=== PATIENT | male | born 1940 | race Caucasian/White ===

== ENCOUNTER 2017-08-25 23:29 | Inpatient (IN) | payer OTHER ==
--- NOTE | 2017-08-25 23:53 | PDOC ---
History of Present Illness - General Chief Complaint: Shortness of Breath Stated Complaint: COPD - History of Present Illness Initial Comments: Patient is a 77 year old male, with a significant past medical history of COPD, prostate CA, who presents to the emergency department complaining of worsening SOB and productive cough at home. Pt recently admitted at [facility] for PNA/ COPD exacerbation one week ago. Yesterday, pt endorsed developing productive cough w/ clear sputum and worsening dyspnea. Per , pt appeared markedly more SOB this afternoon with persistent cough. No fever/chills, CP, HAWKINS, ab pain , N/V, diarrhea/constipation. No recent sick contacts or travel. Pt O2 dependent on 3L at home. Allergies: None Past surgical history: None Social History: Denies all toxic habits PMD: Dr. Gab Seay 08/25/17 23:53 Past History - Past Medical History Allergies/Adverse Reactions: Allergies Allergy/AdvReac Type Severity Reaction Status Date / Time No Known Allergies Allergy Verified 08/26/17 00:39 Home Medications: Ambulatory Orders Albuterol 2.5/Ipratropium 0.5 [Duoneb -] 1 neb IH QID 08/26/17 Aspirin [ASA -] 81 mg PO DAILY 08/26/17 Atorvastatin Ca [Lipitor] 20 mg PO HS 08/26/17 Bisoprolol Fumarate 5 mg PO DAILY 08/26/17 Budesonide/Formeterol Fumarate [SYMBICORT 160/4.5mcg -] 1 inh IH BID 08/26/17 Finasteride [Proscar -] 5 mg PO DAILY 08/26/17 Omeprazole 40 mg PO DAILY 08/26/17 Rivaroxaban [Xarelto -] 20 mg PO DAILY 08/26/17 Tamsulosin HCl 0.4 mg PO DAILY 08/26/17 Tiotropium [place] [Spiriva] 1 inh IH BID 08/26/17 Review of Systems - Review of Systems Comments:: GENERAL/CONSTITUTIONAL: No fever or chills. No weakness. HEAD, EYES, EARS, NOSE AND THROAT: No change in vision. No ear pain or discharge. No sore throat. CARDIOVASCULAR: No chest pain or shortness of breath RESPIRATORY: + productive cough, SOB, dyspnea; No wheezing, or hemoptysis. GASTROINTESTINAL: No nausea, vomiting, diarrhea or constipation. GENITOURINARY: No dysuria, frequency, or change in urination. MUSCULOSKELETAL: No joint or muscle swelling or pain. No neck or back pain. SKIN: No rash NEUROLOGIC: No headache, vertigo, loss of consciousness, or change in strength/ sensation. ENDOCRINE: No increased thirst. No abnormal weight change HEMATOLOGIC/LYMPHATIC: No anemia, easy bleeding, or history of blood clots. ALLERGIC/IMMUNOLOGIC: No hives or skin allergy. 08/26/17 00:46 *Physical Exam - Physical Exam Comments: GENERAL: Elderly man, Awake, alert, and fully oriented, in mild distress w/ persistent cough HEAD: No signs of trauma, normocephalic, atraumatic EYES: PERRLA, EOMI, sclera anicteric, conjunctiva clear ENT: Auricles normal inspection, hearing grossly normal, nares patent, oropharynx clear without exudates. Moist mucosa NECK: Normal ROM, supple, no lymphadenopathy, JVD, or masses LUNGS: Poor air entry. Diffuse rhonchi BL, worse in upper lung bowden. No wheezing or crackles. HEART: Regular rate and rhythm, normal S1 and S2, no murmurs, rubs or gallops, peripheral pulses normal and equal bilaterally. ABDOMEN: Soft, nontender, normoactive bowel sounds. No guarding, no rebound. No masses EXTREMITIES : Normal inspection, Normal range of motion, trace pedal edema. No clubbing or cyanosis. NEUROLOGICAL: Cranial nerves II through XII grossly intact. Normal speech, normal gait, no focal sensorimotor deficits SKIN: Warm, Dry, normal turgor, no rashes or lesions noted 08/26/17 00:47 ED Treatment Course - LABORATORY CBC & Chemistry Diagram: 08/26/17 00:26 08/26/17 00:26 Medical Decision Making - Medical Decision Making Patient is a 77 year old male, with a significant past medical history of COPD, prostate CA, who presents to the emergency department complaining of worsening SOB and productive cough at home. DDX includes COPD exacerbation, PNA, URI, PE. Plan: - CBC, cmp, coags, lactic acid - blood cultures - CXR, EKG, ABG - IV solumedrol, 2g mag sulture, duonebs - Cardiac, o2 monitoring - O2 support - Likely admission for COPD exacerbation 08/26/17 00:49 ABG 7.36/64/43. CXR with no focal opacities appreciable; Sign-out given to Dr. Dafne richardson. Will admit to M/S. Pt has received Duonebs x4, Mag 2g, and solumedrol 125mg IV 08/26/17 02:43 *DC/Admit/Observation/Transfer Diagnosis at time of Disposition: COPD exacerbation - Discharge Dispostion Condition at time of disposition: Stable Decision to Admit order: Yes - Referrals Referrals: ON STAFF,NOT [Primary Care Provider] - - Patient Instructions - Post Discharge Activity
--- NOTE | 2017-08-26 00:37 | PDOC ---
Attending Attestation - Resident Resident Name: Jasper Brown - ED Attending Attestation I have performed the following: I have examined & evaluated the patient, The case was reviewed & discussed with the resident, I agree w/resident's findings & plan, Exceptions are as noted - Physicial Exam PE: 08/26/17 00:51 *Physical Exam General Appearance: Yes: Appropriately Dressed. No: Apparent Distress, Intoxicated HEENT: positive: EOMI, TANI, Normal ENT Inspection, Normal Voice, TMs Normal, Pharynx Normal. negative: Pale Conjunctivae, Photophobia, Scleral Icterus (R), Scleral Icterus (L) Neck: positive: Trachea midline, Normal Thyroid, Supple. negative: Tender, Rigid, Carotid bruit, Stridor, Lymphadenopathy (R), Lymphadenopathy (L), Thyromegaly Respiratory/Chest: positive: decreased BS throughout all lung bowden + conversational dyspnea + scattered wheezing . negative: Chest Tender Cardiovascular: positive: Regular Rhythm, Regular Rate, S1, S2. negative: Edema , JVD, Murmur, Bradycardia, Tachycardia Vascular Pulses: Dorsalis-Pedis (R): 2+, Doralis-Pedis (L): 2+ Gastrointestinal/Abdominal: positive: Normal Bowel Sounds, Flat, Soft. negative : Tender, Organomegaly, Pulsatile Mass, Increased Bowel Sounds, Decreased BS, Distended, Guarding, Rebound, Hernia, Hepatomegaly, Spleenomegaly Lymphatic: negative: Adenopathy, Tenderness Musculoskeletal: positive: Normal Inspection. negative: CVA Tenderness, Decreased Range of Motion Extremity: positive: Normal Capillary Refill, Normal Inspection, Normal Range of Motion, Pelvis Stable. negative: Tender, Pedal Edema, Swelling, Erythema Integumentary: positive: Normal Color, Dry, Warm. negative: Cyanotic, Erythema , Jaundice, Rash Neurologic: positive: production line II-XII NML intact, Fully Oriented, Alert, Normal Mood/ Affect, Motor Strength 5/5. negative: EOM Palsy, Facial Droop, Sensory Deficit <Collin Ayala - Last Filed: 08/26/17 00:50> - HPI HPI: 08/26/17 01:19 The patient is a 77 year old male with past medical history of prostate cancer and COPD (on 3 L O2 at home) who presents to the ED with worsening shortness of breath for one day. The patient was admitted at [facility] last week for pneumonia/COPD exacerbation. Yesterday he developed a productive cough with clear sputum and became increasingly dyspneic today. - Medical Decision Making 08/26/17 01:19 Documentation prepared by Victorina Urias, acting as medical administrative technician for Collin Ayala DO. <Victorina Urias - Last Filed: 08/26/17 01:19>
[2017-08-26] MEDS ORDERED: methylPREDNISolone NA SUCC 125 MG/2 ML VIAL IVPB ONE (00:39)
[2017-08-26 00:40] LABS: BASO % 0.5 % (0-2.0); EOS % 2.1 % (0-4.5); HEMOGLOBIN 12.9 GM/dL (11.7-16.9); LYMPH % 12.3 % (8-40); MCH 27.1 pg (25.7-33.7); MCHC 31.6 g/dl (32.0-35.9); MEAN CELL VOLUME 85.9 fl (80-96); MEAN PLT VOLUME 7.5 fl (7.5-11.1); MONO % 7.5 % (3.8-10.2); NEUT % 77.6 % (42.8-82.8); PLATELET COUNT 190 K/MM3 (134-434); RBC 4.77 M/mm3 (4.00-5.60); WHITE BLOOD COUNT 5.7 K/mm3 (4.0-10.0)
[2017-08-26] MEDS ORDERED: MAGNESIUM SULF 50% (8.12 MEQ/2 ML-1 GM VIAL) IVPB ONE (00:40)
[2017-08-26] MEDS ORDERED: ALBUTEROL SO4 2.5/IPRATROPIUM 0.5 INH SOL 3 ML VIAL.NEB. NEB ONE ×2 (00:41→01:18)
[2017-08-26 00:53] LABS: INR 2.27 (0.82-1.09); PROTHROMBIN TIME (PATIENT) 25.6 SEC (9.7-13.0)
[2017-08-26 01:06] LABS: ALBUMIN 3.2 g/dl (3.4-5.0); ANION GAP 5 (8-16); BILIRUBIN,TOTAL 0.6 mg/dL (0.2-1.0); BLOOD UREA NITROGEN 11 mg/dL (7-18); CALCIUM 8.4 mg/dL (8.5-10.1); CHLORIDE 96 mmol/L (98-107); CO2 37 mmol/L (21-32); CREATININE 0.6 mg/dL (0.7-1.3); GLUCOSE,RANDOM 92 mg/dL (74-106); SGOT/AST 19 U/L (15-37); SGPT/ALT 22 U/L (12-78); SODIUM 138 mmol/L (136-145); TOT PROT 6.9 g/dl (6.4-8.2)
[2017-08-26 01:07] LABS: ALK PHOS 103 U/L (45-117)
[2017-08-26] MEDS ORDERED: MAGNESIUM SULF 50% (8.12 MEQ/2 ML-1 GM VIAL) ONE (01:17)
[2017-08-26] MEDS ORDERED: methylPREDNISolone NA SUCC 125 MG/2 ML VIAL ONE (01:18)
[2017-08-26 01:45] LABS: ARTERIAL BLD GAS O2 SATURATION 81.8 % (90-98.9); ARTERIAL BLOOD GAS pH 7.36 (7.35-7.45)
[2017-08-26 01:48] LABS: CARBOXYHEMOGLOBIN 1.4 gm% (0.5-2.0)
[2017-08-26 01:49] LABS: ALLENS TEST POSITIVE
[2017-08-26 01:50] LABS: ARTERIAL BLOOD GAS PCO2 64.2 mmHg (35-45); ARTERIAL BLOOD GAS PO2 43.6 mmHg (70-100)
--- NOTE | 2017-08-26 03:49 | HP ---
CHIEF COMPLAINT: shortness of breath PCP: Dr. Gab Seay MINISTER OF RELIGION: Dr. 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 He states that he was recently admitted to [facility] for PNA/COPD on August 19, given antibiotics that the patient cannot remember, and discharged 1 week ago. Yesterday he began experiencing progressive shortness of breath and increased cough with white sputum production. Denies fevers, chills, chest pain, nausea, vomiting or diarrhea. Patient reports never being intubated in the past. He reports being on 3L O2 @ home. His discharge instructions from [facility] lists Xarelto as a new medication, stating "2D echo was ordered and CTA; the echo showed new findings of RVH and pulm HTN for which he was re-started on xarelto.....the CTA was negative for PE". He is currently taking xarelto. Denies history of A fib or any cardiac procedures. Currently, the patient feels much improved compared to initial presentation. ED treated patient with solumedrol 125, Mg 2g, and duonebs. ER course was notable for: (1) INR 2.27 (2) CXR hyperinflated and flattened diaphragms (3) EKG NSR w/ possible LA enlargement QTc 430 Recent Travel: none PAST MEDICAL HISTORY: as listed above PAST SURGICAL HISTORY: none Social History: Smokin pack year history, quit 10 years ago Alcohol: denies Drugs: denies Allergies No Known Allergies Allergy (Verified 08/26/17 00:39) HOME MEDICATIONS: Home Medications Medication Instructions Recorded Albuterol 2.5/Ipratropium 0.5 1 neb IH QID 08/26/17 [Duoneb -] Aspirin [ASA -] 81 mg PO DAILY 08/26/17 Atorvastatin Ca [Lipitor] 20 mg PO HS 08/26/17 Bisoprolol Fumarate 5 mg PO DAILY 08/26/17 Budesonide/Formeterol Fumarate 1 inh IH BID 08/26/17 [SYMBICORT 160/4.5mcg -] Finasteride [Proscar -] 5 mg PO DAILY 08/26/17 Omeprazole 40 mg PO DAILY 08/26/17 Rivaroxaban [Xarelto -] 20 mg PO DAILY 08/26/17 Tamsulosin HCl 0.4 mg PO DAILY 08/26/17 Tiotropium [place] [Spiriva] 1 inh IH BID 08/26/17 REVIEW OF SYSTEMS CONSTITUTIONAL: Absent: fever, chills, diaphoresis, generalized weakness, malaise, loss of appetite, weight change HEENT: Absent: rhinorrhea, nasal congestion, throat pain, throat swelling, difficulty swallowing, mouth swelling, ear pain, eye pain, visual changes CARDIOVASCULAR: Absent: chest pain, syncope, palpitations, irregular heart rate, lightheadedness , peripheral edema RESPIRATORY: Absent: cough, shortness of breath, dyspnea with exertion, orthopnea, wheezing, stridor, hemoptysis GASTROINTESTINAL: Absent: abdominal pain, abdominal distension, nausea, vomiting, diarrhea, constipation, melena, hematochezia GENITOURINARY: Absent: dysuria, frequency, urgency, hesitancy, hematuria, flank pain, genital pain MUSCULOSKELETAL: Absent: myalgia, arthralgia, joint swelling, back pain, neck pain SKIN: Absent: rash, itching, pallor HEMATOLOGIC/IMMUNOLOGIC: Absent: easy bleeding, easy bruising, lymphadenopathy, frequent infections ENDOCRINE: Absent: unexplained weight gain, unexplained weight loss, heat intolerance, cold intolerance NEUROLOGIC: Absent: headache, focal weakness or paresthesias, dizziness, unsteady gait, seizure, mental status changes, bladder or bowel incontinence PSYCHIATRIC: Absent: anxiety, depression, suicidal or homicidal ideation, hallucinations. PHYSICAL EXAMINATION Vital Signs - 24 hr 08/25/17 08/26/17 23:30 01:08 Temperature 98.5 F Pulse Rate 96 H Blood Pressure 148/94 O2 Sat by Pulse 98 Oximetry (%) GENERAL: A&Ox3 EYES: PERRLA, EOMI ENT: oropharynx without erythema NECK: No JVD LUNGS: Decreased breath sounds noted in the R lower lobe, no wheezing noted on exam HEART: RRR no murmurs appreciated ABDOMEN: Soft nontender BS present UPPER EXTREMITIES: 2+ pulses, 4/5 muscle strength of Larm, 5/5 R arm LOWER EXTREMITIES: 2+ pulses, warm, well-perfused. No calf tenderness. No peripheral edema. NEUROLOGICAL: Cranial nerves II-XII intact. Gait not observed Laboratory Results - last 24 hr 08/26/17 08/26/17 08/26/17 00:26 00:26 00:26 WBC 5.7 RBC 4.77 Hgb 12.9 Hct 41.0 MCV 85.9 MCH 27.1 MCHC 31.6 L RDW 15.0 Plt Count 190 MPV 7.5 Neutrophils % 77.6 Lymphocytes % 12.3 Monocytes % 7.5 Eosinophils % 2.1 Basophils % 0.5 Nucleated RBC % 0 PT with INR 25.60 H INR 2.27 H Anticoagulation Therapy Puncture Site ABG pH ABG pCO2 at Pt Temp ABG pO2 at Pt Temp ABG HCO3 ABG O2 Sat (Measured) ABG O2 Content ABG Base Excess Ronny Test Carboxyhemoglobin Methemoglobin O2 Delivery Device Oxygen Flow Rate Vent Mode Vent Rate Mechanical Rate Pressure Support Vent Sodium 138 Potassium 4.0 Chloride 96 L Carbon Dioxide 37 H Anion Gap 5 L BUN 11 Creatinine 0.6 L Creat Clearance w eGFR > 60 Random Glucose 92 Lactic Acid Calcium 8.4 L Total Bilirubin 0.6 AST 19 ALT 22 Alkaline Phosphatase 103 Total Protein 6.9 Albumin 3.2 L 08/26/17 08/26/17 08/26/17 00:26 01:34 01:34 WBC RBC Hgb Hct MCV MCH MCHC RDW Plt Count MPV Neutrophils % Lymphocytes % Monocytes % Eosinophils % Basophils % Nucleated RBC % PT with INR INR Anticoagulation Therapy No Result Required. Puncture Site Right radial ABG pH 7.36 ABG pCO2 at Pt Temp 64.2 H* ABG pO2 at Pt Temp 43.6 L* ABG HCO3 35.3 H ABG O2 Sat (Measured) 81.8 L ABG O2 Content 14.3 L ABG Base Excess 8.0 H Ronny Test Positive Carboxyhemoglobin 1.4 Methemoglobin 1.4 O2 Delivery Device Room air Oxygen Flow Rate 21% Vent Mode No Result Required. Vent Rate No Result Required. Mechanical Rate No Result Required. Pressure Support Vent No Result Required. 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 presents for shortness of breath x1 day and productive cough suspect for acute COPD exacerbation #Acute on Chronic Hypoxic and Hypercapnic Respiratory Failure: likely 2/2 COPD exacerbation, patient is clinically improving compared to initial presentation -initial ABG ph 7.36, CO2 64.2, O2 43.6, HCO3 35.3 (primary respiratory acidosis w/ metabolic alkalosis) -repeat ABG -given solumedrol 125 IV in ED -duonebs given in ED -continue solumedrol 40 IV Q12h -albuterol/ipratropium nebulizers q6h -blood cultures pending -zithromax daily #Elevated INR: unclear as to why patient is on xarelto, DC summary from [facility] does not provide clear indication as to why he was started on the medication, only states "echo showed findings of RVH and pulmonary hypertension " and that CTA was negative for PE -patient's INR 2.26 -patient is on xarelto 20mg QD, will continue for now -Need to call PCP Dr. De La Cruz ([phone]) and [employer] Dr. Sandy ) to discuss reason for continual xarelto use and possible future cardiac catheterization as an outpatient #Prostate CA: chronic -continue tamsulosin 0.4mg PO -continue finasteride 5mg PO #Hypertension: BP 148/94 -continue bisoprolol 5mg PO QD #Hyperlipidemia: not an acute issue -continue atorvastatin 20mg PO HS #Hx CVA: not an acute issue -continue ASA 81mg PO QD -continue statin #FEN -no standing fluids -electrolytes wnl -low sodium diet #Prophylaxis -on xarelto, continue #Disposition -admit med surg Visit type - Emergency Visit Emergency Visit: Yes ED Registration Date: 08/26/17 Care time: The patient presented to the Emergency Department on the above date and was hospitalized for further evaluation of their emergent condition. - New Patient This patient is new to me today: Yes Date on this admission: 08/26/17 - Critical Care Critical Care patient: No Hospitalist Screening - Colonoscopy Questionnaire Colonoscopy Questionnaire: Colonoscopy Questionnaire - Patient: 50 - 75 years old and never had a screening colonoscopy: Unknown History of colon or rectal polyps, or CA: Unknown History of IBD, Crohn's disease or UC: Unknown History of abdominal radiation therapy as a child: Unknown - Relative: 1 with colon or rectal CA, or polyps at age 60 or younger: Unknown Colon or rectal CA diagnosed at age 45 or younger: Unknown Multiple relatives with colon or rectal CA: Unknown - Outcome: Screening Result: Negative Screen
[2017-08-26] MEDS ORDERED: methylPREDNISolone NA SUCC 40 MG/1 ML VIAL IVPUSH SCH ×4 (04:45→10:35)
[2017-08-26] MEDS ORDERED: methylPREDNISolone NA SUCC 40 MG/1 ML VIAL ONE (04:50)
[2017-08-26 05:53] VITALS: BMI 20.5
--- NOTE | 2017-08-26 06:27 | PN ---
Teaching Attending Note Name of Resident: Saurav Whitten ATTENDING PHYSICIAN STATEMENT I saw and evaluated the patient. Chart,data, imaging reviewed. I reviewed the resident's note and discussed the case with the resident. I agree with the resident's findings and plan as documented. SUBJECTIVE: 77 year old male with a hx of COPD (on home o2 -3L), prostate CA, CVA ( 5 years ago with residual L sided weakness), DVT in 2015 presents to the hospital for 1 day hx of shortness of breath and cough. Recently discharged from [facility] after being treated for PNA. Patient denied any fevers, chills. [facility] listed Xarelto as home medication but it is unclear why he is on it. Given nebulizer rx in ER and solumedrol IV. OBJECTIVE: Last Vital Signs Temp Pulse Resp BP Pulse Ox 98.3 F 89 18 120/80 96 08/26/17 05:38 08/26/17 05:38 08/26/17 05:38 08/26/17 05:38 08/26/17 05:53 general -nad, aaox3, fragile heent- at, nc, moist oral mucosa neck -supple, no jvd cv-s1+s2s+rrr chest-lungs with decreased breath sounds b/l abdomen- soft, nt, bs+ skin -no rashes seen Abnormal Lab Results 08/26/17 08/26/17 08/26/17 00:26 00:26 00:26 MCHC 31.6 L PT with INR 25.60 H INR 2.27 H ABG pCO2 at Pt Temp ABG pO2 at Pt Temp ABG HCO3 ABG O2 Sat (Measured) ABG O2 Content ABG Base Excess Chloride 96 L Carbon Dioxide 37 H Anion Gap 5 L Creatinine 0.6 L Calcium 8.4 L Albumin 3.2 L 08/26/17 01:34 MCHC PT with INR INR ABG pCO2 at Pt Temp 64.2 H* ABG pO2 at Pt Temp 43.6 L* ABG HCO3 35.3 H ABG O2 Sat (Measured) 81.8 L ABG O2 Content 14.3 L ABG Base Excess 8.0 H Chloride Carbon Dioxide Anion Gap Creatinine Calcium Albumin cxr -reviewed, sharp costophrenic angles, flat diaphragms ASSESSMENT AND PLAN: # Hypoxic and Hypercapnic Respiratory Failure-likely 2/2 COPD exacerbation- initial ABG ph 7.36, CO2 64.2, O2 43.6 -med/surg -repeat ABG -given solumedrol 125mg IV in ED -continue solumedrol 40 IV Q12h -duonebs q6hrs -azithromax 500mg PO daily -supplemental o2 via nasal cannula -Bipap for resp acidosis Restart home medications for chronic medical problems. Unclear why patient is on Xarelto but will call PCP and find out. xarelto for dvt ppx for now
[2017-08-26] MEDS ORDERED: ALBUTEROL SO4 0.083% IH SOL 2.5 MG/3 ML VIAL.NEB. NEB PRN (07:51)
[2017-08-26] MEDS ORDERED: IPRATROPIUM BR 0.02% 0.5 MG/2.5 ML VIAL.NEB. NEB SCH (08:00)
[2017-08-26] MEDS ORDERED: ALBUTEROL SO4 0.083% IH SOL 2.5 MG/3 ML VIAL.NEB. NEB SCH (08:00)
[2017-08-26] MEDS: ALBUTEROL SO4 2.5/IPRATROPIUM 0.5 INH SOL 3 ML VIAL.NEB. NEB SCH ×2 (08:28→11:05)
[2017-08-26] MEDS ORDERED: TAMSULOSIN HCL 0.4 MG CAP.ER.24H (FP) PO SCH (08:30)
[2017-08-26] MEDS ORDERED: PT OWN MED DRAWER 7, Y5N ONE (09:18)
[2017-08-26] MEDS ORDERED: BUDESONIDE/FORMETEROL FUMARATE 160/4.5 mcg INHALER IH SCH (10:00)
[2017-08-26] MEDS ORDERED: ASPIRIN 81 MG CHEWABLE TABLETS PO SCH (10:00)
[2017-08-26] MEDS ORDERED: PANTOPRAZOLE 40 MG TABLET (FP) PO SCH (10:00)
[2017-08-26] MEDS ORDERED: AZITHROMYCIN 250 MG TABLET PO SCH (10:00)
[2017-08-26] MEDS ORDERED: ATENOLOL 50 MG TABLET (FP) PO SCH (10:00)
[2017-08-26] MEDS ORDERED: FINASTERIDE 5 MG TABLET (FP) PO SCH (10:00)
[2017-08-26 10:59] LABS: BASO % 0.1 % (0-2.0); HEMATOCRIT 40.3 % (35.4-49); HEMOGLOBIN 12.7 GM/dL (11.7-16.9); LYMPH % 3.7 % (8-40); MCH 27.1 pg (25.7-33.7); MCHC 31.6 g/dl (32.0-35.9); MEAN CELL VOLUME 85.7 fl (80-96); MEAN PLT VOLUME 7.5 fl (7.5-11.1); MONO % 1.2 % (3.8-10.2); PLATELET COUNT 199 K/MM3 (134-434); RBC 4.71 M/mm3 (4.00-5.60); WHITE BLOOD COUNT 4.6 K/mm3 (4.0-10.0)
[2017-08-26 11:28] LABS: ALBUMIN 2.9 g/dl (3.4-5.0); ANION GAP 8 (8-16); BILIRUBIN,TOTAL 0.5 mg/dL (0.2-1.0); BLOOD UREA NITROGEN 14 mg/dL (7-18); CALCIUM 8.5 mg/dL (8.5-10.1); CHLORIDE 95 mmol/L (98-107); CO2 35 mmol/L (21-32); CREATININE 0.7 mg/dL (0.7-1.3); GLUCOSE,RANDOM 182 mg/dL (74-106); POTASSIUM 4.5 mmol/L (3.5-5.1); SGOT/AST 18 U/L (15-37); SGPT/ALT 23 U/L (12-78); SODIUM 138 mmol/L (136-145); TOT PROT 6.5 g/dl (6.4-8.2)
[2017-08-26 11:29] LABS: ALK PHOS 95 U/L (45-117)
[2017-08-26 11:55] LABS: PLATELET ESTIMATE NORMAL
--- NOTE | 2017-08-26 13:10 | DS ---
Physical Exam: SUBJECTIVE: Patient seen and examined at bedside. No complaints at this time. OBJECTIVE: Vital Signs Period Temp Pulse Resp BP Sys/Thurman Pulse Ox Last 24 Hr 97.8 F-98.5 F 79-96 18-20 107-148/61-94 94-98 PHYSICAL EXAM GENERAL: The patient is awake, alert, and fully oriented, in no acute distress. HEAD: Normal with no signs of trauma. EYES: sclera anicteric, conjunctiva clear. ENT:oropharynx clear without exudates, moist mucous membranes. NECK: Trachea midline, full range of motion, supple. LUNGS: Relatively poor air entry. likey at baseline considering history. HEART: decreased heart sounds. Regular rate and rhythm, S1, S2 without murmur, rub or gallop. ABDOMEN: Soft, nontender, nondistended, normoactive bowel sounds, no guarding, no rebound, no hepatosplenomegaly, no masses. EXTREMITIES: 2+ pulses, warm, well-perfused, no edema. NEUROLOGICAL: Residual L sided weakness 4/5. PSYCH: Normal mood, normal affect. SKIN: Warm, dry, normal turgor, no rashes or lesions noted. LABS Laboratory Results - last 24 hr 08/26/17 08/26/17 08/26/17 00:26 00:26 00:26 WBC 5.7 RBC 4.77 Hgb 12.9 Hct 41.0 MCV 85.9 MCH 27.1 MCHC 31.6 L RDW 15.0 Plt Count 190 MPV 7.5 Neutrophils % 77.6 Neutrophils % (Manual) Band Neutrophils % Lymphocytes % 12.3 Lymphocytes % (Manual) Monocytes % 7.5 Monocytes % (Manual) Eosinophils % 2.1 Eosinophils % (Manual) Basophils % 0.5 Basophils % (Manual) Myelocytes % (Man) Promyelocytes % (Man) Blast Cells % (Manual) Nucleated RBC % 0 Metamyelocytes Platelet Estimate PT with INR 25.60 H INR 2.27 H Anticoagulation Therapy Puncture Site ABG pH ABG pCO2 at Pt Temp ABG pO2 at Pt Temp ABG HCO3 ABG O2 Sat (Measured) ABG O2 Content ABG Base Excess Ronny Test Carboxyhemoglobin Methemoglobin O2 Delivery Device Oxygen Flow Rate Vent Mode Vent Rate Mechanical Rate Pressure Support Vent Sodium 138 Potassium 4.0 Chloride 96 L Carbon Dioxide 37 H Anion Gap 5 L BUN 11 Creatinine 0.6 L Creat Clearance w eGFR > 60 Random Glucose 92 Lactic Acid Calcium 8.4 L Total Bilirubin 0.6 AST 19 ALT 22 Alkaline Phosphatase 103 Total Protein 6.9 Albumin 3.2 L 08/26/17 08/26/17 08/26/17 00:26 01:34 01:34 WBC RBC Hgb Hct MCV MCH MCHC RDW Plt Count MPV Neutrophils % Neutrophils % (Manual) Band Neutrophils % Lymphocytes % Lymphocytes % (Manual) Monocytes % Monocytes % (Manual) Eosinophils % Eosinophils % (Manual) Basophils % Basophils % (Manual) Myelocytes % (Man) Promyelocytes % (Man) Blast Cells % (Manual) Nucleated RBC % Metamyelocytes Platelet Estimate PT with INR INR Anticoagulation Therapy No Result Required. Puncture Site Right radial ABG pH 7.36 ABG pCO2 at Pt Temp 64.2 H* ABG pO2 at Pt Temp 43.6 L* ABG HCO3 35.3 H ABG O2 Sat (Measured) 81.8 L ABG O2 Content 14.3 L ABG Base Excess 8.0 H Ronny Test Positive Carboxyhemoglobin 1.4 Methemoglobin 1.4 O2 Delivery Device Room air Oxygen Flow Rate 21% Vent Mode No Result Required. Vent Rate No Result Required. Mechanical Rate No Result Required. Pressure Support Vent No Result Required. Sodium Potassium Chloride Carbon Dioxide Anion Gap BUN Creatinine Creat Clearance w eGFR Random Glucose Lactic Acid 0.9 Calcium Total Bilirubin AST ALT Alkaline Phosphatase Total Protein Albumin 08/26/17 08/26/17 10:48 10:48 WBC 4.6 RBC 4.71 Hgb 12.7 Hct 40.3 MCV 85.7 MCH 27.1 MCHC 31.6 L RDW 15.0 Plt Count 199 MPV 7.5 Neutrophils % 95.0 H D Neutrophils % (Manual) 94.8 H Band Neutrophils % 0.0 Lymphocytes % 3.7 L D Lymphocytes % (Manual) 5.2 L Monocytes % 1.2 L D Monocytes % (Manual) 0 L Eosinophils % 0.0 D Eosinophils % (Manual) 0.0 Basophils % 0.1 Basophils % (Manual) 0.0 Myelocytes % (Man) 0 Promyelocytes % (Man) 0 Blast Cells % (Manual) 0 Nucleated RBC % 1 H Metamyelocytes 0 Platelet Estimate Normal PT with INR INR Anticoagulation Therapy Puncture Site ABG pH ABG pCO2 at Pt Temp ABG pO2 at Pt Temp ABG HCO3 ABG O2 Sat (Measured) ABG O2 Content ABG Base Excess Ronny Test Carboxyhemoglobin Methemoglobin O2 Delivery Device Oxygen Flow Rate Vent Mode Vent Rate Mechanical Rate Pressure Support Vent Sodium 138 Potassium 4.5 Chloride 95 L Carbon Dioxide 35 H Anion Gap 8 BUN 14 D Creatinine 0.7 Creat Clearance w eGFR > 60 Random Glucose 182 H D Lactic Acid Calcium 8.5 Total Bilirubin 0.5 AST 18 ALT 23 Alkaline Phosphatase 95 Total Protein 6.5 Albumin 2.9 L HOSPITAL COURSE: Date of Admission:08/26/17 Date of Discharge: 08/26/17 Pt is a 77 y/o M with COPD on 3L O2 at home, prior CVA (5 y/a), prostate CA. He was recently at [facility] for PNA/COPD and found to hvae Pulm HTN and was restarted on Xarelto (? for presumed DVT/PE) and was d/c'ed 1 week ago. e began feeling short of breath last night and came to [facility] ED. In the ED he had an ABG consistent with chronic CO2 retention and metabolic compensation. He had a CXR which did not show acute pathology. He was admitted for a COPD exacerbation and was given Zithromax, Duonebs, and steroids. This morning, pt felt very well and at his baseline. His security specialist was contacted and agreed that the pt could be sent out with instructions to follow up with in Cardio clinic today. Pt is currently stable for D/C. Minutes to complete discharge: 30 Discharge Summary Reason For Visit: ACUTE EXACERBATION/COPD Current Active Problems COPD exacerbation (Acute) Condition: Stable - Instructions Diet, Activity, Other Instructions: You need to follow up with your primary care doctor, Dr. Seay. You need to have your blood sugar testing in 2-3 days. You need to be tested for diabetes. You need to follow up with your security specialist, Dr. Sandy. Discuss with your doctor for outpatient lung doctor follow up. Make sure you take your medications. You need to use your home oxygen. Take all your home medications as before. The following medication is added to your discharge medications: Prednisone 40 mg tomorrow 08/27/2017 30 mg on 08/28/2017 20 mg on 08/29/2017 10 mg on 08/30/17, then off. Also your were noted to need oxygen mainly with walking or any activity. Referrals: ON STAFF,NOT [Primary Care Provider] - Disposition: HOME - Home Medications Comprehensive Discharge Medication List: Ambulatory Orders Albuterol 2.5/Ipratropium 0.5 [Duoneb -] 1 neb IH QID 08/26/17 Aspirin [ASA -] 81 mg PO DAILY 08/26/17 Atorvastatin Ca [Lipitor] 20 mg PO HS 08/26/17 Bisoprolol Fumarate 5 mg PO DAILY 08/26/17 Budesonide/Formeterol Fumarate [SYMBICORT 160/4.5mcg -] 1 inh IH BID 08/26/17 Finasteride [Proscar -] 5 mg PO DAILY 08/26/17 Omeprazole 40 mg PO DAILY 08/26/17 Prednisone See Taper PO DAILY 4 Days tablet 08/26/17 Rivaroxaban [Xarelto -] 20 mg PO DAILY 08/26/17 Tamsulosin HCl 0.4 mg PO DAILY 08/26/17 Tiotropium [place] [Spiriva] 1 inh IH BID 08/26/17 This patient is new to me today: Yes Date on this admission: 08/26/17 Emergency Visit: No Critical Care patient: No - Discharge Referral Referred to [facility] No
--- NOTE | 2017-08-26 13:12 | PN ---
Teaching Attending Note Name of Resident: Fei Keita ATTENDING PHYSICIAN STATEMENT I saw and evaluated the patient. I reviewed the resident's note and discussed the case with the resident. I agree with the resident's findings and plan as documented with exceptions below. SUBJECTIVE: Patient seen and examined, symptoms resolved, breathing at baseline, no chest pain or new concerns. OBJECTIVE: Vital Signs Period Temp Pulse Resp BP Sys/Thurman Pulse Ox Last 24 Hr 97.8 F-98.5 F 79-96 18-20 107-148/61-94 94-98 Intake & Output 08/23/17 08/24/17 08/25/17 08/26/17 23:59 23:59 23:59 23:59 Weight 130 lb 127 lb 6.4 oz General: sitting in bed in no acute distress Chest: distant breath sounds but no rales or wheezing, positive air entry bilaterally Home Medication List Medication Instructions Recorded Confirmed Type Albuterol 2.5/Ipratropium 0.5 1 neb IH QID 08/26/17 08/26/17 History [Duoneb -] Aspirin [ASA -] 81 mg PO DAILY 08/26/17 08/26/17 History Atorvastatin Ca [Lipitor] 20 mg PO HS 08/26/17 08/26/17 History Bisoprolol Fumarate 5 mg PO DAILY 08/26/17 08/26/17 History Budesonide/Formeterol Fumarate 1 inh IH BID 08/26/17 08/26/17 History [SYMBICORT 160/4.5mcg -] Finasteride [Proscar -] 5 mg PO DAILY 08/26/17 08/26/17 History Omeprazole 40 mg PO DAILY 08/26/17 08/26/17 History Rivaroxaban [Xarelto -] 20 mg PO DAILY 08/26/17 08/26/17 History Tamsulosin HCl 0.4 mg PO DAILY 08/26/17 08/26/17 History Tiotropium [place] [Spiriva] 1 inh IH BID 08/26/17 08/26/17 History Active Medications Generic Name Dose Route Start Last Admin Trade Name Freq PRN Reason Stop Dose Admin Albuterol Sulfate 1 amp 08/26/17 07:51 Ventolin 0.083% Nebulizer Soln - NEB Q4H PRN SHORT OF BREATH/WHEEZING Albuterol/Ipratropium 1 amp 08/26/17 08:00 08/26/17 11:05 Duoneb - NEB 1 amp RQID JACKIE Administration Aspirin 81 mg 08/26/17 10:00 08/26/17 09:26 Asa - PO 81 mg DAILY JACKIE Administration Atenolol 50 mg 08/26/17 10:00 08/26/17 09:26 Tenormin - PO 50 mg DAILY JACKIE Administration Atorvastatin Calcium 20 mg 08/26/17 22:00 Lipitor - PO HS JACKIE Azithromycin 500 mg 08/26/17 10:00 08/26/17 09:28 Zithromax - PO 08/30/17 10:01 500 mg DAILY JACKIE Administration Budesonide/Formoterol Fumarate 1 puff 08/26/17 10:00 08/26/17 09:39 Symbicort 160/4.5mcg - IH 1 puff BID [facility] Administration Finasteride 5 mg 08/26/17 10:00 08/26/17 09:26 Proscar - PO 5 mg DAILY JACKIE Administration Pantoprazole Sodium 40 mg 08/26/17 10:00 08/26/17 09:26 Protonix - PO 40 mg DAILY [facility] Administration Prednisone 60 mg 08/27/17 10:00 Deltasone - PO DAILY [facility] Rivaroxaban 20 mg 08/26/17 18:00 Xarelto - PO DAILY@1800 [facility] Tamsulosin HCl 0.4 mg 08/26/17 08:30 08/26/17 08:25 Flomax - PO 0.4 mg DAILY@0830 [facility] Administration Laboratory Results - last 24 hr 08/26/17 08/26/17 08/26/17 00:26 00:26 00:26 WBC 5.7 RBC 4.77 Hgb 12.9 Hct 41.0 MCV 85.9 MCH 27.1 MCHC 31.6 L RDW 15.0 Plt Count 190 MPV 7.5 Neutrophils % 77.6 Neutrophils % (Manual) Band Neutrophils % Lymphocytes % 12.3 Lymphocytes % (Manual) Monocytes % 7.5 Monocytes % (Manual) Eosinophils % 2.1 Eosinophils % (Manual) Basophils % 0.5 Basophils % (Manual) Myelocytes % (Man) Promyelocytes % (Man) Blast Cells % (Manual) Nucleated RBC % 0 Metamyelocytes Platelet Estimate PT with INR 25.60 H INR 2.27 H Anticoagulation Therapy Puncture Site ABG pH ABG pCO2 at Pt Temp ABG pO2 at Pt Temp ABG HCO3 ABG O2 Sat (Measured) ABG O2 Content ABG Base Excess Ronny Test Carboxyhemoglobin Methemoglobin O2 Delivery Device Oxygen Flow Rate Vent Mode Vent Rate Mechanical Rate Pressure Support Vent Sodium 138 Potassium 4.0 Chloride 96 L Carbon Dioxide 37 H Anion Gap 5 L BUN 11 Creatinine 0.6 L Creat Clearance w eGFR > 60 Random Glucose 92 Lactic Acid Calcium 8.4 L Total Bilirubin 0.6 AST 19 ALT 22 Alkaline Phosphatase 103 Total Protein 6.9 Albumin 3.2 L 08/26/17 08/26/17 08/26/17 00:26 01:34 01:34 WBC RBC Hgb Hct MCV MCH MCHC RDW Plt Count MPV Neutrophils % Neutrophils % (Manual) Band Neutrophils % Lymphocytes % Lymphocytes % (Manual) Monocytes % Monocytes % (Manual) Eosinophils % Eosinophils % (Manual) Basophils % Basophils % (Manual) Myelocytes % (Man) Promyelocytes % (Man) Blast Cells % (Manual) Nucleated RBC % Metamyelocytes Platelet Estimate PT with INR INR Anticoagulation Therapy No Result Required. Puncture Site Right radial ABG pH 7.36 ABG pCO2 at Pt Temp 64.2 H* ABG pO2 at Pt Temp 43.6 L* ABG HCO3 35.3 H ABG O2 Sat (Measured) 81.8 L ABG O2 Content 14.3 L ABG Base Excess 8.0 H Ronny Test Positive Carboxyhemoglobin 1.4 Methemoglobin 1.4 O2 Delivery Device Room air Oxygen Flow Rate 21% Vent Mode No Result Required. Vent Rate No Result Required. Mechanical Rate No Result Required. Pressure Support Vent No Result Required. Sodium Potassium Chloride Carbon Dioxide Anion Gap BUN Creatinine Creat Clearance w eGFR Random Glucose Lactic Acid 0.9 Calcium Total Bilirubin AST ALT Alkaline Phosphatase Total Protein Albumin 08/26/17 08/26/17 10:48 10:48 WBC 4.6 RBC 4.71 Hgb 12.7 Hct 40.3 MCV 85.7 MCH 27.1 MCHC 31.6 L RDW 15.0 Plt Count 199 MPV 7.5 Neutrophils % 95.0 H D Neutrophils % (Manual) 94.8 H Band Neutrophils % 0.0 Lymphocytes % 3.7 L D Lymphocytes % (Manual) 5.2 L Monocytes % 1.2 L D Monocytes % (Manual) 0 L Eosinophils % 0.0 D Eosinophils % (Manual) 0.0 Basophils % 0.1 Basophils % (Manual) 0.0 Myelocytes % (Man) 0 Promyelocytes % (Man) 0 Blast Cells % (Manual) 0 Nucleated RBC % 1 H Metamyelocytes 0 Platelet Estimate Normal PT with INR INR Anticoagulation Therapy Puncture Site ABG pH ABG pCO2 at Pt Temp ABG pO2 at Pt Temp ABG HCO3 ABG O2 Sat (Measured) ABG O2 Content ABG Base Excess Ronny Test Carboxyhemoglobin Methemoglobin O2 Delivery Device Oxygen Flow Rate Vent Mode Vent Rate Mechanical Rate Pressure Support Vent Sodium 138 Potassium 4.5 Chloride 95 L Carbon Dioxide 35 H Anion Gap 8 BUN 14 D Creatinine 0.7 Creat Clearance w eGFR > 60 Random Glucose 182 H D Lactic Acid Calcium 8.5 Total Bilirubin 0.5 AST 18 ALT 23 Alkaline Phosphatase 95 Total Protein 6.5 Albumin 2.9 L ASSESSMENT AND PLAN: 77 yom with pMHx of COPD, prostate CA, CVA (5 years ago with residual L sided weakness), DVT in 2014, recently admitted to [facility] with dyspnea, sent out on prednisone taper, also neg CTA but 2D echo with RVH/pul HTN, placed on xarelto comes back with dyspnea, s/p steroids and nebs in the ED and improved now. -Acute on chronic hypoxic/hypercapneic respiratory failure -CAD -COPD -H/o CVA and DVT -h/o Prostate CA Plan: Breathing at baseline. Pre and post ambulatory oxygen sats noted, short prednisone taper. [facility] records reviewed, plan for cardiac cath outpatient. Discussed with Outpatient cardilogist, outpatient follow up with him as discussed. Continue medical management and xarelto. Hyperglyemia this AM, likely steroids induced. outpatient blood sugar check with PCP in next week and diabetic work up. d/c home today with outpatient PCP and cardiology follow up. Plan discussed with patient in detail, all questions answered.
[2017-08-26 15:10] VITALS: BP 117/70; PULSE 86; TEMP 98.2
[2017-08-26] MEDS ORDERED: RIVAROXABAN 20 MG TABLET PO SCH (18:00)
[2017-08-26] MEDS ORDERED: ATORVASTATIN CA 20 MG TABLET (FP) PO SCH (22:00)
--- NOTE | 2017-08-27 08:53 | EKG ---
Test Reason : Blood Pressure : / mmHG Vent. Rate : 093 BPM Atrial Rate : 093 BPM P-R Int : 126 ms QRS Dur : 072 ms QT Int : 346 ms P-R-T Axes : 092 011 082 degrees QTc Int : 430 ms NORMAL SINUS RHYTHM POSSIBLE LEFT ATRIAL ENLARGEMENT LOW VOLTAGE QRS BORDERLINE ECG NO PREVIOUS ECGS AVAILABLE Confirmed by MARLENY DEGROOT, SIRISHA ([id number]) on 08/27/2017 8:53:22 AM Referred By: Confirmed By:SIRISHA FARMER MD
[2017-08-27] MEDS ORDERED: predniSONE 20 MG TABLET (UD) PO SCH (10:00)
== END 2017-08-26 16:16 | disposition home or self-care (01) | DRG 189 ==
LOC: JER 23:29 → JERBED 08-26 02:41 → UNDOADMIN 08-26 03:18 → JERBED 08-26 03:18 → J6S 08-26 05:16
PROVIDERS: ADMIT Internal Medicine; ATTEND Hospitalist
DX: J96.21 Acute and chronic respiratory failure with hypoxia (principal); J44.1 Chronic obstructive pulmonary disease with (acute) exacerbation; I69.354 Hemiplegia and hemiparesis following cerebral infarction affecting left non-dominant side; J96.22 Acute and chronic respiratory failure with hypercapnia; I25.10 Atherosclerotic heart disease of native coronary artery without angina pectoris; E78.5 Hyperlipidemia, unspecified; I10 Essential (primary) hypertension; R79.1 Abnormal coagulation profile
CPT/HCPCS: 36415; 36600; 71045-TC-FY; 80053; 82375; 82803; 83050; 83605; 85025; 85610; 87040; 93005; 93010; 94640; 94761; 97116-GP; 97161-GP; 99285-25; J7620

== ENCOUNTER 2017-08-27 04:46 | Inpatient (IN) | payer OTHER ==
--- NOTE | 2017-08-27 06:10 | PDOC ---
History of Present Illness - General Chief Complaint: Shortness of Breath Stated Complaint: DIFFICULTY BREATHING Time Seen by Provider: 08/27/17 05:25 - History of Present Illness Initial Comments: 08/27/17 06:08 77yoM hx of COPD< DC'ed from hospital yesterday afternoon after presnetation for COPD exacerbation now prsents w/ increasing SOB at home per family. Endorsee taking albuterol MDI as prescribed after leaving the hospital. No fevers, no changes in symtpoms other than feeling of difficulty breathing despite O2 therapy. PMHx as above no etoh/illcits NKDA NAD lungs quiet, prolonged exp phase, pt cachectic. RRR soft NTND no edema 77yoM w/ persistent resp difficulties in setting of COPD exacerbation. - nebs - repeat CXR - reeval and likely readmit. Past History - Past Medical History Allergies/Adverse Reactions: Allergies Allergy/AdvReac Type Severity Reaction Status Date / Time No Known Allergies Allergy Verified 08/27/17 05:10 Home Medications: Ambulatory Orders Albuterol 2.5/Ipratropium 0.5 [Duoneb -] 1 neb IH QID 08/26/17 Aspirin [ASA -] 81 mg PO DAILY 08/26/17 Atorvastatin Ca [Lipitor] 20 mg PO HS 08/26/17 Bisoprolol Fumarate 5 mg PO DAILY 08/26/17 Budesonide/Formeterol Fumarate [SYMBICORT 160/4.5mcg -] 1 inh IH BID 08/26/17 Finasteride [Proscar -] 5 mg PO DAILY 08/26/17 Omeprazole 40 mg PO DAILY 08/26/17 Prednisone See Taper PO DAILY 4 Days tablet 08/26/17 Rivaroxaban [Xarelto -] 20 mg PO DAILY 08/26/17 Tamsulosin HCl 0.4 mg PO DAILY 08/26/17 Tiotropium [place] [Spiriva] 1 inh IH BID 08/26/17 Cancer: Yes (PROSTATE) CVA: Yes COPD: Yes - Suicide/Smoking/Psychosocial Hx Smoking History: Never smoked Have you smoked in the past 12 months: No Information on smoking cessation initiated: No Hx Alcohol Use: No Drug/Substance Use Hx: No Substance Use Type: None *Physical Exam - Vital Signs Last Vital Signs Temp Pulse Resp BP Pulse Ox 97.7 F 94 H 24 143/91 100 08/27/17 05:05 08/27/17 05:05 08/27/17 05:05 08/27/17 05:05 08/27/17 05:05 *DC/Admit/Observation/Transfer - Discharge Dispostion Condition at time of disposition: Fair - Referrals - Patient Instructions - Post Discharge Activity
[2017-08-27] MEDS ORDERED: predniSONE 20 MG TABLET (UD) PO ONE (06:11)
[2017-08-27] MEDS: IPRATROPIUM BR 0.02% 0.5 MG/2.5 ML VIAL.NEB. NEB SCH ×6 (06:28→21:00)
[2017-08-27] MEDS: ALBUTEROL SO4 0.083% IH SOL 2.5 MG/3 ML VIAL.NEB. NEB SCH ×6 (06:29→08:30)
[2017-08-27] MEDS ORDERED: predniSONE 20 MG TABLET (UD) ONE ×2 (06:43→10:01)
[2017-08-27] MEDS ORDERED: IPRATROPIUM BR 0.02% 0.5 MG/2.5 ML VIAL.NEB. NEB ONE ×2 (06:44→06:55)
[2017-08-27] MEDS ORDERED: ALBUTEROL SO4 0.083% IH SOL 2.5 MG/3 ML VIAL.NEB. NEB ONE ×3 (06:44→10:01)
[2017-08-27 06:49] LABS: BASO % 0.1 % (0-2.0); EOS % 0.1 % (0-4.5); HEMATOCRIT 38.2 % (35.4-49); HEMOGLOBIN 12.4 GM/dL (11.7-16.9); LYMPH % 4.6 % (8-40); MCH 27.8 pg (25.7-33.7); MCHC 32.4 g/dl (32.0-35.9); MEAN CELL VOLUME 85.7 fl (80-96); MEAN PLT VOLUME 7.8 fl (7.5-11.1); MONO % 9.1 % (3.8-10.2); NEUT % 86.1 % (42.8-82.8); PLATELET COUNT 187 K/MM3 (134-434); RBC 4.45 M/mm3 (4.00-5.60); WHITE BLOOD COUNT 9.5 K/mm3 (4.0-10.0)
[2017-08-27 07:16] LABS: ANION GAP 2 (8-16); BLOOD UREA NITROGEN 19 mg/dL (7-18); CALCIUM 8.5 mg/dL (8.5-10.1); CHLORIDE 98 mmol/L (98-107); CO2 39 mmol/L (21-32); CREATININE 0.6 mg/dL (0.7-1.3); GLUCOSE,RANDOM 128 mg/dL (74-106); SODIUM 139 mmol/L (136-145)
[2017-08-27 07:20] LABS: POTASSIUM 5.2 mmol/L (3.5-5.1)
--- NOTE | 2017-08-27 07:54 | PDOC ---
*Physical Exam - Vital Signs Last Vital Signs Temp Pulse Resp BP Pulse Ox 97.7 F 82 24 143/91 97 08/27/17 05:05 08/27/17 06:04 08/27/17 05:05 08/27/17 05:05 08/27/17 06:04 <Kirstin Mcmillan - Last Filed: 08/27/17 08:23> - Vital Signs Last Vital Signs Temp Pulse Resp BP Pulse Ox 97.7 F 82 24 143/91 97 08/27/17 05:05 08/27/17 06:04 08/27/17 05:05 08/27/17 05:05 08/27/17 06:04 - Physical Exam Comments: 08/27/17 08:30 The patient is a 77 year old male with a significant past medical history of COPD, discharged from this hospital yesterday afternoon after presentation for COPD exacerbation, who presents today with increasing shortness of breath at home. GENERAL: Awake, alert, and fully oriented, in no acute distress HEAD: No signs of trauma EYES: PERRLA, EOMI, sclera anicteric, conjunctiva clear ENT: Auricles normal inspection, hearing grossly normal, nares patent, oropharynx clear without exudates. Moist mucosa NECK: Normal ROM, supple, no lymphadenopathy, JVD, or masses LUNGS: (+) Diffuse wheezing throughout, using accessory muscles to breath. HEART: Regular rate and rhythm, normal S1 and S2, no murmurs, rubs or gallops ABDOMEN: Soft, nontender, normoactive bowel sounds. No guarding, no rebound. No masses EXTREMITIES: Normal range of motion, no edema. No clubbing or cyanosis. No cords, erythema, or tenderness NEUROLOGICAL: Cranial nerves II through XII grossly intact. Normal speech, normal gait SKIN: Warm, Dry, normal turgor, no rashes or lesions noted. <Angelo Benz - Last Filed: 08/27/17 08:34> ED Treatment Course - LABORATORY CBC & Chemistry Diagram: 08/27/17 06:25 08/27/17 06:25 - ADDITIONAL ORDERS Additional order review: Laboratory Results 08/27/17 06:25 Sodium 139 Potassium 5.2 H Chloride 98 Carbon Dioxide 39 H Anion Gap 2 L BUN 19 H D Creatinine 0.6 L Random Glucose 128 H D Calcium 8.5 Creatine Kinase 85 Troponin I < 0.02 05/26/18 06:25 RBC 4.45 MCV 85.7 MCHC 32.4 RDW 15.0 MPV 7.8 Neutrophils % 86.1 H Lymphocytes % 4.6 L D Monocytes % 9.1 D Eosinophils % 0.1 D Basophils % 0.1 - Medications Given in the ED: ED Medications Discontinued Medications Generic Name Dose Route Start Last Admin Trade Name Lyn PRN Reason Stop Dose Admin Albuterol Sulfate 1 amp 08/27/17 06:15 08/27/17 06:41 Ventolin 0.083% Nebulizer Soln - NEB 08/27/17 06:36 1 amp Q10M JACKIE Administration Ipratropium [place] 1 amp 08/27/17 06:15 08/27/17 06:39 Atrovent 0.02% Nebulizer - NEB 08/27/17 06:36 1 amp Q10M JACKIE Administration Prednisone 50 mg 08/27/17 06:11 08/27/17 06:32 Deltasone - PO 08/27/17 06:12 50 mg ONCE ONE Administration <Kirstin Mcmillan - Last Filed: 08/27/17 08:23> - LABORATORY CBC & Chemistry Diagram: 08/27/17 06:25 08/27/17 06:25 - ADDITIONAL ORDERS Additional order review: Laboratory Results 08/27/17 06:25 Sodium 139 Potassium 5.2 H Chloride 98 Carbon Dioxide 39 H Anion Gap 2 L BUN 19 H D Creatinine 0.6 L Random Glucose 128 H D Calcium 8.5 Creatine Kinase 85 Troponin I < 0.02 08/27/17 06:25 RBC 4.45 MCV 85.7 MCHC 32.4 RDW 15.0 MPV 7.8 Neutrophils % 86.1 H Lymphocytes % 4.6 L D Monocytes % 9.1 D Eosinophils % 0.1 D Basophils % 0.1 - Medications Given in the ED: ED Medications Discontinued Medications Generic Name Dose Route Start Last Admin Trade Name Lyn PRN Reason Stop Dose Admin Albuterol Sulfate 1 amp 08/27/17 06:15 08/27/17 06:41 Ventolin 0.083% Nebulizer Soln - NEB 08/27/17 06:36 1 amp Q10M JACKIE Administration Ipratropium [place] 1 amp 08/27/17 06:15 08/27/17 06:39 Atrovent 0.02% Nebulizer - NEB 08/27/17 06:36 1 amp Q10M JACKIE Administration Prednisone 50 mg 08/27/17 06:11 08/27/17 06:32 Deltasone - PO 08/27/17 06:12 50 mg ONCE ONE Administration <Angelo Benz - Last Filed: 08/27/17 08:34> Medical Decision Making - Medical Decision Making 08/27/17 07:59 a/p: 77yo male with continued wheezing -signed out from the prior attending pending re-admission, labs, cxr 08/27/17 08:00 still with wheezing will continue albuterol will add mag received steroids 08/27/17 08:[address] Matamoros who accepts pt to service <Kirstin Mcmillan - Last Filed: 08/27/17 08:23> *DC/Admit/Observation/Transfer - Discharge Dispostion Decision to Admit order: Yes - Attestations Physician Attestion: 08/27/17 08:24 I, Dr. Kirstin Mcmillan, DO, attest that this document has been prepared under my direction and personally reviewed by me in its entirety. I further attest, that it accurately reflects all work, treatment, procedures and medical decision -making performed by me. <Kirstin Mcmillan - Last Filed: 08/27/17 08:23> <Angelo Benz - Last Filed: 08/27/17 08:34> Diagnosis at time of Disposition: COPD exacerbation - Discharge Dispostion Condition at time of disposition: Fair
[2017-08-27] MEDS ORDERED: MAGNESIUM SULF 50% (8.12 MEQ/2 ML-1 GM VIAL) IVPB ONE (07:59)
[2017-08-27] MEDS ORDERED: SODIUM CHLORIDE 0.9% 1000 ML INFUS.BAG IV ONE (07:59)
[2017-08-27] MEDS ORDERED: ALBUTEROL SO4 0.083% IH SOL 2.5 MG/3 ML VIAL.NEB. NEB PRN (08:41)
--- NOTE | 2017-08-27 08:47 | HP ---
CHIEF COMPLAINT: shortness of breath PCP: Dr. Gab Seay FINAL ASSEMBLER: Dr. 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 He states that when he went home he felt fine until the evening. He was then taking albuterol nebs Q2Hrs with minimal relief. At 2 am his daughter noted an increase work of breathing and increased wheezing. He was on antibiotics at time of discharge and placed on prednisoe taper. Denies CP, HAWKINS ,abdominal pain, nausea, vomiting, fever or chills. ER course was notable for: (1)GIven 60mg PO prednisone (2)CXR shows hyperinflation and prominent right hilum (3)EKG NSR w/ possible LA enlargement QTc 430 Recent Travel: none PAST MEDICAL HISTORY: as listed above PAST SURGICAL HISTORY: none Social History: Smokin pack year history, quit 10 years ago Alcohol: denies Drugs: denies Family History: Allergies No Known Allergies Allergy (Verified 08/27/17 05:10) HOME MEDICATIONS: Home Medications Medication Instructions Recorded Albuterol 2.5/Ipratropium 0.5 1 neb IH QID 08/26/17 [Duoneb -] Aspirin [ASA -] 81 mg PO DAILY 08/26/17 Atorvastatin Ca [Lipitor] 20 mg PO HS 08/26/17 Bisoprolol Fumarate 5 mg PO DAILY 08/26/17 Budesonide/Formeterol Fumarate 1 inh IH BID 08/26/17 [SYMBICORT 160/4.5mcg -] Finasteride [Proscar -] 5 mg PO DAILY 08/26/17 Omeprazole 40 mg PO DAILY 08/26/17 Prednisone See Taper PO DAILY 4 Days tablet 08/26/17 Rivaroxaban [Xarelto -] 20 mg PO DAILY 08/26/17 Tamsulosin HCl 0.4 mg PO DAILY 08/26/17 Tiotropium [place] [Spiriva] 1 inh IH BID 08/26/17 REVIEW OF SYSTEMS CONSTITUTIONAL: Absent: fever, chills, diaphoresis, generalized weakness, malaise, loss of appetite, weight change HEENT: Absent: rhinorrhea, nasal congestion, throat pain, throat swelling, difficulty swallowing, mouth swelling, ear pain, eye pain, visual changes CARDIOVASCULAR: Absent: chest pain, syncope, palpitations, irregular heart rate, lightheadedness , peripheral edema RESPIRATORY: shortness of breath, dyspnea with exertion, Absent: cough, orthopnea, wheezing, stridor, hemoptysis GASTROINTESTINAL: Absent: abdominal pain, abdominal distension, nausea, vomiting, diarrhea, constipation, melena, hematochezia GENITOURINARY: Absent: dysuria, frequency, urgency, hesitancy, hematuria, flank pain, genital pain MUSCULOSKELETAL: Absent: myalgia, arthralgia, joint swelling, back pain, neck pain SKIN: Absent: rash, itching, pallor HEMATOLOGIC/IMMUNOLOGIC: Absent: easy bleeding, easy bruising, lymphadenopathy, frequent infections ENDOCRINE: Absent: unexplained weight gain, unexplained weight loss, heat intolerance, cold intolerance NEUROLOGIC: Absent: headache, focal weakness or paresthesias, dizziness, unsteady gait, seizure, mental status changes, bladder or bowel incontinence PSYCHIATRIC: Absent: anxiety, depression, suicidal or homicidal ideation, hallucinations. PHYSICAL EXAMINATION Vital Signs - 24 hr 08/27/17 08/27/17 05:05 06:04 Temperature 97.7 F Pulse Rate 94 H 82 Respiratory 24 Rate Blood Pressure 143/91 O2 Sat by Pulse 100 97 Oximetry (%) GENERAL: A&Ox3 EYES: PERRLA, EOMI ENT: oropharynx without erythema NECK: No JVD LUNGS: Decreased breath sounds bilaterally, fine wheezing >R, no rhonchi HEART: RRR no murmurs appreciated ABDOMEN: Soft nontender BS present UPPER EXTREMITIES: 2+ pulses, 4/5 muscle strength of Larm, 5/5 R arm LOWER EXTREMITIES: 2+ pulses, warm, well-perfused. No calf tenderness. No peripheral edema. NEUROLOGICAL: Cranial nerves II-XII intact. 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 * Will restart oral prednisone 50mg BID * Dounebs QID * Albuterol INH PRN Q4h * supplemental o2 3L NC * Maintain SpO2 >90 * incentive spirometry. * Budesonide/Formoterol Fumarate (Symbicort 160/4.5mcg -) 1 puff IH BID JACKIE * Tiotropium [place] (Spiriva -) 1 puff IH BID (2) Hyperkalemia Assessment/Plan: * Ordered 30 mg Kayexalate * Will recheck K+ this evening. (3) HTN (hypertension) Assessment/Plan: Atenolol (Tenormin -) 50 mg PO DAILY JACKIE (4) Hyperlipidemia Assessment/Plan: Atorvastatin Calcium (Lipitor -) 20 mg PO HS JACKIE (5) H/O: CVA (cerebrovascular accident) Assessment/Plan: Aspirin (Asa -) 81 mg PO DAILY JACKIE Atorvastatin Calcium (Lipitor -) 20 mg PO HS JACKIE Rivaroxaban (Xarelto -) 20 mg PO 1800 JACKIE (6) H/O prostate cancer Assessment/Plan: * Finasteride (Proscar -) 5 mg PO DAILY * Tamsulosin HCl (Flomax -) 0.4 mg PO (7) DVT prophylaxis Assessment/Plan: * SCD's bilat. * Xarelto Visit type - Emergency Visit Emergency Visit: Yes ED Registration Date: 08/27/17 Care time: The patient presented to the Emergency Department on the above date and was hospitalized for further evaluation of their emergent condition. - New Patient This patient is new to me today: Yes Date on this admission: 08/27/17 - Critical Care Critical Care patient: No Hospitalist Screening - Colonoscopy Questionnaire Colonoscopy Questionnaire: Colonoscopy Questionnaire - Patient: 50 - 75 years old and never had a screening colonoscopy: No History of colon or rectal polyps, or CA: No History of IBD, Crohn's disease or UC: No History of abdominal radiation therapy as a child: No - Relative: 1 with colon or rectal CA, or polyps at age 60 or younger: No Colon or rectal CA diagnosed at age 45 or younger: No Multiple relatives with colon or rectal CA: No - Outcome: Screening Result: Negative Screen
[2017-08-27] MEDS ORDERED: SODIUM POLYSTYRENE SULFONATE 15 GM/60 ML BOTTLE PO ONE (09:15)
[2017-08-27] MEDS ORDERED: predniSONE 20 MG TABLET (UD) PO SCH (10:00)
[2017-08-27] MEDS ORDERED: TIOTROPIUM BROMIDE 18 MCG CAPSULES IH SCH (10:00)
[2017-08-27] MEDS ORDERED: ASPIRIN 81 MG CHEWABLE TABLETS ONE (10:02)
[2017-08-27] MEDS ORDERED: PANTOPRAZOLE 40 MG TABLET (FP) ONE (10:02)
[2017-08-27] MEDS ORDERED: MAGNESIUM SULF 50% (8.12 MEQ/2 ML-1 GM VIAL) ONE (10:02)
[2017-08-27] MEDS ORDERED: ATENOLOL 25 MG TABLET (FP) ONE (10:02)
[2017-08-27] MEDS ORDERED: predniSONE 10 MG TABLET (UD) ONE (10:02)
[2017-08-27] MEDS ORDERED: SODIUM POLYSTYRENE SULFONATE 15 GM/60 ML BOTTLE ONE (10:03)
[2017-08-27] MEDS ORDERED: TAMSULOSIN HCL 0.4 MG CAP.ER.24H (FP) ONE (10:03)
[2017-08-27] MEDS: ASPIRIN 81 MG CHEWABLE TABLETS PO SCH (10:12)
[2017-08-27] MEDS: TAMSULOSIN HCL 0.4 MG CAP.ER.24H (FP) PO SCH (10:12)
[2017-08-27] MEDS: FINASTERIDE 5 MG TABLET (FP) PO SCH (10:12)
[2017-08-27] MEDS: PANTOPRAZOLE 40 MG TABLET (FP) PO SCH (10:12)
--- NOTE | 2017-08-27 10:58 | PN ---
Teaching Attending Note Name of Resident: Dieudonne Kennedy ATTENDING PHYSICIAN STATEMENT I saw and evaluated the patient. I reviewed the resident's note and discussed the case with the resident. I agree with the resident's findings and plan as documented with exceptions below. 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 Currently feels better after steroid and nebs in the Ed. No fevers, chills, new cough, or new concerns from d/c yesterday otherwise. OBJECTIVE: Vital Signs Period Temp Pulse Resp BP Sys/Thurman Pulse Ox Last 24 Hr 97.7 F-98.2 F 82-94 22-24 115-143/70-91 97-100 Intake & Output 08/24/17 08/25/17 08/26/17 08/27/17 23:59 23:59 23:59 23:59 Weight 130 lb GENERAL: Awake, alert, and fully oriented, in no acute distress, getting nebs treatment. HEAD: Normal with no signs of trauma. EYES: Pupils equal, round and reactive to light, extraocular movements intact, sclera anicteric, conjunctiva clear. No lid lag. EARS, NOSE, THROAT: Ears normal, nares patent, oropharynx clear without exudates. Moist mucous membranes. NECK: soft, supple, no JVD visualized LUNGS: decreased breath sounds all over, occasional wheezing noted. HEART: S1S2 regular ABDOMEN: Soft, nontender, not distended, normoactive bowel sounds, no guarding, no rebound, no masses. MUSCULOSKELETAL: Normal range of motion at all joints. No bony deformities or tenderness. No CVA tenderness. UPPER EXTREMITIES: 2+ pulses, warm, well-perfused. No cyanosis. No clubbing. No peripheral edema. LOWER EXTREMITIES: 2+ pulses, warm, well-perfused. No calf tenderness. No peripheral edema. NEUROLOGICAL: Cranial nerves II-XII intact. Normal speech. PSYCHIATRIC: Cooperative. Good eye contact. Appropriate mood and affect. SKIN: Warm, dry, normal turgor, no rashes or lesions noted, normal capillary refill. Home Medication List Medication Instructions Recorded Confirmed Type Albuterol 2.5/Ipratropium 0.5 1 neb IH QID 08/26/17 08/27/17 History [Duoneb -] Aspirin [ASA -] 81 mg PO DAILY 08/26/17 08/27/17 History Atorvastatin Ca [Lipitor] 20 mg PO HS 08/26/17 08/27/17 History Bisoprolol Fumarate 5 mg PO DAILY 08/26/17 08/27/17 History Budesonide/Formeterol Fumarate 1 inh IH BID 08/26/17 08/27/17 History [SYMBICORT 160/4.5mcg -] Finasteride [Proscar -] 5 mg PO DAILY 08/26/17 08/27/17 History Omeprazole 40 mg PO DAILY 08/26/17 08/27/17 History Rivaroxaban [Xarelto -] 20 mg PO DAILY 08/26/17 08/27/17 History Tamsulosin HCl 0.4 mg PO DAILY 08/26/17 08/27/17 History Tiotropium [place] [Spiriva] 1 inh IH BID 08/26/17 08/27/17 History Active Medications Generic Name Dose Route Start Last Admin Trade Name Freq PRN Reason Stop Dose Admin Albuterol Sulfate 1 amp 08/27/17 08:41 Ventolin 0.083% Nebulizer Soln - NEB Q4H PRN SHORT OF BREATH/WHEEZING Aspirin 81 mg 08/27/17 10:00 08/27/17 10:12 Asa - PO 81 mg DAILY JACKIE Administration Atenolol 50 mg 08/27/17 10:00 Tenormin - PO DAILY JACKIE Atorvastatin Calcium 20 mg 08/27/17 22:00 Lipitor - PO HS [facility] Budesonide/Formoterol Fumarate 1 puff 08/27/17 10:00 Symbicort 160/4.5mcg - IH BID JACKIE Finasteride 5 mg 08/27/17 10:00 08/27/17 10:12 Proscar - PO 5 mg DAILY JACKIE Administration Ipratropium [place] 1 amp 08/27/17 12:00 Atrovent 0.02% Nebulizer - NEB RQID JACKIE Pantoprazole Sodium 40 mg 08/27/17 10:00 08/27/17 10:12 Protonix - PO 40 mg DAILY JACKIE Administration Prednisone 50 mg 08/28/17 10:00 Deltasone - PO DAILY JACKIE Rivaroxaban 20 mg 08/27/17 18:00 Xarelto - PO 1800 JACKIE Tamsulosin HCl 0.4 mg 08/27/17 09:15 08/27/17 10:12 Flomax - PO 0.4 mg 0830 JACKIE Administration Laboratory Results - last 24 hr 08/27/17 08/27/17 06:25 06:25 WBC 9.5 D RBC 4.45 Hgb 12.4 Hct 38.2 MCV 85.7 MCH 27.8 MCHC 32.4 RDW 15.0 Plt Count 187 MPV 7.8 Neutrophils % 86.1 H Lymphocytes % 4.6 L D Monocytes % 9.1 D Eosinophils % 0.1 D Basophils % 0.1 Nucleated RBC % 0 Sodium 139 Potassium 5.2 H Chloride 98 Carbon Dioxide 39 H Anion Gap 2 L BUN 19 H D Creatinine 0.6 L Random Glucose 128 H D Calcium 8.5 Creatine Kinase 85 Troponin I < 0.02 EKG reviewed, unchanged from prior CXR noted ASSESSMENT AND PLAN: 77 yom with oxygen dependent COPD, prostate CA, 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 Plan: No clinical evidence of infectious process. exam and symptoms not concerning for cardiac etiology. PO prednisone, standing and prn nebs. Pulmonary input if fails to improve. Recent CTA at [facility], hold off on repeat imaging. Has been planned for outpatient cardiac cath. Dr. Sandy was contacted yesterday. COntinue home meds, xarelto Admit to obs, Dispo planning in 24-48 hours if improves with longer steroid taper. Plan discussed with patient and daughter at bedside in detail, all questions answered.
[2017-08-27] MEDS: BUDESONIDE/FORMETEROL FUMARATE 160/4.5 mcg INHALER IH SCH ×2 (13:43→22:13)
[2017-08-27] MEDS: ATENOLOL 25 MG TABLET (FP) PO SCH (13:44)
[2017-08-27 14:34] VITALS: BMI 18.8
--- NOTE | 2017-08-27 17:31 | EKG ---
Test Reason : Blood Pressure : / mmHG Vent. Rate : 082 BPM Atrial Rate : 082 BPM P-R Int : 128 ms QRS Dur : 072 ms QT Int : 344 ms P-R-T Axes : 083 040 082 degrees QTc Int : 401 ms NORMAL SINUS RHYTHM LOW VOLTAGE QRS BORDERLINE ECG WHEN COMPARED WITH ECG OF 25-AUG-2017 23:43, NO SIGNIFICANT CHANGE WAS FOUND Confirmed by SIRISHA FARMER MD ([id number]) on 08/27/2017 5:31:43 PM Referred By: Confirmed By:SIRISHA FARMER MD
[2017-08-27] MEDS: RIVAROXABAN 20 MG TABLET PO SCH (19:56)
[2017-08-27] MEDS: methylPREDNISolone NA SUCC 40 MG/1 ML VIAL IVPUSH SCH (19:56)
[2017-08-27 21:24] LABS: ARTERIAL BLD GAS O2 SATURATION 97.5 % (90-98.9); ARTERIAL BLOOD GAS BASE EXCESS 10.3 meq/l (-2-2); ARTERIAL BLOOD GAS pH 7.36 (7.35-7.45)
[2017-08-27 21:27] LABS: ALLENS TEST POSITIVE
[2017-08-27 21:28] LABS: ARTERIAL BLOOD GAS PCO2 67.9 mmHg (35-45)
[2017-08-27] MEDS ORDERED: PT OWN MED DRAWER 7, Y5N ONE ×2 (21:47→23:05)
[2017-08-27] MEDS: ATORVASTATIN CA 20 MG TABLET (FP) PO SCH (22:13)
[2017-08-28] MEDS: methylPREDNISolone NA SUCC 40 MG/1 ML VIAL IVPUSH SCH ×3 (02:02→18:13)
[2017-08-28 07:19] LABS: HEMATOCRIT 40.4 % (35.4-49); HEMOGLOBIN 12.8 GM/dL (11.7-16.9); LYMPH % 5.7 % (8-40); MCH 27.3 pg (25.7-33.7); MCHC 31.6 g/dl (32.0-35.9); MEAN CELL VOLUME 86.2 fl (80-96); MEAN PLT VOLUME 7.8 fl (7.5-11.1); MONO % 2.3 % (3.8-10.2); PLATELET COUNT 170 K/MM3 (134-434); RBC 4.68 M/mm3 (4.00-5.60); RDW 15.1 % (11.9-15.9); WHITE BLOOD COUNT 7.5 K/mm3 (4.0-10.0)
[2017-08-28 08:09] LABS: ALK PHOS 92 U/L (45-117); ANION GAP 3 (8-16); BILIRUBIN,TOTAL 0.6 mg/dL (0.2-1.0); BLOOD UREA NITROGEN 15 mg/dL (7-18); CALCIUM 8.4 mg/dL (8.5-10.1); CHLORIDE 97 mmol/L (98-107); CO2 40 mmol/L (21-32); CREATININE 0.6 mg/dL (0.7-1.3); GLUCOSE,RANDOM 112 mg/dL (74-106); MAGNESIUM 2.2 mg/dL (1.8-2.4); PHOSPHOROUS 2.7 mg/dL (2.5-4.9); POTASSIUM 4.3 mmol/L (3.5-5.1); SGOT/AST 40 U/L (15-37); SGPT/ALT 52 U/L (12-78); SODIUM 140 mmol/L (136-145); TOT PROT 6.8 g/dl (6.4-8.2)
[2017-08-28] MEDS: IPRATROPIUM BR 0.02% 0.5 MG/2.5 ML VIAL.NEB. NEB SCH ×2 (08:19→11:45)
[2017-08-28] MEDS ORDERED: predniSONE 20 MG TABLET (UD) PO SCH (10:00)
[2017-08-28] MEDS ORDERED: PT OWN MED DRAWER 7, Y5N ONE (11:13)
[2017-08-28] MEDS: ATENOLOL 25 MG TABLET (FP) PO SCH (11:18)
[2017-08-28] MEDS: PANTOPRAZOLE 40 MG TABLET (FP) PO SCH (11:18)
[2017-08-28] MEDS: FINASTERIDE 5 MG TABLET (FP) PO SCH (11:18)
[2017-08-28] MEDS: TAMSULOSIN HCL 0.4 MG CAP.ER.24H (FP) PO SCH (11:18)
[2017-08-28] MEDS: ASPIRIN 81 MG CHEWABLE TABLETS PO SCH (11:18)
[2017-08-28] MEDS: BUDESONIDE/FORMETEROL FUMARATE 160/4.5 mcg INHALER IH SCH ×2 (11:19→22:21)
--- NOTE | 2017-08-28 12:40 | CON.PULM ---
Consult Consult Specialty:: PULMONARY Referred by:: Dr. Matamoros Reason for Consultation:: shortness of breath - History of Present Illness Chief Complaint: shortness of breath History of Present Illness: 77yo male with h/o COPD, h/o CVA, prostate ca, pulmonary HTN, h/o DVT on anticoagulation, just discharged from hospital after being admitted for COPD exacerbation on prednisone who presents with worsening shortness of breath, cough and wheezing. Cough nonproductive. No fevers, chills or sweats. No chest pain or palpitations. No nausea or vomiting. Restarted on IV medrol, placed briefly on BiPAP with improvement in symptoms. - History Source History Provided By: Patient, Medical Record Limitations to Obtaining History: Language Barrier - Past Medical History Pulmonary: Yes: COPD - Alcohol/Substance Use Hx Alcohol Use: No - Smoking History Smoking history: Former smoker Have you smoked in the past 12 months: No Aproximately how many cigarettes per day: 0 If you are a former smoker, when did you quit?: 0 Home Medications - Allergies Allergies/Adverse Reactions: Allergies Allergy/AdvReac Type Severity Reaction Status Date / Time No Known Allergies Allergy Verified 08/27/17 05:10 - Home Medications Home Medications: Ambulatory Orders Albuterol 2.5/Ipratropium 0.5 [Duoneb -] 1 neb IH QID 08/26/17 Aspirin [ASA -] 81 mg PO DAILY 08/26/17 Atorvastatin Ca [Lipitor] 20 mg PO HS 08/26/17 Bisoprolol Fumarate 5 mg PO DAILY 08/26/17 Budesonide/Formeterol Fumarate [SYMBICORT 160/4.5mcg -] 1 inh IH BID 08/26/17 Finasteride [Proscar -] 5 mg PO DAILY 08/26/17 Omeprazole 40 mg PO DAILY 08/26/17 Prednisone See Taper PO DAILY 4 Days tablet 08/26/17 Rivaroxaban [Xarelto -] 20 mg PO DAILY 08/26/17 Tamsulosin HCl 0.4 mg PO DAILY 08/26/17 Tiotropium [place] [Spiriva] 1 inh IH BID 08/26/17 Review of Systems - Review of Systems Constitutional: reports: Weakness. denies: Chills, Fever Eyes: denies: Recent Change in Vision HENT: denies: Nasal Congestion, Throat Pain Neck: denies: Stiffness, Tenderness Cardiovascular: reports: Shortness of Breath. denies: Chest Pain, Edema, Palpitations Respiratory: reports: Cough, SOB, SOB on Exertion, Wheezing. denies: Hemoptysis Gastrointestinal: denies: Abdominal Pain, Nausea, Vomiting Genitourinary: denies: Dysuria, Hematuria Neurological: denies: Dizziness, Headache Physical Exam Vital Sings: Vital Signs Temperature 98.2 F 08/28/17 11:30 Pulse Rate 96 H 08/28/17 09:00 Respiratory Rate 24 08/28/17 05:00 Blood Pressure 164/94 08/28/17 09:00 O2 Sat by Pulse Oximetry (%) 92 L 08/28/17 11:45 Constitutional: Yes: Calm Eyes: Yes: Conjunctiva Clear, EOM Intact HENT: Yes: Atraumatic, Normocephalic Neck: Yes: Supple, Trachea Midline Cardiovascular: Yes: Regular Rate and Rhythm Respiratory: Yes: Diminished (distant breath sounds), Poor Air Entry ...Clubbing: No Gastrointestinal: Yes: Normal Bowel Sounds, Soft. No: Tenderness Edema: No Neurological: Yes: Alert, Oriented Labs: CBC, BMP 08/28/17 06:45 08/28/17 06:45 ABG Results ABG pH 7.36 (7.35-7.45) 08/27/17 21:05 ABG pCO2 at Pt Temp 67.9 mmHg (35-45) H* 08/27/17 21:05 ABG pO2 at Pt Temp 86.0 mmHg (70-100) D 08/27/17 21:05 ABG HCO3 37.7 meq/L (22-26) H 08/27/17 21:05 ABG O2 Sat (Measured) 97.5 % (90-98.9) 08/27/17 21:05 ABG O2 Content 16.3 % vol (15-22) 08/27/17 21:05 ABG Base Excess 10.3 meq/l (-2-2) H 08/27/17 21:05 Imaging - Results Chest X-ray: Report Reviewed, Image Reviewed (no infiltrates, hyperinflated) Problem List - Problems (1) COPD exacerbation Code(s): J44.1 - CHRONIC OBSTRUCTIVE PULMONARY DISEASE W (ACUTE) EXACERBATION (2) H/O prostate cancer Code(s): Z85.46 - PERSONAL HISTORY OF MALIGNANT NEOPLASM OF PROSTATE (3) H/O: CVA (cerebrovascular accident) Code(s): Z86.73 - PRSNL HX OF TIA (TIA), AND CEREB INFRC W/O RESID DEFICITS (4) Hyperlipidemia Code(s): E78.5 - HYPERLIPIDEMIA, UNSPECIFIED Qualifiers: Hyperlipidemia type: unspecified Qualified Code(s): E78.5 - Hyperlipidemia , unspecified (5) Acute on chronic respiratory failure with hypercapnia Code(s): J96.22 - ACUTE AND CHRONIC RESPIRATORY FAILURE WITH HYPERCAPNIA Assessment/Plan Acute on Chronic Hypercapneic Respiratory Failure Acute COPD Exacerbation Pulmonary HTN Hyperlipidemia h/o DVT h/o CVA h/o Prostate Ca - IV medrol - inhaled bronchodilators standing and PRN - O2 to keep SpO2 >90% - BiPAP at night and PRN during day - will likely need slow taper - when ready for discharge, will recheck ABG as he may benefit from BiPAP or trilogy device at home for chronic hypercapnea - continue anticoagulation Thank you for this consult David Borja MD
--- NOTE | 2017-08-28 13:12 | PN ---
Progress Note (short form) - Note Progress Note: Patient seen and examined, on bipap, overall feels better, no new complaints. Objective: Vital Signs Period Temp Pulse Resp BP Sys/Thurman Pulse Ox Last 24 Hr 97 F-98.2 F 78-96 16-28 140-164/81-95 92-100 Intake & Output 08/25/17 08/26/17 08/27/17 08/28/17 23:59 23:59 23:59 23:59 Intake Total 250 Balance 250 Weight 131 lb 5 oz General: sitting in bed, on Bipap, mild tachypnea CVS:S1s2 regular Chest: Decreased air entry all over, no wheezing Abdomen:soft, NT, ND Extremities: no edema Home Medication List Medication Instructions Recorded Confirmed Type Albuterol 2.5/Ipratropium 0.5 1 neb IH QID 08/26/17 08/27/17 History [Duoneb -] Aspirin [ASA -] 81 mg PO DAILY 08/26/17 08/27/17 History Atorvastatin Ca [Lipitor] 20 mg PO HS 08/26/17 08/27/17 History Bisoprolol Fumarate 5 mg PO DAILY 08/26/17 08/27/17 History Budesonide/Formeterol Fumarate 1 inh IH BID 08/26/17 08/27/17 History [SYMBICORT 160/4.5mcg -] Finasteride [Proscar -] 5 mg PO DAILY 08/26/17 08/27/17 History Omeprazole 40 mg PO DAILY 08/26/17 08/27/17 History Rivaroxaban [Xarelto -] 20 mg PO DAILY 08/26/17 08/27/17 History Tamsulosin HCl 0.4 mg PO DAILY 08/26/17 08/27/17 History Tiotropium [place] [Spiriva] 1 inh IH BID 08/26/17 08/27/17 History Active Medications Generic Name Dose Route Start Last Admin Trade Name Freq PRN Reason Stop Dose Admin Albuterol Sulfate 1 amp 08/27/17 08:41 08/27/17 15:44 Ventolin 0.083% Nebulizer Soln - NEB 1 amp Q4H PRN Administration SHORT OF BREATH/WHEEZING Albuterol/Ipratropium 1 amp 08/28/17 16:00 Duoneb - NEB RQID JACKIE Aspirin 81 mg 08/27/17 10:00 08/28/17 11:18 Asa - PO 81 mg DAILY JACKIE Administration Atenolol 50 mg 08/27/17 10:00 08/28/17 11:18 Tenormin - PO 50 mg DAILY JACKIE Administration Atorvastatin Calcium 20 mg 08/27/17 22:00 08/27/17 22:13 Lipitor - PO 20 mg HS JACKIE Administration Budesonide/Formoterol Fumarate 1 puff 08/27/17 10:00 08/28/17 11:19 Symbicort 160/4.5mcg - IH 1 puff BID JACKIE Administration Finasteride 5 mg 08/27/17 10:00 08/28/17 11:18 Proscar - PO 5 mg DAILY JACKIE Administration Methylprednisolone Sodium Succinate 40 mg 08/27/17 18:45 08/28/17 11:18 Solu-Medrol - IVPUSH 40 mg Q8H-IV JACKIE Administration Pantoprazole Sodium 40 mg 08/27/17 10:00 08/28/17 11:18 Protonix - PO 40 mg DAILY JACKIE Administration Rivaroxaban 20 mg 08/27/17 18:00 08/27/17 19:56 Xarelto - PO 20 mg 1800 JACKIE Administration Tamsulosin HCl 0.4 mg 08/27/17 09:15 08/28/17 11:18 Flomax - PO 0.4 mg 0830 JACKIE Administration Laboratory Results - last 24 hr 08/27/17 08/28/17 08/28/17 21:05 06:45 06:45 WBC 7.5 RBC 4.68 Hgb 12.8 Hct 40.4 MCV 86.2 MCH 27.3 MCHC 31.6 L RDW 15.1 Plt Count 170 MPV 7.8 Neutrophils % 92.0 H Lymphocytes % 5.7 L D Monocytes % 2.3 L Eosinophils % 0.0 D Basophils % 0.0 Nucleated RBC % 0 Anticoagulation Therapy No Result Required. Puncture Site Left radial ABG pH 7.36 ABG pCO2 at Pt Temp 67.9 H* ABG pO2 at Pt Temp 86.0 D ABG HCO3 37.7 H ABG O2 Sat (Measured) 97.5 ABG O2 Content 16.3 ABG Base Excess 10.3 H Ronny Test Positive O2 Delivery Device Bipap Oxygen Flow Rate 30 Vent Mode S/t Vent Rate No Result Required. Mechanical Rate No Result Required. Pressure Support Vent 15/5 Sodium 140 Potassium 4.3 Chloride 97 L Carbon Dioxide 40 H Anion Gap 3 L BUN 15 D Creatinine 0.6 L Creat Clearance w eGFR > 60 Random Glucose 112 H Calcium 8.4 L Phosphorus 2.7 Magnesium 2.2 Total Bilirubin 0.6 AST 40 H D ALT 52 D Alkaline Phosphatase 92 Total Protein 6.8 Albumin 3.0 L repeat CXR - reviewed unchanged. Repeat EKG unchanged. 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 Plan: tachyneic yesterday, placed on Bipap, ABg on bipap noted. CXR unchanged. Continue IV solumedrol. Pulmonary consult appreciated. Bipap hs and prn. Recent CTA at [facility], would avoid repeat scan for now. No clinical evidence of infectious process. exam and symptoms not concerning for cardiac etiology. Standing and prn nebs. Continue xarelto. Has been planned for outpatient cardiac cath. Dr. Sandy was contacted on recent admit. COntinue home meds Admitted to inpatient given clinical worsening yesterday. Dispo planning when clinically improved, off Bipap. Plan discussed with patient and daughter at bedside in detail, all questions answered. Visit type - Emergency Visit Emergency Visit: No - New Patient This patient is new to me today: No - Critical Care Critical Care patient: No
[2017-08-28] MEDS: ALBUTEROL SO4 2.5/IPRATROPIUM 0.5 INH SOL 3 ML VIAL.NEB. NEB SCH ×2 (15:32→20:54)
[2017-08-28] MEDS: RIVAROXABAN 20 MG TABLET PO SCH (18:13)
--- NOTE | 2017-08-28 20:44 | EKG ---
Test Reason : Blood Pressure : / mmHG Vent. Rate : 082 BPM Atrial Rate : 082 BPM P-R Int : 124 ms QRS Dur : 074 ms QT Int : 346 ms P-R-T Axes : 086 046 080 degrees QTc Int : 404 ms SINUS RHYTHM WITH OCCASIONAL PREMATURE VENTRICULAR COMPLEXES LOW VOLTAGE QRS BORDERLINE ECG WHEN COMPARED WITH ECG OF 27-AUG-2017 06:26, PREMATURE VENTRICULAR COMPLEXES ARE NOW PRESENT Confirmed by MARLENY DEGROOT, SIRISHA ([id number]) on 08/28/2017 8:43:24 PM Referred By: Confirmed By:SIRISHA FARMER MD
[2017-08-28] MEDS: ATORVASTATIN CA 20 MG TABLET (FP) PO SCH (22:21)
[2017-08-29] MEDS: methylPREDNISolone NA SUCC 40 MG/1 ML VIAL IVPUSH SCH ×3 (02:24→17:31)
[2017-08-29] MEDS: ALBUTEROL SO4 2.5/IPRATROPIUM 0.5 INH SOL 3 ML VIAL.NEB. NEB SCH ×4 (07:30→21:00)
[2017-08-29] MEDS: TAMSULOSIN HCL 0.4 MG CAP.ER.24H (FP) PO SCH (08:26)
[2017-08-29 10:05] LABS: HEMATOCRIT 41.5 % (35.4-49); HEMOGLOBIN 13.2 GM/dL (11.7-16.9); LYMPH % 6.8 % (8-40); MCH 27.1 pg (25.7-33.7); MCHC 31.8 g/dl (32.0-35.9); MEAN CELL VOLUME 85.5 fl (80-96); MONO % 4.4 % (3.8-10.2); NEUT % 88.8 % (42.8-82.8); PLATELET COUNT 170 K/MM3 (134-434); RBC 4.86 M/mm3 (4.00-5.60); RDW 15.1 % (11.9-15.9); WHITE BLOOD COUNT 6.1 K/mm3 (4.0-10.0)
[2017-08-29] MEDS: BUDESONIDE/FORMETEROL FUMARATE 160/4.5 mcg INHALER IH SCH ×2 (10:28→21:38)
[2017-08-29] MEDS: ATENOLOL 25 MG TABLET (FP) PO SCH (10:28)
[2017-08-29] MEDS: FINASTERIDE 5 MG TABLET (FP) PO SCH (10:28)
[2017-08-29] MEDS: ASPIRIN 81 MG CHEWABLE TABLETS PO SCH (10:28)
[2017-08-29] MEDS: PANTOPRAZOLE 40 MG TABLET (FP) PO SCH (10:28)
[2017-08-29 10:34] LABS: ALK PHOS 91 U/L (45-117); ANION GAP 3 (8-16); BILIRUBIN,TOTAL 0.6 mg/dL (0.2-1.0); BLOOD UREA NITROGEN 27 mg/dL (7-18); CALCIUM 8.6 mg/dL (8.5-10.1); CHLORIDE 94 mmol/L (98-107); CO2 42 mmol/L (21-32); CREATININE 0.7 mg/dL (0.7-1.3); GLUCOSE,RANDOM 163 mg/dL (74-106); MAGNESIUM 2.2 mg/dL (1.8-2.4); PHOSPHOROUS 2.7 mg/dL (2.5-4.9); POTASSIUM 3.7 mmol/L (3.5-5.1); SGOT/AST 32 U/L (15-37); SGPT/ALT 47 U/L (12-78); SODIUM 139 mmol/L (136-145); TOT PROT 6.7 g/dl (6.4-8.2)
--- NOTE | 2017-08-29 11:35 | PN ---
Progress Note (short form) - Note Progress Note: PULMONARY Breathing better. +nonproductive cough. Last Vital Signs Temp Pulse Resp BP Pulse Ox 97.5 F L 67 24 160/88 98 08/29/17 06:00 08/29/17 09:28 08/29/17 09:28 08/29/17 09:28 08/29/17 05:17 Gen: NAD at rest Heart: RRR Lung: scattered rhonchi Abd: soft, nontender Ext: no edema CBC, BMP 08/29/17 09:42 08/29/17 09:42 Active Medications Albuterol Sulfate (Ventolin 0.083% Nebulizer Soln -) 1 amp NEB Q4H PRN PRN Reason: SHORT OF BREATH/WHEEZING Last Admin: 08/27/17 15:44 Dose: 1 amp Albuterol/Ipratropium (Duoneb -) 1 amp NEB RQID [facility] Last Admin: 08/29/17 11:24 Dose: 1 amp Aspirin (Asa -) 81 mg PO DAILY [facility] Last Admin: 08/29/17 10:28 Dose: 81 mg Atenolol (Tenormin -) 50 mg PO DAILY [facility] Last Admin: 08/29/17 10:28 Dose: 50 mg Atorvastatin Calcium (Lipitor -) 20 mg PO HS [facility] Last Admin: 08/28/17 22:21 Dose: 20 mg Budesonide/Formoterol Fumarate (Symbicort 160/4.5mcg -) 1 puff IH BID [facility] Last Admin: 08/29/17 10:28 Dose: 1 puff Finasteride (Proscar -) 5 mg PO DAILY [facility] Last Admin: 08/29/17 10:28 Dose: 5 mg Methylprednisolone Sodium Succinate (Solu-Medrol -) 40 mg IVPUSH Q8H-IV [facility] Last Admin: 08/29/17 10:59 Dose: 40 mg Pantoprazole Sodium (Protonix -) 40 mg PO DAILY [facility] Last Admin: 08/29/17 10:28 Dose: 40 mg Rivaroxaban (Xarelto -) 20 mg PO 1800 [facility] Last Admin: 08/28/17 18:13 Dose: 20 mg Tamsulosin HCl (Flomax -) 0.4 mg PO 0830 [facility] Last Admin: 08/29/17 08:26 Dose: 0.4 mg A/P Acute on Chronic Hypercapneic Respiratory Failure Acute COPD Exacerbation Pulmonary HTN Hyperlipidemia h/o DVT h/o CVA h/o Prostate Ca - continue medrol, will likely need slow taper - inhaled bronchodilators standing and PRN - O2 to keep SpO2 >90% - BiPAP at night and PRN during day - will recheck ABG off BiPAP as he may benefit from BiPAP or trilogy device at home for chronic hypercapnea - continue anticoagulation Problem List - Problems (1) COPD exacerbation Code(s): J44.1 - CHRONIC OBSTRUCTIVE PULMONARY DISEASE W (ACUTE) EXACERBATION (2) H/O prostate cancer Code(s): Z85.46 - PERSONAL HISTORY OF MALIGNANT NEOPLASM OF PROSTATE (3) H/O: CVA (cerebrovascular accident) Code(s): Z86.73 - PRSNL HX OF TIA (TIA), AND CEREB INFRC W/O RESID DEFICITS (4) Hyperlipidemia Code(s): E78.5 - HYPERLIPIDEMIA, UNSPECIFIED Qualifiers: Hyperlipidemia type: unspecified Qualified Code(s): E78.5 - Hyperlipidemia , unspecified (5) Acute on chronic respiratory failure with hypercapnia Code(s): J96.22 - ACUTE AND CHRONIC RESPIRATORY FAILURE WITH HYPERCAPNIA
--- NOTE | 2017-08-29 12:03 | PN ---
Teaching Attending Note Name of Resident: Fei Keita ATTENDING PHYSICIAN STATEMENT I saw and evaluated the patient. I reviewed the resident's note and discussed the case with the resident. I agree with the resident's findings and plan as documented with exceptions below. SUBJECTIVE: patient seen and examined, breathing improved, off bipap, ate breakfast, doing better. OBJECTIVE: Vital Signs Period Temp Pulse Resp BP Sys/Thurman Pulse Ox Last 24 Hr 97.4 F-98 F 63-92 20-28 126-160/80-95 92-100 Intake & Output 08/26/17 08/27/17 08/28/17 08/29/17 23:59 23:59 23:59 23:59 Intake Total 250 200 100 Balance 250 200 100 Weight 131 lb 5 oz general: sitting in bed in no acute distress, no use of acessory muscles of respiration Chest: Improved air entry from yesterday, no rales Abdomen: soft, NT, ND extremities: no edema Home Medication List Medication Instructions Recorded Confirmed Type Albuterol 2.5/Ipratropium 0.5 1 neb IH QID 08/26/17 08/27/17 History [Duoneb -] Aspirin [ASA -] 81 mg PO DAILY 08/26/17 08/27/17 History Atorvastatin Ca [Lipitor] 20 mg PO HS 08/26/17 08/27/17 History Bisoprolol Fumarate 5 mg PO DAILY 08/26/17 08/27/17 History Budesonide/Formeterol Fumarate 1 inh IH BID 08/26/17 08/27/17 History [SYMBICORT 160/4.5mcg -] Finasteride [Proscar -] 5 mg PO DAILY 08/26/17 08/27/17 History Omeprazole 40 mg PO DAILY 08/26/17 08/27/17 History Rivaroxaban [Xarelto -] 20 mg PO DAILY 08/26/17 08/27/17 History Tamsulosin HCl 0.4 mg PO DAILY 08/26/17 08/27/17 History Tiotropium [place] [Spiriva] 1 inh IH BID 08/26/17 08/27/17 History Active Medications Generic Name Dose Route Start Last Admin Trade Name Freq PRN Reason Stop Dose Admin Albuterol Sulfate 1 amp 08/27/17 08:41 08/27/17 15:44 Ventolin 0.083% Nebulizer Soln - NEB 1 amp Q4H PRN Administration SHORT OF BREATH/WHEEZING Albuterol/Ipratropium 1 amp 08/28/17 16:00 08/29/17 11:24 Duoneb - NEB 1 amp RQID JACKIE Administration Aspirin 81 mg 08/27/17 10:00 08/29/17 10:28 Asa - PO 81 mg DAILY JACKIE Administration Atenolol 50 mg 08/27/17 10:00 08/29/17 10:28 Tenormin - PO 50 mg DAILY JACKIE Administration Atorvastatin Calcium 20 mg 08/27/17 22:00 08/28/17 22:21 Lipitor - PO 20 mg HS JACKIE Administration Budesonide/Formoterol Fumarate 1 puff 08/27/17 10:00 08/29/17 10:28 Symbicort 160/4.5mcg - IH 1 puff BID JACKIE Administration Finasteride 5 mg 08/27/17 10:00 08/29/17 10:28 Proscar - PO 5 mg DAILY JACKIE Administration Methylprednisolone Sodium Succinate 40 mg 08/27/17 18:45 08/29/17 10:59 Solu-Medrol - IVPUSH 40 mg Q8H-IV JACKIE Administration Pantoprazole Sodium 40 mg 08/27/17 10:00 08/29/17 10:28 Protonix - PO 40 mg DAILY JACKIE Administration Rivaroxaban 20 mg 08/27/17 18:00 08/28/17 18:13 Xarelto - PO 20 mg 1800 JACKIE Administration Tamsulosin HCl 0.4 mg 08/27/17 09:15 08/29/17 08:26 Flomax - PO 0.4 mg 0830 JACKIE Administration Laboratory Results - last 24 hr 08/29/17 08/29/17 09:42 09:42 WBC 6.1 RBC 4.86 Hgb 13.2 Hct 41.5 MCV 85.5 MCH 27.1 MCHC 31.8 L RDW 15.1 Plt Count 170 MPV 8.0 Neutrophils % 88.8 H Lymphocytes % 6.8 L Monocytes % 4.4 D Eosinophils % 0.0 Basophils % 0.0 Nucleated RBC % 0 Sodium 139 Potassium 3.7 Chloride 94 L Carbon Dioxide 42 H Anion Gap 3 L BUN 27 H D Creatinine 0.7 Creat Clearance w eGFR > 60 Random Glucose 163 H D Calcium 8.6 Phosphorus 2.7 Magnesium 2.2 Total Bilirubin 0.6 AST 32 ALT 47 Alkaline Phosphatase 91 Total Protein 6.7 Albumin 3.0 L ASSESSMENT AND PLAN: 77 yom with oxygen dependent COPD, prostate CA, 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 Plan: Off bipap this AM, monitor for now. Repeat ABG. COntinue current dose of solumedrol. Pulmonary consult appreciated. Bipap hs and prn. Recent CTA at [facility], would avoid repeat scan for now. No clinical evidence of infectious process. exam and symptoms not concerning for cardiac etiology, cannot r/o anxiety component. Standing and prn nebs. Continue xarelto. Has been planned for outpatient cardiac cath. Dr. Sandy was contacted on recent admit. Continue home meds Dispo planning when clinically improved, off Bipap, with slow steroid taper. Plan discussed with patient and daughter at bedside in detail, all questions answered.
[2017-08-29 12:10] LABS: ARTERIAL BLD GAS O2 SATURATION 99.5 % (90-98.9); ARTERIAL BLOOD GAS BASE EXCESS 12.5 meq/l (-2-2)
[2017-08-29 12:16] LABS: ALLENS TEST POSITIVE
[2017-08-29 12:18] LABS: ARTERIAL BLOOD GAS PCO2 66.3 mmHg (35-45)
--- NOTE | 2017-08-29 13:29 | PN ---
Physical Exam: SUBJECTIVE: Patient seen and examined at bedside. Off Bipap for ~30min. Sats 97 % on 3L. Feels ok. OBJECTIVE: Vital Signs Period Temp Pulse Resp BP Sys/Thurman Pulse Ox Last 24 Hr 97.4 F-98 F 63-70 20-25 126-160/80-95 92-100 GENERAL: The patient is awake, alert, and fully oriented, in no acute distress. HEAD: Normal with no signs of trauma. EYES: sclera anicteric, conjunctiva clear. No ptosis. ENT:oropharynx clear without exudates, moist mucous membranes. NECK: Trachea midline, full range of motion, supple. LUNGS: poor air entry. Scattered crackles. No accessory muscle use. HEART: Regular rate and rhythm, S1, S2 without murmur, rub or gallop. ABDOMEN: Soft, nontender, nondistended, normoactive bowel sounds, no guarding, no rebound, no hepatosplenomegaly, no masses. EXTREMITIES: 2+ pulses, warm, well-perfused, no edema. NEUROLOGICAL: Cranial nerves II through XII grossly intact. Normal speech, gait not observed. PSYCH: Normal mood, normal affect. SKIN: Warm, dry, normal turgor, no rashes or lesions noted Laboratory Results - last 24 hr 08/29/17 08/29/17 08/29/17 09:42 09:42 12:00 WBC 6.1 RBC 4.86 Hgb 13.2 Hct 41.5 MCV 85.5 MCH 27.1 MCHC 31.8 L RDW 15.1 Plt Count 170 MPV 8.0 Neutrophils % 88.8 H Lymphocytes % 6.8 L Monocytes % 4.4 D Eosinophils % 0.0 Basophils % 0.0 Nucleated RBC % 0 Puncture Site Right radial ABG pH 7.40 ABG pCO2 at Pt Temp 66.3 H* ABG pO2 at Pt Temp 157.0 H* D ABG HCO3 39.9 H ABG O2 Sat (Measured) 99.5 H ABG O2 Content 17.3 ABG Base Excess 12.5 H Ronny Test Positive O2 Delivery Device N/c Oxygen Flow Rate 3l Sodium 139 Potassium 3.7 Chloride 94 L Carbon Dioxide 42 H Anion Gap 3 L BUN 27 H D Creatinine 0.7 Creat Clearance w eGFR > 60 Random Glucose 163 H D Calcium 8.6 Phosphorus 2.7 Magnesium 2.2 Total Bilirubin 0.6 AST 32 ALT 47 Alkaline Phosphatase 91 Total Protein 6.7 Albumin 3.0 L Active Medications Generic Name Dose Route Start Last Admin Trade Name Freq PRN Reason Stop Dose Admin Albuterol Sulfate 1 amp 08/27/17 08:41 08/27/17 15:44 Ventolin 0.083% Nebulizer Soln - NEB 1 amp Q4H PRN Administration SHORT OF BREATH/WHEEZING Albuterol/Ipratropium 1 amp 08/28/17 16:00 08/29/17 11:24 Duoneb - NEB 1 amp RQID JACKIE Administration Aspirin 81 mg 08/27/17 10:00 08/29/17 10:28 Asa - PO 81 mg DAILY JACKIE Administration Atenolol 50 mg 08/27/17 10:00 08/29/17 10:28 Tenormin - PO 50 mg DAILY JACKIE Administration Atorvastatin Calcium 20 mg 08/27/17 22:00 08/28/17 22:21 Lipitor - PO 20 mg HS JACKIE Administration Budesonide/Formoterol Fumarate 1 puff 08/27/17 10:00 08/29/17 10:28 Symbicort 160/4.5mcg - IH 1 puff BID JACKIE Administration Finasteride 5 mg 08/27/17 10:00 08/29/17 10:28 Proscar - PO 5 mg DAILY JACKIE Administration Methylprednisolone Sodium Succinate 40 mg 08/27/17 18:45 08/29/17 10:59 Solu-Medrol - IVPUSH 40 mg Q8H-IV JACKIE Administration Pantoprazole Sodium 40 mg 08/27/17 10:00 08/29/17 10:28 Protonix - PO 40 mg DAILY JACKIE Administration Rivaroxaban 20 mg 08/27/17 18:00 08/28/17 18:13 Xarelto - PO 20 mg 1800 JACKIE Administration Tamsulosin HCl 0.4 mg 08/27/17 09:15 08/29/17 08:26 Flomax - PO 0.4 mg 0830 JACKIE Administration ASSESSMENT/PLAN: 77 year old male with a hx of COPD, prostate CA, 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 Recent admission for the same. Pt was admitted for COPD exacerbation. #COPD -Duonebs -Ventolin -Symbicort -Solu-medrol -Pulm recs appreciated: will need slow steroid taper -Off NIPPV at this time #HTN -Atenolol #HLD -Lipitor #Hx CVA -ASA -Lipitor -Xarelto #Hx prostate CA -Finasteride -Flomax #Hx DVT -Xarelto #FEN -not on fluids -HyperK resolved -Na controlled diet #PPx -xarelto #Dispo -Admitted for COPD exacerbation Fei Keita MD PGY-1 IM Visit type - Emergency Visit Emergency Visit: No - New Patient This patient is new to me today: No - Critical Care Critical Care patient: No - Discharge Referral Referred to [facility] Med P.C.: No
[2017-08-29] MEDS: RIVAROXABAN 20 MG TABLET PO SCH (17:17)
[2017-08-29] MEDS: ATORVASTATIN CA 20 MG TABLET (FP) PO SCH (21:38)
[2017-08-30] MEDS: methylPREDNISolone NA SUCC 40 MG/1 ML VIAL IVPUSH SCH ×3 (02:25→21:38)
[2017-08-30] MEDS ORDERED: INSULIN (NOVOLOG) ASPART 100 UNITS/ML 10ML VIAL ONE (06:36)
[2017-08-30] MEDS ORDERED: INSULIN (LEVEMIR) 100 UNITS/ML UNITS SQ ONE (06:36)
[2017-08-30 07:08] LABS: BASO % 0.1 % (0-2.0); HEMATOCRIT 39.3 % (35.4-49); HEMOGLOBIN 12.8 GM/dL (11.7-16.9); LYMPH % 7.5 % (8-40); MCH 27.5 pg (25.7-33.7); MCHC 32.4 g/dl (32.0-35.9); MEAN CELL VOLUME 84.6 fl (80-96); MEAN PLT VOLUME 7.9 fl (7.5-11.1); MONO % 4.5 % (3.8-10.2); NEUT % 87.9 % (42.8-82.8); PLATELET COUNT 144 K/MM3 (134-434); RBC 4.65 M/mm3 (4.00-5.60); RDW 15.2 % (11.9-15.9); WHITE BLOOD COUNT 5.8 K/mm3 (4.0-10.0)
[2017-08-30 07:43] LABS: ANION GAP 2 (8-16); BLOOD UREA NITROGEN 22 mg/dL (7-18); CALCIUM 8.3 mg/dL (8.5-10.1); CHLORIDE 93 mmol/L (98-107); CO2 43 mmol/L (21-32); CREATININE 0.5 mg/dL (0.7-1.3); GLUCOSE,RANDOM 117 mg/dL (74-106); POTASSIUM 3.7 mmol/L (3.5-5.1); SODIUM 138 mmol/L (136-145)
[2017-08-30] MEDS: ALBUTEROL SO4 2.5/IPRATROPIUM 0.5 INH SOL 3 ML VIAL.NEB. NEB SCH ×4 (08:48→20:29)
[2017-08-30] MEDS: ASPIRIN 81 MG CHEWABLE TABLETS PO SCH (09:24)
[2017-08-30] MEDS: BUDESONIDE/FORMETEROL FUMARATE 160/4.5 mcg INHALER IH SCH ×2 (09:24→21:38)
[2017-08-30] MEDS: PANTOPRAZOLE 40 MG TABLET (FP) PO SCH (09:24)
[2017-08-30] MEDS: ATENOLOL 25 MG TABLET (FP) PO SCH (09:24)
[2017-08-30] MEDS: TAMSULOSIN HCL 0.4 MG CAP.ER.24H (FP) PO SCH (09:24)
[2017-08-30] MEDS: FINASTERIDE 5 MG TABLET (FP) PO SCH (09:25)
--- NOTE | 2017-08-30 10:36 | PN ---
Physical Exam: SUBJECTIVE: Patient seen and examined at bedside. Pt feels well. Slept well with NIPPV. no complaints at this time. OBJECTIVE: Vital Signs Period Temp Pulse Resp BP Sys/Thurman Pulse Ox Last 24 Hr 98.2 F-98.7 F 66-72 20-24 126-157/77-90 97-98 exam unchanged GENERAL: The patient is awake, alert, and fully oriented, in no acute distress. HEAD: Normal with no signs of trauma. EYES: sclera anicteric, conjunctiva clear. No ptosis. ENT:oropharynx clear without exudates, moist mucous membranes. NECK: Trachea midline, full range of motion, supple. LUNGS: poor air entry. Scattered crackles. No accessory muscle use. HEART: Regular rate and rhythm, S1, S2 without murmur, rub or gallop. ABDOMEN: Soft, nontender, nondistended, normoactive bowel sounds, no guarding, no rebound, no hepatosplenomegaly, no masses. EXTREMITIES: 2+ pulses, warm, well-perfused, no edema. NEUROLOGICAL: Cranial nerves II through XII grossly intact. Normal speech, gait not observed. PSYCH: Normal mood, normal affect. SKIN: Warm, dry, normal turgor, no rashes or lesions noted Laboratory Results - last 24 hr 08/29/17 08/29/17 08/30/17 09:42 12:00 06:38 WBC 5.8 RBC 4.65 Hgb 12.8 Hct 39.3 MCV 84.6 MCH 27.5 MCHC 32.4 RDW 15.2 Plt Count 144 MPV 7.9 Neutrophils % 87.9 H Lymphocytes % 7.5 L Monocytes % 4.5 Eosinophils % 0.0 Basophils % 0.1 D Nucleated RBC % 0 Puncture Site Right radial ABG pH 7.40 ABG pCO2 at Pt Temp 66.3 H* ABG pO2 at Pt Temp 157.0 H* D ABG HCO3 39.9 H ABG O2 Sat (Measured) 99.5 H ABG O2 Content 17.3 ABG Base Excess 12.5 H Ronny Test Positive O2 Delivery Device N/c Oxygen Flow Rate 3l Sodium 139 Potassium 3.7 Chloride 94 L Carbon Dioxide 42 H Anion Gap 3 L BUN 27 H D Creatinine 0.7 Creat Clearance w eGFR > 60 Random Glucose 163 H D Calcium 8.6 Phosphorus 2.7 Magnesium 2.2 Total Bilirubin 0.6 AST 32 ALT 47 Alkaline Phosphatase 91 Total Protein 6.7 Albumin 3.0 L 08/30/17 06:38 WBC RBC Hgb Hct MCV MCH MCHC RDW Plt Count MPV Neutrophils % Lymphocytes % Monocytes % Eosinophils % Basophils % Nucleated RBC % Puncture Site ABG pH ABG pCO2 at Pt Temp ABG pO2 at Pt Temp ABG HCO3 ABG O2 Sat (Measured) ABG O2 Content ABG Base Excess Ronny Test O2 Delivery Device Oxygen Flow Rate Sodium 138 Potassium 3.7 Chloride 93 L Carbon Dioxide 43 H Anion Gap 2 L BUN 22 H Creatinine 0.5 L D Creat Clearance w eGFR Random Glucose 117 H D Calcium 8.3 L Phosphorus Magnesium Total Bilirubin AST ALT Alkaline Phosphatase Total Protein Albumin Active Medications Generic Name Dose Route Start Last Admin Trade Name Freq PRN Reason Stop Dose Admin Albuterol Sulfate 1 amp 08/27/17 08:41 08/27/17 15:44 Ventolin 0.083% Nebulizer Soln - NEB 1 amp Q4H PRN Administration SHORT OF BREATH/WHEEZING Albuterol/Ipratropium 1 amp 08/28/17 16:00 08/30/17 08:48 Duoneb - NEB 1 amp RQID JACKIE Administration Aspirin 81 mg 08/27/17 10:00 08/30/17 09:24 Asa - PO 81 mg DAILY JACKIE Administration Atenolol 50 mg 08/27/17 10:00 08/30/17 09:24 Tenormin - PO 50 mg DAILY JACKIE Administration Atorvastatin Calcium 20 mg 08/27/17 22:00 08/29/17 21:38 Lipitor - PO 20 mg HS JACKIE Administration Budesonide/Formoterol Fumarate 1 puff 08/27/17 10:00 08/30/17 09:24 Symbicort 160/4.5mcg - IH 1 puff BID JACKIE Administration Finasteride 5 mg 08/27/17 10:00 08/30/17 09:25 Proscar - PO 5 mg DAILY JACKIE Administration Methylprednisolone Sodium Succinate 40 mg 08/27/17 18:45 08/30/17 09:24 Solu-Medrol - IVPUSH 40 mg Q8H-IV JACKIE Administration Pantoprazole Sodium 40 mg 08/27/17 10:00 08/30/17 09:24 Protonix - PO 40 mg DAILY JACKIE Administration Rivaroxaban 20 mg 08/27/17 18:00 08/29/17 17:17 Xarelto - PO 20 mg 1800 JACKIE Administration Tamsulosin HCl 0.4 mg 08/27/17 09:15 08/30/17 09:24 Flomax - PO 0.4 mg 0830 JACKIE Administration ASSESSMENT/PLAN: 77 year old male with a hx of COPD, prostate CA, 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 Recent admission for the same. Pt was admitted for COPD exacerbation. #COPD -Duonebs -Ventolin -Symbicort -Solu-medrol -Pulm recs appreciated: will need slow steroid taper and will need Trilogy ventilator on d/c -NIPPV at night and as needed #HTN -Atenolol #HLD -Lipitor #Hx CVA -ASA -Lipitor -Xarelto #Hx prostate CA -Finasteride -Flomax #Hx DVT -Xarelto #FEN -not on fluids -HyperK resolved -Na controlled diet #PPx -xarelto #Dispo -Admitted for COPD exacerbation Fei Keita MD PGY-1 IM Visit type - Emergency Visit Emergency Visit: No - New Patient This patient is new to me today: No - Critical Care Critical Care patient: No - Discharge Referral Referred to [facility] Med P.C.: No
--- NOTE | 2017-08-30 12:45 | PN ---
Teaching Attending Note Name of Resident: Fei Keita ATTENDING PHYSICIAN STATEMENT I saw and evaluated the patient. I reviewed the resident's note and discussed the case with the resident. I agree with the resident's findings and plan as documented. SUBJECTIVE:states breathing is slightly better than yesterday. has a dry cough. dyspnea is worse on exertion. denies CP, SOB, fever, chills, N/V/C/D OBJECTIVE: Last Vital Signs Temp Pulse Resp BP Pulse Ox 98.7 F 72 18 140/100 96 08/30/17 06:00 08/30/17 09:00 08/30/17 09:00 08/30/17 09:00 08/30/17 11:50 General NAD CV S1 S2 RRR no murmur/rub/gallop Lungs Coarse breath sounds. minimal wheezing. 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 Acute COPD exacerbation, no clinical evidence of new infectious process- clinically improved per pt. will decrease medrol to BID dosing. slow taper. cont inhalers, nebs prn. cont supplemental oxygen to mantain spo2 >90%. pulmonary on board 2. Acute hypercapneic respiratory failure- ABG today show persistent hypercapnea. would benefit from trilogy device. 3. dVT in 2014- on xarelto 4. RVH/Pulmonary HTN. 5. CVA with residual L side weakness- on asa 6. DVT ppx- xarelto 7. paperwork sent out for approval for trilogy device. pt may benefit from SNF placement. spoke with present at bedside. all questions answered. verbalized understanding and agreement [facility] plan
--- NOTE | 2017-08-30 14:19 | PN ---
Progress Note (short form) - Note Progress Note: Breathing continues to slowly better. Nonproductive cough persists. Intake & Output 08/27/17 08/28/17 08/29/17 08/30/17 23:59 23:59 23:59 23:59 Intake Total 250 200 300 100 Output Total 200 200 Balance 250 200 100 -100 Weight 131 lb 5 oz 131 lb Last Vital Signs Temp Pulse Resp BP Pulse Ox 99.2 F 72 20 146/84 97 08/30/17 13:42 08/30/17 13:42 08/30/17 13:42 08/30/17 13:42 08/30/17 14:10 Active Medications Albuterol Sulfate (Ventolin 0.083% Nebulizer Soln -) 1 amp NEB Q4H PRN PRN Reason: SHORT OF BREATH/WHEEZING Last Admin: 08/27/17 15:44 Dose: 1 amp Albuterol/Ipratropium (Duoneb -) 1 amp NEB RQID [facility] Last Admin: 08/30/17 11:49 Dose: 1 amp Aspirin (Asa -) 81 mg PO DAILY [facility] Last Admin: 08/30/17 09:24 Dose: 81 mg Atenolol (Tenormin -) 50 mg PO DAILY [facility] Last Admin: 08/30/17 09:24 Dose: 50 mg Atorvastatin Calcium (Lipitor -) 20 mg PO HS [facility] Last Admin: 08/29/17 21:38 Dose: 20 mg Budesonide/Formoterol Fumarate (Symbicort 160/4.5mcg -) 1 puff IH BID [facility] Last Admin: 08/30/17 09:24 Dose: 1 puff Finasteride (Proscar -) 5 mg PO DAILY [facility] Last Admin: 08/30/17 09:25 Dose: 5 mg Methylprednisolone Sodium Succinate (Solu-Medrol -) 40 mg IVPUSH Q8H-IV [facility] Last Admin: 08/30/17 09:24 Dose: 40 mg Pantoprazole Sodium (Protonix -) 40 mg PO DAILY [facility] Last Admin: 08/30/17 09:24 Dose: 40 mg Rivaroxaban (Xarelto -) 20 mg PO 1800 [facility] Last Admin: 08/29/17 17:17 Dose: 20 mg Tamsulosin HCl (Flomax -) 0.4 mg PO 0830 [facility] Last Admin: 05/29/18 09:24 Dose: 0.4 mg Gen: NAD at rest Heart: RRR Lung: scattered rhonchi Abd: soft, nontender Ext: no edema Laboratory Results - last 24 hr 08/30/17 08/30/17 06:38 06:38 WBC 5.8 RBC 4.65 Hgb 12.8 Hct 39.3 MCV 84.6 MCH 27.5 MCHC 32.4 RDW 15.2 Plt Count 144 MPV 7.9 Neutrophils % 87.9 H Lymphocytes % 7.5 L Monocytes % 4.5 Eosinophils % 0.0 Basophils % 0.1 D Nucleated RBC % 0 Sodium 138 Potassium 3.7 Chloride 93 L Carbon Dioxide 43 H Anion Gap 2 L BUN 22 H Creatinine 0.5 L D Random Glucose 117 H D Calcium 8.3 L Problem List - Problems (1) COPD exacerbation Code(s): J44.1 - CHRONIC OBSTRUCTIVE PULMONARY DISEASE W (ACUTE) EXACERBATION (2) H/O prostate cancer Code(s): Z85.46 - PERSONAL HISTORY OF MALIGNANT NEOPLASM OF PROSTATE (3) H/O: CVA (cerebrovascular accident) Code(s): Z86.73 - PRSNL HX OF TIA (TIA), AND CEREB INFRC W/O RESID DEFICITS (4) Hyperlipidemia Code(s): E78.5 - HYPERLIPIDEMIA, UNSPECIFIED Qualifiers: Hyperlipidemia type: unspecified Qualified Code(s): E78.5 - Hyperlipidemia , unspecified (5) Acute on chronic respiratory failure with hypercapnia Code(s): J96.22 - ACUTE AND CHRONIC RESPIRATORY FAILURE WITH HYPERCAPNIA A/P Acute on Chronic Hypercapneic Respiratory Failure Acute COPD Exacerbation Pulmonary HTN Hyperlipidemia h/o DVT h/o CVA h/o Prostate Ca - Can likely taper Medrol in the AM - inhaled bronchodilators standing and PRN - O2 to keep SpO2 >90% - BiPAP at night and PRN during day - He will likely benefit from BiPAP ST or trilogy device at home due to chronic hypercapnic respiratory failure - AC Dr Lyn
[2017-08-30] MEDS: RIVAROXABAN 20 MG TABLET PO SCH (18:00)
[2017-08-30] MEDS ORDERED: PT OWN MED DRAWER 7, Y5N ONE (20:46)
[2017-08-30] MEDS: ATORVASTATIN CA 20 MG TABLET (FP) PO SCH (21:38)
--- NOTE | 2017-08-31 07:22 | PN ---
Physical Exam: SUBJECTIVE: Patient seen and examined at bedside. No acute events. Pt slept well without bipap last night. Feels ok. OBJECTIVE: Vital Signs Period Temp Pulse Resp BP Sys/Thurman Pulse Ox Last 24 Hr 97.7 F-99.2 F 72-91 18-21 138-148/78-100 95-99 GENERAL: The patient is awake, alert, and fully oriented, in no acute distress. HEAD: Normal with no signs of trauma. EYES: sclera anicteric, conjunctiva clear. No ptosis. ENT:oropharynx clear without exudates, moist mucous membranes. NECK: Trachea midline, full range of motion, supple. LUNGS: poor air entry. Scattered subtle crackles. No accessory muscle use. HEART: quiet heart sounds. Regular rate and rhythm, S1, S2 without murmur, rub or gallop. ABDOMEN: Soft, nontender, nondistended, normoactive bowel sounds, no guarding, no rebound, no hepatosplenomegaly, no masses. EXTREMITIES: 2+ pulses, warm, well-perfused, no edema. NEUROLOGICAL: Cranial nerves II through XII grossly intact. Normal speech, gait not observed. PSYCH: Normal mood, normal affect. SKIN: Warm, dry, normal turgor, no rashes or lesions noted Laboratory Results - last 24 hr 08/30/17 08/30/17 06:38 06:38 WBC 5.8 RBC 4.65 Hgb 12.8 Hct 39.3 MCV 84.6 MCH 27.5 MCHC 32.4 RDW 15.2 Plt Count 144 MPV 7.9 Neutrophils % 87.9 H Lymphocytes % 7.5 L Monocytes % 4.5 Eosinophils % 0.0 Basophils % 0.1 D Nucleated RBC % 0 Sodium 138 Potassium 3.7 Chloride 93 L Carbon Dioxide 43 H Anion Gap 2 L BUN 22 H Creatinine 0.5 L D Random Glucose 117 H D Calcium 8.3 L Active Medications Generic Name Dose Route Start Last Admin Trade Name Freq PRN Reason Stop Dose Admin Albuterol Sulfate 1 amp 08/27/17 08:41 08/27/17 15:44 Ventolin 0.083% Nebulizer Soln - NEB 1 amp Q4H PRN Administration SHORT OF BREATH/WHEEZING Albuterol/Ipratropium 1 amp 08/28/17 16:00 08/30/17 20:29 Duoneb - NEB 1 amp RQID JACKIE Administration Aspirin 81 mg 08/27/17 10:00 08/30/17 09:24 Asa - PO 81 mg DAILY JACKIE Administration Atenolol 50 mg 08/27/17 10:00 08/30/17 09:24 Tenormin - PO 50 mg DAILY JACKIE Administration Atorvastatin Calcium 20 mg 08/27/17 22:00 08/30/17 21:38 Lipitor - PO 20 mg HS JACKIE Administration Budesonide/Formoterol Fumarate 1 puff 08/27/17 10:00 08/30/17 21:38 Symbicort 160/4.5mcg - IH 1 puff BID JACKIE Administration Finasteride 5 mg 08/27/17 10:00 08/30/17 09:25 Proscar - PO 5 mg DAILY JACKIE Administration Methylprednisolone Sodium Succinate 40 mg 08/30/17 22:00 08/30/17 21:38 Solu-Medrol - IVPUSH 40 mg BID JACKIE Administration Pantoprazole Sodium 40 mg 08/27/17 10:00 08/30/17 09:24 Protonix - PO 40 mg DAILY JACKIE Administration Rivaroxaban 20 mg 08/27/17 18:00 08/30/17 18:00 Xarelto - PO 20 mg 1800 JACKIE Administration Tamsulosin HCl 0.4 mg 08/27/17 09:15 08/30/17 09:24 Flomax - PO 0.4 mg 0830 JACKIE Administration ASSESSMENT/PLAN:
[2017-08-31 07:30] LABS: BASO % 0.1 % (0-2.0); HEMATOCRIT 41.3 % (35.4-49); HEMOGLOBIN 13.4 GM/dL (11.7-16.9); LYMPH % 6.8 % (8-40); MCH 27.5 pg (25.7-33.7); MCHC 32.4 g/dl (32.0-35.9); MEAN CELL VOLUME 84.7 fl (80-96); MEAN PLT VOLUME 7.9 fl (7.5-11.1); MONO % 5.8 % (3.8-10.2); NEUT % 87.3 % (42.8-82.8); PLATELET COUNT 154 K/MM3 (134-434); RBC 4.87 M/mm3 (4.00-5.60); RDW 14.7 % (11.9-15.9); WHITE BLOOD COUNT 7.2 K/mm3 (4.0-10.0)
[2017-08-31 08:01] LABS: CHLORIDE 93 mmol/L (98-107); POTASSIUM 3.8 mmol/L (3.5-5.1); SODIUM 137 mmol/L (136-145)
[2017-08-31 08:19] LABS: ANION GAP 6 (8-16); BLOOD UREA NITROGEN 19 mg/dL (7-18); CALCIUM 8.4 mg/dL (8.5-10.1); CO2 38 mmol/L (21-32); CREATININE 0.6 mg/dL (0.7-1.3); GLUCOSE,RANDOM 126 mg/dL (74-106)
[2017-08-31] MEDS: ALBUTEROL SO4 2.5/IPRATROPIUM 0.5 INH SOL 3 ML VIAL.NEB. NEB SCH ×2 (08:40→11:34)
[2017-08-31] MEDS ORDERED: PT OWN MED DRAWER 7, Y5N ONE (10:15)
[2017-08-31] MEDS: ATENOLOL 25 MG TABLET (FP) PO SCH (10:19)
[2017-08-31] MEDS: methylPREDNISolone NA SUCC 40 MG/1 ML VIAL IVPUSH SCH (10:19)
[2017-08-31] MEDS: PANTOPRAZOLE 40 MG TABLET (FP) PO SCH (10:20)
[2017-08-31] MEDS: ASPIRIN 81 MG CHEWABLE TABLETS PO SCH (10:20)
[2017-08-31] MEDS: TAMSULOSIN HCL 0.4 MG CAP.ER.24H (FP) PO SCH (10:20)
[2017-08-31] MEDS: FINASTERIDE 5 MG TABLET (FP) PO SCH (10:20)
[2017-08-31] MEDS: BUDESONIDE/FORMETEROL FUMARATE 160/4.5 mcg INHALER IH SCH (10:20)
--- NOTE | 2017-08-31 12:32 | PN ---
Teaching Attending Note Name of Resident: Fei Keita ATTENDING PHYSICIAN STATEMENT I saw and evaluated the patient. I reviewed the resident's note and discussed the case with the resident. I agree with the resident's findings and plan as documented. SUBJECTIVE: continues to have productive cough of small amounts of yellow sputum. denies CP, fever, chills, N/V/C/D OBJECTIVE: Last Vital Signs Temp Pulse Resp BP Pulse Ox 98.3 F 75 20 149/99 99 08/31/17 05:00 08/31/17 05:00 08/31/17 05:00 08/31/17 05:00 08/31/17 08:39 General NAD CV S1 S2 RRR no murmur/rub/gallop Lungs decreased breath sounds. 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 with dyspnea, sent out on prednisone taper, also neg CTA but 2D echo with RVH/pul HTN, placed on xarelto comes back with dyspnea 1. Acute COPD exacerbation, no clinical evidence of new infectious process- clinically improved. saturating 95 % on 3L NC will cont current dosing at this time. will need slow taper. cont inhalers, nebs prn. cont supplemental oxygen to mantain spo2 >90%. pulmonary on board 2. Acute hypercapneic respiratory failure- ABG show persistent hypercapnea. would benefit from trilogy device. 3. dVT in 2014- on xarelto 4. RVH/Pulmonary HTN. 5. CVA with residual L side weakness- on asa 6. DVT ppx- xarelto 7. only ambulated 20ft with PT and would benefit from ROSE placement. SW aware and SERGE sent out. awaiting facility acceptance
[2017-08-31 15:10] VITALS: BP 143/88; PULSE 80; TEMP 98.6
--- NOTE | 2017-08-31 16:56 | DS ---
Physical Exam: SUBJECTIVE: Patient seen and examined at bedside. No acute events. Pt slept well without bipap last night. Feels ok. OBJECTIVE: Vital Signs Period Temp Pulse Resp BP Sys/Thurman Pulse Ox Last 24 Hr 97.7 F-98.9 F 75-91 20-21 138-149/78-99 95-99 PHYSICAL EXAM GENERAL: The patient is awake, alert, and fully oriented, in no acute distress. HEAD: Normal with no signs of trauma. EYES: sclera anicteric, conjunctiva clear. No ptosis. ENT:oropharynx clear without exudates, moist mucous membranes. NECK: Trachea midline, full range of motion, supple. LUNGS: poor air entry. Scattered subtle crackles. No accessory muscle use. HEART: quiet heart sounds. Regular rate and rhythm, S1, S2 without murmur, rub or gallop. ABDOMEN: Soft, nontender, nondistended, normoactive bowel sounds, no guarding, no rebound, no hepatosplenomegaly, no masses. EXTREMITIES: 2+ pulses, warm, well-perfused, no edema. NEUROLOGICAL: Cranial nerves II through XII grossly intact. Normal speech, gait not observed. PSYCH: Normal mood, normal affect. 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 Recent admission for the same. Pt was admitted for COPD exacerbation. Pt COPD exacerbation was treated effectively with Duonebs, Ventolin, Symbicort, and Solu-medrol. He did not complain of much SOB or discomfort throughout his stay. He used NIPPV during sleep as needed, and occasionally slept with nasal canula with his home 3L O2. He was seen by pulmonology during his stay. They recommended a slow steroid taper and a Trilogy ventilator on discharge, both of which were arranged. Pt's chronic HTN was treated with home Atenolol. HLD was treated with home Lipitor. Pt had a stroke in the past and was kept on his ASA, Lipitor, and Xarelto. Pt also had a Hx of prostate CA, for which he was kept on Finasteride, and Flomax. He was kept on Xarelto for a prior DVT. Pt currently in no distress and stable for discharge. Minutes to complete discharge: 30 Discharge Summary Reason For Visit: ACUTE EXACERBATION OF COPD Condition: Good - Instructions Diet, Activity, Other Instructions: You were in the hospital because of COPD exacerbation. You are being sent to a assisted facility with a Trilogy device to help with your breathing. Please make sure you use the device as directed. You are being sent home with a prednisone taper. Please take Prednisone as follows beginning on 09/01/2017: 4 tabs (40mg) for 3 days 3 tabs (30mg) for 3 days 2 tabs (20mg) daily until your appointment with the agency manager, Dr. Borja. Make sure you take your medications as directed. If you develop new symptoms or if your symptoms get worse, return to the ED. Referrals: David Borja MD, [Staff Physician] - 1 Week Disposition: ALF FACILITY - Home Medications Comprehensive Discharge Medication List: Ambulatory Orders Albuterol 2.5/Ipratropium 0.5 [Duoneb -] 1 neb IH QID 08/26/17 Aspirin [ASA -] 81 mg PO DAILY 08/26/17 Atorvastatin Ca [Lipitor] 20 mg PO HS 08/26/17 Bisoprolol Fumarate 5 mg PO DAILY 08/26/17 Budesonide/Formeterol Fumarate [SYMBICORT 160/4.5mcg -] 1 inh IH BID 08/26/17 Finasteride [Proscar -] 5 mg PO DAILY 08/26/17 Omeprazole 40 mg PO DAILY 08/26/17 Prednisone See Taper PO DAILY 4 Days tablet 08/26/17 Rivaroxaban [Xarelto -] 20 mg PO DAILY 08/26/17 Tamsulosin HCl 0.4 mg PO DAILY 08/26/17 Tiotropium [place] [Spiriva] 1 inh IH BID 08/26/17 Prednisone See Taper PO DAILY #32 tablet 08/31/17 This patient is new to me today: No Emergency Visit: No Critical Care patient: No - Discharge Referral Referred to [facility] Med [facility].C[facility] No
== END 2017-08-31 16:01 | DRG 190 ==
LOC: JER 04:46 → JERBED 08:25 → J5S 10:59 → OBSVTOIN 18:32
PROVIDERS: ADMIT Hospitalist; ATTEND Internal Medicine
DX: J44.1 Chronic obstructive pulmonary disease with (acute) exacerbation (principal); J96.22 Acute and chronic respiratory failure with hypercapnia; I69.354 Hemiplegia and hemiparesis following cerebral infarction affecting left non-dominant side; Z68.1 Body mass index [BMI] 19.9 or less, adult; R64 Cachexia; E87.5 Hyperkalemia; I10 Essential (primary) hypertension; E78.5 Hyperlipidemia, unspecified; Z85.46 Personal history of malignant neoplasm of prostate; I27.20 Pulmonary hypertension, unspecified
CPT/HCPCS: 36415; 36600; 71045-TC-FY; 80048; 80053; 82550; 82803; 83735; 84100; 84484; 85025; 93005; 93010; 94010; 94640; 94660; 97116-GP; 97161-GP; 99283-25; G0378; J7030; J7620

== ENCOUNTER 2018-04-20 01:47 | Inpatient (IN) | payer OTHER ==
[2018-04-20] MEDS ORDERED: RAPID SEQUENCE INTUBATION KIT NR ONE ×2 (02:07→02:10)
[2018-04-20] MEDS ORDERED: DEXAMETHASONE SOD PHOSPHATE 10 MG/1 ML VIAL ONE (02:07)
[2018-04-20] MEDS ORDERED: ALBUTEROL SO4 2.5/IPRATROPIUM 0.5 INH SOL 3 ML VIAL.NEB. NEB ONE (02:07)
--- NOTE | 2018-04-20 02:21 | PDOC ---
Attending Attestation - ED Attending Attestation I have performed the following: I have examined & evaluated the patient, The case was reviewed & discussed with the resident, I agree w/resident's findings & plan - HPI HPI: 04/20/18 02:47 The patient is a 77 year old male, with a significant past medical history of COPD (3L @ home O2), prostate CA, who presents to the emergency department with , shortness of breath. As per patients daughter at bedside for the past 3 days he has been increasingly short of breath despite the use of a C-pap machine and use of Prednisone. As per EMS, the upon their arrival the patients O2 saturation was in the low 80s and they put him on Cpap and administered 10 of dexamethasone. Upon his arrival, patient was hooked-up to the cpap machine and blood pressure was 141/89. Patient was administered rocuronium at 2:03am, etomidate at 2:03am, and the time of intubation was 2:05am. Allergies: NKDA Primary Care Physician: Dr. Gab Seay Live Source Operator: Dr. Borja <Porfirio Santoyo - Last Filed: 04/20/18 02:47> - Resident Resident Name: Archie Marti - Physicial Exam PE: 04/20/18 03:11 Agree with resident exam - Critical Care Time Total Critical Care Time: 40 Critical Care Statement: The care of this patient involved high complexity decision making to prevent further life threatening deterioration of the patient 's condition and/or to evaluate & treat vital organ system(s) failure or risk of failure. - Medical Decision Making 04/20/18 03:14 77-year-old male with shortness of breath and history of COPD Patient was intubated on arrival due to persistent hypoxemia despite CPAP and increased work of breathing Patient failed to improve after steroids and nebulizer given in the field See resident's intubation note for details Impression acute COPD exacerbation with respiratory failure Plan admit to ICU <Nemo Cerda - Last Filed: 04/20/18 03:16> Attestations - Attestations 04/20/18 02:47 Documentation prepared by Porfirio Santoyo, acting as medical billing specialist for Nemo Cerda DO. <Porfirio Santoyo - Last Filed: 04/20/18 02:47>
[2018-04-20] MEDS ORDERED: PROPOFOL 1,000,000 MCG/100 ML VIAL ONE (02:27)
--- NOTE | 2018-04-20 02:39 | PDOC ---
History of Present Illness - General Chief Complaint: Shortness of Breath Stated Complaint: SOB Time Seen by Provider: 04/20/18 01:57 - History of Present Illness Initial Comments: 04/20/18 02:31 77 yo M with h/o CAD (on ASA)COPD ( oxygen dependent), Pulm HTN/RVH, DVT-2015 on Xarelto, chronic hypercapneic respiratory failure, Prostate Ca., CVA ( x 5 years with residual L sided weakness), BIBA with SOB, wheezing. EMS reports patient tachycardic ~130's, and hypoxic to 88, increased to 94% on CPAP. Given duonebs x 2 Dexamethasone, with minimal improvement. Daughter at bedside ( DPOA ) reports patient with increased SOB, wheezing, refractory to duoneb daily, and Prednisone 40 mg x 2 days. Increased [place], and fatigue x 2 days. Denies home 02 use. Daughter denies h/o ICU stay or intubations. Patient denies HAWKINS, palpitations, cough, N/V, F,C, CP, urinary complaints, abdominal pain, diarrhea, constipation, hematuria, BPR, lightheadedness, weakness, sensory changes. PMHx: as noted above ROS: as noted Allergies: NKDA Brain Surgeon: David Borja Past History - Past Medical History Allergies/Adverse Reactions: Allergies Allergy/AdvReac Type Severity Reaction Status Date / Time No Known Allergies Allergy Verified 04/20/18 02:16 Home Medications: Ambulatory Orders Albuterol 2.5/Ipratropium 0.5 [Duoneb -] 1 neb IH QID 08/26/17 Aspirin [ASA -] 81 mg PO DAILY 08/26/17 Atorvastatin Ca [Lipitor] 20 mg PO HS 08/26/17 Bisoprolol Fumarate 5 mg PO DAILY 08/26/17 Budesonide/Formeterol Fumarate [SYMBICORT 160/4.5mcg -] 1 inh IH BID 08/26/17 Finasteride [Proscar -] 5 mg PO DAILY 08/26/17 Omeprazole 40 mg PO DAILY 08/26/17 Prednisone See Taper PO DAILY 4 Days tablet 08/26/17 Rivaroxaban [Xarelto -] 20 mg PO DAILY 08/26/17 Tamsulosin HCl 0.4 mg PO DAILY 08/26/17 Tiotropium [place] [Spiriva] 1 inh IH BID 08/26/17 Prednisone See Taper PO DAILY #32 tablet 08/31/17 Asthma: Yes (copd) Cancer: Yes (PROSTATE) CVA: Yes COPD: Yes Dementia: No Diabetes: No GI Disorders: No Liver Disease: No Seizures: No Thyroid Disease: No - Immunization History Immunization Up to Date: Yes - Suicide/Smoking/Psychosocial Hx Smoking History: Former smoker Have you smoked in the past 12 months: No Number of Cigarettes Smoked Daily: 0 If you are a former smoker, when did you quit?: 0 Information on smoking cessation initiated: No Hx Alcohol Use: Yes (Ocassional) Drug/Substance Use Hx: No Substance Use Type: None Hx Substance Use Treatment: No Review of Systems - Review of Systems Comments:: 04/20/18 02:38 Unable to provide 13 point ROS d/t lethargy. *Physical Exam - Vital Signs Last Vital Signs Temp Pulse Resp BP Pulse Ox 98.2 F 122 H 32 H 141/89 92 L 04/20/18 01:47 04/20/18 01:47 04/20/18 01:47 04/20/18 01:47 04/20/18 01:47 - Physical Exam Comments: 04/20/18 02:39 GENERAL: Awake, alert,oriented x 2, lethargic appearing HEAD: No signs of trauma, normocephalic, atraumatic EYES: PERRLA, EOMI, sclera anicteric, conjunctiva clear ENT: Hearing grossly normal, nares patent, oropharynx clear without exudates. Moist mucosa NECK: Normal ROM, supple, no lymphadenopathy, JVD, or masses LUNGS: Increased accessory muscle use, labored breathing, diffuse exp wheezing. Diminshed BL lung sounds. HEART: Regular rate and rhythm, normal S1 and S2, no murmurs, rubs or gallops, peripheral pulses normal and equal bilaterally. ABDOMEN: Soft, nontender, normoactive bowel sounds. No guarding, no rebound. No masses EXTREMITIES : Normal inspection, Normal range of motion, no edema. No clubbing or cyanosis. NEUROLOGICAL: Cranial nerves II through XII grossly intact. No focal sensorimotor deficits SKIN: Warm, Dry, normal turgor, no rashes or lesions noted Moderate Sedation - Procedure Monitoring Vital Signs: Procedure Monitoring Vital Signs Temperature 98.2 F 04/20/18 01:47 Pulse Rate 122 H 04/20/18 01:47 Respiratory Rate 32 H 01/17/19 01:47 Blood Pressure 141/89 04/20/18 01:47 O2 Sat by Pulse Oximetry (%) 92 L 04/20/18 01:47 Procedures - Intubation Intubation Method: orotracheal Blade used: Mac Tube Size (Fr): 8.0 Medications: Etomidate, Rocuronium Tube position confirmed by: Direct visualization, CO2 detector, Breath sounds Breath Sounds after Intubation: equal Intubation Complications: no complications Post Intubation Xray: Yes ED Treatment Course - LABORATORY CBC & Chemistry Diagram: 04/20/18 02:45 04/20/18 02:45 - RADIOLOGY Radiology Studies Ordered: Category Date Time Status CHEST X-RAY PORTABLE* [RAD] Stat Radiology 04/20/18 01:58 Ordered Medical Decision Making - Medical Decision Making 04/20/18 02:40 77 yo M with h/o CAD (on ASA)COPD ( oxygen dependent), Pulm HTN/RVH, DVT-2015 on Xarelto, chronic hypercapneic respiratory failure, Prostate Ca., CVA ( x 5 years with residual L sided weakness), BIBA with SOB, wheezing. EMS reports patient tachycardic ~130's, and hypoxic to 88, increased to 94% on CPAP. Given duonebs x 2 Dexamethasone, with minimal improvement. In ED HR 122, 32 RR, 92%O2 on CPAP, 98.2 , BP 141/89 Physical exam notable for Increased accessory muscle use, labored breathing, diffuse exp wheezing. Diminshed BL lung sounds. Likely acute on chronic resp. failure. DDx: asthma, COPD, CHF ( no evidence of fluid overload on phyiscal exam). Will consider PNA, ACS/CO, PE, Pleural effusion. Asses for electrolyte abnml, metabolic and toxic derangement, acid-base disturbances, infection. ED Course: Patient with conitnued labored breathing on CPAP. Patient lethargic appearing. Plan to intubate Etomidate 20, Rocuronium 80. Intubated Vent settings TV 450, RR 18, PEEP 5, 02 60 %. No complications. BL breath sounds, visualization, and capnography change , CXR. Propofol gtt EKG: Sinus tachycardia HR 141. P wave enlargement. Nml intervals and axis duration. Absent acute [place], STD. 04/20/18 03:12 CBC: Unremarkable 04/20/18 03:58 pH: 7.34 Pco2: 72.7 Trop: Neg UA: Neg 04/20/18 04:[address] Turpin [facility]. Admitted to Dr. Alexis. 04/20/18 04:53 Patient endorsed and accepted by Dr. Bruce ICU *DC/Admit/Observation/Transfer Diagnosis at time of Disposition: Acute on chronic respiratory failure with hypoxia and hypercapnia Difficult intubation Qualifiers: Encounter type: initial encounter Qualified Code(s): T88.4XXA - Failed or difficult intubation, initial encounter - Discharge Dispostion Condition at time of disposition: Guarded Decision to Admit order: Yes - Referrals - Patient Instructions - Post Discharge Activity
[2018-04-20 02:59] LABS: BASO % 0.1 % (0-2.0); EOS % 0.5 % (0-4.5); HEMATOCRIT 40.4 % (35.4-49); LYMPH % 10.9 % (8-40); MCHC 32.3 g/dl (32.0-35.9); MEAN CELL VOLUME 89.9 fl (80-96); MEAN PLT VOLUME 8.2 fl (7.5-11.1); MONO % 8.9 % (3.8-10.2); NEUT % 79.6 % (42.8-82.8); PLATELET COUNT 194 K/MM3 (134-434); RDW 15.3 % (11.9-15.9)
[2018-04-20 03:19] LABS: INR 1.21 (0.83-1.09); PROTHROMBIN TIME (PATIENT) 14.3 SEC (9.7-13.0)
[2018-04-20 03:21] LABS: ACTIVATED PTT 24.9 SECONDS (25.2-36.5)
[2018-04-20 03:28] LABS: URINE APPEARANCE CLEAR; URINE BILIRUBIN NEGATIVE (<2.0 mg/dL); URINE COLOR LTYELLOW; URINE GLUCOSE (UA) 1+ (NEGATIVE); URINE KETONE NEGATIVE (NEGATIVE); URINE LEUK ESTERASE NEGATIVE (NEGATIVE); URINE NITRITE NEGATIVE (NEGATIVE); URINE PROTEIN 2+ (NEGATIVE); URINE UROBILINOGEN NEGATIVE mg/dL (0.2-1.0)
[2018-04-20 03:33] LABS: VENOUS PH 7.34 (7.32-7.42); VENOUS PO2 48.3 mmHg (28-48)
[2018-04-20 03:35] LABS: VENOUS PC02 72.7 mmHg (38-52)
[2018-04-20 03:39] LABS: ALBUMIN 3.4 g/dl (3.4-5.0); ALK PHOS 85 U/L (45-117); ANION GAP 2 MMOL/L (8-16); BILIRUBIN,TOTAL 0.8 mg/dL (0.2-1); BLOOD UREA NITROGEN 18 mg/dL (7-18); CHLORIDE 99 mmol/L (98-107); CO2 42 mmol/L (21-32); CREATININE 0.7 mg/dL (0.55-1.3); GLUCOSE,RANDOM 132 mg/dL (74-106); SGOT/AST 30 U/L (15-37); SGPT/ALT 28 U/L (13-61); SODIUM 143 mmol/L (136-145); TOT PROT 6.8 g/dl (6.4-8.2)
[2018-04-20 03:47] LABS: EPI CELLS RARE /HPF (FEW); URINE MUCUS RARE
[2018-04-20 04:05] LABS: ARTERIAL BLD GAS O2 SATURATION 99.3 % (90-98.9); ARTERIAL BLOOD GAS BASE EXCESS 6.9 meq/l (-2-2); ARTERIAL BLOOD GAS pH 7.33 (7.35-7.45); CARBOXYHEMOGLOBIN 0.3 gm% (0.5-2.0)
[2018-04-20 04:06] LABS: ALLENS TEST POSITIVE
[2018-04-20 04:11] LABS: ARTERIAL BLOOD GAS PCO2 68.7 mmHg (35-45)
[2018-04-20] MEDS ORDERED: ETOMIDATE 40 MG/20 ML VIAL IVPUSH ONE (04:55)
[2018-04-20] MEDS ORDERED: ROCURONIUM BROMIDE 50 MG/5 ML VIAL IVPUSH ONE (04:55)
[2018-04-20] MEDS ORDERED: ALBUTEROL SO4 0.042% IH SOL 1.25 MG/3 ML VIAL.NEB NEB PRN (05:19)
--- NOTE | 2018-04-20 05:20 | HP ---
CHIEF COMPLAINT: SOB PCP: Dr. Gab Seay Pulm: Dr. Borja HISTORY OF PRESENT ILLNESS: The patient is a 77 yo m w/ PMH CAD, COPD (on 3L home O2), DVT on xarelto who was BIBEMS for a 3 day history o progressive SOB and wheezing. Patient was intubated and sedated at the time of interview; the following history was obtained from the patient's daughter at bedside and from the EMR. 3 days ago, the patient began to have increased SOB and wheezing refractory to home nebulizers. The patient's daughter called his PCP, who prescribed prednisone 40mg daily. Per the daughter, the PCP advised her to give varying doses of prednisone based off of the patient's clinical status. Because of this , the patient's steriod regimen was not consistent, varying between 20mg to 30mg prednisone daily. The patient continued to decline and today, the daughter found the patient ot be sautrating in the 70's despite steroids and nebs. EMS was called. When ems arrived, the patient was found to be saturating in the low 80's. EMS placed the patient on CPAP, administered 2 albuterol nebs and 10mg dexamethasone. The patient's saturations improved into the low 90's, but on arrival to the ED, he was noted to be using accessory muscles and the decision was made to intubate. The patient was sedated on propofol at the time of interview. 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) DVT on xarelto PAST SURGICAL HISTORY: none Social History: Smokin pack year history, quit 11 yrs ago Alcohol: denies Drugs: denies Family History: non-contributory Allergies No Known Allergies Allergy (Verified 04/20/18 02:16) HOME MEDICATIONS: Home Medications Medication Instructions Recorded Albuterol 2.5/Ipratropium 0.5 1 neb IH QID 08/26/17 [Duoneb -] Aspirin [ASA -] 81 mg PO DAILY 08/26/17 Atorvastatin Ca [Lipitor] 20 mg PO HS 08/26/17 Bisoprolol Fumarate 5 mg PO DAILY 08/26/17 Budesonide/Formeterol Fumarate 1 inh IH BID 08/26/17 [SYMBICORT 160/4.5mcg -] Finasteride [Proscar -] 5 mg PO DAILY 08/26/17 Omeprazole 40 mg PO DAILY 08/26/17 Prednisone See Taper PO DAILY 4 Days tablet 08/26/17 Rivaroxaban [Xarelto -] 20 mg PO DAILY 08/26/17 Tamsulosin HCl 0.4 mg PO DAILY 08/26/17 Tiotropium [place] [Spiriva] 1 inh IH BID 08/26/17 Prednisone See Taper PO DAILY #32 tablet 08/31/17 REVIEW OF SYSTEMS unable to obtain due to clinical status PHYSICAL EXAMINATION Vital Signs - 24 hr 04/20/18 04/20/18 04/20/18 01:47 01:58 02:25 Temperature 98.2 F Pulse Rate 122 H 122 H Respiratory 32 H 18 18 Rate Blood Pressure 141/89 O2 Sat by Pulse 92 L 100 Oximetry (%) GENERAL: Patient intubated and sedated. Patient fighting the ventilator. Patient able to follow commands. HEAD: Normal with no signs of trauma. EYES: Pupils equal, round and reactive to light, extraocular movements intact, sclera anicteric, conjunctiva clear. No lid lag. LUNGS: Decreased breath sounds b/l. No wheezes heard. HEART: Regular rate and rhythm, normal S1 and S2 without murmur, rub or gallop. Distant heart sounds. ABDOMEN: Soft, nontender, not distended, normoactive bowel sounds, no guarding, no rebound, no masses. No hepatomegaly or splenomegaly. LOWER EXTREMITIES: 2+ pulses, warm, well-perfused. No calf tenderness. No peripheral edema. NEUROLOGICAL: Limited exam due to clinical status. Cranial nerves II-X intact. SKIN: Warm, dry, normal turgor, no rashes or lesions noted, normal capillary refill. Laboratory Results - last 24 hr 04/20/18 04/20/18 04/20/18 02:21 02:21 02:29 WBC RBC Hgb Hct MCV MCH MCHC RDW Plt Count MPV Absolute Neuts (auto) Neutrophils % Lymphocytes % Monocytes % Eosinophils % Basophils % Nucleated RBC % PT with INR INR PTT (Actin FS) Anticoagulation Therapy Puncture Site ABG pH ABG pCO2 at Pt Temp ABG pO2 at Pt Temp ABG HCO3 ABG O2 Sat (Measured) ABG O2 Content ABG Base Excess Ronny Test VBG pH 7.34 POC VBG pCO2 72.7 H* POC VBG pO2 48.3 H Mixed VBG HCO3 37.8 H Carboxyhemoglobin Methemoglobin O2 Delivery Device Oxygen Flow Rate Vent Mode Vent Rate Mechanical Rate PEEP Pressure Support Vent Sodium Potassium Chloride Carbon Dioxide Anion Gap BUN Creatinine Creat Clearance w eGFR Random Glucose Lactic Acid 1.9 Calcium Total Bilirubin AST ALT Alkaline Phosphatase Troponin I Total Protein Albumin Urine Color Ltyellow Urine Appearance Clear Urine pH 7.0 Ur Specific [place] 1.016 Urine Protein 2+ H Urine Glucose (UA) 1+ H Urine Ketones Negative Urine Blood Negative Urine Nitrite Negative Urine Bilirubin Negative Urine Urobilinogen Negative Ur Leukocyte Esterase Negative Urine WBC (Auto) 1 Urine RBC (Auto) 4 Ur Epithelial Cells Rare Urine Mucus Rare 04/20/18 04/20/18 04/20/18 02:45 02:45 02:45 WBC 9.0 RBC 4.50 Hgb 13.0 Hct 40.4 MCV 89.9 MCH 29.0 MCHC 32.3 RDW 15.3 Plt Count 194 D MPV 8.2 Absolute Neuts (auto) 7.2 Neutrophils % 79.6 Lymphocytes % 10.9 D Monocytes % 8.9 Eosinophils % 0.5 D Basophils % 0.1 Nucleated RBC % 0 PT with INR 14.30 H INR 1.21 H PTT (Actin FS) 24.9 L Anticoagulation Therapy Puncture Site ABG pH ABG pCO2 at Pt Temp ABG pO2 at Pt Temp ABG HCO3 ABG O2 Sat (Measured) ABG O2 Content ABG Base Excess Ronny Test VBG pH POC VBG pCO2 POC VBG pO2 Mixed VBG HCO3 Carboxyhemoglobin Methemoglobin O2 Delivery Device Oxygen Flow Rate Vent Mode Vent Rate Mechanical Rate PEEP Pressure Support Vent Sodium 143 Potassium 4.0 Chloride 99 Carbon Dioxide 42 H Anion Gap 2 L BUN 18 Creatinine 0.7 Creat Clearance w eGFR > 60 Random Glucose 132 H Lactic Acid Calcium 9.0 Total Bilirubin 0.8 AST 30 ALT 28 Alkaline Phosphatase 85 Troponin I Total Protein 6.8 Albumin 3.4 Urine Color Urine Appearance Urine pH Ur Specific [place] Urine Protein Urine Glucose (UA) Urine Ketones Urine Blood Urine Nitrite Urine Bilirubin Urine Urobilinogen Ur Leukocyte Esterase Urine WBC (Auto) Urine RBC (Auto) Ur Epithelial Cells Urine Mucus 04/20/18 04/20/18 02:45 03:54 WBC RBC Hgb Hct MCV MCH MCHC RDW Plt Count MPV Absolute Neuts (auto) Neutrophils % Lymphocytes % Monocytes % Eosinophils % Basophils % Nucleated RBC % PT with INR INR PTT (Actin FS) Anticoagulation Therapy No Result Required. Puncture Site Right radial ABG pH 7.33 L ABG pCO2 at Pt Temp 68.7 H* ABG pO2 at Pt Temp 224.0 H* D ABG HCO3 34.9 H ABG O2 Sat (Measured) 99.3 H ABG O2 Content 18.9 ABG Base Excess 6.9 H Ronny Test Positive VBG pH POC VBG pCO2 POC VBG pO2 Mixed VBG HCO3 Carboxyhemoglobin 0.3 L Methemoglobin 0.3 L O2 Delivery Device Ventilator Oxygen Flow Rate 60% Vent Mode A/c Vent Rate 18 Mechanical Rate No Result Required. PEEP 5.0 Pressure Support Vent No Result Required. Sodium Potassium Chloride Carbon Dioxide Anion Gap BUN Creatinine Creat Clearance w eGFR Random Glucose Lactic Acid Calcium Total Bilirubin AST ALT Alkaline Phosphatase Troponin I < 0.02 Total Protein Albumin Urine Color Urine Appearance Urine pH Ur Specific [place] Urine Protein Urine Glucose (UA) Urine Ketones Urine Blood Urine Nitrite Urine Bilirubin Urine Urobilinogen Ur Leukocyte Esterase Urine WBC (Auto) Urine RBC (Auto) Ur Epithelial Cells Urine Mucus ASSESSMENT/PLAN: The patient is a 77 yo m w/ PMH COPD, CAD , DVT on xarelto who was BIBEMS and found to be in acute hypoxic respiratory failure #Acute hypoxic respiratory failure 2/2 acute COPD exacerbation -intubated in ER -duonebs standing q6h -albuterol nebs PRN q4h -solu-medrol 60mg q6h IV -titrate sedation to keep the patient comfortable. -no fever, no leukocytosis and unremarkable CXR; ABX not indicated. #FEN -no fluids indicated -lytes WNL -NPO while intubated #prophy -SCDs, lovenox 40mg sq daily #dispo -admit ICU -home medications have NOT been verified with the patient's pharmacy Visit type - Emergency Visit Emergency Visit: Yes ED Registration Date: 04/20/18 Care time: The patient presented to the Emergency Department on the above date and was hospitalized for further evaluation of their emergent condition. - New Patient This patient is new to me today: Yes Date on this admission: 04/20/18 - Critical Care Critical Care patient: Yes Total Critical Care Time (in minutes): 40 Critical Care Statement: The care of this patient involved high complexity decision making to prevent further life threatening deterioration of the patient 's condition and/or to evaluate & treat vital organ system(s) failure or risk of failure.
[2018-04-20] MEDS: PROPOFOL 1,000,000 MCG/100 ML VIAL IVPB SCH ×3 (05:31→23:14)
[2018-04-20] MEDS: ALBUTEROL SO4 2.5/IPRATROPIUM 0.5 INH SOL 3 ML VIAL.NEB. NEB SCH ×5 (05:32→20:49)
--- NOTE | 2018-04-20 05:32 | PDOC ---
*Physical Exam - Vital Signs Last Vital Signs Temp Pulse Resp BP Pulse Ox 98.2 F 122 H 18 141/89 100 04/20/18 01:47 04/20/18 01:58 04/20/18 02:25 04/20/18 01:47 04/20/18 01:58 - Physical Exam Comments: 04/20/18 05:29 Patient's care was endorsed to me by Dr. Marti at the end of his shift. 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 Admitted already. ED Treatment Course - LABORATORY CBC & Chemistry Diagram: 04/20/18 02:45 04/20/18 02:45 - ADDITIONAL ORDERS Additional order review: Laboratory Results 04/20/18 04/20/18 04/20/18 02:45 02:45 02:45 PT with INR 14.30 H INR 1.21 H PTT (Actin FS) 24.9 L VBG pH POC VBG pCO2 POC VBG pO2 Mixed VBG HCO3 Sodium 143 Potassium 4.0 Chloride 99 Carbon Dioxide 42 H Anion Gap 2 L BUN 18 Creatinine 0.7 Creat Clearance w eGFR > 60 Random Glucose 132 H Lactic Acid Calcium 9.0 Total Bilirubin 0.8 AST 30 ALT 28 Alkaline Phosphatase 85 Troponin I < 0.02 Total Protein 6.8 Albumin 3.4 Urine Color Urine Appearance Urine pH Ur Specific [address] Urine Protein Urine Glucose (UA) Urine Ketones Urine Blood Urine Nitrite Urine Bilirubin Urine Urobilinogen Ur Leukocyte Esterase Urine WBC (Auto) Urine RBC (Auto) Ur Epithelial Cells Urine Mucus 04/20/18 04/20/18 04/20/18 02:29 02:21 02:21 PT with INR INR PTT (Actin FS) VBG pH 7.34 POC VBG pCO2 72.7 H* POC VBG pO2 48.3 H Mixed VBG HCO3 37.8 H Sodium Potassium Chloride Carbon Dioxide Anion Gap BUN Creatinine Creat Clearance w eGFR Random Glucose Lactic Acid 1.9 Calcium Total Bilirubin AST ALT Alkaline Phosphatase Troponin I Total Protein Albumin Urine Color Ltyellow Urine Appearance Clear Urine pH 7.[address] 1.016 Urine Protein 2+ H Urine Glucose (UA) 1+ H Urine Ketones Negative Urine Blood Negative Urine Nitrite Negative Urine Bilirubin Negative Urine Urobilinogen Negative Ur Leukocyte Esterase Negative Urine WBC (Auto) 1 Urine RBC (Auto) 4 Ur Epithelial Cells Rare Urine Mucus Rare 04/20/18 02:45 RBC 4.50 MCV 89.9 MCHC 32.3 RDW 15.3 MPV 8.2 Neutrophils % 79.6 Lymphocytes % 10.9 D Monocytes % 8.9 Eosinophils % 0.5 D Basophils % 0.1 Medical Decision Making - Medical Decision Making 04/20/18 05:31 I asked RN Marcellus to titrate up the propofol drip to 6 mcg/min as patient was awake, uncomfortable. BP before up-titration was 117/91. After sedated I will place OGT. 04/20/18 06:03 I placed order for propofol IVPUSH as up-titration has not sedated him enough for OGT placement (patient biting tube). Will be given 50 mg IVPUSH then I will place OGT. *DC/Admit/Observation/Transfer Diagnosis at time of Disposition: Acute on chronic respiratory failure with hypoxia and hypercapnia Difficult intubation Qualifiers: Encounter type: initial encounter Qualified Code(s): T88.4XXA - Failed or difficult intubation, initial encounter - Discharge Dispostion Condition at time of disposition: Guarded - Referrals - Patient Instructions - Post Discharge Activity
[2018-04-20] MEDS ORDERED: PROPOFOL 200 MG/20 ML VIAL IVPUSH ONE (06:02)
--- NOTE | 2018-04-20 07:56 | CONSULT ---
Consultation: REQUESTING PROVIDER: CONSULT REQUEST: We have been asked to medically evaluate this patient for ICU level of care HISTORY OF PRESENT ILLNESS: 77 y/o M with PMHx of CVA (Left residual weakness), CAD, COPD (on 2-3L home O2) , DVT on xarelto, Prostate ca, HTN, DM was BIBEMS for a 3 day history of worsening SOB. Patient was intubated and sedated at the time of interview, this the hx was provided by chart review and by daughter at bedside. Daughter, Yanely , mentions that for the last one week, patient has had increased fatigue, weakness and difficulty breathing. She is unable to identify any triggering factors however mentions sudden onset. For the past 3 days, patient has had difficulty ambulating to his bedside cammode, and increased SOB with movement. Yanely has been unable to change patients diaper as increased movement causes extreme SOB. She has tried Albuterol and 40mg prednisone which have provided minimal relief. Patient is compliant with his home oxygen. Patient uses a hospital bed at home and Daughter has had to increased the head of bed elevation. Patient has a hx of COPD exacerbations however Daughter says they have never been this bad. Last night, Patient was struggling to breath at which time Daughter noticed the O2 Saturation was 61%; At this time she called for EMS. EMS placed the patient on CPAP, administered 2 albuterol nebs and 10mg dexamethasone. The patient's saturations improved into the low 90's as per chart review, but on arrival to the ED, he was noted to be using accessory muscles and patient was intubated. The patient was sedated on propofol at the time of interview. Additionally, daughter endorses patient has a chronic cough productive of white sputum. Denies any recent fevers, chills, chest pain, nausea , vomiting, diarrhea, constipation. REVIEW OF SYSTEMS: Unable to obtain PHYSICAL EXAMINATION Vital Signs - 24 hr 04/20/18 04/20/18 04/20/18 01:47 01:58 02:25 Temperature 98.2 F Pulse Rate 122 H 122 H Pulse Rate [ Left Radial] Respiratory 32 H 18 18 Rate Blood Pressure 141/89 Blood Pressure [Left Arm] O2 Sat by Pulse 92 L 100 Oximetry (%) 04/20/18 04/20/18 04/20/18 04:06 05:14 06:50 Temperature Pulse Rate Pulse Rate [ 117 H 117 H Left Radial] Respiratory 21 H 18 18 Rate Blood Pressure Blood Pressure 114/94 116/98 [Left Arm] O2 Sat by Pulse 100 100 Oximetry (%) GENERAL: Intubated, Sedated HEAD: NCAT EYES: PERRL EARS, NOSE, THROAT: Moist mucous membranes. LUNGS: Diminished breath sounds, Anterior wheezes HEART: Distant heart sounds, S1 and S2 without murmur ABDOMEN: Nontender, Distended, + bowel sounds, no guarding BACK: Healed sacral decubitus ulcer EXTREMITIES: 2+ pulses, No peripheral edema. SKIN: Warm, dry Laboratory Results - last 24 hr 04/20/18 04/20/18 04/20/18 02:21 02:21 02:29 WBC RBC Hgb Hct MCV MCH MCHC RDW Plt Count MPV Absolute Neuts (auto) Neutrophils % Lymphocytes % Monocytes % Eosinophils % Basophils % Nucleated RBC % PT with INR INR PTT (Actin FS) Anticoagulation Therapy Puncture Site ABG pH ABG pCO2 at Pt Temp ABG pO2 at Pt Temp ABG HCO3 ABG O2 Sat (Measured) ABG O2 Content ABG Base Excess Ronny Test VBG pH 7.34 POC VBG pCO2 72.7 H* POC VBG pO2 48.3 H Mixed VBG HCO3 37.8 H Carboxyhemoglobin Methemoglobin O2 Delivery Device Oxygen Flow Rate Vent Mode Vent Rate Mechanical Rate PEEP Pressure Support Vent Sodium Potassium Chloride Carbon Dioxide Anion Gap BUN Creatinine Creat Clearance w eGFR Random Glucose Lactic Acid 1.9 Calcium Total Bilirubin AST ALT Alkaline Phosphatase Troponin I Total Protein Albumin Urine Color Ltyellow Urine Appearance Clear Urine pH 7.0 Ur Specific [place] 1.016 Urine Protein 2+ H Urine Glucose (UA) 1+ H Urine Ketones Negative Urine Blood Negative Urine Nitrite Negative Urine Bilirubin Negative Urine Urobilinogen Negative Ur Leukocyte Esterase Negative Urine WBC (Auto) 1 Urine RBC (Auto) 4 Ur Epithelial Cells Rare Urine Mucus Rare 04/20/18 04/20/18 04/20/18 02:45 02:45 02:45 WBC 9.0 RBC 4.50 Hgb 13.0 Hct 40.4 MCV 89.9 MCH 29.0 MCHC 32.3 RDW 15.3 Plt Count 194 D MPV 8.2 Absolute Neuts (auto) 7.2 Neutrophils % 79.6 Lymphocytes % 10.9 D Monocytes % 8.9 Eosinophils % 0.5 D Basophils % 0.1 Nucleated RBC % 0 PT with INR 14.30 H INR 1.21 H PTT (Actin FS) 24.9 L Anticoagulation Therapy Puncture Site ABG pH ABG pCO2 at Pt Temp ABG pO2 at Pt Temp ABG HCO3 ABG O2 Sat (Measured) ABG O2 Content ABG Base Excess Ronny Test VBG pH POC VBG pCO2 POC VBG pO2 Mixed VBG HCO3 Carboxyhemoglobin Methemoglobin O2 Delivery Device Oxygen Flow Rate Vent Mode Vent Rate Mechanical Rate PEEP Pressure Support Vent Sodium 143 Potassium 4.0 Chloride 99 Carbon Dioxide 42 H Anion Gap 2 L BUN 18 Creatinine 0.7 Creat Clearance w eGFR > 60 Random Glucose 132 H Lactic Acid Calcium 9.0 Total Bilirubin 0.8 AST 30 ALT 28 Alkaline Phosphatase 85 Troponin I Total Protein 6.8 Albumin 3.4 Urine Color Urine Appearance Urine pH Ur Specific [place] Urine Protein Urine Glucose (UA) Urine Ketones Urine Blood Urine Nitrite Urine Bilirubin Urine Urobilinogen Ur Leukocyte Esterase Urine WBC (Auto) Urine RBC (Auto) Ur Epithelial Cells Urine Mucus 04/20/18 04/20/18 02:45 03:54 WBC RBC Hgb Hct MCV MCH MCHC RDW Plt Count MPV Absolute Neuts (auto) Neutrophils % Lymphocytes % Monocytes % Eosinophils % Basophils % Nucleated RBC % PT with INR INR PTT (Actin FS) Anticoagulation Therapy No Result Required. Puncture Site Right radial ABG pH 7.33 L ABG pCO2 at Pt Temp 68.7 H* ABG pO2 at Pt Temp 224.0 H* D ABG HCO3 34.9 H ABG O2 Sat (Measured) 99.3 H ABG O2 Content 18.9 ABG Base Excess 6.9 H Ronny Test Positive VBG pH POC VBG pCO2 POC VBG pO2 Mixed VBG HCO3 Carboxyhemoglobin 0.3 L Methemoglobin 0.3 L O2 Delivery Device Ventilator Oxygen Flow Rate 60% Vent Mode A/c Vent Rate 18 Mechanical Rate No Result Required. PEEP 5.0 Pressure Support Vent No Result Required. Sodium Potassium Chloride Carbon Dioxide Anion Gap BUN Creatinine Creat Clearance w eGFR Random Glucose Lactic Acid Calcium Total Bilirubin AST ALT Alkaline Phosphatase Troponin I < 0.02 Total Protein Albumin Urine Color Urine Appearance Urine pH Ur Specific [place] Urine Protein Urine Glucose (UA) Urine Ketones Urine Blood Urine Nitrite Urine Bilirubin Urine Urobilinogen Ur Leukocyte Esterase Urine WBC (Auto) Urine RBC (Auto) Ur Epithelial Cells Urine Mucus Active Medications Albuterol Sulfate (Ventolin 0.042trength) -) 1 amp NEB Q4H PRN PRN Reason: SHORT OF BREATH/WHEEZING Albuterol/Ipratropium (Duoneb -) 1 amp NEB RQID JACKIE Last Admin: 04/20/18 05:32 Dose: 1 amp Chlorhexidine Gluconate (Hibiclens For Decolonization -) 1 applic TP HS JACKIE Enoxaparin Sodium (Lovenox -) 40 mg SQ DAILY JACKIE Propofol (Diprivan -) 1,000,000 mcg in 100 mls @ 3.538 mls/hr IVPB TITR JACKIE; Protocol Last Admin: 04/20/18 05:31 Dose: 10 mcg/kg/min, 3.538 mls/hr Insulin Aspart (Novolog Vial Sliding Scale -) 1 vial SQ ACHS JACKIE; Protocol Methylprednisolone Sodium Succinate (Solu-Medrol -) 40 mg IVPUSH Q6H-IV JACKIE Mupirocin (Bactroban Ointment (For Decolonization) -) 1 applic NS BID [facility] Stop: 04/25/18 09:59 ASSESSMENT/PLAN: 77 y/o M with PMHx of CVA (Left residual weakness), CAD, COPD (on 2-3L home O2) , DVT on xarelto, Prostate ca, HTN, DM was BIBEMS for a 3 day history of worsening SOB #Pulmonary Acute Hypercapnic hypoxic respiratory failure -Likely due to COPD exacerbation -Currently Intubated -Vent settings 480/20/30%/+5 -CXR: The lungs are clear. An endotracheal tube has been inserted and the tip is well above the sanjay. An NG tube has been inserted and the tip is below the GE junction but its exact positioning cannot be seen. -Continue Albeuterol/Ipratropium, Albuterol Nebulizer, Methylprednisolone 40mg Q6H -Monitor off ABx for now -Maintain SPO2 > 88-92% -Urine, Blood and Sputum Cx pending #Cardiovascular Hx of CAD HTN, Controlled -EKG: SINUS TACHYCARDIA, RIGHT ATRIAL ENLARGEMENT, MARKED ST ABNORMALITY, POSSIBLE INFERIOR SUBENDOCARDIAL INJURY, VR 141, QTc 425 -Home dose antihypertensives held at this time #Neuro Hx of CVA (Left residual weakness) -Sedated on Propofol, Intubated -PT/OT -Continue home dose Rivaroxaban 20mg #Endocinre -ISS BGMs ACHS #ID Lactic Acidosis -Likely due to labored breathing -Afebrile, No WBC count -Given 2.5L LR; Continue on LR @ 100 mls/hr -Urine, Blood and Sputum Cx pending -Monitor off ABx for now #Nephro -BUN/Cr normal -Continue to monitor #GI -NPO for now -No active issues #FEN -Continue LR @ 100 mls/hr -Lytes wnl -NPO #PPx -DVT: Lovenox #LTD -Intubated, Wasserman placed on 04/20 Code Status: Full code Dispo: We will continue to follow the patient. Thank you for this consultative opportunity. Visit type - Emergency Visit Emergency Visit: Yes ED Registration Date: 04/20/18 Care time: The patient presented to the Emergency Department on the above date and was hospitalized for further evaluation of their emergent condition. - New Patient This patient is new to me today: Yes Date on this admission: 04/20/18 - Critical Care Critical Care patient: Yes Total Critical Care Time (in minutes): 36 Critical Care Statement: The care of this patient involved high complexity decision making to prevent further life threatening deterioration of the patient 's condition and/or to evaluate & treat vital organ system(s) failure or risk of failure.
[2018-04-20 09:24] LABS: HEMATOCRIT 39.1 % (35.4-49); MCH 29.5 pg (25.7-33.7); MCHC 33.4 g/dl (32.0-35.9); MEAN CELL VOLUME 88.4 fl (80-96); PLATELET COUNT 175 K/MM3 (134-434); RBC 4.42 M/mm3 (4.00-5.60); WHITE BLOOD COUNT 9.7 K/mm3 (4.0-10.0)
--- NOTE | 2018-04-20 09:40 | PN ---
Teaching Attending Note Name of Resident: Dereje Huber ATTENDING PHYSICIAN STATEMENT I saw and evaluated the patient. I reviewed the resident's note and discussed the case with the resident. I agree with the resident's findings and plan as documented. SUBJECTIVE: This is a 77 year old man with a history of CAD, HTN, hyperlipidemia , COPD, chronic hypoxic and hypercapnic respiratory failure, DVT, CVA, BPH, prostate cancer who comes to the ED with worsening SOB for the last 3 days. He was treated with Prednisone and nebulizer treatments without improvement. At home his oxygen saturations were in the 70s so EMS was called. He was treated with Dexamethasone, albuterol, and CPAP. On arrival to the ED, he was intubated. OBJECTIVE: Vital Signs Period Temp Pulse Resp BP Sys/Thurman Pulse Ox Last 24 Hr 98.2 F 117-122 18-32 114-141/89-98 92-100 GENERAL: Awake, intubated and on vent HEART: S1S2, tachycardic LUNGS: Decreased BS ABDOMEN: Soft, non-distended, normal BS EXTREMITIES: No edema Laboratory Tests 04/20/18 04/20/18 04/20/18 02:21 02:21 02:29 WBC RBC Hgb Hct MCV MCH MCHC RDW Plt Count MPV Absolute Neuts (auto) Neutrophils % Lymphocytes % Monocytes % Eosinophils % Basophils % Nucleated RBC % PT with INR INR PTT (Actin FS) Anticoagulation Therapy Puncture Site ABG pH ABG pCO2 at Pt Temp ABG pO2 at Pt Temp ABG HCO3 ABG O2 Sat (Measured) ABG O2 Content ABG Base Excess Ronny Test VBG pH 7.34 POC VBG pCO2 72.7 H* POC VBG pO2 48.3 H Mixed VBG HCO3 37.8 H Carboxyhemoglobin Methemoglobin O2 Delivery Device Oxygen Flow Rate Vent Mode Vent Rate Mechanical Rate PEEP Pressure Support Vent Sodium Potassium Chloride Carbon Dioxide Anion Gap BUN Creatinine Creat Clearance w eGFR Random Glucose Lactic Acid 1.9 Calcium Total Bilirubin AST ALT Alkaline Phosphatase Troponin I Total Protein Albumin Urine Color Ltyellow Urine Appearance Clear Urine pH 7.0 Ur Specific [place] 1.016 Urine Protein 2+ H Urine Glucose (UA) 1+ H Urine Ketones Negative Urine Blood Negative Urine Nitrite Negative Urine Bilirubin Negative Urine Urobilinogen Negative Ur Leukocyte Esterase Negative Urine WBC (Auto) 1 Urine RBC (Auto) 4 Ur Epithelial Cells Rare Urine Mucus Rare 04/20/18 04/20/18 04/20/18 02:45 02:45 02:45 WBC 9.0 RBC 4.50 Hgb 13.0 Hct 40.4 MCV 89.9 MCH 29.0 MCHC 32.3 RDW 15.3 Plt Count 194 D MPV 8.2 Absolute Neuts (auto) 7.2 Neutrophils % 79.6 Lymphocytes % 10.9 D Monocytes % 8.9 Eosinophils % 0.5 D Basophils % 0.1 Nucleated RBC % 0 PT with INR 14.30 H INR 1.21 H PTT (Actin FS) 24.9 L Anticoagulation Therapy Puncture Site ABG pH ABG pCO2 at Pt Temp ABG pO2 at Pt Temp ABG HCO3 ABG O2 Sat (Measured) ABG O2 Content ABG Base Excess Ronny Test VBG pH POC VBG pCO2 POC VBG pO2 Mixed VBG HCO3 Carboxyhemoglobin Methemoglobin O2 Delivery Device Oxygen Flow Rate Vent Mode Vent Rate Mechanical Rate PEEP Pressure Support Vent Sodium 143 Potassium 4.0 Chloride 99 Carbon Dioxide 42 H Anion Gap 2 L BUN 18 Creatinine 0.7 Creat Clearance w eGFR > 60 Random Glucose 132 H Lactic Acid Calcium 9.0 Total Bilirubin 0.8 AST 30 ALT 28 Alkaline Phosphatase 85 Troponin I Total Protein 6.8 Albumin 3.4 Urine Color Urine Appearance Urine pH Ur Specific [place] Urine Protein Urine Glucose (UA) Urine Ketones Urine Blood Urine Nitrite Urine Bilirubin Urine Urobilinogen Ur Leukocyte Esterase Urine WBC (Auto) Urine RBC (Auto) Ur Epithelial Cells Urine Mucus 04/20/18 04/20/18 02:45 03:54 WBC RBC Hgb Hct MCV MCH MCHC RDW Plt Count MPV Absolute Neuts (auto) Neutrophils % Lymphocytes % Monocytes % Eosinophils % Basophils % Nucleated RBC % PT with INR INR PTT (Actin FS) Anticoagulation Therapy No Result Required. Puncture Site Right radial ABG pH 7.33 L ABG pCO2 at Pt Temp 68.7 H* ABG pO2 at Pt Temp 224.0 H* D ABG HCO3 34.9 H ABG O2 Sat (Measured) 99.3 H ABG O2 Content 18.9 ABG Base Excess 6.9 H Ronny Test Positive VBG pH POC VBG pCO2 POC VBG pO2 Mixed VBG HCO3 Carboxyhemoglobin 0.3 L Methemoglobin 0.3 L O2 Delivery Device Ventilator Oxygen Flow Rate 60% Vent Mode A/c Vent Rate 18 Mechanical Rate No Result Required. PEEP 5.0 Pressure Support Vent No Result Required. Sodium Potassium Chloride Carbon Dioxide Anion Gap BUN Creatinine Creat Clearance w eGFR Random Glucose Lactic Acid Calcium Total Bilirubin AST ALT Alkaline Phosphatase Troponin I < 0.02 Total Protein Albumin Urine Color Urine Appearance Urine pH Ur Specific [place] Urine Protein Urine Glucose (UA) Urine Ketones Urine Blood Urine Nitrite Urine Bilirubin Urine Urobilinogen Ur Leukocyte Esterase Urine WBC (Auto) Urine RBC (Auto) Ur Epithelial Cells Urine Mucus Home Medications Medication Instructions Recorded Albuterol 2.5/Ipratropium 0.5 1 neb IH QID 08/26/17 [Duoneb -] Aspirin [ASA -] 81 mg PO DAILY 08/26/17 Atorvastatin Ca [Lipitor] 20 mg PO HS 08/26/17 Bisoprolol Fumarate 5 mg PO DAILY 08/26/17 Budesonide/Formeterol Fumarate 1 inh IH BID 08/26/17 [SYMBICORT 160/4.5mcg -] Finasteride [Proscar -] 5 mg PO DAILY 08/26/17 Omeprazole 40 mg PO DAILY 08/26/17 Prednisone See Taper PO DAILY 4 Days tablet 08/26/17 Rivaroxaban [Xarelto -] 20 mg PO DAILY 08/26/17 Tamsulosin HCl 0.4 mg PO DAILY 08/26/17 Tiotropium [place] [Spiriva] 1 inh IH BID 08/26/17 Prednisone See Taper PO DAILY #32 tablet 08/31/17 ASSESSMENT AND PLAN: This is a 77 year old man with a history of CAD, HTN, hyperlipidemia, COPD, chronic hypoxic and hypercapnic respiratory failure, DVT, CVA, BPH, prostate cancer who comes to the ED with worsening SOB for the last 3 days. 1. Acute on chronic hypoxic and hypercapnic respiratory failure secondary to acute exacerbation of COPD - Admit to ICU - Vent management as per pulmonary/critical care - SoluMedrol, DuoNeb 2. CAD - On aspirin, bisoprolol, Lipitor 3. HTN - On bisoprolol 4. Hyperlipidemia - On Lipitor 5. History of DVT - On Xarelto 6. History of CVA - On aspirin, Lipitor 7. BPH, prostate cancer - On Proscar
[2018-04-20 09:50] LABS: INR 1.25 (0.83-1.09); PROTHROMBIN TIME (PATIENT) 14.8 SEC (9.7-13.0)
[2018-04-20] MEDS ORDERED: ENOXAPARIN NA (PORCINE) 40 MG/0.4 ML DISP.SYRIN SQ SCH (10:00)
[2018-04-20 10:04] LABS: ANION GAP 9 MMOL/L (8-16); BLOOD UREA NITROGEN 24 mg/dL (7-18); CALCIUM 9.8 mg/dL (8.5-10.1); CHLORIDE 102 mmol/L (98-107); CO2 34 mmol/L (21-32); CREATININE 0.8 mg/dL (0.55-1.3); GLUCOSE,RANDOM 220 mg/dL (74-106); MAGNESIUM 2.1 mg/dL (1.8-2.4); PHOSPHOROUS 2.2 mg/dL (2.5-4.9); POTASSIUM 4.4 mmol/L (3.5-5.1); SODIUM 145 mmol/L (136-145)
[2018-04-20] MEDS: methylPREDNISolone NA SUCC 40 MG/1 ML VIAL IVPUSH SCH ×3 (10:08→23:17)
[2018-04-20] MEDS ORDERED: LACTATED RINGERS SOLUTION 1000 ML INFUS.BAG IV ONE ×2 (11:00→14:44)
--- NOTE | 2018-04-20 11:29 | PN ---
Teaching Attending Note Name of Resident: Ester Tobias ATTENDING PHYSICIAN STATEMENT I saw and evaluated the patient. I reviewed the resident's note and discussed the case with the resident. I agree with the resident's findings and plan as documented. SUBJECTIVE: Patient seen and examined in the ICU. Remains intubated and sedated. AC Mode of vent, 30% FiO2. No pressors. CXR: poor film / bases are excluded / no acute infiltrate Intake & Output 04/17/18 04/18/18 04/19/18 04/20/18 23:59 23:59 23:59 23:59 Weight 130 lb Last Vital Signs Temp Pulse Resp BP Pulse Ox 99.9 F H 92 H 20 116/83 97 04/20/18 10:07 04/20/18 10:07 04/20/18 10:45 04/20/18 10:07 04/20/18 09:00 Active Medications Albuterol Sulfate (Ventolin 0.042trength) -) 1 amp NEB Q4H PRN PRN Reason: SHORT OF BREATH/WHEEZING Albuterol/Ipratropium (Duoneb -) 1 amp NEB RQID [facility] Last Admin: 04/20/18 11:27 Dose: 1 amp Chlorhexidine Gluconate (Hibiclens For Decolonization -) 1 applic TP HS JACKIE Enoxaparin Sodium (Lovenox -) 40 mg SQ DAILY [facility] Last Admin: 04/20/18 10:08 Dose: 40 mg Propofol (Diprivan -) 1,000,000 mcg in 100 mls @ 3.538 mls/hr IVPB TITR JACKIE; Protocol Last Admin: 04/20/18 05:31 Dose: 10 mcg/kg/min, 3.538 mls/hr Lactated Ringer's (Lactated Ringers Solution) 1,000 ml in 1,000 mls @ 100 mls/ hr IV ASDIR JACKIE Insulin Aspart (Novolog Vial Sliding Scale -) 1 vial SQ ACHS [facility]; Protocol Methylprednisolone Sodium Succinate (Solu-Medrol -) 40 mg IVPUSH Q6H-IV JACKIE Last Admin: 04/20/18 10:08 Dose: 40 mg Mupirocin (Bactroban Ointment (For Decolonization) -) 1 applic NS BID [facility] Stop: 04/25/18 09:59 GENERAL: Intubated, Sedated HEAD: NCAT EYES: (-) Pallor, (-) Icterus EARS, NOSE, THROAT: Moist mucous membranes. LUNGS: Diminished breath sounds, Bilateral expiratory wheezes HEART: Distant heart sounds, S1 and S2 without murmur ABDOMEN: Soft, nontender, not distended, + bowel sounds, no guarding BACK: Healed sacral decubitus ulcer EXTREMITIES: 2+ pulses, No peripheral edema. SKIN: Warm, dry Laboratory Results - last 24 hr 04/20/18 04/20/18 04/20/18 02:21 02:21 02:29 WBC RBC Hgb Hct MCV MCH MCHC RDW Plt Count MPV Absolute Neuts (auto) Neutrophils % Lymphocytes % Monocytes % Eosinophils % Basophils % Nucleated RBC % PT with INR INR PTT (Actin FS) Anticoagulation Therapy Puncture Site ABG pH ABG pCO2 at Pt Temp ABG pO2 at Pt Temp ABG HCO3 ABG O2 Sat (Measured) ABG O2 Content ABG Base Excess Ronny Test VBG pH 7.34 POC VBG pCO2 72.7 H* POC VBG pO2 48.3 H Mixed VBG HCO3 37.8 H Carboxyhemoglobin Methemoglobin O2 Delivery Device Oxygen Flow Rate Vent Mode Vent Rate Mechanical Rate PEEP Pressure Support Vent Sodium Potassium Chloride Carbon Dioxide Anion Gap BUN Creatinine Creat Clearance w eGFR Random Glucose Lactic Acid 1.9 Calcium Total Bilirubin AST ALT Alkaline Phosphatase Troponin I Total Protein Albumin Urine Color Ltyellow Urine Appearance Clear Urine pH 7.0 Ur Specific [place] 1.016 Urine Protein 2+ H Urine Glucose (UA) 1+ H Urine Ketones Negative Urine Blood Negative Urine Nitrite Negative Urine Bilirubin Negative Urine Urobilinogen Negative Ur Leukocyte Esterase Negative Urine WBC (Auto) 1 Urine RBC (Auto) 4 Ur Epithelial Cells Rare Urine Mucus Rare 04/20/18 04/20/18 04/20/18 02:45 02:45 02:45 WBC 9.0 RBC 4.50 Hgb 13.0 Hct 40.4 MCV 89.9 MCH 29.0 MCHC 32.3 RDW 15.3 Plt Count 194 D MPV 8.2 Absolute Neuts (auto) 7.2 Neutrophils % 79.6 Lymphocytes % 10.9 D Monocytes % 8.9 Eosinophils % 0.5 D Basophils % 0.1 Nucleated RBC % 0 PT with INR 14.30 H INR 1.21 H PTT (Actin FS) 24.9 L Anticoagulation Therapy Puncture Site ABG pH ABG pCO2 at Pt Temp ABG pO2 at Pt Temp ABG HCO3 ABG O2 Sat (Measured) ABG O2 Content ABG Base Excess Ronny Test VBG pH POC VBG pCO2 POC VBG pO2 Mixed VBG HCO3 Carboxyhemoglobin Methemoglobin O2 Delivery Device Oxygen Flow Rate Vent Mode Vent Rate Mechanical Rate PEEP Pressure Support Vent Sodium 143 Potassium 4.0 Chloride 99 Carbon Dioxide 42 H Anion Gap 2 L BUN 18 Creatinine 0.7 Creat Clearance w eGFR > 60 Random Glucose 132 H Lactic Acid Calcium 9.0 Total Bilirubin 0.8 AST 30 ALT 28 Alkaline Phosphatase 85 Troponin I Total Protein 6.8 Albumin 3.4 Urine Color Urine Appearance Urine pH Ur Specific [place] Urine Protein Urine Glucose (UA) Urine Ketones Urine Blood Urine Nitrite Urine Bilirubin Urine Urobilinogen Ur Leukocyte Esterase Urine WBC (Auto) Urine RBC (Auto) Ur Epithelial Cells Urine Mucus 04/20/18 04/20/18 02:45 03:54 WBC RBC Hgb Hct MCV MCH MCHC RDW Plt Count MPV Absolute Neuts (auto) Neutrophils % Lymphocytes % Monocytes % Eosinophils % Basophils % Nucleated RBC % PT with INR INR PTT (Actin FS) Anticoagulation Therapy No Result Required. Puncture Site Right radial ABG pH 7.33 L ABG pCO2 at Pt Temp 68.7 H* ABG pO2 at Pt Temp 224.0 H* D ABG HCO3 34.9 H ABG O2 Sat (Measured) 99.3 H ABG O2 Content 18.9 ABG Base Excess 6.9 H Ronny Test Positive VBG pH POC VBG pCO2 POC VBG pO2 Mixed VBG HCO3 Carboxyhemoglobin 0.3 L Methemoglobin 0.3 L O2 Delivery Device Ventilator Oxygen Flow Rate 60% Vent Mode A/c Vent Rate 18 Mechanical Rate No Result Required. PEEP 5.0 Pressure Support Vent No Result Required. Sodium Potassium Chloride Carbon Dioxide Anion Gap BUN Creatinine Creat Clearance w eGFR Random Glucose Lactic Acid Calcium Total Bilirubin AST ALT Alkaline Phosphatase Troponin I < 0.02 Total Protein Albumin Urine Color Urine Appearance Urine pH Ur Specific [place] Urine Protein Urine Glucose (UA) Urine Ketones Urine Blood Urine Nitrite Urine Bilirubin Urine Urobilinogen Ur Leukocyte Esterase Urine WBC (Auto) Urine RBC (Auto) Ur Epithelial Cells Urine Mucus ASSESSMENT/PLAN: Acute Respiratory Failure History of CVA with Left residual weakness CAD History of COPD on 2-3L home O2 History of DVT on xarelto Prostate CA HTN DM Do not suspect overt infectious process No evidence of PNA Wean vent parameters Monitor off ABX BD TX Medrol Enteral feeds Xarelto IVF Follow [place] ICU monitoring Dr Lyn Critical care time spent in reviewing chart, evaluating patient and formulating plan - 36 minutes.
--- NOTE | 2018-04-20 11:57 | EKG ---
Test Reason : Blood Pressure : / mmHG Vent. Rate : 141 BPM Atrial Rate : 141 BPM P-R Int : 124 ms QRS Dur : 072 ms QT Int : 278 ms P-R-T Axes : 083 082 -67 degrees QTc Int : 425 ms SINUS TACHYCARDIA RIGHT ATRIAL ENLARGEMENT MARKED ST ABNORMALITY, POSSIBLE INFERIOR SUBENDOCARDIAL INJURY ABNORMAL ECG WHEN COMPARED WITH ECG OF 27-AUG-2017 19:16, PREMATURE VENTRICULAR COMPLEXES ARE NO LONGER PRESENT VENT. RATE HAS INCREASED BY [address] NOW DEPRESSED IN INFERIOR LEADS ST NOW DEPRESSED IN LATERAL LEADS Confirmed by CHARISSE DEGROOT, JOHANA ([id number]) on 04/20/2018 11:57:17 AM Referred By: Confirmed By:JOHANA MCQUEEN MD
[2018-04-20] MEDS: INSULIN SLIDING SCALE (NOVOLOG) 1 VIAL SQ SCH ×4 (12:09→23:15)
[2018-04-20] MEDS: MUPIROCIN 2% TOPICAL OINTMENT FOR DECOLONIZATION NS SCH ×2 (12:12→23:17)
[2018-04-20] MEDS: LACTATED RINGERS SOLUTION 1,000 ML/1,000 ML INFUS.BAG IV SCH (13:00)
[2018-04-20] MEDS: RIVAROXABAN 20 MG TABLET PO SCH (18:07)
[2018-04-20] MEDS: CHLORHEXIDINE GLUCONATE 4% CLEANSER FOR DECOLONIZATION TP SCH (23:16)
[2018-04-21] MEDS: methylPREDNISolone NA SUCC 40 MG/1 ML VIAL IVPUSH SCH ×4 (04:12→23:11)
[2018-04-21] MEDS: LACTATED RINGERS SOLUTION 1,000 ML/1,000 ML INFUS.BAG IV SCH ×2 (04:13→12:20)
[2018-04-21 05:58] LABS: BASO % 0.1 % (0-2.0); EOS % 0.2 % (0-4.5); HEMATOCRIT 36.8 % (35.4-49); HEMOGLOBIN 12.4 GM/dL (11.7-16.9); LYMPH % 6.4 % (8-40); MCH 30.1 pg (25.7-33.7); MCHC 33.8 g/dl (32.0-35.9); MEAN CELL VOLUME 89.1 fl (80-96); MEAN PLT VOLUME 8.8 fl (7.5-11.1); MONO % 6.5 % (3.8-10.2); NEUT % 86.8 % (42.8-82.8); PLATELET COUNT 136 K/MM3 (134-434); RBC 4.13 M/mm3 (4.00-5.60); RDW 14.8 % (11.9-15.9); WHITE BLOOD COUNT 9.9 K/mm3 (4.0-10.0)
[2018-04-21] MEDS: PROPOFOL 1,000,000 MCG/100 ML VIAL IVPB SCH (06:36)
[2018-04-21] MEDS: INSULIN SLIDING SCALE (NOVOLOG) 1 VIAL SQ SCH ×3 (06:37→16:39)
[2018-04-21 06:41] LABS: ALBUMIN 2.3 g/dl (3.4-5.0); ALK PHOS 61 U/L (45-117); ANION GAP 10 MMOL/L (8-16); BILIRUBIN,TOTAL 2.4 mg/dL (0.2-1); BLOOD UREA NITROGEN 21 mg/dL (7-18); CHLORIDE 94 mmol/L (98-107); CO2 29 mmol/L (21-32); CREATININE 0.6 mg/dL (0.55-1.3); GLUCOSE,RANDOM 167 mg/dL (74-106); MAGNESIUM 1.6 mg/dL (1.8-2.4); PHOSPHOROUS 1.9 mg/dL (2.5-4.9); POTASSIUM 3.7 mmol/L (3.5-5.1); SODIUM 133 mmol/L (136-145); TOT PROT 4.9 g/dl (6.4-8.2)
[2018-04-21] MEDS ORDERED: MAGNESIUM 2GM/50ML STERILE WATER IVPB IVPB ONE (06:45)
[2018-04-21] MEDS ORDERED: NAPH,MB-DB/K PH,MBDB POWDER PACKET PO ONE (06:46)
[2018-04-21 07:23] LABS: ARTERIAL BLD GAS O2 SATURATION 98.7 % (90-98.9); ARTERIAL BLOOD GAS BASE EXCESS 6.6 meq/l (-2-2); ARTERIAL BLOOD GAS PCO2 42.2 mmHg (35-45); ARTERIAL BLOOD GAS pH 7.47 (7.35-7.45)
[2018-04-21 07:43] LABS: ALLENS TEST POSITIVE
[2018-04-21] MEDS ORDERED: SODIUM CHLORIDE IVPB ONE (08:11)
[2018-04-21] MEDS ORDERED: SODIUM PHOSPHATE IVPB ONE (08:11)
[2018-04-21] MEDS ORDERED: POTASSIUM PHOSPHATE 30 MM in SODIUM CHLORIDE 250 ML IVPB ONE (08:30)
[2018-04-21] MEDS ORDERED: MAGNESIUM SULF 50% (8.12 MEQ/2 ML-1 GM VIAL) IVPB ONE (08:30)
[2018-04-21] MEDS: ALBUTEROL SO4 2.5/IPRATROPIUM 0.5 INH SOL 3 ML VIAL.NEB. NEB SCH (08:46)
[2018-04-21] MEDS: MUPIROCIN 2% TOPICAL OINTMENT FOR DECOLONIZATION NS SCH ×2 (09:58→23:11)
--- NOTE | 2018-04-21 11:58 | PN ---
Teaching Attending Note Name of Resident: Ester Tobias ATTENDING PHYSICIAN STATEMENT I saw and evaluated the patient. I reviewed the resident's note and discussed the case with the resident. I agree with the resident's findings and plan as documented. SUBJECTIVE: Patient seen and examined in the ICU. Remains intubated. Awake and able to follow commands. CPAP Mode of vent, 30% FiO2. No pressors. CXR: poor film / bases are excluded / no acute infiltrate Intake & Output 04/18/18 04/19/18 04/20/18 04/21/18 23:59 23:59 23:59 23:59 Intake Total 2381 Output Total 450 400 Balance 1931 -400 Weight 130 lb Last Vital Signs Temp Pulse Resp BP Pulse Ox 98.0 F 110 H 34 H 143/96 100 04/21/18 10:00 04/21/18 10:00 04/21/18 10:00 04/21/18 10:00 04/21/18 07:35 Active Medications Albuterol Sulfate (Ventolin 0.042trength) -) 1 amp NEB Q4H PRN PRN Reason: SHORT OF BREATH/WHEEZING Albuterol/Ipratropium (Duoneb -) 1 amp NEB RQID JACKIE Last Admin: 04/21/18 08:46 Dose: 1 amp Chlorhexidine Gluconate (Hibiclens For Decolonization -) 1 applic TP HS [facility] Last Admin: 04/20/18 23:16 Dose: 1 applic Propofol (Diprivan -) 1,000,000 mcg in 100 mls @ 3.538 mls/hr IVPB TITR JACKIE; Protocol Last Titration: 04/21/18 07:15 Dose: 0 mcg/kg/min, 0 mls/hr Lactated Ringer's (Lactated Ringers Solution) 1,000 ml in 1,000 mls @ 100 mls/ hr IV ASDIR JACKIE Last Admin: 04/21/18 04:13 Dose: 100 mls/hr Potassium Phosphate 30 mm/ (Sodium Chloride) 260 mls @ 62.5 mls/hr IVPB ONCE ONE Stop: 04/21/18 12:39 Last Admin: 04/21/18 09:58 Dose: 62.5 mls/hr Insulin Aspart (Novolog Vial Sliding Scale -) 1 vial SQ ACHS JACKIE; Protocol Last Admin: 04/21/18 06:37 Dose: 2 units Methylprednisolone Sodium Succinate (Solu-Medrol -) 40 mg IVPUSH Q6H-IV JACKIE Last Admin: 04/21/18 08:50 Dose: 40 mg Mupirocin (Bactroban Ointment (For Decolonization) -) 1 applic NS BID [facility] Stop: 04/25/18 09:59 Last Admin: 04/21/18 09:58 Dose: 1 appful Rivaroxaban (Xarelto -) 20 mg PO DAILY@1800 [facility] Last Admin: 04/20/18 18:07 Dose: 20 mg GENERAL: Intubated, Awake and alert HEAD: NCAT EYES: (-) Pallor, (-) Icterus EARS, NOSE, THROAT: Moist mucous membranes. LUNGS: Diminished breath sounds, Bilateral expiratory wheezes HEART: Distant heart sounds, S1 and S2 without murmur ABDOMEN: Soft, nontender, not distended, + bowel sounds, no guarding BACK: Healed sacral decubitus ulcer EXTREMITIES: 2+ pulses, No peripheral edema. SKIN: Warm, dry Laboratory Results - last 24 hr 04/20/18 04/20/18 04/20/18 11:30 11:30 13:15 WBC RBC Hgb Hct MCV MCH MCHC RDW Plt Count MPV Absolute Neuts (auto) Total Counted Neutrophils % Neutrophils % (Manual) Band Neutrophils % Lymphocytes % Lymphocytes % (Manual) Monocytes % Monocytes % (Manual) Eosinophils % Eosinophils % (Manual) Basophils % Basophils % (Manual) Nucleated RBC % Metamyelocytes Puncture Site ABG pH ABG pCO2 at Pt Temp ABG pO2 at Pt Temp ABG HCO3 ABG O2 Sat (Measured) ABG O2 Content ABG Base Excess Ronny Test O2 Delivery Device Oxygen Flow Rate Vent Mode Vent Rate Mechanical Rate PEEP Pressure Support Vent Sodium Potassium Chloride Carbon Dioxide Anion Gap BUN Creatinine Creat Clearance w eGFR Random Glucose Lactic Acid 3.7 H* Calcium Phosphorus Magnesium Total Bilirubin AST ALT Alkaline Phosphatase Total Protein Albumin Influenza A (Rapid) Negative Influenza B (Rapid) Negative RSV Rapid Negative 04/20/18 04/21/18 04/21/18 21:00 05:30 05:30 WBC 9.9 RBC 4.13 Hgb 12.4 Hct 36.8 MCV 89.1 MCH 30.1 MCHC 33.8 RDW 14.8 Plt Count 136 D MPV 8.8 Absolute Neuts (auto) 8.6 H Total Counted 100 Neutrophils % 86.8 H Neutrophils % (Manual) 84.0 H Band Neutrophils % 12.0 Lymphocytes % 6.4 L D Lymphocytes % (Manual) 1.0 L D Monocytes % 6.5 Monocytes % (Manual) 1 L D Eosinophils % 0.2 Eosinophils % (Manual) 1.0 D Basophils % 0.1 Basophils % (Manual) 0.0 Nucleated RBC % 0 Metamyelocytes 1 D Puncture Site ABG pH ABG pCO2 at Pt Temp ABG pO2 at Pt Temp ABG HCO3 ABG O2 Sat (Measured) ABG O2 Content ABG Base Excess Ronny Test O2 Delivery Device Oxygen Flow Rate Vent Mode Vent Rate Mechanical Rate PEEP Pressure Support Vent Sodium 133 L Potassium 3.7 Chloride 94 L Carbon Dioxide 29 Anion Gap 10 BUN 21 H Creatinine 0.6 Creat Clearance w eGFR > 60 Random Glucose 167 H Lactic Acid 2.2 H* Calcium 7.0 L Phosphorus 1.9 L Magnesium 1.6 L Total Bilirubin 2.4 H AST TNP ALT TNP Alkaline Phosphatase 61 Total Protein 4.9 L Albumin 2.3 L Influenza A (Rapid) Influenza B (Rapid) RSV Rapid 04/21/18 04/21/18 07:16 07:47 WBC RBC Hgb Hct MCV MCH MCHC RDW Plt Count MPV Absolute Neuts (auto) Total Counted Neutrophils % Neutrophils % (Manual) Band Neutrophils % Lymphocytes % Lymphocytes % (Manual) Monocytes % Monocytes % (Manual) Eosinophils % Eosinophils % (Manual) Basophils % Basophils % (Manual) Nucleated RBC % Metamyelocytes Puncture Site Right radial ABG pH 7.47 H ABG pCO2 at Pt Temp 42.2 D ABG pO2 at Pt Temp 122.0 H D ABG HCO3 30.5 H ABG O2 Sat (Measured) 98.7 ABG O2 Content 16.8 ABG Base Excess 6.6 H Ronny Test Positive O2 Delivery Device Vent Oxygen Flow Rate 30% Vent Mode A/c Vent Rate 20 Mechanical Rate Yes PEEP 5.0 Pressure Support Vent 480 Sodium Potassium Chloride Carbon Dioxide Anion Gap BUN Creatinine Creat Clearance w eGFR Random Glucose Lactic Acid 4.1 H* Calcium Phosphorus Magnesium Total Bilirubin AST ALT Alkaline Phosphatase Total Protein Albumin Influenza A (Rapid) Influenza B (Rapid) RSV Rapid ASSESSMENT/PLAN: Acute Respiratory Failure History of CVA with Left residual weakness CAD History of COPD on 2-3L home O2 History of DVT on xarelto Prostate CA HTN DM Do not suspect overt infectious process No evidence of PNA Lactic Acidosis: (?) component due to Albuterol Wean to extubate Minimize use of Albuterol and can Atrovent instead Monitor off ABX BD TX Medrol Enteral feeds Xarelto IVF ICU monitoring Dr Lyn Critical care time spent in reviewing chart, evaluating patient and formulating plan - 36 minutes.
[2018-04-21] MEDS: IPRATROPIUM BR 0.02% 0.5 MG/2.5 ML VIAL.NEB. NEB SCH ×3 (12:50→20:30)
--- NOTE | 2018-04-21 12:50 | PN ---
Physical Exam: SUBJECTIVE: Patient seen and examined. Awake this AM. No acute overnight events as per nursing staff. OBJECTIVE: Vital Signs Period Temp Pulse Resp BP Sys/Thurman Pulse Ox Last 24 Hr 97.6 F-98.6 F 70-104 18-27 93-153/62-101 100-100 GENERAL: Intubated, No longer sedated HEAD: NCAT EYES: PERRL EARS, NOSE, THROAT: Moist mucous membranes. LUNGS: Diminished breath sounds, b/l wheezing HEART: Distant heart sounds, S1 and S2 without murmur ABDOMEN: Nontender, Distended, + bowel sounds, no guarding BACK: Healed sacral decubitus ulcer EXTREMITIES: 2+ pulses, No peripheral edema. SKIN: Warm, dry Laboratory Results - last 24 hr 04/20/18 04/20/18 04/20/18 11:30 11:30 13:15 WBC RBC Hgb Hct MCV MCH MCHC RDW Plt Count MPV Absolute Neuts (auto) Total Counted Neutrophils % Neutrophils % (Manual) Band Neutrophils % Lymphocytes % Lymphocytes % (Manual) Monocytes % Monocytes % (Manual) Eosinophils % Eosinophils % (Manual) Basophils % Basophils % (Manual) Nucleated RBC % Metamyelocytes Puncture Site ABG pH ABG pCO2 at Pt Temp ABG pO2 at Pt Temp ABG HCO3 ABG O2 Sat (Measured) ABG O2 Content ABG Base Excess Ronny Test O2 Delivery Device Oxygen Flow Rate Vent Mode Vent Rate Mechanical Rate PEEP Pressure Support Vent Sodium Potassium Chloride Carbon Dioxide Anion Gap BUN Creatinine Creat Clearance w eGFR Random Glucose Lactic Acid 3.7 H* Calcium Phosphorus Magnesium Total Bilirubin AST ALT Alkaline Phosphatase Total Protein Albumin Influenza A (Rapid) Negative Influenza B (Rapid) Negative RSV Rapid Negative 04/20/18 04/21/18 04/21/18 21:00 05:30 05:30 WBC 9.9 RBC 4.13 Hgb 12.4 Hct 36.8 MCV 89.1 MCH 30.1 MCHC 33.8 RDW 14.8 Plt Count 136 D MPV 8.8 Absolute Neuts (auto) 8.6 H Total Counted 100 Neutrophils % 86.8 H Neutrophils % (Manual) 84.0 H Band Neutrophils % 12.0 Lymphocytes % 6.4 L D Lymphocytes % (Manual) 1.0 L D Monocytes % 6.5 Monocytes % (Manual) 1 L D Eosinophils % 0.2 Eosinophils % (Manual) 1.0 D Basophils % 0.1 Basophils % (Manual) 0.0 Nucleated RBC % 0 Metamyelocytes 1 D Puncture Site ABG pH ABG pCO2 at Pt Temp ABG pO2 at Pt Temp ABG HCO3 ABG O2 Sat (Measured) ABG O2 Content ABG Base Excess Ronny Test O2 Delivery Device Oxygen Flow Rate Vent Mode Vent Rate Mechanical Rate PEEP Pressure Support Vent Sodium 133 L Potassium 3.7 Chloride 94 L Carbon Dioxide 29 Anion Gap 10 BUN 21 H Creatinine 0.6 Creat Clearance w eGFR > 60 Random Glucose 167 H Lactic Acid 2.2 H* Calcium 7.0 L Phosphorus 1.9 L Magnesium 1.6 L Total Bilirubin 2.4 H AST TNP ALT TNP Alkaline Phosphatase 61 Total Protein 4.9 L Albumin 2.3 L Influenza A (Rapid) Influenza B (Rapid) RSV Rapid 04/21/18 04/21/18 07:16 07:47 WBC RBC Hgb Hct MCV MCH MCHC RDW Plt Count MPV Absolute Neuts (auto) Total Counted Neutrophils % Neutrophils % (Manual) Band Neutrophils % Lymphocytes % Lymphocytes % (Manual) Monocytes % Monocytes % (Manual) Eosinophils % Eosinophils % (Manual) Basophils % Basophils % (Manual) Nucleated RBC % Metamyelocytes Puncture Site Right radial ABG pH 7.47 H ABG pCO2 at Pt Temp 42.2 D ABG pO2 at Pt Temp 122.0 H D ABG HCO3 30.5 H ABG O2 Sat (Measured) 98.7 ABG O2 Content 16.8 ABG Base Excess 6.6 H Ronny Test Positive O2 Delivery Device Vent Oxygen Flow Rate 30% Vent Mode A/c Vent Rate 20 Mechanical Rate Yes PEEP 5.0 Pressure Support Vent 480 Sodium Potassium Chloride Carbon Dioxide Anion Gap BUN Creatinine Creat Clearance w eGFR Random Glucose Lactic Acid 4.1 H* Calcium Phosphorus Magnesium Total Bilirubin AST ALT Alkaline Phosphatase Total Protein Albumin Influenza A (Rapid) Influenza B (Rapid) RSV Rapid Microbiology 04/20/18 13:15 Sputum - Endotrachea Suction/Ventilator Gram Stain - Final 04/20/18 13:15 Sputum - Endotrachea Suction/Ventilator Sputum Culture - Preliminary NORMAL RESPIRATORY MOLLY 04/20/18 02:29 Urine - Urine Clean Catch Urine Culture - Final NO GROWTH OBTAINED 04/20/18 02:21 Blood - Peripheral Venous Blood Culture - Preliminary NO GROWTH OBTAINED AFTER 24 HOURS, INCUBATION TO CONTINUE FOR 4 DAYS. 04/20/18 02:21 Blood - Peripheral Venous Blood Culture - Preliminary NO GROWTH OBTAINED AFTER 24 HOURS, INCUBATION TO CONTINUE FOR 4 DAYS. Active Medications Albuterol Sulfate (Ventolin 0.042trength) -) 1 amp NEB Q4H PRN PRN Reason: SHORT OF BREATH/WHEEZING Chlorhexidine Gluconate (Hibiclens For Decolonization -) 1 applic TP HS [facility] Last Admin: 04/20/18 23:16 Dose: 1 applic Propofol (Diprivan -) 1,000,000 mcg in 100 mls @ 3.538 mls/hr IVPB TITR [facility]; Protocol Last Titration: 04/21/18 07:15 Dose: 0 mcg/kg/min, 0 mls/hr Lactated Ringer's (Lactated Ringers Solution) 1,000 ml in 1,000 mls @ 100 mls/ hr IV ASDIR [facility] Last Admin: 04/21/18 12:20 Dose: 100 mls/hr Potassium Phosphate 30 mm/ (Sodium Chloride) 260 mls @ 62.5 mls/hr IVPB ONCE ONE Stop: 04/21/18 12:39 Last Admin: 04/21/18 09:58 Dose: 62.5 mls/hr Insulin Aspart (Novolog Vial Sliding Scale -) 1 vial SQ ACHS [facility]; Protocol Last Admin: 04/21/18 12:18 Dose: Not Given Ipratropium [place] (Atrovent 0.02% Nebulizer -) 1 amp NEB RQID JACKIE Methylprednisolone Sodium Succinate (Solu-Medrol -) 40 mg IVPUSH Q6H-IV JACKIE Last Admin: 04/21/18 08:50 Dose: 40 mg Mupirocin (Bactroban Ointment (For Decolonization) -) 1 applic NS BID [facility] Stop: 04/25/18 09:59 Last Admin: 04/21/18 09:58 Dose: 1 appful Rivaroxaban (Xarelto -) 20 mg PO DAILY@1800 JACKIE Last Admin: 04/20/18 18:07 Dose: 20 mg ASSESSMENT/PLAN: 77 y/o M with PMHx of CVA (Left residual weakness), CAD, COPD (on 2-3L home O2) , DVT on xarelto, Prostate ca, HTN, DM was BIBEMS for a 3 day history of worsening SOB #Pulmonary Acute Hypercapnic hypoxic respiratory failure -Likely due to COPD exacerbation -Extubated (04/21) -Switched to bipap this am; Settings 480/20/30%/+5 -CXR: No significant change since 04/20/2018. -D/c Albeuterol/Ipratropium and Albuterol Nebulizer -Start Ipratropium QID -Continue Methylprednisolone 40mg Q6H -Monitor off ABx for now -Maintain SPO2 > 88-92% -Urine, Blood and Sputum Cx pending #Cardiovascular Hx of CAD HTN, Controlled -EKG: SINUS TACHYCARDIA, RIGHT ATRIAL ENLARGEMENT, MARKED ST ABNORMALITY, POSSIBLE INFERIOR SUBENDOCARDIAL INJURY, VR 141, QTc 425 -Resume home dose Bisoprolol #Neuro Hx of CVA (Left residual weakness) -No longer sedated -PT/OT -Continue home dose Rivaroxaban 20mg #Endocinre -ISS BGMs ACHS #ID Lactic Acidosis -Likely due to labored breathing -Afebrile, No WBC count -Given 2.5L LR; Continue on LR @ 100 mls/hr -Urine, Blood and Sputum Cx pending -Monitor off ABx for now #Nephro -BUN/Cr normal -Continue to monitor #GI -NPO for now -No active issues #FEN -Continue LR @ 100 mls/hr -Lytes wnl -NPO #PPx -DVT: Rivaroxaban #LTD -Intubated, Wasserman placed on 04/20 Code Status: Full code Dispo: We will continue to follow the patient. Thank you for this consultative opportunity. Visit type - Emergency Visit Emergency Visit: Yes ED Registration Date: 04/20/18 Care time: The patient presented to the Emergency Department on the above date and was hospitalized for further evaluation of their emergent condition. - New Patient This patient is new to me today: Yes Date on this admission: 04/21/18 - Critical Care Critical Care patient: Yes Total Critical Care Time (in minutes): 36 Critical Care Statement: The care of this patient involved high complexity decision making to prevent further life threatening deterioration of the patient 's condition and/or to evaluate & treat vital organ system(s) failure or risk of failure.
[2018-04-21] MEDS: ATENOLOL 50 MG TABLET (FP) PO SCH (16:38)
--- NOTE | 2018-04-21 17:38 | PN ---
Physical Exam: SUBJECTIVE: Patient seen and examined,he is S/P extubation this morning and she is on BIPAP at this time. is tolerating BIPAP well at this time. OBJECTIVE: Vital Signs Period Temp Pulse Resp BP Sys/Thurman Pulse Ox Last 24 Hr 97.8 F-98.6 F 70-109 18-33 93-153/62-101 100-100 GENERAL: The patient is awake, alert, and fully oriented, in no acute distress. LUNGS: Breath sounds equal, diffuse wheezing, but moves air well,no use of accessory muscle use. HEART: Regular rate and rhythm, S1, S2 without murmur, rub or gallop. ABDOMEN: Soft, nontender, nondistended, EXTREMITIES: 2+ pulses, warm, well-perfused, no edema. Laboratory Results - last 24 hr 04/20/18 04/21/18 04/21/18 21:00 05:30 05:30 WBC 9.9 RBC 4.13 Hgb 12.4 Hct 36.8 MCV 89.1 MCH 30.1 MCHC 33.8 RDW 14.8 Plt Count 136 D MPV 8.8 Absolute Neuts (auto) 8.6 H Total Counted 100 Neutrophils % 86.8 H Neutrophils % (Manual) 84.0 H Band Neutrophils % 12.0 Lymphocytes % 6.4 L D Lymphocytes % (Manual) 1.0 L D Monocytes % 6.5 Monocytes % (Manual) 1 L D Eosinophils % 0.2 Eosinophils % (Manual) 1.0 D Basophils % 0.1 Basophils % (Manual) 0.0 Nucleated RBC % 0 Metamyelocytes 1 D Puncture Site ABG pH ABG pCO2 at Pt Temp ABG pO2 at Pt Temp ABG HCO3 ABG O2 Sat (Measured) ABG O2 Content ABG Base Excess Ronny Test O2 Delivery Device Oxygen Flow Rate Vent Mode Vent Rate Mechanical Rate PEEP Pressure Support Vent Sodium 133 L Potassium 3.7 Chloride 94 L Carbon Dioxide 29 Anion Gap 10 BUN 21 H Creatinine 0.6 Creat Clearance w eGFR > 60 Random Glucose 167 H Lactic Acid 2.2 H* Calcium 7.0 L Phosphorus 1.9 L Magnesium 1.6 L Total Bilirubin 2.4 H AST TNP ALT TNP Alkaline Phosphatase 61 Total Protein 4.9 L Albumin 2.3 L 04/21/18 04/21/18 07:16 07:47 WBC RBC Hgb Hct MCV MCH MCHC RDW Plt Count MPV Absolute Neuts (auto) Total Counted Neutrophils % Neutrophils % (Manual) Band Neutrophils % Lymphocytes % Lymphocytes % (Manual) Monocytes % Monocytes % (Manual) Eosinophils % Eosinophils % (Manual) Basophils % Basophils % (Manual) Nucleated RBC % Metamyelocytes Puncture Site Right radial ABG pH 7.47 H ABG pCO2 at Pt Temp 42.2 D ABG pO2 at Pt Temp 122.0 H D ABG HCO3 30.5 H ABG O2 Sat (Measured) 98.7 ABG O2 Content 16.8 ABG Base Excess 6.6 H Ronny Test Positive O2 Delivery Device Vent Oxygen Flow Rate 30% Vent Mode A/c Vent Rate 20 Mechanical Rate Yes PEEP 5.0 Pressure Support Vent 480 Sodium Potassium Chloride Carbon Dioxide Anion Gap BUN Creatinine Creat Clearance w eGFR Random Glucose Lactic Acid 4.1 H* Calcium Phosphorus Magnesium Total Bilirubin AST ALT Alkaline Phosphatase Total Protein Albumin Active Medications Generic Name Dose Route Start Last Admin Trade Name Freq PRN Reason Stop Dose Admin Atenolol 50 mg 04/21/18 16:00 04/21/18 16:38 Tenormin - PO 50 mg DAILY JACKIE Administration Chlorhexidine Gluconate 1 applic 04/20/18 22:00 04/20/18 23:16 Hibiclens For Decolonization - TP 1 applic HS JACKIE Administration Lactated Ringer's 1,000 ml in 1,000 mls @ 100 mls/hr 04/20/18 11:00 04/21/18 12:20 Lactated Ringers Solution IV 100 mls/hr ASDIR JACKIE Administration Insulin Aspart 1 vial 04/20/18 07:00 04/21/18 16:39 Novolog Vial Sliding Scale - SQ Not Given ACHS JACKIE Protocol Ipratropium [place] 1 amp 04/21/18 12:00 04/21/18 16:27 Atrovent 0.02% Nebulizer - NEB 1 amp RQID JACKIE Administration Methylprednisolone Sodium Succinate 40 mg 04/20/18 09:00 04/21/18 16:00 Solu-Medrol - IVPUSH 40 mg Q6H-IV JACKIE Administration Mupirocin 1 applic 04/20/18 10:00 04/21/18 09:58 Bactroban Ointment (For Decolonization) - NS 04/25/18 09:59 1 appful BID JACKIE Administration Rivaroxaban 20 mg 04/20/18 18:00 01/17/19 18:07 Xarelto - PO 20 mg DAILY@1800 [facility] Administration ASSESSMENT/PLAN: 77 y/o M with PMHx of CVA (Left residual weakness), CAD, COPD (on 2-3L home O2) , DVT on xarelto, Prostate ca, HTN, DM was BIBEMS for a 3 day history of worsening SOB #Pulmonary Acute Hypercapnic hypoxic respiratory failure,intuabted for 1 day and is now extubated in the morning,is tolerating BIPAP -Switched to bipap this am; Settings 480/20/30%/+5 - WILL c/w Albuterol and atovent standing q6h for now -Continue Methylprednisolone 40mg Q6H -Maintain SPO2 > 88-92% #Cardiovascular Hx of CAD HTN, Controlled -EKG: SINUS TACHYCARDIA, RIGHT ATRIAL ENLARGEMENT, MARKED ST ABNORMALITY, POSSIBLE INFERIOR SUBENDOCARDIAL INJURY, VR 141, QTc 425 -Resume home dose Bisoprolol #Neuro Hx of CVA (Left residual weakness) HX of DVT: -Continue home dose Rivaroxaban 20mg #Endocinre -ISS BGMs ACHS #ID Lactic Acidosis, Will resend ABG and LA again tonight, VS are stable -Afebrile, No WBC count diet:will DC iv fluids if tolerating po diet pending tolerating BIPAP and no more respiratory distress #Nephro -BUN/Cr normal -Continue to monitor #PPx -DVT: Rivaroxaban will DC the smith Code Status: Full code Dispo: We will continue to follow the patient. Thank you for this consultative opportunity. Visit type - Emergency Visit Emergency Visit: No - New Patient This patient is new to me today: No - Critical Care Critical Care patient: No - Discharge Referral Referred to [facility] No
[2018-04-21] MEDS: RIVAROXABAN 20 MG TABLET PO SCH (17:40)
[2018-04-21] MEDS: CHLORHEXIDINE GLUCONATE 4% CLEANSER FOR DECOLONIZATION TP SCH (23:11)
[2018-04-22] MEDS: INSULIN SLIDING SCALE (NOVOLOG) 1 VIAL SQ SCH ×5 (04:26→22:43)
[2018-04-22] MEDS: methylPREDNISolone NA SUCC 40 MG/1 ML VIAL IVPUSH SCH ×4 (04:57→21:28)
[2018-04-22 06:05] LABS: HEMATOCRIT 36.4 % (35.4-49); HEMOGLOBIN 11.9 GM/dL (11.7-16.9); LYMPH % 3.1 % (8-40); MCH 29.3 pg (25.7-33.7); MCHC 32.7 g/dl (32.0-35.9); MEAN CELL VOLUME 89.7 fl (80-96); MEAN PLT VOLUME 8.5 fl (7.5-11.1); MONO % 5.1 % (3.8-10.2); NEUT % 91.8 % (42.8-82.8); PLATELET COUNT 153 K/MM3 (134-434); RBC 4.05 M/mm3 (4.00-5.60); RDW 14.8 % (11.9-15.9); WHITE BLOOD COUNT 10.6 K/mm3 (4.0-10.0)
[2018-04-22 06:28] LABS: ALBUMIN 2.6 g/dl (3.4-5.0); ALK PHOS 69 U/L (45-117); ANION GAP 6 MMOL/L (8-16); BLOOD UREA NITROGEN 31 mg/dL (7-18); CALCIUM 8.3 mg/dL (8.5-10.1); CHLORIDE 104 mmol/L (98-107); CO2 35 mmol/L (21-32); CREATININE 0.7 mg/dL (0.55-1.3); GLUCOSE,RANDOM 122 mg/dL (74-106); MAGNESIUM 2.1 mg/dL (1.8-2.4); PHOSPHOROUS 4.4 mg/dL (2.5-4.9); POTASSIUM 4.6 mmol/L (3.5-5.1); SGOT/AST 29 U/L (15-37); SGPT/ALT 25 U/L (13-61); SODIUM 144 mmol/L (136-145); TOT PROT 5.5 g/dl (6.4-8.2)
[2018-04-22] MEDS: IPRATROPIUM BR 0.02% 0.5 MG/2.5 ML VIAL.NEB. NEB SCH ×4 (08:39→20:59)
[2018-04-22] MEDS: MUPIROCIN 2% TOPICAL OINTMENT FOR DECOLONIZATION NS SCH ×2 (09:22→21:28)
[2018-04-22] MEDS: ATENOLOL 50 MG TABLET (FP) PO SCH (09:22)
[2018-04-22 10:19] LABS: ANISOCYTOSIS 1+; MACROCYTOSIS 0; OVALOCYTE 1+; PLATELET ESTIMATE DECREASED
--- NOTE | 2018-04-22 10:53 | PN ---
Teaching Attending Note Name of Resident: Dieudonne Kennedy ATTENDING PHYSICIAN STATEMENT I saw and evaluated the patient. I reviewed the resident's note and discussed the case with the resident. I agree with the resident's findings and plan as documented. SUBJECTIVE: Pt seen and examined in the ICU. Extubated yesterday without incident. Breathing better. Tolerating PO. OBJECTIVE: Vital Signs Period Temp Pulse Resp BP Sys/Thurman Pulse Ox Last 24 Hr 97.8 F-97.8 F 66-109 18-33 133-153/88-101 99-100 Intake & Output 04/19/18 04/20/18 04/21/18 04/22/18 23:59 23:59 23:59 23:59 Intake Total 2381 1200 200 Output Total 450 800 600 Balance 1931 400 -400 Weight 58.967 kg Gen: mildly tachypneic at rest Heart: RRR Lung: bilateral rhonchi Abd: soft, nontender Ext: no edema CBC, BMP 04/22/18 05:30 04/22/18 05:30 Active Medications Atenolol (Tenormin -) 50 mg PO DAILY [facility] Last Admin: 04/22/18 09:22 Dose: 50 mg Chlorhexidine Gluconate (Hibiclens For Decolonization -) 1 applic TP HS [facility] Last Admin: 04/21/18 23:11 Dose: 1 applic Lactated Ringer's (Lactated Ringers Solution) 1,000 ml in 1,000 mls @ 100 mls/ hr IV ASDIR [facility] Last Admin: 04/21/18 12:20 Dose: 100 mls/hr Insulin Aspart (Novolog Vial Sliding Scale -) 1 vial SQ ACHS [facility]; Protocol Last Admin: 04/22/18 07:26 Dose: Not Given Ipratropium [place] (Atrovent 0.02% Nebulizer -) 1 amp NEB RQID [facility] Last Admin: 04/22/18 08:39 Dose: 1 amp Methylprednisolone Sodium Succinate (Solu-Medrol -) 40 mg IVPUSH Q6H-IV [facility] Last Admin: 04/22/18 09:22 Dose: 40 mg Mupirocin (Bactroban Ointment (For Decolonization) -) 1 applic NS BID [facility] Stop: 04/25/18 09:59 Last Admin: 04/22/18 09:22 Dose: 1 appful Rivaroxaban (Xarelto -) 20 mg PO DAILY@1800 JACKIE Last Admin: 04/21/18 17:40 Dose: 20 mg ASSESSMENT AND PLAN: Acute on Chronic Hypoxic and Hypercapneic Respiratory Failure Acute COPD Exacerbation Lactic Acidosis CAD h/o DVT HTN DM h/o CVA - continue medrol at current dose - inhaled bronchodilators standing and PRN - O2 to keep SpO2 <95% - BiPAP as needed to assist in work of breathing - continue anticoagulation - PO as tolerated - glucose control while on systemic steroids - continue ICU monitoring critical care time spent in reviewing chart, evaluating patient and formulating plan 35 min
--- NOTE | 2018-04-22 11:23 | PN ---
Physical Exam: SUBJECTIVE: Patient seen and examined at bedside. No overnight events. No new complaints. Breathing is improved. Off NIPPV, now on NC. Denies CP,HAWKINS, abdominal pain, nausea or vomiting. OBJECTIVE: Vital Signs Period Temp Pulse Resp BP Sys/Thurman Pulse Ox Last 24 Hr 97.8 F-97.8 F 66-109 18-33 133-153/88-101 98-100 GENERAL: AAOx3, NAD HEAD: NCAT EYES: PERRL EARS, NOSE, THROAT: Moist mucous membranes. LUNGS: Diminished breath sounds, b/l wheezing HEART:RRR, S1 and S2 without murmur ABDOMEN: Nontender, Distended, + bowel sounds, no guarding BACK: Healed sacral decubitus ulcer EXTREMITIES: 2+ pulses, No peripheral edema. SKIN: Warm, dry Laboratory Results - last 24 hr 04/21/18 04/22/18 04/22/18 06:08 05:30 05:30 WBC 10.6 H RBC 4.05 Hgb 11.9 Hct 36.4 MCV 89.7 MCH 29.3 MCHC 32.7 RDW 14.8 Plt Count 153 MPV 8.5 Absolute Neuts (auto) 9.7 H Neutrophils % 91.8 H Neutrophils % (Manual) 91.9 H Band Neutrophils % 1.0 Lymphocytes % 3.1 L D Lymphocytes % (Manual) 2.0 L D Monocytes % 5.1 Monocytes % (Manual) 5 D Eosinophils % 0.0 D Eosinophils % (Manual) 0.0 D Basophils % 0.0 Basophils % (Manual) 0.0 Myelocytes % (Man) 0 Promyelocytes % (Man) 0 Blast Cells % (Manual) 0 Nucleated RBC % 0 Metamyelocytes 0 D Hypochromia 0 Platelet Estimate Decreased Polychromasia 0 Poikilocytosis 0 Anisocytosis 1+ Microcytosis 0 Macrocytosis 0 Ovalocytes 1+ Fragmented RBCs 1+ Sodium 144 Potassium 4.6 Chloride 104 Carbon Dioxide 35 H Anion Gap 6 L BUN 31 H Creatinine 0.7 Creat Clearance w eGFR > 60 POC Glucometer 162.28677 Random Glucose 122 H Calcium 8.3 L Phosphorus 4.4 Magnesium 2.1 Total Bilirubin 1.0 AST 29 ALT 25 Alkaline Phosphatase 69 Total Protein 5.5 L Albumin 2.6 L Active Medications Generic Name Dose Route Start Last Admin Trade Name Freq PRN Reason Stop Dose Admin Atenolol 50 mg 01/18/19 16:00 04/22/18 09:22 Tenormin - PO 50 mg DAILY JACKIE Administration Chlorhexidine Gluconate 1 applic 04/20/18 22:00 04/21/18 23:11 Hibiclens For Decolonization - TP 1 applic HS JACKIE Administration Lactated Ringer's 1,000 ml in 1,000 mls @ 100 mls/hr 04/20/18 11:00 04/21/18 12:20 Lactated Ringers Solution IV 100 mls/hr ASDIR JACKIE Administration Insulin Aspart 1 vial 04/20/18 07:00 04/22/18 07:26 Novolog Vial Sliding Scale - SQ Not Given ACHS [facility] Protocol Ipratropium [place] 1 amp 04/21/18 12:00 04/22/18 08:39 Atrovent 0.02% Nebulizer - NEB 1 amp RQID JACKIE Administration Levalbuterol HCl 0.63 mg 04/22/18 14:00 Xopenex IH RTID JACKIE Methylprednisolone Sodium Succinate 40 mg 04/20/18 09:00 04/22/18 09:22 Solu-Medrol - IVPUSH 40 mg Q6H-IV JACKIE Administration Mupirocin 1 applic 04/20/18 10:00 04/22/18 09:22 Bactroban Ointment (For Decolonization) - NS 04/25/18 09:59 1 appful BID JACKIE Administration Pantoprazole Sodium 40 mg 04/22/18 11:30 Protonix - PO DAILY [facility] Rivaroxaban 20 mg 04/20/18 18:00 04/21/18 17:40 Xarelto - PO 20 mg DAILY@1800 JACKIE Administration ASSESSMENT/PLAN: 77 y/o M with PMHx of CVA (Left residual weakness), CAD, COPD (on 2-3L home O2) , DVT on xarelto, Prostate ca, HTN, DM was BIBEMS for a 3 day history of worsening SOB #Neuro * Hx of CVA (Left residual weakness) -No longer sedated -PT/OT -Continue home dose Rivaroxaban 20mg #Pulmonary * Acute Hypercapnic hypoxic respiratory failure -Likely due to COPD exacerbation -Extubated (04/21) -Switched to bipap this am; Settings 480/20/30%/+5 -CXR:slight improvement -Continue Ipratropium QID -Continue Methylprednisolone 40mg Q6H -Monitor off ABx for now -Maintain SPO2 > 88-92% -Urine, Blood and Sputum Cx pending #Cardiovascular * Hx of CAD * HTN, Controlled * Cont. Bisoprolol #Endocinre * ISS BGMs ACHS #ID * Lactic Acidosis -Afebrile, No WBC count -Given 2.5L LR; Continue on LR @ 100 mls/hr -Urine, Blood and Sputum Cx pending -Monitor off ABx for now #Nephro -BUN/Cr normal -Continue to monitor #GI -soft diabetic diet. -No active issues #FEN -Continue LR @ 100 mls/hr -Lytes wnl -soft diabetic diet. #PPx -DVT: Rivaroxaban Code Status: Full code DISPO: continue to monitor in ICU. Visit type - Emergency Visit Emergency Visit: Yes ED Registration Date: 04/20/18 Care time: The patient presented to the Emergency Department on the above date and was hospitalized for further evaluation of their emergent condition. - New Patient This patient is new to me today: Yes Date on this admission: 04/22/18 - Critical Care Critical Care patient: Yes Total Critical Care Time (in minutes): 32 Critical Care Statement: The care of this patient involved high complexity decision making to prevent further life threatening deterioration of the patient 's condition and/or to evaluate & treat vital organ system(s) failure or risk of failure.
[2018-04-22] MEDS: LACTATED RINGERS SOLUTION 1,000 ML/1,000 ML INFUS.BAG IV SCH (12:06)
[2018-04-22] MEDS: PANTOPRAZOLE 40 MG TABLET (FP) PO SCH (12:26)
[2018-04-22] MEDS ORDERED: LACTATED RINGERS SOLUTION 1,000 ML/1,000 ML INFUS.BAG IV SCH (13:50)
[2018-04-22] MEDS: LEVALBUTEROL HCL 0.63 MG/3 ML VIAL.NEB. IH SCH ×2 (14:03→20:59)
--- NOTE | 2018-04-22 15:11 | HOSP ---
Subjective - Review of Symptoms Events since last encounter: He is much better sp extubation he is oob breathing well no nausea or vomiting General: Yes: Fatigue HEENT: No: Head Aches, Visual Changes, Eye Pain, Ear Pain, Dysphasia, Sinus Congestion, Post Nasal Drip, Sore Throat, Other Pulmonary: Yes: Cough Cardiovascular: No: Chest Pain, Palpitations, Orthopnea, Paroxysmal Noc. Dyspnea , Edema, Light Headedness, Other Gastrointestinal: No: Nausea, NOSYM, Vomiting, Abdominal Pain, Diarrhea, Constipation, Melena, Hematochezia, Other Genitourinary: No: Dysuria, NOSYM, Frequency, Incontinence, Hematuria, Retention , Other Musculoskeletal: No: No Symptoms, Back Pain, Crepitus, Decreased ROM, Extremity Pain, Joint Pain, Joint Swelling, Muscle Pain, Muscle Cramps, Muscle Weakness, Other Neurological: No: Weakness, Numbness, Incoordination, Change in speech, Confusion, Seizures, Other Physical Examination Vital Signs: Vital Signs Temperature 97.8 F 04/22/18 06:00 Pulse Rate 71 04/22/18 14:00 Respiratory Rate 26 H 04/22/18 14:00 Blood Pressure 127/81 04/22/18 14:00 O2 Sat by Pulse Oximetry (%) 95 04/22/18 13:47 Constitutional: Yes: Calm Eyes: Yes: Conjunctiva Clear HENT: Yes: Atraumatic Neck: Yes: Supple Cardiovascular: Yes: Tachycardia, Pulse Irregular Respiratory: Yes: Rhonchi, Wheezes Gastrointestinal: Yes: Normal Bowel Sounds Edema: No Neurological: Yes: Alert, Oriented Labs: CBC, BMP 04/22/18 05:30 04/22/18 05:30 Hospitalist Encounter Assessment: Current Medications Generic Name Dose Route Start Last Admin Trade Name Freq PRN Reason Stop Dose Admin Atenolol 50 mg 04/21/18 16:00 04/22/18 09:22 Tenormin - PO 50 mg DAILY JACKIE Administration Chlorhexidine Gluconate 1 applic 04/20/18 22:00 04/21/18 23:11 Hibiclens For Decolonization - TP 1 applic HS JACKIE Administration Lactated Ringer's 1,000 ml in 1,000 mls @ 42 mls/hr 04/22/18 13:50 Lactated Ringers Solution IV ASDIR JACKIE Insulin Aspart 1 vial 04/20/18 07:00 04/22/18 12:28 Novolog Vial Sliding Scale - SQ Not Given ACHS [facility] Protocol Ipratropium [place] 1 amp 04/21/18 12:00 04/22/18 12:26 Atrovent 0.02% Nebulizer - NEB 1 amp RQID JACKIE Administration Levalbuterol HCl 0.63 mg 04/22/18 14:00 04/22/18 14:03 Xopenex IH 0.63 mg RTID JACKIE Administration Methylprednisolone Sodium Succinate 40 mg 04/20/18 09:00 04/22/18 09:22 Solu-Medrol - IVPUSH 40 mg Q6H-IV JACKIE Administration Mupirocin 1 applic 04/20/18 10:00 04/22/18 09:22 Bactroban Ointment (For Decolonization) - NS 04/25/18 09:59 1 appful BID JACKIE Administration Pantoprazole Sodium 40 mg 04/22/18 11:30 04/22/18 12:26 Protonix - PO 40 mg DAILY JACKIE Administration Rivaroxaban 20 mg 04/20/18 18:00 04/21/18 17:40 Xarelto - PO 20 mg DAILY@1800 JACKIE Administration ASSESSMENT/PLAN: 77 y/o M with PMHx of CVA (Left residual weakness), CAD, COPD (on 2-3L home O2) , DVT on xarelto, Prostate ca, HTN, DM was BIBEMS for a 3 day history of worsening SOB * Hx of CVA (Left residual weakness) -No longer sedated -PT/OT -Continue home dose Rivaroxaban 20mg * Acute Hypercapnic hypoxic respiratory failure -Likely due to COPD exacerbation -Extubated (04/21) -Switched to bipap this am; Settings 480/20/30%/+5 -CXR:slight improvement -Continue Ipratropium QID -Continue Methylprednisolone 40mg Q6H -Monitor off ABx for now -Maintain SPO2 > 88-92% -Urine, Blood and Sputum Cx pending * Hx of CAD * HTN, Controlled * Cont. Bisoprolol * ISS BGMs ACHS -Continue LR @ 100 mls/hr -Lytes wnl -soft diabetic diet.
[2018-04-22] MEDS: RIVAROXABAN 20 MG TABLET PO SCH (17:41)
[2018-04-22] MEDS ORDERED: PT OWN MED DRAWER 7, Y5N ONE (21:09)
[2018-04-22] MEDS: CHLORHEXIDINE GLUCONATE 4% CLEANSER FOR DECOLONIZATION TP SCH (21:29)
[2018-04-23] MEDS: methylPREDNISolone NA SUCC 40 MG/1 ML VIAL IVPUSH SCH ×3 (04:00→17:28)
[2018-04-23 05:44] LABS: BASO % 0.1 % (0-2.0); HEMATOCRIT 35.5 % (35.4-49); HEMOGLOBIN 11.7 GM/dL (11.7-16.9); LYMPH % 2.9 % (8-40); MCH 29.4 pg (25.7-33.7); MCHC 33.1 g/dl (32.0-35.9); MEAN CELL VOLUME 88.9 fl (80-96); MEAN PLT VOLUME 8.5 fl (7.5-11.1); MONO % 5.2 % (3.8-10.2); NEUT % 91.8 % (42.8-82.8); PLATELET COUNT 138 K/MM3 (134-434); RDW 14.6 % (11.9-15.9); WHITE BLOOD COUNT 9.9 K/mm3 (4.0-10.0)
[2018-04-23] MEDS: INSULIN SLIDING SCALE (NOVOLOG) 1 VIAL SQ SCH ×4 (06:12→21:05)
[2018-04-23 06:14] LABS: ALBUMIN 2.6 g/dl (3.4-5.0); ALK PHOS 65 U/L (45-117); ANION GAP 4 MMOL/L (8-16); BILIRUBIN,TOTAL 0.9 mg/dL (0.2-1); BLOOD UREA NITROGEN 31 mg/dL (7-18); CALCIUM 8.8 mg/dL (8.5-10.1); CHLORIDE 101 mmol/L (98-107); CO2 37 mmol/L (21-32); CREATININE 0.6 mg/dL (0.55-1.3); GLUCOSE,RANDOM 134 mg/dL (74-106); POTASSIUM 4.2 mmol/L (3.5-5.1); SGOT/AST 26 U/L (15-37); SGPT/ALT 25 U/L (13-61); SODIUM 142 mmol/L (136-145); TOT PROT 5.5 g/dl (6.4-8.2)
[2018-04-23] MEDS: IPRATROPIUM BR 0.02% 0.5 MG/2.5 ML VIAL.NEB. NEB SCH ×4 (08:09→21:41)
[2018-04-23] MEDS: LEVALBUTEROL HCL 0.63 MG/3 ML VIAL.NEB. IH SCH ×3 (08:15→21:42)
[2018-04-23 08:58] LABS: PLATELET ESTIMATE ADEQUATE
[2018-04-23] MEDS: PANTOPRAZOLE 40 MG TABLET (FP) PO SCH (09:39)
[2018-04-23] MEDS: ATENOLOL 50 MG TABLET (FP) PO SCH (09:39)
[2018-04-23] MEDS: MUPIROCIN 2% TOPICAL OINTMENT FOR DECOLONIZATION NS SCH ×2 (09:40→21:06)
--- NOTE | 2018-04-23 10:17 | PN ---
Teaching Attending Note Name of Resident: Ester Tobias ATTENDING PHYSICIAN STATEMENT I saw and evaluated the patient. I reviewed the resident's note and discussed the case with the resident. I agree with the resident's findings and plan as documented. SUBJECTIVE: Pt seen and examined in the ICU. Remains extubated. Breathing continues to improve. +cough with white sputum. No fevers recorded. OBJECTIVE: Vital Signs Period Temp Pulse Resp BP Sys/Thurman Pulse Ox Last 24 Hr 98.0 F-99.5 F 63-95 20-26 127-147/77-98 95-100 Intake & Output 04/20/18 04/21/18 04/22/18 04/23/18 23:59 23:59 23:59 23:59 Intake Total 2381 1200 1504 410 Output Total 523 604 0214 350 Balance 1931 400 404 60 Weight 58.967 kg 58.967 kg Gen: less tachypneic Heart: RRR Lung: scattered rhonchi Abd: soft, nontender Ext: no edema CBC, BMP 04/23/18 05:15 04/23/18 05:15 Active Medications Atenolol (Tenormin -) 50 mg PO DAILY [facility] Last Admin: 04/23/18 09:39 Dose: 50 mg Chlorhexidine Gluconate (Hibiclens For Decolonization -) 1 applic TP HS [facility] Last Admin: 04/22/18 21:29 Dose: 1 applic Insulin Aspart (Novolog Vial Sliding Scale -) 1 vial SQ ACHS [facility]; Protocol Last Admin: 04/23/18 06:12 Dose: Not Given Ipratropium [place] (Atrovent 0.02% Nebulizer -) 1 amp NEB RQID [facility] Last Admin: 04/23/18 08:09 Dose: 1 amp Levalbuterol HCl (Xopenex) 0.63 mg IH RTID [facility] Last Admin: 04/23/18 08:15 Dose: 0.63 mg Methylprednisolone Sodium Succinate (Solu-Medrol -) 40 mg IVPUSH Q8H-IV [facility] Mupirocin (Bactroban Ointment (For Decolonization) -) 1 applic NS BID [facility] Stop: 04/25/18 09:59 Last Admin: 04/23/18 09:40 Dose: 1 applic Pantoprazole Sodium (Protonix -) 40 mg PO DAILY [facility] Last Admin: 04/23/18 09:39 Dose: 40 mg Rivaroxaban (Xarelto -) 20 mg PO DAILY@1800 [facility] Last Admin: 04/22/18 17:41 Dose: 20 mg ASSESSMENT AND PLAN: Acute on Chronic Hypoxic and Hypercapneic Respiratory Failure Acute COPD Exacerbation Lactic Acidosis CAD h/o DVT HTN DM h/o CVA - can taper medrol to q8h - inhaled bronchodilators standing and PRN - O2 to keep SpO2 <95% - BiPAP as needed to assist in work of breathing - continue anticoagulation - PO as tolerated - glucose control while on systemic steroids - can monitor on floor
--- NOTE | 2018-04-23 10:47 | PN ---
Physical Exam: SUBJECTIVE: Patient seen and examined this morning in ICU. Tolerated Nasal cannula overnight. No acute events overnight. Complains of Cough productive of clear sputum this AM> OBJECTIVE: Vital Signs Period Temp Pulse Resp BP Sys/Thurman Pulse Ox Last 24 Hr 98.0 F-99.5 F 63-95 20-26 127-147/77-98 95-100 GENERAL: A&Ox3, NAD HEAD: NCAT EYES: PERRL EARS, NOSE, THROAT: Moist mucous membranes. LUNGS: Rhonchi throughout HEART: Distant heart sounds, S1 and S2 without murmur ABDOMEN: Nontender, Distended, + bowel sounds, no guarding BACK: Healed sacral decubitus ulcer EXTREMITIES: 2+ pulses, No peripheral edema. NEUROLOGICAL: Cranial nerves II through XII grossly intact. Normal speech. SKIN: Warm, dry Laboratory Results - last 24 hr 04/23/18 04/23/18 05:15 05:15 WBC 9.9 RBC 4.00 Hgb 11.7 Hct 35.5 MCV 88.9 MCH 29.4 MCHC 33.1 RDW 14.6 Plt Count 138 MPV 8.5 Absolute Neuts (auto) 9.0 H Total Counted 100 Neutrophils % 91.8 H Neutrophils % (Manual) 89.0 H Band Neutrophils % 2.0 Lymphocytes % 2.9 L Lymphocytes % (Manual) 2.0 L Monocytes % 5.2 Monocytes % (Manual) 6 Eosinophils % 0.0 Basophils % 0.1 D Nucleated RBC % 0 Platelet Estimate Adequate Platelet Comment No clotting detected Sodium 142 Potassium 4.2 Chloride 101 Carbon Dioxide 37 H Anion Gap 4 L BUN 31 H Creatinine 0.6 Creat Clearance w eGFR > 60 Random Glucose 134 H Calcium 8.8 Total Bilirubin 0.9 AST 26 ALT 25 Alkaline Phosphatase 65 Total Protein 5.5 L Albumin 2.6 L Microbiology 04/20/18 02:21 Blood - Peripheral Venous Blood Culture - Preliminary NO GROWTH OBTAINED AFTER 72 HOURS, INCUBATION TO CONTINUE FOR 2 DAYS. 04/20/18 02:21 Blood - Peripheral Venous Blood Culture - Preliminary NO GROWTH OBTAINED AFTER 72 HOURS, INCUBATION TO CONTINUE FOR 2 DAYS. 04/20/18 13:15 Sputum - Endotrachea Suction/Ventilator Gram Stain - Final 04/20/18 13:15 Sputum - Endotrachea Suction/Ventilator Sputum Culture - Final NORMAL RESPIRATORY MOLLY 04/20/18 02:29 Urine - Urine Clean Catch Urine Culture - Final NO GROWTH OBTAINED Active Medications Atenolol (Tenormin -) 50 mg PO DAILY [facility] Last Admin: 04/23/18 09:39 Dose: 50 mg Chlorhexidine Gluconate (Hibiclens For Decolonization -) 1 applic TP HS [facility] Last Admin: 04/22/18 21:29 Dose: 1 applic Insulin Aspart (Novolog Vial Sliding Scale -) 1 vial SQ ACHS [facility]; Protocol Last Admin: 04/23/18 06:12 Dose: Not Given Ipratropium [place] (Atrovent 0.02% Nebulizer -) 1 amp NEB RQID [facility] Last Admin: 04/23/18 08:09 Dose: 1 amp Levalbuterol HCl (Xopenex) 0.63 mg IH RTID [facility] Last Admin: 04/23/18 08:15 Dose: 0.63 mg Methylprednisolone Sodium Succinate (Solu-Medrol -) 40 mg IVPUSH Q8H-IV [facility] Mupirocin (Bactroban Ointment (For Decolonization) -) 1 applic NS BID [facility] Stop: 04/25/18 09:59 Last Admin: 04/23/18 09:40 Dose: 1 applic Pantoprazole Sodium (Protonix -) 40 mg PO DAILY [facility] Last Admin: 04/23/18 09:39 Dose: 40 mg Rivaroxaban (Xarelto -) 20 mg PO DAILY@1800 [facility] Last Admin: 04/22/18 17:41 Dose: 20 mg ASSESSMENT/PLAN: 77 y/o M with PMHx of CVA (Left residual weakness), CAD, COPD (on 2-3L home O2) , DVT on xarelto, Prostate ca, HTN, DM was BIBEMS for a 3 day history of worsening SOB #Pulmonary Acute Hypercapnic hypoxic respiratory failure -Likely due to COPD exacerbation -Extubated (04/21) -Tolerating NC @ 3L; Bipap PRN -CXR: Mild hyperaeration. Some coarse lung changes but no sign of a discrete infiltrate. -Continue Ipratropium QID -Taper Methylprednisolone 40mg to Q8H -Monitor off ABx for now -Maintain SPO2 > 88-92% -Urine, Blood and Sputum Cx pending #Cardiovascular Hx of CAD HTN, Controlled -EKG: SINUS TACHYCARDIA, RIGHT ATRIAL ENLARGEMENT, MARKED ST ABNORMALITY, POSSIBLE INFERIOR SUBENDOCARDIAL INJURY, VR 141, QTc 425 -Continue Atenolol 50mg D #Neuro Hx of CVA (Left residual weakness) -No longer sedated -PT/OT -Continue home dose Rivaroxaban 20mg #Endocinre DM -ISS BGMs ACHS #ID Lactic Acidosis -Likely due to labored breathing -Afebrile, No WBC count -Urine, Blood and Sputum Cx pending -Monitor off ABx for now #Nephro -BUN/Cr normal -Continue to monitor #GI -Soft diabetic diet -No active issues #FEN -PO Fluids -Lytes wnl -Soft diabetic diet #PPx -DVT: Rivaroxaban #LTD -Extubated 04/21 -Lux d/c'ed on 04/23 Code Status: Full code Dispo: Transfer to Med-Surg Visit type - Emergency Visit Emergency Visit: Yes ED Registration Date: 04/20/18 Care time: The patient presented to the Emergency Department on the above date and was hospitalized for further evaluation of their emergent condition. - New Patient This patient is new to me today: No - Critical Care Critical Care patient: Yes Total Critical Care Time (in minutes): 36 Critical Care Statement: The care of this patient involved high complexity decision making to prevent further life threatening deterioration of the patient 's condition and/or to evaluate & treat vital organ system(s) failure or risk of failure.
--- NOTE | 2018-04-23 14:46 | PN ---
Physical Exam: SUBJECTIVE: Patient seen and examined He is comfortable no distress oob no fever or chills seen by pulmonary OBJECTIVE: Vital Signs Period Temp Pulse Resp BP Sys/Thurman Pulse Ox Last 24 Hr 98.2 F-99.5 F 63-95 20-30 118-147/77-119 95-100 GENERAL: The patient is awake, alert, and fully oriented, in no acute distress. HEAD: Normal with no signs of trauma. EYES: PERRL, extraocular movements intact, sclera anicteric, conjunctiva clear. No ptosis. ENT: Ears normal, nares patent, oropharynx clear without exudates, moist mucous membranes. NECK: Trachea midline, full range of motion, supple. LUNGS: Breath sounds equal, clear to auscultation bilaterally, no wheezes, no crackles, no accessory muscle use. HEART: Regular rate and rhythm, S1, S2 without murmur, rub or gallop. ABDOMEN: Soft, nontender, nondistended, normoactive bowel sounds, no guarding, no rebound, no hepatosplenomegaly, no masses. EXTREMITIES: 2+ pulses, warm, well-perfused, no edema. NEUROLOGICAL: Cranial nerves II through XII grossly intact. Normal speech, gait not observed. PSYCH: Normal mood, normal affect. SKIN: Warm, dry, normal turgor, no rashes or lesions noted Laboratory Results - last 24 hr 04/23/18 04/23/18 05:15 05:15 WBC 9.9 RBC 4.00 Hgb 11.7 Hct 35.5 MCV 88.9 MCH 29.4 MCHC 33.1 RDW 14.6 Plt Count 138 MPV 8.5 Absolute Neuts (auto) 9.0 H Total Counted 100 Neutrophils % 91.8 H Neutrophils % (Manual) 89.0 H Band Neutrophils % 2.0 Lymphocytes % 2.9 L Lymphocytes % (Manual) 2.0 L Monocytes % 5.2 Monocytes % (Manual) 6 Eosinophils % 0.0 Basophils % 0.1 D Nucleated RBC % 0 Platelet Estimate Adequate Platelet Comment No clotting detected Sodium 142 Potassium 4.2 Chloride 101 Carbon Dioxide 37 H Anion Gap 4 L BUN 31 H Creatinine 0.6 Creat Clearance w eGFR > 60 Random Glucose 134 H Calcium 8.8 Total Bilirubin 0.9 AST 26 ALT 25 Alkaline Phosphatase 65 Total Protein 5.5 L Albumin 2.6 L Active Medications Generic Name Dose Route Start Last Admin Trade Name Freq PRN Reason Stop Dose Admin Atenolol 50 mg 04/21/18 16:00 04/23/18 09:39 Tenormin - PO 50 mg DAILY [facility] Administration Chlorhexidine Gluconate 1 applic 04/20/18 22:00 04/22/18 21:29 Hibiclens For Decolonization - TP 1 applic HS [facility] Administration Insulin Aspart 1 vial 04/20/18 07:00 04/23/18 11:40 Novolog Vial Sliding Scale - SQ 4 units ACHS [facility] Administration Protocol Ipratropium [place] 1 amp 04/21/18 12:00 04/23/18 12:00 Atrovent 0.02% Nebulizer - NEB 1 amp RQID [facility] Administration Levalbuterol HCl 0.63 mg 04/22/18 14:00 04/23/18 08:15 Xopenex IH 0.63 mg RTID [facility] Administration Methylprednisolone Sodium Succinate 40 mg 04/23/18 18:00 Solu-Medrol - IVPUSH Q8H-IV [facility] Mupirocin 1 applic 04/20/18 10:00 04/23/18 09:40 Bactroban Ointment (For Decolonization) - NS 04/25/18 09:59 1 applic BID [facility] Administration Pantoprazole Sodium 40 mg 04/22/18 11:30 04/23/18 09:39 Protonix - PO 40 mg DAILY [facility] Administration Rivaroxaban 20 mg 04/20/18 18:00 04/22/18 17:41 Xarelto - PO 20 mg DAILY@1800 [facility] Administration ASSESSMENT/PLAN:Hx of CVA (Left residual weakness) -Continue home dose Rivaroxaban 20mg Acute Hypercapnic hypoxic respiratory failure -Likely due to COPD exacerbation -Extubated (04/21) -Switched to bipap this am; Settings 480/20/30%/+5 -CXR:slight improvement -Continue Ipratropium QID -Continue Methylprednisolone 40mg Q8H Hx of CAD HTN, Controlled Cont. Bisoprolol ISS BGMs ACHS
[2018-04-23] MEDS: RIVAROXABAN 20 MG TABLET PO SCH (17:28)
[2018-04-23] MEDS: CHLORHEXIDINE GLUCONATE 4% CLEANSER FOR DECOLONIZATION TP SCH (21:05)
[2018-04-23] MEDS ORDERED: PT OWN MED DRAWER 7, Y5N ONE (21:27)
[2018-04-24] MEDS: methylPREDNISolone NA SUCC 40 MG/1 ML VIAL IVPUSH SCH ×4 (03:00→22:28)
[2018-04-24 06:01] LABS: BASO % 0.1 % (0-2.0); HEMATOCRIT 35.4 % (35.4-49); HEMOGLOBIN 11.8 GM/dL (11.7-16.9); LYMPH % 4.8 % (8-40); MCH 29.5 pg (25.7-33.7); MCHC 33.3 g/dl (32.0-35.9); MEAN CELL VOLUME 88.7 fl (80-96); MEAN PLT VOLUME 8.4 fl (7.5-11.1); MONO % 8.3 % (3.8-10.2); NEUT % 86.8 % (42.8-82.8); PLATELET COUNT 149 K/MM3 (134-434); RBC 3.99 M/mm3 (4.00-5.60); RDW 14.4 % (11.9-15.9)
[2018-04-24] MEDS: INSULIN SLIDING SCALE (NOVOLOG) 1 VIAL SQ SCH ×4 (06:19→21:17)
[2018-04-24 06:34] LABS: ALBUMIN 2.5 g/dl (3.4-5.0); ALK PHOS 69 U/L (45-117); ANION GAP 4 MMOL/L (8-16); BILIRUBIN,TOTAL 0.7 mg/dL (0.2-1); BLOOD UREA NITROGEN 35 mg/dL (7-18); CALCIUM 8.3 mg/dL (8.5-10.1); CHLORIDE 103 mmol/L (98-107); CO2 38 mmol/L (21-32); CREATININE 0.6 mg/dL (0.55-1.3); GLUCOSE,RANDOM 138 mg/dL (74-106); MAGNESIUM 2.1 mg/dL (1.8-2.4); PHOSPHOROUS 2.3 mg/dL (2.5-4.9); SGOT/AST 25 U/L (15-37); SGPT/ALT 30 U/L (13-61); SODIUM 145 mmol/L (136-145); TOT PROT 5.1 g/dl (6.4-8.2)
[2018-04-24] MEDS: LEVALBUTEROL HCL 0.63 MG/3 ML VIAL.NEB. IH SCH ×3 (07:40→20:16)
[2018-04-24] MEDS: IPRATROPIUM BR 0.02% 0.5 MG/2.5 ML VIAL.NEB. NEB SCH ×4 (07:40→20:16)
--- NOTE | 2018-04-24 08:21 | PN ---
Physical Exam: SUBJECTIVE: Patient seen and examined. Continues to tolerate nasal canulla. No acute events overnight. Continues to have cough productive of clear sputum. OBJECTIVE: Vital Signs Period Temp Pulse Resp BP Sys/Thurman Pulse Ox Last 24 Hr 97.7 F-99.4 F 65-95 18-30 118-161/77-119 97-100 GENERAL: A&Ox3, NAD HEAD: NCAT EYES: PERRL, EOMI EARS, NOSE, THROAT: Moist mucous membranes LUNGS: Rhonchi throughout HEART: Distant heart sounds, S1 and S2 without murmur ABDOMEN: Nontender, Distended, + bowel sounds, no guarding BACK: Healed sacral decubitus ulcer EXTREMITIES: 2+ pulses, No peripheral edema. NEUROLOGICAL: Cranial nerves II through XII grossly intact. Normal speech. Gross sensation intact throughout. 5/5 muscle strength throughout. SKIN: Warm, dry Laboratory Results - last 24 hr 04/23/18 04/24/18 04/24/18 05:15 05:30 05:30 WBC 10.0 RBC 3.99 L Hgb 11.8 Hct 35.4 MCV 88.7 MCH 29.5 MCHC 33.3 RDW 14.4 Plt Count 149 MPV 8.4 Absolute Neuts (auto) 8.6 H Total Counted 100 Neutrophils % 86.8 H Neutrophils % (Manual) 89.0 H Band Neutrophils % 2.0 Lymphocytes % 4.8 L D Lymphocytes % (Manual) 2.0 L Monocytes % 8.3 Monocytes % (Manual) 6 Eosinophils % 0.0 Basophils % 0.1 Nucleated RBC % 0 Platelet Estimate Adequate Platelet Comment No clotting detected Sodium 145 Potassium 4.0 Chloride 103 Carbon Dioxide 38 H Anion Gap 4 L BUN 35 H Creatinine 0.6 Creat Clearance w eGFR > 60 Random Glucose 138 H Calcium 8.3 L Phosphorus 2.3 L Magnesium 2.1 Total Bilirubin 0.7 AST 25 ALT 30 Alkaline Phosphatase 69 Total Protein 5.1 L Albumin 2.5 L Microbiology 04/20/18 02:21 Blood - Peripheral Venous Blood Culture - Preliminary NO GROWTH OBTAINED AFTER 96 HOURS, INCUBATION TO CONTINUE FOR 1 DAYS. 04/20/18 02:21 Blood - Peripheral Venous Blood Culture - Preliminary NO GROWTH OBTAINED AFTER 96 HOURS, INCUBATION TO CONTINUE FOR 1 DAYS. 04/20/18 13:15 Sputum - Endotrachea Suction/Ventilator Gram Stain - Final 04/20/18 13:15 Sputum - Endotrachea Suction/Ventilator Sputum Culture - Final NORMAL RESPIRATORY MOLLY 04/20/18 02:29 Urine - Urine Clean Catch Urine Culture - Final NO GROWTH OBTAINED Active Medications Atenolol (Tenormin -) 50 mg PO DAILY [facility] Last Admin: 04/23/18 09:39 Dose: 50 mg Chlorhexidine Gluconate (Hibiclens For Decolonization -) 1 applic TP HS [facility] Last Admin: 04/23/18 21:05 Dose: 1 applic Insulin Aspart (Novolog Vial Sliding Scale -) 1 vial SQ ACHS [facility]; Protocol Last Admin: 04/24/18 06:19 Dose: 2 units Ipratropium [place] (Atrovent 0.02% Nebulizer -) 1 amp NEB RQID [facility] Last Admin: 04/23/18 21:41 Dose: 1 amp Levalbuterol HCl (Xopenex) 0.63 mg IH RTID [facility] Last Admin: 04/23/18 21:42 Dose: 0.63 mg Methylprednisolone Sodium Succinate (Solu-Medrol -) 40 mg IVPUSH Q8H-IV [facility] Last Admin: 04/24/18 03:00 Dose: 40 mg Mupirocin (Bactroban Ointment (For Decolonization) -) 1 applic NS BID [facility] Stop: 04/25/18 09:59 Last Admin: 04/23/18 21:06 Dose: 1 applic Pantoprazole Sodium (Protonix -) 40 mg PO DAILY [facility] Last Admin: 04/23/18 09:39 Dose: 40 mg Rivaroxaban (Xarelto -) 20 mg PO DAILY@1800 [facility] Last Admin: 04/23/18 17:28 Dose: 20 mg ASSESSMENT/PLAN: 77 y/o M with PMHx of CVA (Left residual weakness), CAD, COPD (on 2-3L home O2) , DVT on xarelto, Prostate ca, HTN, DM was BIBEMS for a 3 day history of worsening SOB #Pulmonary Acute Hypercapnic hypoxic respiratory failure -Likely due to COPD exacerbation -Extubated (04/21) -Tolerating NC @ 3L; Bipap PRN -Continue Ipratropium QID -Taper Methylprednisolone 40mg to Q12H -Monitor off ABx for now -Maintain SPO2 > 88-92% -Urine, Blood and Sputum Cx pending #Cardiovascular Hx of CAD HTN, Controlled -EKG: SINUS TACHYCARDIA, RIGHT ATRIAL ENLARGEMENT, MARKED ST ABNORMALITY, POSSIBLE INFERIOR SUBENDOCARDIAL INJURY, VR 141, QTc 425 -Continue Atenolol 50mg Daily #Neuro Hx of CVA (Left residual weakness) -No longer sedated -PT/OT -Continue home dose Rivaroxaban 20mg #Endocinre DM -ISS BGMs ACHS #ID Lactic Acidosis -Likely due to labored breathing -Afebrile, No WBC count -Urine, Blood and Sputum Cx pending -Monitor off ABx for now #Nephro -BUN/Cr normal -Continue to monitor #GI -Soft diabetic diet -Start PO Colace, Senna -No active issues #FEN -PO Fluids -Lytes wnl -Soft diabetic diet #PPx -DVT: Rivaroxaban #LTD -Extubated 04/21 -Lux d/ryan'ed on 04/23 Code Status: Full code Dispo: Transfer to Med-Surg Visit type - Emergency Visit Emergency Visit: Yes ED Registration Date: 04/20/18 Care time: The patient presented to the Emergency Department on the above date and was hospitalized for further evaluation of their emergent condition. - New Patient This patient is new to me today: No - Critical Care Critical Care patient: Yes Total Critical Care Time (in minutes): 36 Critical Care Statement: The care of this patient involved high complexity decision making to prevent further life threatening deterioration of the patient 's condition and/or to evaluate & treat vital organ system(s) failure or risk of failure.
[2018-04-24] MEDS: ATENOLOL 50 MG TABLET (FP) PO SCH (10:19)
[2018-04-24] MEDS: PANTOPRAZOLE 40 MG TABLET (FP) PO SCH (10:19)
[2018-04-24] MEDS: MUPIROCIN 2% TOPICAL OINTMENT FOR DECOLONIZATION NS SCH (10:21)
--- NOTE | 2018-04-24 10:59 | PN ---
Teaching Attending Note Name of Resident: Ester Tobias ATTENDING PHYSICIAN STATEMENT I saw and evaluated the patient. I reviewed the resident's note and discussed the case with the resident. I agree with the resident's findings and plan as documented. SUBJECTIVE: Pt seen and examined in the ICU. Breathing continues to improve. Coughing less. No fevers recorded. OBJECTIVE: Vital Signs Period Temp Pulse Resp BP Sys/Thurman Pulse Ox Last 24 Hr 97.7 F-98.7 F 65-89 18-30 118-161/75-119 97-100 Intake & Output 04/21/18 04/22/18 04/23/18 04/24/18 23:59 23:59 23:59 23:59 Intake Total 1200 1504 1457 Output Total 800 1100 1150 250 Balance 400 404 307 -250 Weight 58.967 kg 67.2 kg Gen: NAD at rest Heart: RRR Lung: scattered rhonchi, distant breath sounds Abd: soft, nontender Ext: no edema CBC, BMP 04/24/18 05:30 04/24/18 05:30 Active Medications Atenolol (Tenormin -) 50 mg PO DAILY [facility] Last Admin: 04/24/18 10:19 Dose: 50 mg Chlorhexidine Gluconate (Hibiclens For Decolonization -) 1 applic TP HS [facility] Last Admin: 04/23/18 21:05 Dose: 1 applic Docusate Sodium (Colace -) 100 mg PO TID [facility] Insulin Aspart (Novolog Vial Sliding Scale -) 1 vial SQ ACHS [facility]; Protocol Last Admin: 04/24/18 06:19 Dose: 2 units Ipratropium [place] (Atrovent 0.02% Nebulizer -) 1 amp NEB RQID [facility] Last Admin: 04/24/18 07:40 Dose: 1 amp Levalbuterol HCl (Xopenex) 0.63 mg IH RTID [facility] Last Admin: 04/24/18 07:40 Dose: 0.63 mg Methylprednisolone Sodium Succinate (Solu-Medrol -) 40 mg IVPUSH Q12H [facility] Mupirocin (Bactroban Ointment (For Decolonization) -) 1 applic NS BID [facility] Stop: 04/25/18 09:59 Last Admin: 04/24/18 10:21 Dose: 1 applic Pantoprazole Sodium (Protonix -) 40 mg PO DAILY [facility] Last Admin: 04/24/18 10:19 Dose: 40 mg Rivaroxaban (Xarelto -) 20 mg PO DAILY@1800 [facility] Last Admin: 04/23/18 17:28 Dose: 20 mg Senna (Senna -) 1 tab PO BID [facility] ASSESSMENT AND PLAN: Acute on Chronic Hypoxic and Hypercapneic Respiratory Failure improving Acute COPD Exacerbation Lactic Acidosis CAD h/o DVT HTN DM h/o CVA - can taper medrol to q12h - inhaled bronchodilators standing and PRN - O2 to keep SpO2 <95% - BiPAP as needed to assist in work of breathing - continue anticoagulation - PO as tolerated - glucose control while on systemic steroids - can monitor on floor
[2018-04-24] MEDS ORDERED: SODIUM PHOSPHATE - 22 MM in SODIUM CHLORIDE 250 ML IVPB ONE (12:00)
--- NOTE | 2018-04-24 13:54 | PN ---
Progress Note, Physician History of Present Illness: 24 HR events: -pt on NC, continues to have productive cough -pt appears stable for transfer to medsur floor - Current Medication List Current Medications: Active Medications Atenolol (Tenormin -) 50 mg PO DAILY [facility] Last Admin: 04/24/18 10:19 Dose: 50 mg Chlorhexidine Gluconate (Hibiclens For Decolonization -) 1 applic TP HS [facility] Last Admin: 04/23/18 21:05 Dose: 1 applic Docusate Sodium (Colace -) 100 mg PO TID [facility] Sodium Phosphate 22 mm/ Sodium (Chloride) 257.3333 mls @ 64.33 mls/hr IVPB ONCE ONE Stop: 04/24/18 16:00 Last Admin: 04/24/18 12:57 Dose: 64.33 mls/hr Insulin Aspart (Novolog Vial Sliding Scale -) 1 vial SQ ACHS [facility]; Protocol Last Admin: 04/24/18 11:53 Dose: Not Given Ipratropium [place] (Atrovent 0.02% Nebulizer -) 1 amp NEB RQID [facility] Last Admin: 04/24/18 11:20 Dose: 1 amp Levalbuterol HCl (Xopenex) 0.63 mg IH RTID [facility] Last Admin: 04/24/18 07:40 Dose: 0.63 mg Methylprednisolone Sodium Succinate (Solu-Medrol -) 40 mg IVPUSH Q12H [facility] Last Admin: 04/24/18 11:00 Dose: Not Given Mupirocin (Bactroban Ointment (For Decolonization) -) 1 applic NS BID [facility] Stop: 04/25/18 09:59 Last Admin: 04/24/18 10:21 Dose: 1 applic Pantoprazole Sodium (Protonix -) 40 mg PO DAILY [facility] Last Admin: 04/24/18 10:19 Dose: 40 mg Rivaroxaban (Xarelto -) 20 mg PO DAILY@1800 [facility] Last Admin: 04/23/18 17:28 Dose: 20 mg Senna (Senna -) 1 tab PO BID [facility] - Objective Vital Signs: Vital Signs Temperature 98.0 F 04/24/18 12:00 Pulse Rate 78 04/24/18 12:00 Respiratory Rate 22 H 04/24/18 12:00 Blood Pressure 143/81 04/24/18 12:00 O2 Sat by Pulse Oximetry (%) 100 04/24/18 08:00 Constitutional: Yes: No Distress, Calm Eyes: Yes: Conjunctiva Clear HENT: Yes: Atraumatic, Normocephalic Neck: Yes: Supple Cardiovascular: Yes: Regular Rate and Rhythm Respiratory: Yes: Rhonchi Gastrointestinal: Yes: Normal Bowel Sounds, Soft ...Rectal Exam: Yes: Deferred Musculoskeletal: Yes: WNL Extremities: Yes: WNL, Other Edema: No Peripheral Pulses WNL: Yes Peripheral Pulses: Left Radial: 2+, Right Radial: 2+, Left Doralis Pedis: 1+, Right Dorsalis Pedis: 1+ Integumentary: Yes: Other (itchy) Neurological: Yes: Alert, Oriented ...Motor Strength: WNL Psychiatric: Yes: Alert, Oriented (ichthyosis b/l LEs) Labs: CBC, BMP 04/24/18 05:30 04/24/18 05:30 INR, PTT INR 1.25 (0.83-1.09) H 04/20/18 09:10 Problem List - Problems (1) COPD exacerbation Assessment/Plan: -Extubated (04/21) -NC @ 3L; Bipap PRN -Continue Ipratropium QID -Methylprednisolone 40mg to Q12H, taper to oral steroids on 04/24 Code(s): J44.1 - CHRONIC OBSTRUCTIVE PULMONARY DISEASE W (ACUTE) EXACERBATION (2) HTN (hypertension) Assessment/Plan: -Continue Atenolol 50mg Daily Code(s): I10 - ESSENTIAL (PRIMARY) HYPERTENSION Qualifiers: Hypertension type: essential hypertension Qualified Code(s): I10 - Essential (primary) hypertension (3) H/O: CVA (cerebrovascular accident) Assessment/Plan: -PT/OT -Continue home dose Rivaroxaban 20mg Code(s): Z86.73 - PRSNL HX OF TIA (TIA), AND CEREB INFRC W/O RESID DEFICITS (4) DMII (diabetes mellitus, type 2) Assessment/Plan: FS AC and Qhs Insulin SS Code(s): E11.9 - TYPE 2 DIABETES MELLITUS WITHOUT COMPLICATIONS Impression/Plan Impression/Plan: GI-PPX, senna/colace Visit type - Emergency Visit Emergency Visit: Yes ED Registration Date: 04/20/18 Care time: The patient presented to the Emergency Department on the above date and was hospitalized for further evaluation of their emergent condition. - New Patient This patient is new to me today: Yes Date on this admission: 04/25/18 - Critical Care Critical Care patient: Yes Total Critical Care Time (in minutes): 30 Critical Care Statement: The care of this patient involved high complexity decision making to prevent further life threatening deterioration of the patient 's condition and/or to evaluate & treat vital organ system(s) failure or risk of failure. - Discharge Referral Referred to [facility] Med [facility] No
[2018-04-24] MEDS: DOCUSATE SODIUM 100 MG CAPSULE (FP) PO SCH ×2 (14:47→21:15)
[2018-04-24] MEDS: RIVAROXABAN 20 MG TABLET PO SCH (17:07)
[2018-04-24] MEDS: SENNOSIDES 8.6MG TABLET (FP) PO SCH (21:14)
[2018-04-24] MEDS ORDERED: PT OWN MED DRAWER 7, Y5N ONE ×2 (21:30→22:01)
[2018-04-24] MEDS ORDERED: MUPIROCIN 2% TOPICAL OINTMENT FOR DECOLONIZATION NS SCH (22:00)
[2018-04-24] MEDS: CHLORHEXIDINE GLUCONATE 4% CLEANSER FOR DECOLONIZATION TP SCH (22:17)
[2018-04-25] MEDS ORDERED: PT OWN MED DRAWER 7, Y5N ONE ×4 (00:01→20:13)
[2018-04-25] MEDS: DOCUSATE SODIUM 100 MG CAPSULE (FP) PO SCH ×3 (06:08→21:16)
[2018-04-25] MEDS ORDERED: INSULIN (NOVOLOG) ASPART 100 UNITS/ML 10ML VIAL ONE (07:14)
[2018-04-25] MEDS: INSULIN SLIDING SCALE (NOVOLOG) 1 VIAL SQ SCH ×5 (07:14→21:16)
[2018-04-25] MEDS: IPRATROPIUM BR 0.02% 0.5 MG/2.5 ML VIAL.NEB. NEB SCH ×4 (07:25→20:15)
[2018-04-25] MEDS: LEVALBUTEROL HCL 0.63 MG/3 ML VIAL.NEB. IH SCH ×3 (07:25→20:20)
[2018-04-25 07:46] LABS: HEMATOCRIT 41.7 % (35.4-49); HEMOGLOBIN 13.3 GM/dL (11.7-16.9); MCH 28.7 pg (25.7-33.7); MCHC 31.9 g/dl (32.0-35.9); MEAN CELL VOLUME 89.9 fl (80-96); MEAN PLT VOLUME 8.5 fl (7.5-11.1); PLATELET COUNT 186 K/MM3 (134-434); RBC 4.64 M/mm3 (4.00-5.60); RDW 14.6 % (11.9-15.9); WHITE BLOOD COUNT 12.4 K/mm3 (4.0-10.0)
[2018-04-25 08:04] LABS: ALBUMIN 3.1 g/dl (3.4-5.0); ALK PHOS 81 U/L (45-117); ANION GAP 5 MMOL/L (8-16); BILIRUBIN,TOTAL 0.9 mg/dL (0.2-1); BLOOD UREA NITROGEN 21 mg/dL (7-18); CALCIUM 8.7 mg/dL (8.5-10.1); CHLORIDE 96 mmol/L (98-107); CO2 40 mmol/L (21-32); CREATININE 0.6 mg/dL (0.55-1.3); GLUCOSE,RANDOM 157 mg/dL (74-106); MAGNESIUM 2.4 mg/dL (1.8-2.4); PHOSPHOROUS 3.4 mg/dL (2.5-4.9); POTASSIUM 4.3 mmol/L (3.5-5.1); SGOT/AST 28 U/L (15-37); SGPT/ALT 38 U/L (13-61); SODIUM 141 mmol/L (136-145); TOT PROT 6.4 g/dl (6.4-8.2)
--- NOTE | 2018-04-25 09:18 | PN ---
Progress Note (short form) - Note Progress Note: Appears overall better. Breathing continues to improve. Mildly confused. No acute events overnight. OBJECTIVE: Intake & Output 04/22/18 04/23/18 04/24/18 04/25/18 23:59 23:59 23:59 23:59 Intake Total 1504 1457 1050 100 Output Total 1100 1150 750 Balance 404 307 300 100 Weight 130 lb 148 lb 2.41 oz 149 lb 5 oz Last Vital Signs Temp Pulse Resp BP Pulse Ox 97.3 F L 80 20 164/92 97 04/25/18 06:56 04/25/18 06:56 04/25/18 06:56 04/25/18 06:56 04/24/18 21:00 Active Medications Atenolol (Tenormin -) 50 mg PO DAILY [facility] Chlorhexidine Gluconate (Hibiclens For Decolonization -) 1 applic TP HS [facility] Last Admin: 04/24/18 22:17 Dose: Not Given Docusate Sodium (Colace -) 100 mg PO TID [facility] Last Admin: 04/25/18 06:08 Dose: 100 mg Insulin Aspart (Novolog Vial Sliding Scale -) 1 vial SQ ACHS [facility]; Protocol Last Admin: 04/25/18 07:14 Dose: 2 units Ipratropium [place] (Atrovent 0.02% Nebulizer -) 1 amp NEB RQID [facility] Last Admin: 04/25/18 07:25 Dose: 1 amp Levalbuterol HCl (Xopenex) 0.63 mg IH RTID [facility] Last Admin: 04/25/18 07:25 Dose: 0.63 mg Methylprednisolone Sodium Succinate (Solu-Medrol -) 40 mg IVPUSH Q12H [facility] Last Admin: 04/24/18 22:28 Dose: 40 mg Mupirocin (Bactroban Ointment (For Decolonization) -) 1 applic NS BID [facility] Stop: 04/25/18 09:59 Last Admin: 04/24/18 22:17 Dose: Not Given Pantoprazole Sodium (Protonix -) 40 mg PO DAILY [facility] Rivaroxaban (Xarelto -) 20 mg PO DAILY@1800 [facility] Senna (Senna -) 1 tab PO BID [facility] Last Admin: 04/24/18 21:14 Dose: 1 tab Gen: NAD at rest Heart: RRR Lung: scattered rhonchi, distant breath sounds Abd: soft, nontender Ext: no edema Laboratory Results - last 24 hr 04/24/18 04/25/18 04/25/18 20:26 05:43 07:00 WBC 12.4 H RBC 4.64 Hgb 13.3 Hct 41.7 D MCV 89.9 MCH 28.7 MCHC 31.9 L RDW 14.6 Plt Count 186 D MPV 8.5 Sodium Potassium Chloride Carbon Dioxide Anion Gap BUN Creatinine Creat Clearance w eGFR POC Glucometer 129 164 Random Glucose Calcium Phosphorus Magnesium Total Bilirubin AST ALT Alkaline Phosphatase Total Protein Albumin 04/25/18 07:00 WBC RBC Hgb Hct MCV MCH MCHC RDW Plt Count MPV Sodium 141 Potassium 4.3 Chloride 96 L Carbon Dioxide 40 H Anion Gap 5 L BUN 21 H Creatinine 0.6 Creat Clearance w eGFR > 60 POC Glucometer Random Glucose 157 H Calcium 8.7 Phosphorus 3.4 Magnesium 2.4 Total Bilirubin 0.9 AST 28 ALT 38 Alkaline Phosphatase 81 Total Protein 6.4 Albumin 3.1 L ASSESSMENT AND PLAN: Acute on Chronic Hypoxic and Hypercapneic Respiratory Failure improving Acute COPD Exacerbation Lactic Acidosis CAD h/o DVT HTN DM h/o CVA - Can likely change to Prednisone in AM - inhaled bronchodilators standing and PRN - O2 to keep SpO2 <95% - BiPAP as needed to assist in work of breathing - continue anticoagulation - PO as tolerated - glucose control while on systemic steroids - No smoking Dr Lyn
[2018-04-25] MEDS: ATENOLOL 50 MG TABLET (FP) PO SCH (09:50)
[2018-04-25] MEDS: PANTOPRAZOLE 40 MG TABLET (FP) PO SCH (09:50)
[2018-04-25] MEDS: SENNOSIDES 8.6MG TABLET (FP) PO SCH ×2 (09:50→21:16)
[2018-04-25] MEDS: methylPREDNISolone NA SUCC 40 MG/1 ML VIAL IVPUSH SCH ×3 (12:27→22:58)
[2018-04-25] MEDS ORDERED: predniSONE 20 MG TABLET (UD) PO ONE (13:30)
[2018-04-25] MEDS ORDERED: ACETAMINOPHEN 1000 MG/100 ML VIAL (NON FORMULARY) IVPB ONE (13:31)
--- NOTE | 2018-04-25 13:31 | PN ---
Physical Exam: SUBJECTIVE: Patient seen and examined at the bedside. more confused today per daughter. mentation improved after bipap applied. patient now more awake and alert. he is oxygen dependent at home at 2 liters with intermittent cpap. OBJECTIVE: Vital Signs Period Temp Pulse Resp BP Sys/Thurman Pulse Ox Last 24 Hr 96.7 F-98.6 F 71-98 18-22 128-164/68-96 97-98 GENERAL: The patient is awake, alert, with episodes of confusion HEAD: Normal with no signs of trauma. EYES: PERRL, extraocular movements intact, sclera anicteric, conjunctiva clear. No ptosis. ENT: Ears normal, nares patent, oropharynx clear without exudates, moist mucous membranes. NECK: Trachea midline, full range of motion, supple. LUNGS: right lung diminished, left lung diminished/clear. no wheezing. no acute pathology seen of xray of right lung although clinically diminished. HEART: Regular rate and rhythm ABDOMEN: Soft, nontender, nondistended, normoactive bowel sounds, no guarding, no rebound, no hepatosplenomegaly, no masses. EXTREMITIES: no edema. NEUROLOGICAL: slightly labored speech. mostly bed bound. PSYCH: Normal mood, normal affect. SKIN: Warm, dry, normal turgor, no rashes or lesions noted Laboratory Results - last 24 hr 04/24/18 04/25/18 04/25/18 20:26 05:43 07:00 WBC 12.4 H RBC 4.64 Hgb 13.3 Hct 41.7 D MCV 89.9 MCH 28.7 MCHC 31.9 L RDW 14.6 Plt Count 186 D MPV 8.5 Sodium Potassium Chloride Carbon Dioxide Anion Gap BUN Creatinine Creat Clearance w eGFR POC Glucometer 129 164 Random Glucose Calcium Phosphorus Magnesium Total Bilirubin AST ALT Alkaline Phosphatase Total Protein Albumin 04/25/18 04/25/18 07:00 12:07 WBC RBC Hgb Hct MCV MCH MCHC RDW Plt Count MPV Sodium 141 Potassium 4.3 Chloride 96 L Carbon Dioxide 40 H Anion Gap 5 L BUN 21 H Creatinine 0.6 Creat Clearance w eGFR > 60 POC Glucometer 152 Random Glucose 157 H Calcium 8.7 Phosphorus 3.4 Magnesium 2.4 Total Bilirubin 0.9 AST 28 ALT 38 Alkaline Phosphatase 81 Total Protein 6.4 Albumin 3.1 L Active Medications Generic Name Dose Route Start Last Admin Trade Name Freq PRN Reason Stop Dose Admin Atenolol 50 mg 04/25/18 10:00 04/25/18 09:50 Tenormin - PO 50 mg DAILY JACKIE Administration Chlorhexidine Gluconate 1 applic 04/24/18 22:00 04/24/18 22:17 Hibiclens For Decolonization - TP Not Given HS JACKIE Docusate Sodium 100 mg 04/24/18 14:00 04/25/18 06:08 Colace - PO 100 mg TID JACKIE Administration Insulin Aspart 1 vial 04/24/18 22:00 04/25/18 07:14 Novolog Vial Sliding Scale - SQ 2 units ACHS JACKIE Administration Protocol Ipratropium [place] 1 amp 04/24/18 20:00 04/25/18 11:43 Atrovent 0.02% Nebulizer - NEB 1 amp RQID JACKIE Administration Levalbuterol HCl 0.63 mg 04/24/18 20:00 04/25/18 07:25 Xopenex IH 0.63 mg RTID JACKIE Administration Methylprednisolone Sodium Succinate 40 mg 04/24/18 11:00 04/24/18 22:28 Solu-Medrol - IVPUSH 40 mg Q12H [facility]IE Administration Pantoprazole Sodium 40 mg 04/25/18 10:00 04/25/18 09:50 Protonix - PO 40 mg DAILY [facility] Administration Prednisone 40 mg 04/25/18 13:30 Deltasone - PO 04/25/18 13:31 ONCE ONE Rivaroxaban 20 mg 04/25/18 18:00 Xarelto - PO DAILY@1800 [facility] Senna 1 tab 04/24/18 22:00 04/25/18 09:50 Senna - PO 1 tab BID [facility] Administration ASSESSMENT/PLAN: Patient is a 77 yo male with a significant past medical history of CAD, COPD ( on 3L home O2), DVT on xarelto who was BIBEMS for a 3 day history of progressive SOB and wheezing. Patient was intubated on admission. He is oxygen dependent at home on 2 - 3 liters nasal cannula and alternates with cpap. Pulmonary Shortness of breath COPD Exacerbation Intubated 04/20, extubated 04/22 On nasal cannula 3 liters, alternating with bipap On Solumedrol bid Monitor respiratory status Card: Hypertension on Atenolol 50mg dialy Neuro: CVA history left sided weakness physical therapy as tolerated On Rivaroxaban 20mg Endocrine Diabetes On Novolog SS fen tolerating po monitor electrolytes diet as tolerated prophy on xarelto Visit type - Emergency Visit Emergency Visit: Yes ED Registration Date: 04/20/18 Care time: The patient presented to the Emergency Department on the above date and was hospitalized for further evaluation of their emergent condition. - New Patient This patient is new to me today: Yes Date on this admission: 04/25/18 - Critical Care Critical Care patient: No - Discharge Referral Referred to [facility] Med P.C.: No
[2018-04-25] MEDS: RIVAROXABAN 20 MG TABLET PO SCH (17:55)
[2018-04-25] MEDS: CHLORHEXIDINE GLUCONATE 4% CLEANSER FOR DECOLONIZATION TP SCH (21:17)
[2018-04-26] MEDS: DOCUSATE SODIUM 100 MG CAPSULE (FP) PO SCH ×5 (05:23→22:07)
[2018-04-26] MEDS: INSULIN SLIDING SCALE (NOVOLOG) 1 VIAL SQ SCH ×4 (06:08→22:08)
[2018-04-26 07:21] LABS: HEMATOCRIT 39.8 % (35.4-49); HEMOGLOBIN 12.8 GM/dL (11.7-16.9); LYMPH % 5.1 % (8-40); MCH 28.9 pg (25.7-33.7); MCHC 32.1 g/dl (32.0-35.9); MEAN CELL VOLUME 89.9 fl (80-96); MEAN PLT VOLUME 8.4 fl (7.5-11.1); MONO % 5.8 % (3.8-10.2); NEUT % 89.1 % (42.8-82.8); PLATELET COUNT 162 K/MM3 (134-434); RBC 4.42 M/mm3 (4.00-5.60); RDW 14.5 % (11.9-15.9); WHITE BLOOD COUNT 8.6 K/mm3 (4.0-10.0)
[2018-04-26] MEDS: LEVALBUTEROL HCL 0.63 MG/3 ML VIAL.NEB. IH SCH ×3 (07:37→20:24)
[2018-04-26] MEDS: IPRATROPIUM BR 0.02% 0.5 MG/2.5 ML VIAL.NEB. NEB SCH ×4 (07:37→20:24)
[2018-04-26 08:12] LABS: ALK PHOS 74 U/L (45-117); ANION GAP 5 MMOL/L (8-16); BILIRUBIN,TOTAL 0.9 mg/dL (0.2-1); BLOOD UREA NITROGEN 17 mg/dL (7-18); CALCIUM 8.6 mg/dL (8.5-10.1); CHLORIDE 93 mmol/L (98-107); CO2 42 mmol/L (21-32); CREATININE 0.5 mg/dL (0.55-1.3); GLUCOSE,RANDOM 109 mg/dL (74-106); MAGNESIUM 2.2 mg/dL (1.8-2.4); POTASSIUM 4.3 mmol/L (3.5-5.1); SGOT/AST 27 U/L (15-37); SGPT/ALT 36 U/L (13-61); SODIUM 140 mmol/L (136-145)
[2018-04-26] MEDS: PANTOPRAZOLE 40 MG TABLET (FP) PO SCH (09:09)
[2018-04-26] MEDS: ATENOLOL 50 MG TABLET (FP) PO SCH (09:09)
[2018-04-26] MEDS: SENNOSIDES 8.6MG TABLET (FP) PO SCH ×2 (09:09→22:07)
--- NOTE | 2018-04-26 11:09 | PN ---
Physical Exam: SUBJECTIVE: Patient seen and examined at the bedside. feels well, OBJECTIVE: right breast with increased muscle tone? positive blood culture x 1 bottle, likely contaminant. repeating blood cultures Vital Signs Period Temp Pulse Resp BP Sys/Thurman Pulse Ox Last 24 Hr 97.3 F-98.4 F 74-89 18-24 128-175/61-93 97-98 GENERAL: The patient is awake, alert, with episodes of confusion HEAD: Normal with no signs of trauma. EYES: PERRL, extraocular movements intact, sclera anicteric, conjunctiva clear. No ptosis. ENT: Ears normal, nares patent, oropharynx clear without exudates, moist mucous membranes. NECK: Trachea midline, full range of motion, supple. LUNGS: right lung diminished, left lung diminished. home oxygen dependent. no wheezing. no acute pathology seen of xray of right lung although clinically diminished. HEART: Regular rate and rhythm ABDOMEN: Soft, nontender, nondistended, normoactive bowel sounds, no guarding, no rebound, no hepatosplenomegaly, no masses. EXTREMITIES: no edema. NEUROLOGICAL: slightly labored speech. mostly bed bound. PSYCH: Normal mood, normal affect. SKIN: Warm, dry, normal turgor, no rashes or lesions noted Laboratory Results - last 24 hr 04/25/18 04/25/18 04/25/18 12:07 17:23 21:15 WBC RBC Hgb Hct MCV MCH MCHC RDW Plt Count MPV Absolute Neuts (auto) Neutrophils % Lymphocytes % Monocytes % Eosinophils % Basophils % Nucleated RBC % Sodium Potassium Chloride Carbon Dioxide Anion Gap BUN Creatinine Creat Clearance w eGFR POC Glucometer 152 134 256 Random Glucose Calcium Magnesium Total Bilirubin AST ALT Alkaline Phosphatase Total Protein Albumin 04/26/18 04/26/18 04/26/18 05:01 06:30 06:30 WBC 8.6 RBC 4.42 Hgb 12.8 Hct 39.8 MCV 89.9 MCH 28.9 MCHC 32.1 RDW 14.5 Plt Count 162 MPV 8.4 Absolute Neuts (auto) 7.7 Neutrophils % 89.1 H Lymphocytes % 5.1 L Monocytes % 5.8 Eosinophils % 0.0 Basophils % 0.0 Nucleated RBC % 0 Sodium 140 Potassium 4.3 Chloride 93 L Carbon Dioxide 42 H Anion Gap 5 L BUN 17 Creatinine 0.5 L Creat Clearance w eGFR > 60 POC Glucometer 106 Random Glucose 109 H Calcium 8.6 Magnesium 2.2 Total Bilirubin 0.9 AST 27 ALT 36 Alkaline Phosphatase 74 Total Protein 6.0 L Albumin 3.0 L Active Medications Generic Name Dose Route Start Last Admin Trade Name Freq PRN Reason Stop Dose Admin Atenolol 50 mg 04/25/18 10:00 04/26/18 09:09 Tenormin - PO 50 mg DAILY JACKIE Administration Chlorhexidine Gluconate 1 applic 04/24/18 22:00 04/25/18 21:17 Hibiclens For Decolonization - TP Not Given [facility] Docusate Sodium 100 mg 04/24/18 14:00 04/26/18 05:23 Colace - PO Not Given TID [facility] Insulin Aspart 1 vial 04/24/18 22:00 04/26/18 06:08 Novolog Vial Sliding Scale - SQ Not Given ACHS [facility] Protocol Ipratropium [place] 1 amp 04/24/18 20:00 04/26/18 07:37 Atrovent 0.02% Nebulizer - NEB 1 amp RQID [facility] Administration Levalbuterol HCl 0.63 mg 04/24/18 20:00 04/26/18 07:37 Xopenex IH Not Given RTID [facility] Methylprednisolone Sodium Succinate 40 mg 04/24/18 11:00 04/25/18 22:58 Solu-Medrol - IVPUSH 40 mg Q12H [facility]ACKIE Administration Pantoprazole Sodium 40 mg 04/25/18 10:00 04/26/18 09:09 Protonix - PO 40 mg DAILY [facility]ACKIE Administration Rivaroxaban 20 mg 04/25/18 18:00 04/25/18 17:55 Xarelto - PO 20 mg DAILY@1800 JACKIE Administration Senna 1 tab 04/24/18 22:00 04/26/18 09:09 Senna - PO 1 tab BID JACKIE Administration ASSESSMENT/PLAN: Patient is a 77 yo male with a significant past medical history of CAD, COPD ( on 3L home O2), DVT on xarelto who was BIBEMS for a 3 day history of progressive SOB and wheezing. Patient was intubated on admission. He is oxygen dependent at home on 2 - 3 liters nasal cannula and alternates with cpap. Pulmonary Shortness of breath COPD Exacerbation Intubated 04/20, extubated 04/22 On nasal cannula 3 liters, alternating with bipap On Solumedrol bid Monitor respiratory status to maintain sats > 90% ID: + blood culture, repeat bc pending. may be contaminant. monitor. no signs of infection currently Card: Hypertension on Atenolol 50mg daily Neuro: CVA history left sided weakness physical therapy as tolerated On Rivaroxaban 20mg Endocrine Diabetes On Novolog SS fen tolerating po monitor electrolytes diet as tolerated prophy on xarelto Visit type - Emergency Visit Emergency Visit: Yes ED Registration Date: 04/20/18 Care time: The patient presented to the Emergency Department on the above date and was hospitalized for further evaluation of their emergent condition. - New Patient This patient is new to me today: No - Critical Care Critical Care patient: No - Discharge Referral Referred to [facility] Med P.C.: No
[2018-04-26] MEDS ORDERED: PT OWN MED DRAWER 7, Y5N ONE (11:19)
[2018-04-26] MEDS ORDERED: INSULIN (NOVOLOG) ASPART 100 UNITS/ML 10ML VIAL ONE (11:49)
[2018-04-26] MEDS: methylPREDNISolone NA SUCC 40 MG/1 ML VIAL IVPUSH SCH ×2 (12:02→23:23)
[2018-04-26 12:57] VITALS: BMI 20.5
--- NOTE | 2018-04-26 14:30 | PN ---
Progress Note, Physician History of Present Illness: PULMONARY ALERT,COMFORTABLE,-RESP DISTRESS - Current Medication List Current Medications: Active Medications Atenolol (Tenormin -) 50 mg PO DAILY [facility] Last Admin: 04/26/18 09:09 Dose: 50 mg Chlorhexidine Gluconate (Hibiclens For Decolonization -) 1 applic TP HS [facility] Last Admin: 04/25/18 21:17 Dose: Not Given Docusate Sodium (Colace -) 100 mg PO TID [facility] Last Admin: 04/26/18 14:15 Dose: Not Given Insulin Aspart (Novolog Vial Sliding Scale -) 1 vial SQ ACHS [facility]; Protocol Last Admin: 04/26/18 11:57 Dose: Not Given Ipratropium [place] (Atrovent 0.02% Nebulizer -) 1 amp NEB RQID [facility] Last Admin: 04/26/18 11:20 Dose: 1 amp Levalbuterol HCl (Xopenex) 0.63 mg IH RTID [facility] Last Admin: 04/26/18 13:44 Dose: 0.63 mg Methylprednisolone Sodium Succinate (Solu-Medrol -) 40 mg IVPUSH Q12H [facility] Last Admin: 04/26/18 12:02 Dose: 40 mg Pantoprazole Sodium (Protonix -) 40 mg PO DAILY [facility] Last Admin: 04/26/18 09:09 Dose: 40 mg Rivaroxaban (Xarelto -) 20 mg PO DAILY@1800 [facility] Last Admin: 04/25/18 17:55 Dose: 20 mg Senna (Senna -) 1 tab PO BID [facility] Last Admin: 04/26/18 09:09 Dose: 1 tab - Objective Vital Signs: Vital Signs Temperature 98.2 F 04/26/18 06:29 Pulse Rate 76 04/26/18 06:29 Respiratory Rate 22 H 04/26/18 06:29 Blood Pressure 155/93 04/26/18 06:29 O2 Sat by Pulse Oximetry (%) 97 04/25/18 21:00 Constitutional: Yes: Well Nourished, Calm Eyes: Yes: WNL HENT: Yes: WNL Neck: Yes: WNL Cardiovascular: Yes: Regular Rate and Rhythm, S1, S2 Respiratory: Yes: Wheezes (FEW SCATTTERED WHEEZES) Gastrointestinal: Yes: Normal Bowel Sounds, Soft Extremities: Yes: WNL Edema: No Labs: CBC, BMP 04/26/18 06:30 04/26/18 06:30 INR, PTT INR 1.25 (0.83-1.09) H 04/20/18 09:10 Problem List - Problems (1) Acute on chronic respiratory failure with hypoxia and hypercapnia Code(s): J96.21 - ACUTE AND CHRONIC RESPIRATORY FAILURE WITH HYPOXIA; J96.22 - ACUTE AND CHRONIC RESPIRATORY FAILURE WITH HYPERCAPNIA (2) DMII (diabetes mellitus, type 2) Code(s): E11.9 - TYPE 2 DIABETES MELLITUS WITHOUT COMPLICATIONS (3) DVT prophylaxis Code(s): LTA9595 - (4) H/O prostate cancer Code(s): Z85.46 - PERSONAL HISTORY OF MALIGNANT NEOPLASM OF PROSTATE (5) H/O: CVA (cerebrovascular accident) Code(s): Z86.73 - PRSNL HX OF TIA (TIA), AND CEREB INFRC W/O RESID DEFICITS (6) HTN (hypertension) Code(s): I10 - ESSENTIAL (PRIMARY) HYPERTENSION Qualifiers: Hypertension type: essential hypertension Qualified Code(s): I10 - Essential (primary) hypertension (7) Hyperlipidemia Code(s): E78.5 - HYPERLIPIDEMIA, UNSPECIFIED Qualifiers: Hyperlipidemia type: unspecified Qualified Code(s): E78.5 - Hyperlipidemia , unspecified (8) COPD exacerbation Code(s): J44.1 - CHRONIC OBSTRUCTIVE PULMONARY DISEASE W (ACUTE) EXACERBATION Assessment/Plan ASSESSMENT AND PLAN: Acute on Chronic Hypoxic and Hypercapneic Respiratory Failure improving Acute COPD Exacerbation Lactic Acidosis CAD h/o DVT HTN DM h/o CVA - medrol - inhaled bronchodilators standing and PRN - O2 to keep SpO2 <95% - BiPAP as needed to assist in work of breathing - anticoagulation - PO as tolerated - glucose control while on systemic steroids DR ANTOINE
[2018-04-26] MEDS: RIVAROXABAN 20 MG TABLET PO SCH (17:54)
[2018-04-26] MEDS: CHLORHEXIDINE GLUCONATE 4% CLEANSER FOR DECOLONIZATION TP SCH (22:07)
[2018-04-27] MEDS: DOCUSATE SODIUM 100 MG CAPSULE (FP) PO SCH ×2 (06:14→13:12)
[2018-04-27] MEDS: INSULIN SLIDING SCALE (NOVOLOG) 1 VIAL SQ SCH ×3 (06:14→18:16)
[2018-04-27 07:35] LABS: HEMATOCRIT 38.7 % (35.4-49); HEMOGLOBIN 12.5 GM/dL (11.7-16.9); LYMPH % 4.4 % (8-40); MCH 29.1 pg (25.7-33.7); MCHC 32.3 g/dl (32.0-35.9); MEAN CELL VOLUME 90.1 fl (80-96); MEAN PLT VOLUME 8.1 fl (7.5-11.1); MONO % 6.4 % (3.8-10.2); NEUT % 89.2 % (42.8-82.8); PLATELET COUNT 164 K/MM3 (134-434); RBC 4.29 M/mm3 (4.00-5.60); RDW 14.4 % (11.9-15.9); WHITE BLOOD COUNT 7.6 K/mm3 (4.0-10.0)
[2018-04-27] MEDS: IPRATROPIUM BR 0.02% 0.5 MG/2.5 ML VIAL.NEB. NEB SCH ×3 (07:45→15:20)
[2018-04-27] MEDS: LEVALBUTEROL HCL 0.63 MG/3 ML VIAL.NEB. IH SCH ×2 (07:45→14:10)
--- NOTE | 2018-04-27 08:15 | PN ---
Progress Note (short form) - Note Progress Note: Appears overall better. Mental status improved. Breathing continues to improve. No acute events overnight. OBJECTIVE: Intake & Output 04/24/18 04/25/18 04/26/18 04/27/18 23:59 23:59 23:59 23:59 Intake Total 1050 500 800 200 Output Total 750 100 Balance 300 400 800 200 Weight 148 lb 2.41 oz 149 lb 5 oz 147 lb 5 oz Last Vital Signs Temp Pulse Resp BP Pulse Ox 98 F 72 18 137/68 97 04/26/18 20:00 04/26/18 20:00 04/26/18 20:00 04/26/18 20:00 04/26/18 21:00 Active Medications Atenolol (Tenormin -) 50 mg PO DAILY [facility] Last Admin: 04/26/18 09:09 Dose: 50 mg Chlorhexidine Gluconate (Hibiclens For Decolonization -) 1 applic TP HS [facility] Last Admin: 04/26/18 22:07 Dose: Not Given Docusate Sodium (Colace -) 100 mg PO TID [facility] Last Admin: 04/27/18 06:14 Dose: 100 mg Insulin Aspart (Novolog Vial Sliding Scale -) 1 vial SQ ACHS [facility]; Protocol Last Admin: 04/27/18 06:14 Dose: Not Given Ipratropium [place] (Atrovent 0.02% Nebulizer -) 1 amp NEB RQID [facility] Last Admin: 04/26/18 20:24 Dose: 1 amp Levalbuterol HCl (Xopenex) 0.63 mg IH RTID [facility] Last Admin: 04/26/18 20:24 Dose: 0.63 mg Methylprednisolone Sodium Succinate (Solu-Medrol -) 40 mg IVPUSH Q12H [facility] Last Admin: 04/26/18 23:23 Dose: 40 mg Pantoprazole Sodium (Protonix -) 40 mg PO DAILY [facility] Last Admin: 04/26/18 09:09 Dose: 40 mg Rivaroxaban (Xarelto -) 20 mg PO DAILY@1800 [facility] Last Admin: 04/26/18 17:54 Dose: 20 mg Senna (Senna -) 1 tab PO BID [facility] Last Admin: 04/26/18 22:07 Dose: 1 tab Gen: NAD at rest Heart: RRR Lung: scattered rhonchi, distant breath sounds Abd: soft, nontender Ext: no edema Laboratory Results - last 24 hr 04/26/18 04/26/18 04/26/18 11:52 17:52 20:35 Sodium Potassium Chloride Carbon Dioxide Anion Gap BUN Creatinine Creat Clearance w eGFR POC Glucometer 147 161 177 Random Glucose Calcium Total Bilirubin AST ALT Alkaline Phosphatase Total Protein Albumin 04/27/18 04/27/18 06:02 07:00 Sodium 138 Potassium 4.1 Chloride 92 L Carbon Dioxide > 45 H Anion Gap 1 L BUN 20 H Creatinine 0.5 L Creat Clearance w eGFR > 60 POC Glucometer 138 Random Glucose 135 H Calcium 8.5 Total Bilirubin 0.9 AST 23 ALT 31 Alkaline Phosphatase 67 Total Protein 5.6 L Albumin 2.8 L ASSESSMENT AND PLAN: Acute on Chronic Hypoxic and Hypercapneic Respiratory Failure improving Acute COPD Exacerbation Lactic Acidosis CAD h/o DVT HTN DM h/o CVA - Change to Prednisone 40mg OD x 5 days - inhaled bronchodilators standing and PRN - O2 to keep SpO2 <95% - BiPAP as needed to assist in work of breathing - continue anticoagulation - PO as tolerated - glucose control while on systemic steroids - No smoking - No Pulmonary contraindication for D/C planning Dr Lyn
[2018-04-27 08:17] LABS: ALBUMIN 2.8 g/dl (3.4-5.0); ALK PHOS 67 U/L (45-117); BILIRUBIN,TOTAL 0.9 mg/dL (0.2-1); BLOOD UREA NITROGEN 20 mg/dL (7-18); CALCIUM 8.5 mg/dL (8.5-10.1); CHLORIDE 92 mmol/L (98-107); CREATININE 0.5 mg/dL (0.55-1.3); GLUCOSE,RANDOM 135 mg/dL (74-106); POTASSIUM 4.1 mmol/L (3.5-5.1); SGOT/AST 23 U/L (15-37); SGPT/ALT 31 U/L (13-61); SODIUM 138 mmol/L (136-145); TOT PROT 5.6 g/dl (6.4-8.2)
[2018-04-27 08:37] LABS: ANION GAP -2 MMOL/L (8-16); CO2 48 mmol/L (21-32)
[2018-04-27] MEDS ORDERED: predniSONE 20 MG TABLET (UD) PO SCH (10:00)
[2018-04-27] MEDS: ATENOLOL 50 MG TABLET (FP) PO SCH (11:16)
[2018-04-27] MEDS: PANTOPRAZOLE 40 MG TABLET (FP) PO SCH (11:16)
[2018-04-27] MEDS: SENNOSIDES 8.6MG TABLET (FP) PO SCH (11:19)
--- NOTE | 2018-04-27 15:21 | DS ---
Physical Exam: SUBJECTIVE: Patient seen and examined at the bedside. sitting up smiling, tells me he wants to go home. denies shortness of breath. OBJECTIVE: repeated blood culture set which is preliminary negative patient has been cleared by pulmonary for discharge discussed with daughter discharge of patient. she is refusing rehab. feels that her father will do better at home. discussed with her that he should see his PCP for repeat labs. Vital Signs Period Temp Pulse Resp BP Sys/Thurman Pulse Ox Last 24 Hr 97.8 F-98.4 F 69-76 16-20 123-139/68-73 97-97 PHYSICAL EXAM GENERAL: The patient is awake, alert, with no further episodes of confusion HEAD: Normal with no signs of trauma. EYES: PERRL, extraocular movements intact, sclera anicteric, conjunctiva clear. No ptosis. ENT: Ears normal, nares patent, oropharynx clear without exudates, moist mucous membranes. NECK: Trachea midline, full range of motion, supple. LUNGS: right lung diminished, left lung diminished. home oxygen dependent. no wheezing. no acute pathology seen of xray of right lung although clinically diminished. HEART: Regular rate and rhythm ABDOMEN: Soft, nontender, nondistended, normoactive bowel sounds, no guarding, no rebound, no hepatosplenomegaly, no masses. EXTREMITIES: no edema. NEUROLOGICAL: mostly bed bound. PSYCH: Normal mood, normal affect. SKIN: Warm, dry, normal turgor, no rashes or lesions noted LABS Laboratory Results - last 24 hr 04/20/18 04/20/18 04/20/18 12:04 18:00 23:06 WBC RBC Hgb Hct MCV MCH MCHC RDW Plt Count MPV Absolute Neuts (auto) Neutrophils % Lymphocytes % Monocytes % Eosinophils % Basophils % Nucleated RBC % Sodium Potassium Chloride Carbon Dioxide Anion Gap BUN Creatinine Creat Clearance w eGFR POC Glucometer 196.23550 175.05608 144.84414 Random Glucose Calcium Total Bilirubin AST ALT Alkaline Phosphatase Total Protein Albumin 04/21/18 04/21/18 04/22/18 12:09 16:36 00:39 WBC RBC Hgb Hct MCV MCH MCHC RDW Plt Count MPV Absolute Neuts (auto) Neutrophils % Lymphocytes % Monocytes % Eosinophils % Basophils % Nucleated RBC % Sodium Potassium Chloride Carbon Dioxide Anion Gap BUN Creatinine Creat Clearance w eGFR POC Glucometer 140.97897 154.07513 142.69368 Random Glucose Calcium Total Bilirubin AST ALT Alkaline Phosphatase Total Protein Albumin 04/22/18 04/22/18 04/22/18 05:58 07:19 12:24 WBC RBC Hgb Hct MCV MCH MCHC RDW Plt Count MPV Absolute Neuts (auto) Neutrophils % Lymphocytes % Monocytes % Eosinophils % Basophils % Nucleated RBC % Sodium Potassium Chloride Carbon Dioxide Anion Gap BUN Creatinine Creat Clearance w eGFR POC Glucometer 111.41632 124.51186 161.10423 Random Glucose Calcium Total Bilirubin AST ALT Alkaline Phosphatase Total Protein Albumin 04/22/18 04/22/18 04/23/18 15:34 22:31 05:21 WBC RBC Hgb Hct MCV MCH MCHC RDW Plt Count MPV Absolute Neuts (auto) Neutrophils % Lymphocytes % Monocytes % Eosinophils % Basophils % Nucleated RBC % Sodium Potassium Chloride Carbon Dioxide Anion Gap BUN Creatinine Creat Clearance w eGFR POC Glucometer 172.80729 180.32469 135.45356 Random Glucose Calcium Total Bilirubin AST ALT Alkaline Phosphatase Total Protein Albumin 04/23/18 04/23/18 04/23/18 11:26 16:22 20:33 WBC RBC Hgb Hct MCV MCH MCHC RDW Plt Count MPV Absolute Neuts (auto) Neutrophils % Lymphocytes % Monocytes % Eosinophils % Basophils % Nucleated RBC % Sodium Potassium Chloride Carbon Dioxide Anion Gap BUN Creatinine Creat Clearance w eGFR POC Glucometer 209.43724 142.81491 218.76144 Random Glucose Calcium Total Bilirubin AST ALT Alkaline Phosphatase Total Protein Albumin 04/24/18 04/24/18 04/24/18 05:35 11:50 16:58 WBC RBC Hgb Hct MCV MCH MCHC RDW Plt Count MPV Absolute Neuts (auto) Neutrophils % Lymphocytes % Monocytes % Eosinophils % Basophils % Nucleated RBC % Sodium Potassium Chloride Carbon Dioxide Anion Gap BUN Creatinine Creat Clearance w eGFR POC Glucometer 158.91676 130.17647 189.81028 Random Glucose Calcium Total Bilirubin AST ALT Alkaline Phosphatase Total Protein Albumin 04/26/18 04/26/18 04/27/18 17:52 20:35 06:02 WBC RBC Hgb Hct MCV MCH MCHC RDW Plt Count MPV Absolute Neuts (auto) Neutrophils % Lymphocytes % Monocytes % Eosinophils % Basophils % Nucleated RBC % Sodium Potassium Chloride Carbon Dioxide Anion Gap BUN Creatinine Creat Clearance w eGFR POC Glucometer 161 177 138 Random Glucose Calcium Total Bilirubin AST ALT Alkaline Phosphatase Total Protein Albumin 04/27/18 04/27/18 04/27/18 07:00 07:00 12:35 WBC 7.6 RBC 4.29 Hgb 12.5 Hct 38.7 MCV 90.1 MCH 29.1 MCHC 32.3 RDW 14.4 Plt Count 164 MPV 8.1 Absolute Neuts (auto) 6.8 Neutrophils % 89.2 H Lymphocytes % 4.4 L Monocytes % 6.4 Eosinophils % 0.0 Basophils % 0.0 Nucleated RBC % 0 Sodium 138 Potassium 4.1 Chloride 92 L Carbon Dioxide 48 H Anion Gap -2 L BUN 20 H Creatinine 0.5 L Creat Clearance w eGFR > 60 POC Glucometer 147 Random Glucose 135 H Calcium 8.5 Total Bilirubin 0.9 AST 23 ALT 31 Alkaline Phosphatase 67 Total Protein 5.6 L Albumin 2.8 L HOSPITAL COURSE: Patient is a 77 yo male with a significant past medical history of CAD, COPD ( on 3L home O2) and bipap therapy, DVT on xarelto who was BIBEMS for a 3 day history of progressive SOB and wheezing. He is oxygen dependent at home on 2 - 3 liters nasal cannula and alternates with cpap. Patient was intubated on admission for acute hypercapneic respiratory failure Patient was then extubated on 04/22/18 and placed on bipap. He was able to tolerate his home oxygen dosing of 3-4 liters of nasal cannula and has remained stable. He was treated with Solumedrol taper and will be converted to Prednisone 40mg for 5 more days. He follows witha marketing content specialist, Dr. Borja. Pulmonary Shortness of breath, resolved. COPD Exacerbation, resolved Intubated 04/20, extubated 04/22. On nasal cannula 3-4 liters, alternating with BiPap Treated with a Solumedrol taper, will be sent home with Prednisone 40mg daily x 5 days. ID: + blood culture, one bottle. likely contaminat as patient is non toxic appearing and without fevers. His WBC is stable. Repeat Blood cultures negative x 24 hours. Card: Hypertension. controlled. on Atenolol 50mg daily Neuro: CVA history left sided weakness, chronc physical therapy as tolerated On Rivaroxaban 20mg Vascular History of DVT On Xarelto Endocrine Not a diabetic, but has been on Novolog while on high dose steroids. Will follow up outpatient. Discharge home with services. Date of Admission:04/20/18 Date of Discharge: 04/27/18 Discharge Summary Reason For Visit: ENCOUNTER FOR INTUBATION,ACUTE ON CHRONIC RESPIR- Current Active Problems Acute on chronic respiratory failure with hypoxia and hypercapnia (Acute) COPD exacerbation (Acute) DMII (diabetes mellitus, type 2) (Acute) Difficult intubation (Acute) Condition: Improved - Instructions Diet, Activity, Other Instructions: Mr. Morrell: You were admitted for worsening shortness of breath and have improved. Continue the bipap at home as needed and every night. You will be discharged home today. Please see Dr. Borja for follow up. Continue all your home medications. NEW medications (medicinas NUEVAS): Prednisone 40mg daily (diaria). kenya vez a el day por tu thurman Por favor de hacer kenya estrella con thomas doctor primario en 1 semana. Fay Flaherty [facility] @ [facility] [phone] Referrals: David Borja MD, [Staff Physician] - Disposition: HOME - Home Medications Comprehensive Discharge Medication List: Ambulatory Orders Albuterol 2.5/Ipratropium 0.5 [Duoneb -] 1 neb IH QID 08/26/17 Aspirin [ASA -] 81 mg PO DAILY 08/26/17 Atorvastatin Ca [Lipitor] 20 mg PO HS 08/26/17 Bisoprolol Fumarate 5 mg PO DAILY 08/26/17 Budesonide/Formeterol Fumarate [SYMBICORT 160/4.5mcg -] 1 inh IH BID 08/26/17 Finasteride [Proscar -] 5 mg PO DAILY 08/26/17 Omeprazole 40 mg PO DAILY 08/26/17 Rivaroxaban [Xarelto -] 20 mg PO DAILY 08/26/17 Tamsulosin HCl 0.4 mg PO DAILY 08/26/17 Tiotropium [place] [Spiriva] 1 inh IH BID 08/26/17 Docusate Sodium [Colace -] 100 mg PO TID capsule 04/27/18 Ipratropium 0.02% Nebulizer [Atrovent 0.02% Nebulizer -] 1 amp NEB RQID amp Sennosides [Senna -] 1 tab PO BID tablet 04/27/18 predniSONE [Deltasone -] 40 mg PO DAILY #10 tablet 04/27/18 This patient is new to me today: No Emergency Visit: Yes ED Registration Date: 04/20/18 Care time: The patient presented to the Emergency Department on the above date and was hospitalized for further evaluation of their emergent condition. Critical Care patient: No - Discharge Referral Referred to [facility] No
[2018-04-27 17:53] VITALS: BP 138/75; PULSE 73; TEMP 98.6
[2018-04-27] MEDS: RIVAROXABAN 20 MG TABLET PO SCH (18:12)
== END 2018-04-27 18:53 | disposition home or self-care (01) | DRG 208 ==
LOC: JER 01:47 → JERBED 02:48 → JICU 06:46 → J8W 04-24 19:53
PROVIDERS: ADMIT Internal Medicine; ATTEND Nurse Practitioner Family
PROC: 5A1945Z Respiratory Ventilation, 24-96 Consecutive Hours (ICD-10-PCS; principal; 2018-04-20)
PROC: 0BH17EZ Insertion of Endotracheal Airway into Trachea, Via Natural or Artificial Opening (ICD-10-PCS; 2018-04-20)
PROC: 3E0F7GC Introduction of Other Therapeutic Substance into Respiratory Tract, Via Natural or Artificial Opening (ICD-10-PCS; 2018-04-20)
PROC: 5A09357 Assistance with Respiratory Ventilation, Less than 24 Consecutive Hours, Continuous Positive Airway Pressure (ICD-10-PCS; 2018-04-20)
DX: J96.21 Acute and chronic respiratory failure with hypoxia (principal); J44.1 Chronic obstructive pulmonary disease with (acute) exacerbation; I69.354 Hemiplegia and hemiparesis following cerebral infarction affecting left non-dominant side; E87.2 Acidosis; J96.22 Acute and chronic respiratory failure with hypercapnia; I25.10 Atherosclerotic heart disease of native coronary artery without angina pectoris; I10 Essential (primary) hypertension; Z99.81 Dependence on supplemental oxygen; Z85.46 Personal history of malignant neoplasm of prostate; I27.20 Pulmonary hypertension, unspecified; Z86.718 Personal history of other venous thrombosis and embolism; Z87.891 Personal history of nicotine dependence; R00.0 Tachycardia, unspecified; N40.0 Benign prostatic hyperplasia without lower urinary tract symptoms; E11.9 Type 2 diabetes mellitus without complications
CPT/HCPCS: 36415; 36600; 71045-TC-FY; 80048; 80053; 81003; 81015; 82375; 82803; 82962; 83050; 83605; 83735; 84100; 84484; 85025; 85027; 85610; 85730; 87040; 87070; 87086; 87186; 87205; 87804; 87807; 93005; 93010; 94002; 94640; 94660; 99285-25; J0131

== ENCOUNTER 2018-05-31 07:03 | Inpatient (IN) | payer OTHER ==
[2018-05-31 07:09] VITALS: BMI 19.3
--- NOTE | 2018-05-31 07:10 | PDOC ---
History of Present Illness - General Chief Complaint: Shortness of Breath Stated Complaint: PAIN Time Seen by Provider: 05/31/18 07:09 History Source: Patient, Family Exam Limitations: Language Barrier - History of Present Illness Initial Comments: 05/31/18 07:58 78-year-old Citizen Of [place]-speaking male with history of hypertension, diabetes, prostate CA, CVA with residual left hemiparesis, DVT N Xarelto, CAD, COPD on 2 L via nasal cannula 24 hours a day route in by EMS for worsening shortness of breath over the past several days. Patient's daughter who provides most of the information reports that the patient was noted to become progressively more dyspneic with past day without fever or increased cough or sputum production O with significantly lower oxygen saturation of 71% on 2 L via nasal cannula ( baseline oxygen saturation on 2 L is noted to be 94-95%); patient received Atrovent, followed by Ventolin and 60 mg of by mouth prednisone prior to arrival. Patient was also placed on BiPAP by EMS which improved his respiratory status. Patient denies chest pain/abdominal pain/nausea/vomiting/diarrhea/melena /bright red blood per rectum. Patient was intubated during his previous admission. REVIEW OF SYSTEMS CONSTITUTIONAL: No fever, no chills, no fatigue EYES: No visual changes ENT: No ear pain, no sore throat CARDIOVASCULAR: No chest pain, no palpitations RESPIRATORY: + cough, + SOB GI: No abdominal pain, no nausea, no vomiting, no constipation, no diarrhea GENITOURINARY: No dysuria, no frequency, no hematuria MUSKULOSKELETAL: No backpain, no joint pain, no myalgias SKIN: No rash NEURO: No headache EXAMINATION CONSTITUTIONAL: Patient is awake and alert, well-nourished, tachypneic and dyspneic, in moderate respiratory distress HEAD: Normocephalic; atraumatic EYES: PERRL; EOM intact ENMT: External appears normal; mm-dry NECK: Supple; non-tender; no JVD CARD: Normal S1, S2; 2/6 systolic ejection murmurs, no rubs, or gallops RESP: Patient is tachypneic and dyspneic; speaks and short phrases only; air entry is decreased significantly in all lung bowden bilaterally; ABD: Soft, non-distended; non-tender; no palpable organomegaly, no palpable hernias EXT: Normal ROM in all four extremities; non-tender to palpation; distal pulses intact SKIN: Warm, dry, no rash NEURO: + Cranial nerves II through XII are grossly intact; minimal left upper extremity weakness is noted; gait-deferred. Past History - Past Medical History Allergies/Adverse Reactions: Allergies Allergy/AdvReac Type Severity Reaction Status Date / Time No Known Allergies Allergy Verified 05/31/18 07:09 Home Medications: Ambulatory Orders Albuterol Sulfate 0.042% [Ventolin 0.042% (Half-Strength) -] QID 05/31/18 Albuterol Sulfate Inhaler - [Ventolin Hfa Inhaler -] 1 puff IH 05/31/18 Aspirin 81 mg PO DAILY 05/31/18 Atorvastatin Ca [Lipitor] 20 mg PO HS 05/31/18 Bisoprolol Fumarate [Zebeta (Nf) -] 5 mg PO DAILY 05/31/18 Budesonide/Formeterol Fumarate [SYMBICORT 160/4.5mcg -] 1 inh PO BID 05/31/18 Omeprazole 40 mg PO DAILY 05/31/18 Pantoprazole Sodium [Protonix] 40 mg PO TID 05/31/18 Prednisone 10 mg PO DAILY 05/31/18 Rivaroxaban [Xarelto -] 20 mg PO DAILY 05/31/18 Roflumilast [Daliresp -] 500 mcg PO DAILY 05/31/18 Tamsulosin HCl [Flomax] 0.4 mg PO DAILY 05/31/18 Tiotropium [place] [Spiriva] 1 inh PO DAILY 05/31/18 Asthma: Yes (copd) Cancer: Yes (PROSTATE) CVA: Yes COPD: Yes - Immunization History Immunization Up to Date: Yes - Suicide/Smoking/Psychosocial Hx Smoking History: Unknown if ever smoked Have you smoked in the past 12 months: No Number of Cigarettes Smoked Daily: 0 If you are a former smoker, when did you quit?: 0 Hx Alcohol Use: No Drug/Substance Use Hx: No Substance Use Type: None Hx Substance Use Treatment: No *Physical Exam - Vital Signs Last Vital Signs Temp Pulse Resp BP Pulse Ox 105 H 35 H 118/79 96 05/31/18 07:06 05/31/18 07:06 05/31/18 07:06 05/31/18 07:06 Moderate Sedation - Procedure Monitoring Vital Signs: Procedure Monitoring Vital Signs Temperature Pulse Rate 105 H 05/31/18 07:06 Respiratory Rate 35 H 05/31/18 07:06 Blood Pressure 118/79 05/31/18 07:06 O2 Sat by Pulse Oximetry (%) 96 05/31/18 07:06 ED Treatment Course - LABORATORY CBC & Chemistry Diagram: 05/31/18 07:00 05/31/18 07:00 Medical Decision Making - Medical Decision Making 05/31/18 08:05 Patient is a 78-year-old male with multiple comorbidities who presents with signs and symptoms of acute COPD exacerbation with hypoxemia. Differential diagnoses includes acute COPD exacerbation versus PE versus pneumonia versus CHF exacerbation. We'll obtain CBC/CMP/cardiac profile/blood culture/influenza swab. EKG shows no evidence of acute ischemia, cor pulmonale is noted. Will obtain chest x-ray. We'll administer Combivent and magnesium sulfate IV. Prednisone has already been given. Will reassess. Likely admission. 05/31/18 08:27 Patient currently on BiPAP at FiO2 of 40%. Patient mildly clinically improved with decreased work of breathing. Air entry still limited bilaterally. Oxygen saturation is noted to be 96-97%. Will decrease FiO2 to 30%. Will obtain ABG. *DC/Admit/Observation/Transfer Diagnosis at time of Disposition: Acute exacerbation of chronic obstructive pulmonary disease (COPD) - Discharge Dispostion Condition at time of disposition: Fair Decision to Admit order: Yes - Referrals - Patient Instructions - Post Discharge Activity
[2018-05-31] MEDS ORDERED: ALBUTEROL SO4 2.5/IPRATROPIUM 0.5 INH SOL 3 ML VIAL.NEB. NEB ONE ×2 (07:18→07:22)
[2018-05-31] MEDS ORDERED: MAGNESIUM 1GM/D5W - 2 GM/200 ML IVPB IVPB ONE (07:19)
[2018-05-31] MEDS ORDERED: MAGNESIUM SULF 50% (8.12 MEQ/2 ML-1 GM VIAL) IVPB ONE (07:22)
[2018-05-31 07:47] LABS: BASO % 0.2 % (0-2.0); EOS % 0.1 % (0-4.5); HEMATOCRIT 40.5 % (35.4-49); HEMOGLOBIN 13.6 GM/dL (11.7-16.9); LYMPH % 5.9 % (8-40); MCH 30.2 pg (25.7-33.7); MCHC 33.7 g/dl (32.0-35.9); MEAN CELL VOLUME 89.5 fl (80-96); MEAN PLT VOLUME 7.8 fl (7.5-11.1); MONO % 4.7 % (3.8-10.2); NEUT % 89.1 % (42.8-82.8); PLATELET COUNT 153 K/MM3 (134-434); RBC 4.52 M/mm3 (4.00-5.60); RDW 15.7 % (11.9-15.9); WHITE BLOOD COUNT 9.1 K/mm3 (4.0-10.0)
[2018-05-31 08:04] LABS: INR 3.16 (0.83-1.09); PROTHROMBIN TIME (PATIENT) 37.7 SEC (9.7-13.0)
[2018-05-31] MEDS ORDERED: SODIUM CHLORIDE 500 ML IV STA (08:04)
[2018-05-31 08:33] LABS: ALBUMIN 2.7 g/dl (3.4-5.0); ALK PHOS 111 U/L (45-117); ANION GAP 4 MMOL/L (8-16); BILIRUBIN,TOTAL 0.9 mg/dL (0.2-1); BLOOD UREA NITROGEN 20 mg/dL (7-18); CALCIUM 8.5 mg/dL (8.5-10.1); CHLORIDE 97 mmol/L (98-107); CO2 39 mmol/L (21-32); CREATININE 0.6 mg/dL (0.55-1.3); GLUCOSE,RANDOM 157 mg/dL (74-106); POTASSIUM 3.8 mmol/L (3.5-5.1); SGOT/AST 48 U/L (15-37); SGPT/ALT 45 U/L (13-61); SODIUM 140 mmol/L (136-145); TOT PROT 5.7 g/dl (6.4-8.2)
[2018-05-31 09:02] LABS: ARTERIAL BLD GAS O2 SATURATION 96.5 % (90-98.9); ARTERIAL BLOOD GAS BASE EXCESS 11.6 meq/l (-2-2); ARTERIAL BLOOD GAS PCO2 59.2 mmHg (35-45); ARTERIAL BLOOD GAS PO2 85.6 mmHg (70-100); ARTERIAL BLOOD GAS pH 7.42 (7.35-7.45)
[2018-05-31 09:06] LABS: ALLENS TEST POSITIVE
[2018-05-31 10:32] LABS: ANISOCYTOSIS 0; MACROCYTOSIS 0; OVALOCYTE 1+
--- NOTE | 2018-05-31 10:40 | HP ---
CHIEF COMPLAINT: SOB PCP: Dr. Gab Seay HISTORY OF PRESENT ILLNESS: 78 y/o Gu[place]ian speaking M w/PMH of HTN, prostate ca, 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 Pt has white sputum production but is unchanged from his baseline sputum. He denies any cough, CP, HAWKINS, light-headedness, dizziness, LE swelling, sick contacts, abd pain, fevers, chills, nausea, change in urinary or bowel habits, blood in stool, blood in urine, dysuria, cold symptoms. According to ER notes daughter was with pt earlier and noticed his O2 saturation was 71% on 2L NC O2 and in combination with his progressively worsening SOB prompted her to bring pt to the ER. She gave him atrovent, ventolin, and 60 mg of prednisone at home before bringing the pt the ER. The patient was placed on bipap by EMS and currently states he better on the bipap. Pt does not ambulate. Pt was recently admitted 04/20/18 and discharged 04/27/18 for COPD exacerbation and required intubation during that hospitalization. ER course was notable for: (1) Duonebs, Mg Sulf, NS 500 ml, CXR (2) (3) PAST MEDICAL HISTORY: HTN, prostate ca, CVA (5 years ago w/L sided weakness), DVT on xarelto, COPD on home O2 2L NC PAST SURGICAL HISTORY: none Social History: Smokin pack year history. Quit approx 10-11 years ago Alcohol: denies Drugs: denies Lives at home with family Family History: n-c Allergies No Known Allergies Allergy (Verified 05/31/18 07:09) HOME MEDICATIONS: Home Medications Medication Instructions Recorded Albuterol Sulfate 0.042% [Ventolin QID 05/31/18 0.042% (Half-Strength) -] Albuterol Sulfate Inhaler - 1 puff IH 05/31/18 [Ventolin Hfa Inhaler -] Aspirin 81 mg PO DAILY 05/31/18 Atorvastatin Ca [Lipitor] 20 mg PO HS 05/31/18 Bisoprolol Fumarate [Zebeta (Nf) -] 5 mg PO DAILY 05/31/18 Budesonide/Formeterol Fumarate 1 inh PO BID 05/31/18 [SYMBICORT 160/4.5mcg -] Omeprazole 40 mg PO DAILY 05/31/18 Pantoprazole Sodium [Protonix] 40 mg PO TID 05/31/18 Prednisone 10 mg PO DAILY 05/31/18 Rivaroxaban [Xarelto -] 20 mg PO DAILY 05/31/18 Roflumilast [Daliresp -] 500 mcg PO DAILY 05/31/18 Tamsulosin HCl [Flomax] 0.4 mg PO DAILY 05/31/18 Tiotropium [place] [Spiriva] 1 inh PO DAILY 05/31/18 REVIEW OF SYSTEMS CONSTITUTIONAL: Absent: fever, chills HEENT: Absent: rhinorrhea, throat pain, throat swelling CARDIOVASCULAR: Absent: chest pain, lightheadedness, peripheral edema RESPIRATORY: +SOB Absent: cough GASTROINTESTINAL: Absent: abdominal pain, nausea, vomiting, hematochezia GENITOURINARY: Absent: dysuria, hematuria, flank pain NEUROLOGIC: Absent: headache, dizziness PHYSICAL EXAMINATION Vital Signs - 24 hr 05/31/18 05/31/18 05/31/18 07:06 07:31 07:47 Pulse Rate 105 H 106 H Pulse Rate [ Apical] Respiratory 35 H 16 Rate Blood Pressure 118/79 Blood Pressure [Right Arm] O2 Sat by Pulse 96 96 97 Oximetry (%) 05/31/18 05/31/18 08:54 09:31 Pulse Rate Pulse Rate [ 90 Apical] Respiratory 18 Rate Blood Pressure Blood Pressure 117/68 [Right Arm] O2 Sat by Pulse 96 95 Oximetry (%) GENERAL: Awake, alert, and fully oriented, on bipap. HEAD: Normal with no signs of trauma. EYES: extraocular movements intact, sclera anicteric, conjunctiva clear. NECK: No bruits LUNGS: Diminished air entry. HEART: Regular rate and rhythm, normal S1 and S2 ABDOMEN: Soft, nontender, not distended, normoactive bowel sounds MUSCULOSKELETAL: LUE 4/5 strength. RUE 5/5 strength. LLE 4/5 strength. RLE 5/5 strength. LOWER EXTREMITIES: warm, well-perfused. No peripheral edema. NEUROLOGICAL: Normal speech. PSYCHIATRIC: Cooperative. Good eye contact. Appropriate mood and affect. SKIN: Warm, dry Laboratory Results - last 24 hr 05/31/18 05/31/18 05/31/18 07:00 07:00 07:00 WBC 9.1 RBC 4.52 Hgb 13.6 Hct 40.5 MCV 89.5 MCH 30.2 MCHC 33.7 RDW 15.7 Plt Count 153 MPV 7.8 Absolute Neuts (auto) 8.1 H Neutrophils % 89.1 H Lymphocytes % 5.9 L D Monocytes % 4.7 Eosinophils % 0.1 D Basophils % 0.2 D Nucleated RBC % 0 PT with INR 37.70 H INR 3.16 H Anticoagulation Therapy Puncture Site ABG pH ABG pCO2 at Pt Temp ABG pO2 at Pt Temp ABG HCO3 ABG O2 Sat (Measured) ABG O2 Content ABG Base Excess Rnony Test O2 Delivery Device Oxygen Flow Rate Vent Mode Vent Rate Mechanical Rate Pressure Support Vent Sodium Potassium Chloride Carbon Dioxide Anion Gap BUN Creatinine Creat Clearance w eGFR Random Glucose Calcium Total Bilirubin AST ALT Alkaline Phosphatase Creatine Kinase Troponin I Total Protein Albumin Influenza A (Rapid) Negative Influenza B (Rapid) Negative 05/31/18 05/31/18 07:00 08:47 WBC RBC Hgb Hct MCV MCH MCHC RDW Plt Count MPV Absolute Neuts (auto) Neutrophils % Lymphocytes % Monocytes % Eosinophils % Basophils % Nucleated RBC % PT with INR INR Anticoagulation Therapy No Result Required. Puncture Site Right radial ABG pH 7.42 ABG pCO2 at Pt Temp 59.2 H D ABG pO2 at Pt Temp 85.6 D ABG HCO3 37.9 H ABG O2 Sat (Measured) 96.5 ABG O2 Content 15.8 ABG Base Excess 11.6 H Ronny Test Positive O2 Delivery Device Bipap Oxygen Flow Rate 30% Vent Mode S/t Vent Rate 16 Mechanical Rate Bipap Pressure Support Vent Ipap12/epap6 Sodium 140 Potassium 3.8 Chloride 97 L Carbon Dioxide 39 H Anion Gap 4 L BUN 20 H Creatinine 0.6 Creat Clearance w eGFR > 60 Random Glucose 157 H Calcium 8.5 Total Bilirubin 0.9 AST 48 H ALT 45 Alkaline Phosphatase 111 Creatine Kinase 144 Troponin I 0.02 Total Protein 5.7 L Albumin 2.7 L Influenza A (Rapid) Influenza B (Rapid) CXR: no acute pathology. L costophrenic angle not visualized in film. EKG: Sinus tachy @ [address] segment elevations or depressions noted. No S1Q3T3 noted on EKG. No signs of new ischemia when compared to EKG from 04/20/18. ASSESSMENT/PLAN: 78 y/o [place] speaking M w/PMH of HTN, prostate ca, 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 Admitted for COPD exacerbation. -Acute on chronic respiratory failure secondary to COPD exacerbation -O2 sat dropped to 70s at home on O2 use and is currently on bipap -Duonebs standing and PRN -Given prednisone 60mg at home. Will give Solumedrol 60 mg IV q8h. Taper as pt improves -Wean off bipap. O2 supplementation to keep O2 saturation above 90% -no abx at this time -trend trops, initial trop negative -monitor for signs/symptoms of PE -Elevated INR -may be secondary to xarelto -monitor -History of DVT -c/w xarelto 20mg -HTN -c/w bisoprolol 5mg -CAD -c/w asa 81 mg, lipitor 20 mg -BPH -c/w tamsulosin 0.4 mg -DVT ppx -on xarelto 20 mg -FEN -No fluids -Monitor electrolytes -NPO while on bipap. Cardiac diet when tolerable. -Dispo: admit to M/S Visit type - Emergency Visit Emergency Visit: Yes ED Registration Date: 05/31/18 Care time: The patient presented to the Emergency Department on the above date and was hospitalized for further evaluation of their emergent condition. - New Patient This patient is new to me today: Yes Date on this admission: 05/31/18 - Critical Care Critical Care patient: No
--- NOTE | 2018-05-31 10:43 | EKG ---
Test Reason : Blood Pressure : / mmHG Vent. Rate : 105 BPM Atrial Rate : 105 BPM P-R Int : 122 ms QRS Dur : 072 ms QT Int : 338 ms P-R-T Axes : 088 079 -11 degrees QTc Int : 446 ms SINUS TACHYCARDIA RIGHT ATRIAL ENLARGEMENT MARKED ST ABNORMALITY, POSSIBLE INFERIOR SUBENDOCARDIAL INJURY ABNORMAL ECG WHEN COMPARED WITH ECG OF 20-APR-2018 02:27, NONSPECIFIC T WAVE ABNORMALITY NO LONGER EVIDENT IN LATERAL LEADS Confirmed by SIRISHA FARMER MD ([id number]) on 05/31/2018 10:43:21 AM Referred By: Confirmed By:SIRISHA FARMER MD
[2018-05-31] MEDS ORDERED: ALBUTEROL SO4 2.5/IPRATROPIUM 0.5 INH SOL 3 ML VIAL.NEB. NEB PRN (10:54)
[2018-05-31 10:57] LABS: PLATELET ESTIMATE ADEQUATE
[2018-05-31] MEDS: ALBUTEROL SO4 2.5/IPRATROPIUM 0.5 INH SOL 3 ML VIAL.NEB. NEB SCH ×2 (13:30→15:13)
[2018-05-31] MEDS: methylPREDNISolone NA SUCC 40 MG/1 ML VIAL IVPUSH SCH ×2 (14:18→21:08)
--- NOTE | 2018-05-31 15:04 | PN ---
Teaching Attending Note Name of Resident: Byron Vences ATTENDING PHYSICIAN STATEMENT I saw and evaluated the patient. I reviewed the resident's note and discussed the case with the resident. I agree with the resident's findings and plan as documented. SUBJECTIVE: Patient is a 78yo male presented to ED. with SOB , was placed on Bipap IN ED. OBJECTIVE: Vital Signs Temperature 98.2 F 05/31/18 11:22 Pulse Rate 94 H 05/31/18 11:22 Respiratory Rate 22 H 05/31/18 11:22 Blood Pressure 142/85 05/31/18 11:22 O2 Sat by Pulse Oximetry (%) 98 05/31/18 11:35 GENERAL: Awake, alert, and fully oriented, on bipap. HEAD: Normal with no signs of trauma. EYES: extraocular movements intact, sclera anicteric, conjunctiva clear. NECK: No bruits; LUNGS: Diminished air entry. HEART: Regular rate and rhythm, normal S1 and S2 ABDOMEN: Soft, nontender, not distended, normoactive bowel sounds MUSCULOSKELETAL: LUE 4/5 strength. RUE 5/5 strength. LLE 4/5 strength. RLE 5/5 strength. EXTREMITIES: warm, well-perfused. No peripheral edema. NEUROLOGICAL: Normal speech. PSYCHIATRIC: Cooperative. Good eye contact. Appropriate mood and affect. SKIN: Warm, dry CBCD WBC 9.1 K/mm3 (4.0-10.0) 05/31/18 07:00 RBC 4.52 M/mm3 (4.00-5.60) 05/31/18 07:00 Hgb 13.6 GM/dL (11.7-16.9) 05/31/18 07:00 Hct 40.5 % (35.4-49) 05/31/18 07:00 MCV 89.5 fl (80-96) 05/31/18 07:00 MCHC 33.7 g/dl (32.0-35.9) 05/31/18 07:00 RDW 15.7 % (11.9-15.9) 05/31/18 07:00 Plt Count 153 K/MM3 (134-434) 05/31/18 07:00 MPV 7.8 fl (7.5-11.1) 05/31/18 07:00 CMP Sodium 140 mmol/L (136-145) 05/31/18 07:00 Potassium 3.8 mmol/L (3.5-5.1) 05/31/18 07:00 Chloride 97 mmol/L (98-107) L 05/31/18 07:00 Carbon Dioxide 39 mmol/L (21-32) H 05/31/18 07:00 Anion Gap 4 MMOL/L (8-16) L 05/31/18 07:00 BUN 20 mg/dL (7-18) H 05/31/18 07:00 Creatinine 0.6 mg/dL (0.55-1.3) 05/31/18 07:00 Creat Clearance w eGFR > 60 (>60) 05/31/18 07:00 Random Glucose 157 mg/dL (74-106) H 05/31/18 07:00 Calcium 8.5 mg/dL (8.5-10.1) 05/31/18 07:00 Total Bilirubin 0.9 mg/dL (0.2-1) 05/31/18 07:00 AST 48 U/L (15-37) H 05/31/18 07:00 ALT 45 U/L (13-61) 05/31/18 07:00 Alkaline Phosphatase 111 U/L (45-117) 05/31/18 07:00 Total Protein 5.7 g/dl (6.4-8.2) L 05/31/18 07:00 Albumin 2.7 g/dl (3.4-5.0) L 05/31/18 07:00 CARDIAC ENZYMES Creatine Kinase 144 U/L (26-308) 05/31/18 07:00 Troponin I 0.02 ng/ml (0.00-0.05) 05/31/18 13:15 Current Medications Generic Name Dose Route Start Last Admin Trade Name Freq PRN Reason Stop Dose Admin Albuterol/Ipratropium 1 amp 05/31/18 12:00 05/31/18 13:30 Duoneb - NEB 1 amp RQID JACKIE Administration Albuterol/Ipratropium 1 amp 05/31/18 10:54 Duoneb - NEB Q6H PRN SHORTNESS OF BREATH Aspirin 81 mg 06/01/18 10:00 Asa - PO DAILY JACKIE Atenolol 50 mg 06/01/18 10:00 Tenormin - PO DAILY JACKIE Atorvastatin Calcium 20 mg 05/31/18 22:00 Lipitor - PO HS [facility] Methylprednisolone Sodium Succinate 60 mg 05/31/18 12:15 05/31/18 14:18 Solu-Medrol - IVPUSH 60 mg Q6H-IV [facility] Administration Rivaroxaban 20 mg 05/31/18 18:00 Xarelto - PO DAILY@1800 [facility] Tamsulosin HCl 0.4 mg 06/01/18 08:30 Flomax - PO DAILY@0830 [facility] Home Medications Medication Instructions Recorded Albuterol Sulfate 0.042% [Ventolin QID 05/31/18 0.042% (Half-Strength) -] Albuterol Sulfate Inhaler - 1 puff IH 05/31/18 [Ventolin Hfa Inhaler -] Aspirin 81 mg PO DAILY 05/31/18 Atorvastatin Ca [Lipitor] 20 mg PO HS 05/31/18 Bisoprolol Fumarate [Zebeta (Nf) -] 5 mg PO DAILY 05/31/18 Budesonide/Formeterol Fumarate 1 inh PO BID 05/31/18 [SYMBICORT 160/4.5mcg -] Omeprazole 40 mg PO DAILY 05/31/18 Pantoprazole Sodium [Protonix] 40 mg PO TID 05/31/18 Prednisone 10 mg PO DAILY 05/31/18 Rivaroxaban [Xarelto -] 20 mg PO DAILY 05/31/18 Roflumilast [Daliresp -] 500 mcg PO DAILY 05/31/18 Tamsulosin HCl [Flomax] 0.4 mg PO DAILY 05/31/18 Tiotropium [place] [Spiriva] 1 inh PO DAILY 05/31/18 CXR: no acute pathology. L costophrenic angle not visualized in film. EKG: Sinus tachy @ [address] segment elevations or depressions noted. No S1Q3T3 noted on EKG. No signs of new ischemia when compared to EKG from 04/20/18. ASSESSMENT AND PLAN: Patient is a 78yo Ukrainian speaking male with PMHx of HTN, prostate ca, 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 Admitted for acute COPD exacerbation. # Acute on chronic respiratory failure secondary to COPD exacerbation #Elevated INR due to xarelto, will monitor # History of DVT on xarelto 20mg # HTN continue bisoprolol 5mg #CAD on asa 81 mg, lipitor 20 mg continue #BPH continue tamsulosin 0.4 mg DVT ppx: xarelto 20 mg
--- NOTE | 2018-05-31 16:00 | PN ---
Progress Note (short form) - Note Progress Note: PULMONARY CONSULTATION DICTATED 05/31/18 IMP ACUTE ON CHRONIC HYPOXEMIC/HYPERCAPNEIC RESPIRATORY FAILURE END STAGE COPD O2 DEPENDENT WITH ACUTE EXACERBATION H/O DVT H/O CVA H/O PROSTATE CA PULMONARY HTN PLAN IV STEROIDS INHALED BRONCHODILATORS ABX SUPPLEMENTAL O2 NIPPV NEEDED ECHO CHEST CT F/U ABGS CONSIDER TRILOGY DEVICE AT HOME DR ANTOINE Problem List - Problems (1) COPD exacerbation Code(s): J44.1 - CHRONIC OBSTRUCTIVE PULMONARY DISEASE W (ACUTE) EXACERBATION (2) Acute on chronic respiratory failure with hypoxia and hypercapnia Code(s): J96.21 - ACUTE AND CHRONIC RESPIRATORY FAILURE WITH HYPOXIA; J96.22 - ACUTE AND CHRONIC RESPIRATORY FAILURE WITH HYPERCAPNIA (3) DMII (diabetes mellitus, type 2) Code(s): E11.9 - TYPE 2 DIABETES MELLITUS WITHOUT COMPLICATIONS (4) H/O prostate cancer Code(s): Z85.46 - PERSONAL HISTORY OF MALIGNANT NEOPLASM OF PROSTATE (5) H/O: CVA (cerebrovascular accident) Code(s): Z86.73 - PRSNL HX OF TIA (TIA), AND CEREB INFRC W/O RESID DEFICITS (6) HTN (hypertension) Code(s): I10 - ESSENTIAL (PRIMARY) HYPERTENSION Qualifiers: Hypertension type: essential hypertension Qualified Code(s): I10 - Essential (primary) hypertension
[2018-05-31] MEDS ORDERED: ALBUTEROL SO4 0.083% IH SOL 2.5 MG/3 ML VIAL.NEB. NEB PRN (16:48)
[2018-05-31] MEDS: RIVAROXABAN 20 MG TABLET PO SCH (17:49)
--- NOTE | 2018-05-31 19:40 | CONS ---
DATE OF CONSULTATION: 05/31/2018 PULMONARY CONSULTATION REFERRING PHYSICIAN: Rojelio Washington M.D. HISTORY OF PRESENT ILLNESS: The patient is a 78-year-old male known to me from previous hospitalization with past medical history of end-stage COPD with chronic O2 dependence with chronic hypercapnic, hypoxemic respiratory failure, history of respiratory failure in the past on ventilatory support, hypertension, prostate CA, CVA 5 years ago with left-sided weakness, DVT maintained on Xarelto, admitted to with progressive shortness of breath, dyspnea on exertion over 3-4 days. Apparently the past 3-4 days prior to admission, the patient developed progressive shortness of breath and dyspnea on exertion. He had a cough productive of white sputum. There is no change from baseline sputum. There was no fever, chills, nausea, vomiting, diaphoresis. According to the daughter, when she went to see the patient earlier prior to discharge, she was noted to have increasing respiratory distress and O2 saturation of 71% on 2 L nasal cannula. She gave him Atrovent and albuterol solution, a 60 mg prednisone, and EMS was called. Patient presented to the emergency room with the above. EMS placed the patient on BiPAP and transferred the patient to the ER. PAST MEDICAL HISTORY: Again includes hypertension, pulmonary hypertension, prostate CA, CVA 5 years ago, chronic end-stage COPD on home O2 with chronic hypercapnic, hypoxemic respiratory failure, DVT on Xarelto, pulmonary hypertension, and history of respiratory failure. SOCIAL HISTORY: Born in [place], moved to [facility] greater than 20 years ago, history of tobacco use quit 10, 11 years ago. REVIEW OF SYSTEMS: Positive shortness of breath. Positive cough. Positive sputum. No fever. No chills. No hemoptysis. No abdominal pain. No chest pain. No palpitations. CURRENT MEDICATIONS: Include Solu-Medrol 60 q.6, Flomax, Xarelto, DuoNeb, Tenormin, Lipitor, aspirin. PHYSICAL EXAMINATION: GENERAL: The patient is an elderly male, awake, alert, mildly dyspneic but in no acute distress. He is on Ventimask 30%. O2 saturation is 98%. Heart rate is 94, blood pressure 142/85, respiratory rate 22. HEENT: Normocephalic, atraumatic. NECK: Supple. HEART: Regular S1, S2. CHEST: Scattered bilateral wheezes. ABDOMEN: Soft, bowel sounds positive. EXTREMITIES: No cyanosis, edema. LABORATORY: WBC is 9.1, hemoglobin 13.6, hematocrit 40.5, platelet count 153,000. INR is 3.16. Blood gas: pH 7.42, pCO2 of 59, pO2 of 85, bicarbonate 37, and saturation of 96%, that was on BiPAP 30% oxygen with IPAP of 12 and EPAP of 6, and a rate of 16. Chest x-ray revealed no evidence of infiltrates or effusions. IMPRESSION: Acute on chronic hypercapnic, hypoxemic respiratory failure secondary to: 1. End-stage chronic obstructive pulmonary disease, oxygen dependent with acute exacerbation. 2. History of deep venous thrombosis. 3. History of cerebrovascular accident. 4. History of prostate carcinoma. 5. Pulmonary hypertension. PLAN: IV steroids, inhaled bronchodilators, antibiotic therapy, supplemental O2, as needed, echocardiogram, also consider Trilogy device at home secondary to patient's persistent, recurrent episodes of hypercapnic, hypoxemic respiratory failure requiring hospitalizations. CONSTANTINO ANTOINE M.D. [id number]
[2018-05-31] MEDS: ATORVASTATIN CA 20 MG TABLET (FP) PO SCH (21:09)
[2018-05-31] MEDS: ARFORMOTEROL TARTRATE 15 MCG/2 ML VIAL NEB SCH (21:31)
[2018-06-01] MEDS: methylPREDNISolone NA SUCC 40 MG/1 ML VIAL IVPUSH SCH ×3 (03:22→17:08)
[2018-06-01] MEDS: ARFORMOTEROL TARTRATE 15 MCG/2 ML VIAL NEB SCH ×2 (08:01→20:16)
[2018-06-01 08:28] LABS: HEMATOCRIT 37.4 % (35.4-49); HEMOGLOBIN 12.6 GM/dL (11.7-16.9); MCHC 33.8 g/dl (32.0-35.9); MEAN CELL VOLUME 88.7 fl (80-96); MEAN PLT VOLUME 7.9 fl (7.5-11.1); MONO % 3.3 % (3.8-10.2); NEUT % 91.7 % (42.8-82.8); PLATELET COUNT 149 K/MM3 (134-434); RBC 4.22 M/mm3 (4.00-5.60); RDW 15.4 % (11.9-15.9); WHITE BLOOD COUNT 9.6 K/mm3 (4.0-10.0)
[2018-06-01 08:42] LABS: INR 2.63 (0.83-1.09); PROTHROMBIN TIME (PATIENT) 31.3 SEC (9.7-13.0)
[2018-06-01 08:45] LABS: ACTIVATED PTT 28.9 SECONDS (25.2-36.5)
[2018-06-01 08:57] LABS: ALBUMIN 2.6 g/dl (3.4-5.0); ALK PHOS 82 U/L (45-117); ANION GAP 4 MMOL/L (8-16); BILIRUBIN,TOTAL 0.9 mg/dL (0.2-1); BLOOD UREA NITROGEN 25 mg/dL (7-18); CALCIUM 8.5 mg/dL (8.5-10.1); CHLORIDE 99 mmol/L (98-107); CO2 39 mmol/L (21-32); CREATININE 0.7 mg/dL (0.55-1.3); GLUCOSE,RANDOM 164 mg/dL (74-106); MAGNESIUM 2.1 mg/dL (1.8-2.4); PHOSPHOROUS 3.2 mg/dL (2.5-4.9); POTASSIUM 3.9 mmol/L (3.5-5.1); SGOT/AST 27 U/L (15-37); SGPT/ALT 36 U/L (13-61); SODIUM 142 mmol/L (136-145); TOT PROT 5.3 g/dl (6.4-8.2)
[2018-06-01 09:56] LABS: ANISOCYTOSIS 0; HELMET CELLS 0; HOWELL-JOLLY BODIES 0; MACROCYTOSIS 0; OVALOCYTE 0; PLATELET ESTIMATE DECREASED; ROULEAU 0; SICKELED CELLS 0; TARGET CELLS 0; TEAR DROP CELLS 0; TOXIC GRANULATION 0
[2018-06-01] MEDS: TAMSULOSIN HCL 0.4 MG CAP PO SCH (09:56)
[2018-06-01] MEDS: ATENOLOL 50 MG TABLET (FP) PO SCH (09:56)
[2018-06-01] MEDS: ASPIRIN 81 MG CHEWABLE TABLETS PO SCH (09:56)
[2018-06-01] MEDS: TIOTROPIUM BROMIDE 2.5 MCG (SPIRIVA) RESPIMAT INHALER IH SCH (09:59)
--- NOTE | 2018-06-01 12:48 | ECHO ---
Name: ALON العلي Exam:Adult Echocardiogram Study Date: 06/01/2018 08:13 AM Age: 78 yrs Reason For Study: PHTN Height: 70 in Weight: 135 lb BSA: 1.8 m2 MMode/2D Measurements & Calculations IVSd: 0.84 cm Ao root diam: 2.5 cm LVIDd: 4.1 cm LA dimension: 2.4 cm LVIDs: 2.7 cm LVPWd: 0.91 cm EDV(Teich): 74.4 ml LVOT diam: 2.0 cm ESV(Teich): 26.8 ml Doppler Measurements & Calculations MV E max alirio: 68.9 cm/sec Ao V2 max: 120.3 cm/sec MV A max alirio: 99.0 cm/sec Ao max P.8 mmHg MV E/A: 0.70 MV dec time: 0.07 sec ABIGAIL(V,D): 3.4 cm2 LV V1 max P.6 mmHg TR max alirio: 313.2 cm/sec LV V1 max: 137.8 cm/sec TR max P.4 mmHg PA V2 max: 158.7 cm/sec Med Peak E' Alirio: 10.1 cm/sec PA max P.1 mmHg Med E/e': 6.8 Lat Peak E' Alirio: 6.0 cm/sec Lat E/e': 11.5 PI Vmax: 157.0 cm/sec Procedure A complete two-dimensional transthoracic echocardiogram was performed (2D, M-mode, Doppler and color flow Doppler). Left Ventricle The left ventricular size, thickness and function are normal. The left ventricular ejection fraction is normal. Ejection Fraction = 60-65%. The left ventricular wall motion is normal. Right Ventricle The right ventricle is normal in size and function. Atria Normal left and right atrial size and function. Mitral Valve There is no mitral regurgitation noted. Tricuspid Valve There is trace tricuspid regurgitation. Right ventricular systolic pressure is elevated at 30-40mmHg. Aortic Valve The aortic valve is trileaflet. No hemodynamically significant valvular aortic stenosis. No aortic regurgitation is present. Pulmonic Valve There is no pulmonic valvular regurgitation. Great Vessels The aortic root is normal size. Pericardium/Pleura There is no pericardial effusion. Interpretation Summary The left ventricular size, thickness and function are normal The right ventricle is normal in size and function. There is trace tricuspid regurgitation. Right ventricular systolic pressure is elevated at 30-40mmHg. MD Dimitris Stafford 06/01/2018 12:48 PM
--- NOTE | 2018-06-01 13:18 | PN ---
Progress Note (short form) - Note Progress Note: PULMONARY States breathing is much better today. +nonproductive cough. No fevers or chills. Vital Signs Period Temp Pulse Resp BP Sys/Thurman Pulse Ox Last 24 Hr 98.0 F-98.0 F 60-94 22-24 124-130/77-80 95-98 Gen: NAD at rest Heart: RRR Lung: distant breath sounds Abd: soft, nontender Ext: no edema CBC, BMP 06/01/18 07:30 06/01/18 07:30 Active Medications Albuterol Sulfate (Ventolin 0.083% Nebulizer Soln -) 1 amp NEB Q4H PRN PRN Reason: SHORT OF BREATH/WHEEZING Arformoterol Tartrate (Brovana (Restricted To Pulmonology/Resp) -) 1 amp NEB RBID [facility] Last Admin: 06/01/18 08:01 Dose: 1 amp Aspirin (Asa -) 81 mg PO DAILY [facility] Last Admin: 06/01/18 09:56 Dose: 81 mg Atenolol (Tenormin -) 50 mg PO DAILY [facility] Last Admin: 06/01/18 09:56 Dose: 50 mg Atorvastatin Calcium (Lipitor -) 20 mg PO HS [facility] Last Admin: 05/31/18 21:09 Dose: 20 mg Methylprednisolone Sodium Succinate (Solu-Medrol -) 60 mg IVPUSH Q6H-IV [facility] Last Admin: 06/01/18 09:56 Dose: 60 mg Rivaroxaban (Xarelto -) 20 mg PO DAILY@1800 [facility] Last Admin: 05/31/18 17:49 Dose: 20 mg Tamsulosin HCl (Flomax -) 0.4 mg PO DAILY@0830 [facility] Last Admin: 06/01/18 09:56 Dose: 0.4 mg Tiotropium [place] (Spiriva Respimat) 2 puff IH DAILY [facility] Last Admin: 06/01/18 09:59 Dose: 2 puff A/P Acute on Chronic Hypoxic and Hypercapneic Respiratory Failure Acute COPD Exacerbation Pulmonary HTN h/o DVT h/o CVA h/o Prostate Ca - will decrease medrol to q8h - inhaled bronchodilators - O2 to keep SpO2 >90% - BiPAP as needed to assist in work of breathing - continue anticoagulation
--- NOTE | 2018-06-01 14:20 | PN ---
Physical Exam: SUBJECTIVE: Patient seen and examined at bed side , on BIPAP over night 12/6, fio2 30 % RR 14 non productive cough no fever or chills, denies any chest pain. OBJECTIVE: Vital Signs Period Temp Pulse Resp BP Sys/Thurman Pulse Ox Last 24 Hr 97.9 F-98.0 F 60-108 22-24 112-130/67-80 95-98 GENERAL: Awake, alert, and fully oriented, on bipap. HEAD: NC/AT EYES:EOMI, sclera anicteric, conjunctiva clear. NECK: No bruits, supple LUNGS: Diminished air entry. HEART: Regular rate and rhythm, normal S1 and S2 ABDOMEN: Soft, nontender, not distended, normoactive bowel sounds MUSCULOSKELETAL: LUE 4/5 strength. RUE 5/5 strength. LLE 4/5 strength. RLE 5/5 strength. LOWER EXTREMITIES: warm, well-perfused. No peripheral edema. NEUROLOGICAL: Normal speech. PSYCHIATRIC: Cooperative. Good eye contact. Appropriate mood and affect. SKIN: Warm, dry Laboratory Results - last 24 hr 06/01/18 06/01/18 06/01/18 07:30 07:30 07:30 WBC 9.6 RBC 4.22 Hgb 12.6 Hct 37.4 MCV 88.7 MCH 30.0 MCHC 33.8 RDW 15.4 Plt Count 149 MPV 7.9 Absolute Neuts (auto) 8.8 H Neutrophils % 91.7 H Neutrophils % (Manual) 97.9 H Band Neutrophils % 0.0 Lymphocytes % 5.0 L Lymphocytes % (Manual) 2.1 L D Monocytes % 3.3 L Monocytes % (Manual) 0 L D Eosinophils % 0.0 D Eosinophils % (Manual) 0.0 Basophils % 0.0 Basophils % (Manual) 0.0 Myelocytes % (Man) 0 Promyelocytes % (Man) 0 Blast Cells % (Manual) 0 Nucleated RBC % 0 Metamyelocytes 0 Hypochromia 0 Toxic Granulation 0 Dohle Bodies 0 Platelet Estimate Decreased Polychromasia 0 Poikilocytosis 0 Basophilic Stippling 0 Anisocytosis 0 Microcytosis 0 Macrocytosis 0 Spherocytes 0 Sickle Cells 0 Target Cells 0 Tear Drop Cells 0 Ovalocytes 0 Stomatocytes 0 Helmet Cells 0 Brower-Guy Bodies 0 Walton Rings 0 Nelson Cells 0 Acanthocytes (Spur) 0 Rouleaux 0 Fragmented RBCs 0 Schistocytes 0 PT with INR 31.30 H INR 2.63 H PTT (Actin FS) 28.9 Sodium 142 Potassium 3.9 Chloride 99 Carbon Dioxide 39 H Anion Gap 4 L BUN 25 H Creatinine 0.7 Creat Clearance w eGFR > 60 Random Glucose 164 H Calcium 8.5 Phosphorus 3.2 Magnesium 2.1 Total Bilirubin 0.9 AST 27 ALT 36 Alkaline Phosphatase 82 Total Protein 5.3 L Albumin 2.6 L Active Medications Generic Name Dose Route Start Last Admin Trade Name Freq PRN Reason Stop Dose Admin Albuterol Sulfate 1 amp 05/31/18 16:48 Ventolin 0.083% Nebulizer Soln - NEB Q4H PRN SHORT OF BREATH/WHEEZING Arformoterol Tartrate 1 amp 05/31/18 20:00 06/01/18 08:01 Brovana (Restricted To Pulmonology/Resp) - NEB 1 amp RBID JACKIE Administration Aspirin 81 mg 06/01/18 10:00 06/01/18 09:56 Asa - PO 81 mg DAILY JACKIE Administration Atenolol 50 mg 06/01/18 10:00 06/01/18 09:56 Tenormin - PO 50 mg DAILY JACKIE Administration Atorvastatin Calcium 20 mg 05/31/18 22:00 05/31/18 21:09 Lipitor - PO 20 mg HS JACKIE Administration Methylprednisolone Sodium Succinate 60 mg 06/01/18 18:00 Solu-Medrol - IVPUSH Q8H-IV JACKIE Rivaroxaban 20 mg 05/31/18 18:00 05/31/18 17:49 Xarelto - PO 20 mg DAILY@1800 JACKIE Administration Tamsulosin HCl 0.4 mg 06/01/18 08:30 06/01/18 09:56 Flomax - PO 0.4 mg DAILY@0830 JACKIE Administration Tiotropium [place] 2 puff 06/01/18 10:00 06/01/18 09:59 Spiriva Respimat IH 2 puff DAILY JACKIE Administration CBC, BMP 06/01/18 07:30 06/01/18 07:30 CXR: no acute pathology. L costophrenic angle not visualized in film. EKG: Sinus tachy @ [address] segment elevations or depressions noted. No S1Q3T3 noted on EKG. No signs of new ischemia when compared to EKG from 04/20/18. 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 Admitted for COPD exacerbation. #Acute on chronic respiratory failure secondary to COPD exacerbation * O2 sat dropped to 70s at home on O2 use and is currently on bipap * O2 t keeo o2 sat 88-92% * Duonebs standing and PRN, ventolin , spiriva , brovana * Given prednisone 60mg at home. Will give Solumedrol 60 mg IV q8h. Taper as pt improves * BIPAP as needed * no abx at this time #Elevated INR * may be secondary to xarelto * monitor #History of DVT * cont xarelto 20mg #HTN * cont bisoprolol 50mg #CAD * cont asa 81 mg, lipitor 20 mg #BPH * cont tamsulosin 0.4 mg #DVT ppx * on xarelto 20 mg * PPI for GI proph as pt on steroids #FEN * No standing fluids * WNL , Monitor electrolytes * NPO while on bipap. Cardiac diet when tolerable. #Dispo: admit to M/S Visit type - Emergency Visit Emergency Visit: Yes ED Registration Date: 05/31/18 Care time: The patient presented to the Emergency Department on the above date and was hospitalized for further evaluation of their emergent condition. - New Patient This patient is new to me today: Yes Date on this admission: 06/01/18 - Critical Care Critical Care patient: No - Discharge Referral Referred to [facility] Med P.C.: No
--- NOTE | 2018-06-01 15:50 | PN ---
Teaching Attending Note Name of Resident: Byron Vences ATTENDING PHYSICIAN STATEMENT I saw and evaluated the patient. I reviewed the resident's note and discussed the case with the resident. I agree with the resident's findings and plan as documented. SUBJECTIVE: Patient is feeling better. no fever or chills. OBJECTIVE: Vital Signs Temperature 97.9 F 06/01/18 10:00 Pulse Rate 98 H 06/01/18 14:00 Respiratory Rate 22 H 06/01/18 14:00 Blood Pressure 112/67 06/01/18 14:00 O2 Sat by Pulse Oximetry (%) 96 06/01/18 09:00 GENERAL: Awake, alert, and fully oriented, on bipap. HEAD: Normal with no signs of trauma. EYES: extraocular movements intact, sclera anicteric, conjunctiva clear. NECK: No bruits; LUNGS: better air entry bl today. HEART: Regular rate and rhythm, normal S1 and S2 ABDOMEN: Soft, nontender, not distended, normoactive bowel sounds MUSCULOSKELETAL: LUE 4/5 strength. RUE 5/5 strength. LLE 4/5 strength. RLE 5/5 strength. EXTREMITIES: warm, well-perfused. No peripheral edema. NEUROLOGICAL: Normal speech. PSYCHIATRIC: Cooperative. Good eye contact. Appropriate mood and affect. SKIN: Warm, dry, no skin lesions. CBCD WBC 9.6 K/mm3 (4.0-10.0) 06/01/18 07:30 RBC 4.22 M/mm3 (4.00-5.60) 06/01/18 07:30 Hgb 12.6 GM/dL (11.7-16.9) 06/01/18 07:30 Hct 37.4 % (35.4-49) 06/01/18 07:30 MCV 88.7 fl (80-96) 06/01/18 07:30 MCHC 33.8 g/dl (32.0-35.9) 06/01/18 07:30 RDW 15.4 % (11.9-15.9) 06/01/18 07:30 Plt Count 149 K/MM3 (134-434) 06/01/18 07:30 MPV 7.9 fl (7.5-11.1) 06/01/18 07:30 CMP Sodium 142 mmol/L (136-145) 06/01/18 07:30 Potassium 3.9 mmol/L (3.5-5.1) 06/01/18 07:30 Chloride 99 mmol/L (98-107) 06/01/18 07:30 Carbon Dioxide 39 mmol/L (21-32) H 06/01/18 07:30 Anion Gap 4 MMOL/L (8-16) L 06/01/18 07:30 BUN 25 mg/dL (7-18) H 06/01/18 07:30 Creatinine 0.7 mg/dL (0.55-1.3) 06/01/18 07:30 Creat Clearance w eGFR > 60 (>60) 06/01/18 07:30 Random Glucose 164 mg/dL (74-106) H 06/01/18 07:30 Calcium 8.5 mg/dL (8.5-10.1) 06/01/18 07:30 Total Bilirubin 0.9 mg/dL (0.2-1) 06/01/18 07:30 AST 27 U/L (15-37) 06/01/18 07:30 ALT 36 U/L (13-61) 06/01/18 07:30 Alkaline Phosphatase 82 U/L (45-117) 06/01/18 07:30 Total Protein 5.3 g/dl (6.4-8.2) L 06/01/18 07:30 Albumin 2.6 g/dl (3.4-5.0) L 06/01/18 07:30 CARDIAC ENZYMES Creatine Kinase 144 U/L (26-308) 05/31/18 07:00 Troponin I 0.02 ng/ml (0.00-0.05) 05/31/18 13:15 Current Medications Generic Name Dose Route Start Last Admin Trade Name Freq PRN Reason Stop Dose Admin Albuterol Sulfate 1 amp 05/31/18 16:48 Ventolin 0.083% Nebulizer Soln - NEB Q4H PRN SHORT OF BREATH/WHEEZING Arformoterol Tartrate 1 amp 05/31/18 20:00 06/01/18 08:01 Brovana (Restricted To Pulmonology/Resp) - NEB 1 amp RBID JACKIE Administration Aspirin 81 mg 06/01/18 10:00 06/01/18 09:56 Asa - PO 81 mg DAILY JACKIE Administration Atenolol 50 mg 06/01/18 10:00 06/01/18 09:56 Tenormin - PO 50 mg DAILY JACKIE Administration Atorvastatin Calcium 20 mg 05/31/18 22:00 05/31/18 21:09 Lipitor - PO 20 mg HS JACKIE Administration Methylprednisolone Sodium Succinate 60 mg 06/01/18 18:00 Solu-Medrol - IVPUSH Q8H-IV JACKIE Rivaroxaban 20 mg 05/31/18 18:00 05/31/18 17:49 Xarelto - PO 20 mg DAILY@1800 JACKIE Administration Tamsulosin HCl 0.4 mg 06/01/18 08:30 06/01/18 09:56 Flomax - PO 0.4 mg DAILY@0830 JACKIE Administration Tiotropium [place] 2 puff 06/01/18 10:00 06/01/18 09:59 Spiriva Respimat IH 2 puff DAILY JACKIE Administration Home Medications Medication Instructions Recorded Albuterol Sulfate Inhaler - 1 puff IH 05/31/18 [Ventolin Hfa Inhaler -] Atorvastatin Ca [Lipitor] 20 mg PO HS 05/31/18 Bisoprolol Fumarate [Zebeta (Nf) -] 5 mg PO DAILY 05/31/18 Budesonide/Formeterol Fumarate 1 inh PO BID 05/31/18 [SYMBICORT 160/4.5mcg -] Pantoprazole Sodium [Protonix] 40 mg PO TID 05/31/18 RX: Albuterol Sulfate 0.042% QID 05/31/18 [Ventolin 0.042% (Half-Strength) -] RX: Aspirin 81 mg PO DAILY 05/31/18 RX: Omeprazole 40 mg PO DAILY 05/31/18 RX: Prednisone 10 mg PO DAILY 05/31/18 Rivaroxaban [Xarelto -] 20 mg PO DAILY 05/31/18 Roflumilast [Daliresp -] 500 mcg PO DAILY 05/31/18 Tamsulosin HCl [Flomax] 0.4 mg PO DAILY 05/31/18 Tiotropium [place] [Spiriva] 1 inh PO DAILY 05/31/18 CXR: no acute pathology. L costophrenic angle not visualized in film. EKG: Sinus tachy @ [address] segment elevations or depressions noted. No S1Q3T3 noted on EKG. No signs of new ischemia when compared to EKG from 04/20/18. 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 Admitted for acute COPD exacerbation. # Acute on chronic hypercapneic respiratory failure secondary to COPD exacerbation on Bipap as needed, continue NC/ VM , patient is on for 24h per day. #Elevated INR due to xarelto, will continue to monitor # History of DVT on xarelto 20mg continue # HTN continue bisoprolol 5mg #CAD on asa 81 mg, lipitor 20 mg continue #BPH continue tamsulosin 0.4 mg DVT ppx: xarelto 20 mg
[2018-06-01] MEDS: RIVAROXABAN 20 MG TABLET PO SCH (17:08)
[2018-06-01] MEDS: ATORVASTATIN CA 20 MG TABLET (FP) PO SCH (21:18)
[2018-06-02] MEDS: methylPREDNISolone NA SUCC 40 MG/1 ML VIAL IVPUSH SCH ×2 (01:21→09:01)
[2018-06-02 07:49] LABS: HEMATOCRIT 34.9 % (35.4-49); HEMOGLOBIN 11.6 GM/dL (11.7-16.9); LYMPH % 4.1 % (8-40); MCH 29.2 pg (25.7-33.7); MCHC 33.1 g/dl (32.0-35.9); MEAN CELL VOLUME 88.2 fl (80-96); MONO % 3.7 % (3.8-10.2); NEUT % 92.2 % (42.8-82.8); PLATELET COUNT 142 K/MM3 (134-434); RBC 3.96 M/mm3 (4.00-5.60); RDW 15.1 % (11.9-15.9); WHITE BLOOD COUNT 9.2 K/mm3 (4.0-10.0)
[2018-06-02 08:09] LABS: INR 2.05 (0.83-1.09); PROTHROMBIN TIME (PATIENT) 24.4 SEC (9.7-13.0)
[2018-06-02 08:34] LABS: ANION GAP 4 MMOL/L (8-16); BLOOD UREA NITROGEN 37 mg/dL (7-18); CALCIUM 8.8 mg/dL (8.5-10.1); CHLORIDE 97 mmol/L (98-107); CO2 39 mmol/L (21-32); CREATININE 0.6 mg/dL (0.55-1.3); GLUCOSE,RANDOM 168 mg/dL (74-106); MAGNESIUM 2.3 mg/dL (1.8-2.4); PHOSPHOROUS 3.6 mg/dL (2.5-4.9); POTASSIUM 4.2 mmol/L (3.5-5.1); SODIUM 140 mmol/L (136-145)
[2018-06-02] MEDS: ARFORMOTEROL TARTRATE 15 MCG/2 ML VIAL NEB SCH ×2 (08:37→21:46)
--- NOTE | 2018-06-02 08:40 | PN ---
Physical Exam: SUBJECTIVE: Patient seen and examined at bedside- no acute events overnight; patient states his breathing is feeling better- was wearing BIPAP upon examination; denies any CP/SOB/N/V fevers or chills OBJECTIVE: Vital Signs Period Temp Pulse Resp BP Sys/Thurman Pulse Ox Last 24 Hr 97.9 F-98.7 F 70-108 20-22 112-127/67-77 96-98 GENERAL: The patient is awake, alert, and fully oriented, in no acute distress, wearing BIPAP. EYES: PEERLA; EOMI; no scleral icterus. NECK: no JVD;no lymphadenopathy. LUNGS:diminshed breath sounds at the bases; however, no rales, wheezes or rhonchi appreciated HEART: Regular rate and rhythm, S1, S2 without murmur, rub or gallop. ABDOMEN: Soft, nontender, nondistended, normoactive bowel sounds, no guarding, no rebound, no hepatosplenomegaly, no masses. EXTREMITIES: 2+ pulses, warm, well-perfused, no edema. PSYCH: Normal mood, normal affect. SKIN: Warm, dry, normal turgor, no rashes or lesions noted Laboratory Results - last 24 hr 06/01/18 06/01/18 06/01/18 07:30 07:30 07:30 WBC 9.6 RBC 4.22 Hgb 12.6 Hct 37.4 MCV 88.7 MCH 30.0 MCHC 33.8 RDW 15.4 Plt Count 149 MPV 7.9 Absolute Neuts (auto) 8.8 H Neutrophils % 91.7 H Neutrophils % (Manual) 97.9 H Band Neutrophils % 0.0 Lymphocytes % 5.0 L Lymphocytes % (Manual) 2.1 L D Monocytes % 3.3 L Monocytes % (Manual) 0 L D Eosinophils % 0.0 D Eosinophils % (Manual) 0.0 Basophils % 0.0 Basophils % (Manual) 0.0 Myelocytes % (Man) 0 Promyelocytes % (Man) 0 Blast Cells % (Manual) 0 Nucleated RBC % 0 Metamyelocytes 0 Hypochromia 0 Toxic Granulation 0 Dohle Bodies 0 Platelet Estimate Decreased Polychromasia 0 Poikilocytosis 0 Basophilic Stippling 0 Anisocytosis 0 Microcytosis 0 Macrocytosis 0 Spherocytes 0 Sickle Cells 0 Target Cells 0 Tear Drop Cells 0 Ovalocytes 0 Stomatocytes 0 Helmet Cells 0 Brower-Eleele Bodies 0 [place] Rings 0 [place] Cells 0 Acanthocytes (Spur) 0 Rouleaux 0 Fragmented RBCs 0 Schistocytes 0 PT with INR 31.30 H INR 2.63 H PTT (Actin FS) 28.9 Sodium 142 Potassium 3.9 Chloride 99 Carbon Dioxide 39 H Anion Gap 4 L BUN 25 H Creatinine 0.7 Creat Clearance w eGFR > 60 Random Glucose 164 H Calcium 8.5 Phosphorus 3.2 Magnesium 2.1 Total Bilirubin 0.9 AST 27 ALT 36 Alkaline Phosphatase 82 Total Protein 5.3 L Albumin 2.6 L 06/02/18 06/02/18 06/02/18 07:00 07:00 07:00 WBC 9.2 RBC 3.96 L Hgb 11.6 L Hct 34.9 L MCV 88.2 MCH 29.2 MCHC 33.1 RDW 15.1 Plt Count 142 MPV 8.0 Absolute Neuts (auto) 8.5 H Neutrophils % 92.2 H Neutrophils % (Manual) Band Neutrophils % Lymphocytes % 4.1 L Lymphocytes % (Manual) Monocytes % 3.7 L Monocytes % (Manual) Eosinophils % 0.0 Eosinophils % (Manual) Basophils % 0.0 Basophils % (Manual) Myelocytes % (Man) Promyelocytes % (Man) Blast Cells % (Manual) Nucleated RBC % 0 Metamyelocytes Hypochromia Toxic Granulation Dohle Bodies Platelet Estimate Polychromasia Poikilocytosis Basophilic Stippling Anisocytosis Microcytosis Macrocytosis Spherocytes Sickle Cells Target Cells Tear Drop Cells Ovalocytes Stomatocytes Helmet Cells Brower-Eleele Bodies [place] Rings [place] Cells Acanthocytes (Spur) Rouleaux Fragmented RBCs Schistocytes PT with INR 24.40 H INR 2.05 H PTT (Actin FS) Sodium 140 Potassium 4.2 Chloride 97 L Carbon Dioxide 39 H Anion Gap 4 L BUN 37 H Creatinine 0.6 Creat Clearance w eGFR > 60 Random Glucose 168 H Calcium 8.8 Phosphorus 3.6 Magnesium 2.3 Total Bilirubin AST ALT Alkaline Phosphatase Total Protein Albumin Active Medications Generic Name Dose Route Start Last Admin Trade Name Freq PRN Reason Stop Dose Admin Albuterol Sulfate 1 amp 05/31/18 16:48 Ventolin 0.083% Nebulizer Soln - NEB Q4H PRN SHORT OF BREATH/WHEEZING Arformoterol Tartrate 1 amp 05/31/18 20:00 06/01/18 20:16 Brovana (Restricted To Pulmonology/Resp) - NEB 1 amp RBID JACKIE Administration Aspirin 81 mg 06/01/18 10:00 06/01/18 09:56 Asa - PO 81 mg DAILY JACKIE Administration Atenolol 50 mg 06/01/18 10:00 06/01/18 09:56 Tenormin - PO 50 mg DAILY JACKIE Administration Atorvastatin Calcium 20 mg 05/31/18 22:00 06/01/18 21:18 Lipitor - PO 20 mg HS JACKIE Administration Methylprednisolone Sodium Succinate 60 mg 06/01/18 18:00 06/02/18 01:21 Solu-Medrol - IVPUSH 60 mg Q8H-IV JACKIE Administration Rivaroxaban 20 mg 05/31/18 18:00 06/01/18 17:08 Xarelto - PO 20 mg DAILY@1800 JACKIE Administration Tamsulosin HCl 0.4 mg 06/01/18 08:30 06/01/18 09:56 Flomax - PO 0.4 mg DAILY@0830 JACKIE Administration Tiotropium [place] 2 puff 06/01/18 10:00 06/01/18 09:59 Spiriva Respimat IH 2 puff DAILY JACKIE Administration ASSESSMENT/PLAN: 78 y/o Ukrainian speaking M w/PMH of HTN, prostate ca, 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 Admitted for COPD exacerbation. #Acute on chronic respiratory failure secondary to COPD exacerbation * Duonebs standing and PRN, ventolin , spiriva , brovana * solumedrol 40 Q8H * BIPAP as needed * no abx at this time * repeat CXR done this morning show bulous changes, with possible infiltrate- hyperinflated lungs with slight increase in right interstitial markings #Elevated INR * may be secondary to xarelto * this Am- 2.05 #History of DVT * cont xarelto 20mg #HTN * cont atenolol 50mg #CAD * cont asa 81 mg, lipitor 20 mg #BPH * cont tamsulosin 0.4 mg #DVT ppx * on xarelto 20 mg * PPI for GI proph as pt on steroids #FEN * No standing fluids * WNL , Monitor electrolytes Problem List - Problems (1) COPD exacerbation Code(s): J44.1 - CHRONIC OBSTRUCTIVE PULMONARY DISEASE W (ACUTE) EXACERBATION (2) Acute on chronic respiratory failure with hypercapnia Code(s): J96.22 - ACUTE AND CHRONIC RESPIRATORY FAILURE WITH HYPERCAPNIA (3) DMII (diabetes mellitus, type 2) Code(s): E11.9 - TYPE 2 DIABETES MELLITUS WITHOUT COMPLICATIONS (4) DVT prophylaxis Code(s): SQE2666 - Visit type - Emergency Visit Emergency Visit: Yes ED Registration Date: 05/31/18 Care time: The patient presented to the Emergency Department on the above date and was hospitalized for further evaluation of their emergent condition. - New Patient This patient is new to me today: No - Critical Care Critical Care patient: No
[2018-06-02] MEDS: TAMSULOSIN HCL 0.4 MG CAP PO SCH (08:54)
[2018-06-02] MEDS: ATENOLOL 50 MG TABLET (FP) PO SCH (09:00)
[2018-06-02] MEDS: ASPIRIN 81 MG CHEWABLE TABLETS PO SCH (09:00)
[2018-06-02] MEDS: TIOTROPIUM BROMIDE 2.5 MCG (SPIRIVA) RESPIMAT INHALER IH SCH (09:05)
[2018-06-02 12:08] LABS: ANISOCYTOSIS 1+; MACROCYTOSIS 0; OVALOCYTE 1+; PLATELET ESTIMATE NORMAL
--- NOTE | 2018-06-02 14:39 | PN ---
Progress Note (short form) - Note Progress Note: PULMONARY VSS/AFEBRILE Gen: NAD at rest Heart: RRR Lung: distant breath sounds Abd: soft, nontender Ext: no edema Labs/meds/notes/images reviewed A/P Acute on Chronic Hypoxic and Hypercapneic Respiratory Failure Acute COPD Exacerbation Pulmonary HTN h/o DVT h/o CVA h/o Prostate Ca - continue medrol q8h - inhaled bronchodilators - O2 to keep SpO2 >90% - BiPAP as needed to assist in work of breathing - continue anticoagulation Glenn MADISON MD
--- NOTE | 2018-06-02 15:58 | PN ---
Teaching Attending Note Name of Resident: Jenelle Brink ATTENDING PHYSICIAN STATEMENT I saw and evaluated the patient. I reviewed the resident's note and discussed the case with the resident. I agree with the resident's findings and plan as documented. SUBJECTIVE: Patient is feeling better with no acute distress. Patient is on bipap at home. OBJECTIVE: Vital Signs Temperature 98 F 06/02/18 14:16 Pulse Rate 69 06/02/18 14:16 Respiratory Rate 22 H 06/02/18 14:16 Blood Pressure 138/85 06/02/18 14:16 O2 Sat by Pulse Oximetry (%) 97 06/02/18 08:43 GENERAL: Awake, alert, and fully oriented, on bipap. HEAD: Normal with no signs of trauma. EYES: extraocular movements intact, sclera anicteric, conjunctiva clear. NECK: No bruits; LUNGS: Diminished air entry bl on VM . HEART: Regular rate and rhythm, normal S1 and S2 ABDOMEN: Soft, nontender, not distended, normoactive bowel sounds MUSCULOSKELETAL: LUE 4/5 strength. RUE 5/5 strength. LLE 4/5 strength. RLE 5/5 strength. EXTREMITIES: warm, well-perfused. No peripheral edema. NEUROLOGICAL: Normal speech. PSYCHIATRIC: Cooperative. Good eye contact. Appropriate mood and affect. SKIN: Warm, dry. CBCD WBC 9.2 K/mm3 (4.0-10.0) 06/02/18 07:00 RBC 3.96 M/mm3 (4.00-5.60) L 06/02/18 07:00 Hgb 11.6 GM/dL (11.7-16.9) L 06/02/18 07:00 Hct 34.9 % (35.4-49) L 06/02/18 07:00 MCV 88.2 fl (80-96) 06/02/18 07:00 MCHC 33.1 g/dl (32.0-35.9) 06/02/18 07:00 RDW 15.1 % (11.9-15.9) 06/02/18 07:00 Plt Count 142 K/MM3 (134-434) 06/02/18 07:00 MPV 8.0 fl (7.5-11.1) 06/02/18 07:00 CMP Sodium 140 mmol/L (136-145) 06/02/18 07:00 Potassium 4.2 mmol/L (3.5-5.1) 06/02/18 07:00 Chloride 97 mmol/L (98-107) L 06/02/18 07:00 Carbon Dioxide 39 mmol/L (21-32) H 06/02/18 07:00 Anion Gap 4 MMOL/L (8-16) L 06/02/18 07:00 BUN 37 mg/dL (7-18) H 06/02/18 07:00 Creatinine 0.6 mg/dL (0.55-1.3) 06/02/18 07:00 Creat Clearance w eGFR > 60 (>60) 06/02/18 07:00 Random Glucose 168 mg/dL (74-106) H 06/02/18 07:00 Calcium 8.8 mg/dL (8.5-10.1) 06/02/18 07:00 Total Bilirubin 0.9 mg/dL (0.2-1) 06/01/18 07:30 AST 27 U/L (15-37) 06/01/18 07:30 ALT 36 U/L (13-61) 06/01/18 07:30 Alkaline Phosphatase 82 U/L (45-117) 06/01/18 07:30 Total Protein 5.3 g/dl (6.4-8.2) L 06/01/18 07:30 Albumin 2.6 g/dl (3.4-5.0) L 06/01/18 07:30 CARDIAC ENZYMES Creatine Kinase 144 U/L (26-308) 05/31/18 07:00 Troponin I 0.02 ng/ml (0.00-0.05) 05/31/18 13:15 Current Medications Generic Name Dose Route Start Last Admin Trade Name Freq PRN Reason Stop Dose Admin Albuterol Sulfate 1 amp 05/31/18 16:48 Ventolin 0.083% Nebulizer Soln - NEB Q4H PRN SHORT OF BREATH/WHEEZING Arformoterol Tartrate 1 amp 05/31/18 20:00 06/02/18 08:37 Brovana (Restricted To Pulmonology/Resp) - NEB 1 amp RBID JACKIE Administration Aspirin 81 mg 06/01/18 10:00 06/02/18 09:00 Asa - PO 81 mg DAILY JACKIE Administration Atenolol 50 mg 06/01/18 10:00 06/02/18 09:00 Tenormin - PO 50 mg DAILY JACKIE Administration Atorvastatin Calcium 20 mg 05/31/18 22:00 06/01/18 21:18 Lipitor - PO 20 mg HS JACKIE Administration Methylprednisolone Sodium Succinate 40 mg 06/02/18 18:00 Solu-Medrol - IVPUSH Q8H-IV JACKIE Rivaroxaban 20 mg 05/31/18 18:00 06/01/18 17:08 Xarelto - PO 20 mg DAILY@1800 JACKIE Administration Tamsulosin HCl 0.4 mg 06/01/18 08:30 06/02/18 08:54 Flomax - PO 0.4 mg DAILY@0830 JACKIE Administration Tiotropium [place] 2 puff 06/01/18 10:00 06/02/18 09:05 Spiriva Respimat IH 2 puff DAILY JACKIE Administration Home Medications Medication Instructions Recorded Albuterol Sulfate 0.042% [Ventolin QID 05/31/18 0.042% (Half-Strength) -] Albuterol Sulfate Inhaler - 1 puff IH 05/31/18 [Ventolin HFA Inhaler -] Aspirin 81 mg PO DAILY 05/31/18 Atorvastatin Ca [Lipitor] 20 mg PO HS 05/31/18 Bisoprolol Fumarate [Zebeta (Nf) -] 5 mg PO DAILY 05/31/18 Budesonide/Formeterol Fumarate 1 inh PO BID 05/31/18 [SYMBICORT 160/4.5mcg -] Omeprazole 40 mg PO DAILY 05/31/18 Pantoprazole Sodium [Protonix] 40 mg PO TID 05/31/18 Rivaroxaban [Xarelto -] 20 mg PO DAILY 05/31/18 Roflumilast [Daliresp -] 500 mcg PO DAILY 05/31/18 Tamsulosin HCl [Flomax -] 0.4 mg PO DAILY 05/31/18 Tiotropium [place] [Spiriva] 1 inh PO DAILY 05/31/18 predniSONE [Deltasone -] See Taper PO ASDIR #32 tab 06/02/18 CXR: no acute pathology. L costophrenic angle not visualized in film. EKG: Sinus tachy @ [address] segment elevations or depressions noted. No S1Q3T3 noted on EKG. No signs of new ischemia when compared to EKG from 04/20/18. 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 Admitted for acute COPD exacerbation. # Acute on chronic hypoxic, hypercapneic respiratory failure secondary to COPD exacerbation on Bipap at home continue. Discussed with najma Pina to discharge the patient home, continue Bipap and oxygen and trilogy machine at home. # History of DVT on xarelto 20mg continue # HTN continue bisoprolol 5mg #CAD on asa 81 mg, lipitor 20 mg continue #BPH continue tamsulosin 0.4 mg DVT ppx: xarelto 20 mg discharge patient home.
--- NOTE | 2018-06-02 16:25 | DS ---
Physical Exam: SUBJECTIVE: Patient seen and examined at bedside- no acute events overnight; patient states that his breathing is improving and he feels better. denies any CP/fevers or chills OBJECTIVE: Vital Signs Period Temp Pulse Resp BP Sys/Thurman Pulse Ox Last 24 Hr 98 F-98.7 F 69-84 20-22 118-138/70-85 97-98 PHYSICAL EXAM GENERAL: The patient is awake, alert, and fully oriented, wearing BIPAP. EYES: PEERLA: EOMI; no scleral icterus . NECK: no JVD; no lymphadenopathy. LUNGS: diminished breath sounds at the bases however; no rales, rhonchi or wheezing. HEART: Regular rate and rhythm, S1, S2 without murmur, rub or gallop. ABDOMEN: Soft, nontender, nondistended, normoactive bowel sounds, no guarding, no rebound, no hepatosplenomegaly, no masses. EXTREMITIES: 2+ pulses, warm, well-perfused, no edema. PSYCH: Normal mood, normal affect. SKIN: Warm, dry, normal turgor, no rashes or lesions noted. LABS Laboratory Results - last 24 hr 06/02/18 06/02/18 06/02/18 07:00 07:00 07:00 WBC 9.2 RBC 3.96 L Hgb 11.6 L Hct 34.9 L MCV 88.2 MCH 29.2 MCHC 33.1 RDW 15.1 Plt Count 142 MPV 8.0 Absolute Neuts (auto) 8.5 H Neutrophils % 92.2 H Neutrophils % (Manual) 92.9 H Band Neutrophils % 0.0 Lymphocytes % 4.1 L Lymphocytes % (Manual) 2.0 L Monocytes % 3.7 L Monocytes % (Manual) 5 D Eosinophils % 0.0 Eosinophils % (Manual) 0.0 Basophils % 0.0 Basophils % (Manual) 0.0 Myelocytes % (Man) 0 Promyelocytes % (Man) 0 Blast Cells % (Manual) 0 Nucleated RBC % 0 Metamyelocytes 0 Hypochromia 0 Platelet Estimate Normal Polychromasia 0 Poikilocytosis 1+ Anisocytosis 1+ Microcytosis 1+ Macrocytosis 0 Ovalocytes 1+ PT with INR 24.40 H INR 2.05 H Sodium 140 Potassium 4.2 Chloride 97 L Carbon Dioxide 39 H Anion Gap 4 L BUN 37 H Creatinine 0.6 Creat Clearance w eGFR > 60 Random Glucose 168 H Calcium 8.8 Phosphorus 3.6 Magnesium 2.3 imaging: Chest XRAY: bullous changes, possible infiltrate, hyperinflated lungs, slight increase in right interstitial markings Chest CT: severe COPD changes with hyperinflation herniation, bullous emphysema , minimal pericardial effusion HOSPITAL COURSE: Date of Admission:05/31/18 78 y/o male with PMH of HTN, prostate ca, CVA (5 years ago), DVT (on xarelto), COPD on home o2 2L NC presents to the ED with progressively worsening shortness of breath over the last 3-4 days admitted for COPD exacerbation. daughter was with pt and noticed his O2 saturation was 71% on 2L NC O2 and in combination with his progressively worsening SOB prompted her to bring pt to the ER. She gave him atrovent, ventolin, and 60 mg of prednisone at home before bringing the pt the ER. The patient was placed on bipap by EMS. He was started on IV solumerol 60qh in addition to using duonebs standing. chest CT and xray result noted above- given that patient was not febrile nor did he have a white count antibiotics were not started. patient was seen by pulmonary everyday that he was here. His seroids were decreased; his breathing improved and he was stable for discharge. he was discharged home on a 12 day prednisone taper and with strict instructions to follow up with the pulmonolgist within one week Date of Discharge: 06/02/18 Minutes to complete discharge: 39 Discharge Summary Reason For Visit: ACUTE EXACERBATION OF CHRONIC COPD Current Active Problems COPD exacerbation (Acute) Condition: Stable - Instructions Diet, Activity, Other Instructions: You came to the hospital with worsening shortness of breath likely due to an exacerbation of your COPD. We put you on steroids, did a chest CT scan and your symptoms improved. Please resume all of your home medications in addition: we will be sending you home on a taper dose of prednisone please follow: starting tomorrow: (06/03/18) 40mg day 2: 40mg day 3: 35mg day 4: 35 mg day 5:30 mg day 6: 30mg day 7: 25 mg day 8: 25 mg day 9: 20 mg day 10: 15mg day 11: 10 mg Please follow up with your primary care physician, Dr. Seay within one week Please follow up with Dr. Borja, your secondary education professor within one week *if you begin to experience worsening shortness of breath, chest pains, fevers, please return to the emergency room immediately Referrals: Gab Seay [Other] David Borja MD, MD [Staff Physician] - 1 Week Disposition: HOME - Home Medications Comprehensive Discharge Medication List: Ambulatory Orders Albuterol Sulfate 0.042% [Ventolin 0.042% (Half-Strength) -] QID 05/31/18 Albuterol Sulfate Inhaler - [Ventolin HFA Inhaler -] 1 puff IH 05/31/18 Aspirin 81 mg PO DAILY 05/31/18 Atorvastatin Ca [Lipitor] 20 mg PO HS 05/31/18 Bisoprolol Fumarate [Zebeta (Nf) -] 5 mg PO DAILY 05/31/18 Budesonide/Formeterol Fumarate [SYMBICORT 160/4.5mcg -] 1 inh PO BID 05/31/18 Omeprazole 40 mg PO DAILY 05/31/18 Pantoprazole Sodium [Protonix] 40 mg PO TID 05/31/18 Rivaroxaban [Xarelto -] 20 mg PO DAILY 05/31/18 Roflumilast [Daliresp -] 500 mcg PO DAILY 05/31/18 Tamsulosin HCl [Flomax -] 0.4 mg PO DAILY 05/31/18 Tiotropium [place] [Spiriva] 1 inh PO DAILY 05/31/18 predniSONE [Deltasone -] See Taper PO ASDIR #32 tab 06/02/18 Problem List - Problems (1) COPD exacerbation Code(s): J44.1 - CHRONIC OBSTRUCTIVE PULMONARY DISEASE W (ACUTE) EXACERBATION (2) Acute on chronic respiratory failure with hypercapnia Code(s): J96.22 - ACUTE AND CHRONIC RESPIRATORY FAILURE WITH HYPERCAPNIA (3) DMII (diabetes mellitus, type 2) Code(s): E11.9 - TYPE 2 DIABETES MELLITUS WITHOUT COMPLICATIONS (4) DVT prophylaxis Code(s): [id number] - This patient is new to me today: Yes Date on this admission: 06/02/18 Emergency Visit: Yes ED Registration Date: 05/31/18 Care time: The patient presented to the Emergency Department on the above date and was hospitalized for further evaluation of their emergent condition. Critical Care patient: No - Discharge Referral Referred to [facility] No
[2018-06-02] MEDS ORDERED: methylPREDNISolone NA SUCC 40 MG/1 ML VIAL IVPUSH SCH (18:00)
[2018-06-02] MEDS: RIVAROXABAN 20 MG TABLET PO SCH (18:21)
[2018-06-02 18:50] VITALS: BP 147/66; PULSE 85; TEMP 98.8
== END 2018-06-02 21:47 | disposition home or self-care (01) | DRG 189 ==
LOC: JER 07:03 → JERBED 11:22 → J6S 12:21
PROVIDERS: ADMIT Internal Medicine; ATTEND Internal Medicine
PROC: 5A09457 Assistance with Respiratory Ventilation, 24-96 Consecutive Hours, Continuous Positive Airway Pressure (ICD-10-PCS; principal; 2018-05-31)
DX: J96.21 Acute and chronic respiratory failure with hypoxia (principal); J44.1 Chronic obstructive pulmonary disease with (acute) exacerbation; I69.354 Hemiplegia and hemiparesis following cerebral infarction affecting left non-dominant side; D68.8 Other specified coagulation defects; J96.22 Acute and chronic respiratory failure with hypercapnia; I10 Essential (primary) hypertension; I27.20 Pulmonary hypertension, unspecified; I25.10 Atherosclerotic heart disease of native coronary artery without angina pectoris; Z85.46 Personal history of malignant neoplasm of prostate; Z86.718 Personal history of other venous thrombosis and embolism; Z79.01 Long term (current) use of anticoagulants; Z99.81 Dependence on supplemental oxygen; Z87.891 Personal history of nicotine dependence
CPT/HCPCS: 36415; 36600; 71045-TC-FY; 71250-TC; 80048; 80053; 82550; 82803; 83735; 84100; 84484; 85025; 85610; 85730; 87040; 87804; 93005; 93010; 93306-TC; 94640; 94660; 99285-25

== ENCOUNTER 2018-06-18 01:28 | Inpatient (IN) | payer OTHER ==
[2018-06-18] MEDS ORDERED: FUROSEMIDE 40 MG/4 ML INJECTABLE VIAL ONE (03:22)
[2018-06-18] MEDS ORDERED: SODIUM CHLORIDE 0.9% 500 ML INFUS.BAG IV ONE (03:27)
[2018-06-18] MEDS ORDERED: methylPREDNISolone NA SUCC 125 MG/2 ML VIAL IVPUSH ONE (03:42)
[2018-06-18] MEDS ORDERED: ALBUTEROL SO4 2.5/IPRATROPIUM 0.5 INH SOL 3 ML VIAL.NEB. NEB ONE ×2 (03:42→03:59)
--- NOTE | 2018-06-18 03:42 | PDOC ---
Attending Attestation - Resident Resident Name: Kenyetta Holman - ED Attending Attestation I have performed the following: I have examined & evaluated the patient, The case was reviewed & discussed with the resident, I agree w/resident's findings & plan - HPI HPI: 06/18/18 03:50 Pt comes with COPD exacerbation. - Physicial Exam PE: 06/18/18 03:50 Agree with resident exam. Pt has bilat dry legs; no pitting edema. Pt is tachycardic. He is dry; daughter states that he is eating but he is not eating much. - Medical Decision Making 06/18/18 03:51 Pt placed on bipap and he is vastly imrproved. 06/18/18 05:38 Influenza negative 06/18/18 07:11 Pt will be admitted and treated for COPD exacerbation
--- NOTE | 2018-06-18 03:47 | PDOC ---
History of Present Illness - General Chief Complaint: Shortness of Breath Stated Complaint: DIFFICULTY BREATHING Time Seen by Provider: 06/18/18 03:12 - History of Present Illness Initial Comments: 06/18/18 03:45 Patient is a 78 y/o male with a history of COPD ( on 2 L O2), prostate CA, CVA ( 5 years ago residual L sided weakness) and DVT on xarelto who presents for SOB. Per patients daughter patient was recently discharged from [facility] on for SOB. At [facility] he was " on a breathing machine" for most of his admission. He became SOB today and his daughter gave him more prednisone but his symptoms did not get better. She also tried to put the CPAP on him but he was resistant. Patient follows up with Dr. Borja for pulmonology. Daughter states patient has not had fevers, chills, cough, sputum, or pain with urination. Patient is FULL CODE. Patient was intubated in April at [place] and that is the only time he has been intubated. Upon examination patient had accessory muscle use and saturation of 82%. Patient placed on BIPAP. 06/18/18 05:20 Patients Saturation ~95% on Bipap, ABG at patients baseline, CXR unremarkable Past History - Past Medical History Allergies/Adverse Reactions: Allergies Allergy/AdvReac Type Severity Reaction Status Date / Time No Known Allergies Allergy Verified 06/18/18 02:08 Home Medications: Ambulatory Orders Albuterol Sulfate 0.042% [Ventolin 0.042% (Half-Strength) -] 1 amp QID 05/31/18 Albuterol Sulfate Inhaler - [Ventolin HFA Inhaler -] 1 puff IH DAILY 05/31/18 Aspirin 81 mg PO DAILY 05/31/18 Atorvastatin Ca [Lipitor] 20 mg PO HS 05/31/18 Bisoprolol Fumarate [Zebeta (Nf) -] 5 mg PO DAILY 05/31/18 Budesonide/Formeterol Fumarate [SYMBICORT 160/4.5mcg -] 1 inh PO BID 05/31/18 Omeprazole 40 mg PO DAILY 05/31/18 Pantoprazole Sodium [Protonix] 40 mg PO TID 05/31/18 Rivaroxaban [Xarelto -] 20 mg PO DAILY 05/31/18 Roflumilast [Daliresp -] 500 mcg PO DAILY 05/31/18 Tamsulosin HCl [Flomax -] 0.4 mg PO DAILY 05/31/18 Tiotropium [place] [Spiriva] 1 inh PO DAILY 05/31/18 predniSONE [Deltasone -] See Taper PO ASDIR #32 tab 06/02/18 Anemia: No Asthma: Yes (copd) Cancer: Yes (PROSTATE) Cardiac Disorders: Yes CVA: Yes COPD: Yes CHF: No Dementia: No Diabetes: Yes GI Disorders: No Disorders: Yes (Prostate CA) HTN: Yes Hypercholesterolemia: No Liver Disease: No Seizures: No Thyroid Disease: No - Surgical History Abdominal Surgery: No Appendectomy: No Cardiac Surgery: No Cholecystectomy: No Lung Surgery: No Neurologic Surgery: No - Immunization History Immunization Up to Date: Yes - Suicide/Smoking/Psychosocial Hx Smoking History: Never smoked Have you smoked in the past 12 months: No Number of Cigarettes Smoked Daily: 0 If you are a former smoker, when did you quit?: 0 Information on smoking cessation initiated: No Hx Alcohol Use: No Drug/Substance Use Hx: No Substance Use Type: None Hx Substance Use Treatment: No Review of Systems - Review of Systems Comments:: 06/18/18 03:51 per daughter Constitutional: No: Chills, Diaphoresis, Fever Respiratory: Yes: Shortness of Breath, Wheezing. No: Cough ABD/GI: No: Constipated, Diarrhea, Nausea, Vomiting : No: Burning Neurological: No: Headache, Numbness *Physical Exam - Vital Signs Last Vital Signs Temp Pulse Resp BP Pulse Ox 97.8 F 95 H 28 H 116/88 100 06/18/18 02:08 06/18/18 02:08 06/18/18 02:08 06/18/18 02:08 06/18/18 03:30 - Physical Exam Comments: 06/18/18 03:51 GENERAL: awake, distressed HEART: RRR LUNGS: accessory muscle use, mild crackles at bases ABD: soft, non tender, non distended EXTREMITIES: no pitting edema SKIN: no rashes or lesions noted Moderate Sedation - Procedure Monitoring Vital Signs: Procedure Monitoring Vital Signs Temperature 97.8 F 06/18/18 02:08 Pulse Rate 95 H 06/18/18 02:08 Respiratory Rate 28 H 06/18/18 02:08 Blood Pressure 116/88 06/18/18 02:08 O2 Sat by Pulse Oximetry (%) 100 06/18/18 03:30 ED Treatment Course - LABORATORY CBC & Chemistry Diagram: 06/18/18 03:51 06/18/18 04:30 - RADIOLOGY Radiology Studies Ordered: Category Date Time Status CHEST X-RAY PORTABLE* [RAD] Routine Radiology 06/19/18 06:00 Ordered - Medications Given in the ED: ED Medications Discontinued Medications Generic Name Dose Route Start Last Admin Trade Name Freq PRN Reason Stop Dose Admin Sodium Chloride 500 ml 06/18/18 03:27 06/18/18 03:28 Normal Saline - IV 06/18/18 03:28 500 ml ONCE ONE Administration *DC/Admit/Observation/Transfer Diagnosis at time of Disposition: COPD exacerbation - Discharge Dispostion Decision to Admit order: Yes - Referrals - Patient Instructions - Post Discharge Activity
[2018-06-18] MEDS ORDERED: AZITHROMYCIN IVPB 500 MG in DEXTROSE 5%-WATER - 250 ML IVPB ONE (03:52)
[2018-06-18] MEDS ORDERED: CEFTRIAXONE 1 GM in DEXTROSE 5%-WATER - 50 ML IVPB ONE (03:52)
[2018-06-18 03:57] LABS: BASO % 0.2 % (0-2.0); EOS % 0.2 % (0-4.5); HEMATOCRIT 36.6 % (35.4-49); HEMOGLOBIN 12.5 GM/dL (11.7-16.9); LYMPH % 4.4 % (8-40); MCH 30.3 pg (25.7-33.7); MCHC 34.1 g/dl (32.0-35.9); MEAN CELL VOLUME 88.7 fl (80-96); MEAN PLT VOLUME 8.2 fl (7.5-11.1); MONO % 4.9 % (3.8-10.2); NEUT % 90.3 % (42.8-82.8); PLATELET COUNT 164 K/MM3 (134-434); RBC 4.13 M/mm3 (4.00-5.60); RDW 15.8 % (11.9-15.9); WHITE BLOOD COUNT 10.4 K/mm3 (4.0-10.0)
[2018-06-18] MEDS ORDERED: AZITHROMYCIN IVPB 500 MG/250 ML BAG IVPB ONE (03:59)
[2018-06-18] MEDS ORDERED: methylPREDNISolone NA SUCC 125 MG/2 ML VIAL ONE (04:00)
[2018-06-18] MEDS ORDERED: CEFTRIAXONE 1 GM/50 ML BAG ONE (04:00)
[2018-06-18 04:46] LABS: ALLENS TEST POSITIVE; ARTERIAL BLD GAS O2 SATURATION 98.8 % (95-98); ARTERIAL BLOOD GAS BASE EXCESS 10.5 meq/l (-2-2); ARTERIAL BLOOD GAS pH 7.38 (7.35-7.45)
[2018-06-18 04:47] LABS: ARTERIAL BLOOD GAS PCO2 64.9 mmHg (35-45); ARTERIAL BLOOD GAS PO2 133 mmHg (80-105)
[2018-06-18 04:48] LABS: CARBOXYHEMOGLOBIN 0.7 % (0-2)
[2018-06-18 05:10] LABS: ALBUMIN 2.6 g/dl (3.4-5.0); ALK PHOS 97 U/L (45-117); ANION GAP 2 MMOL/L (8-16); BILIRUBIN,TOTAL 0.9 mg/dL (0.2-1); BLOOD UREA NITROGEN 20 mg/dL (7-18); CALCIUM 8.2 mg/dL (8.5-10.1); CHLORIDE 98 mmol/L (98-107); CO2 39 mmol/L (21-32); CREATININE 0.5 mg/dL (0.55-1.3); GLUCOSE,RANDOM 232 mg/dL (74-106); POTASSIUM 4.1 mmol/L (3.5-5.1); SGOT/AST 27 U/L (15-37); SGPT/ALT 44 U/L (13-61); SODIUM 140 mmol/L (136-145); TOT PROT 5.2 g/dl (6.4-8.2)
--- NOTE | 2018-06-18 05:41 | PN ---
Teaching Attending Note Name of Resident: Yuliya Ware ATTENDING PHYSICIAN STATEMENT I saw and evaluated the patient. I reviewed the resident's note and discussed the case with the resident. I agree with the resident's findings and plan as documented. SUBJECTIVE: Patient is a 78 year old man with a PMH of COPD ( on 2 L O2), steroid-induced DM , prostate CA, CVA ( 5 years ago residual L sided weakness), CAD, HTN, hyperlipidemia, chronic hypoxic and hypercapnic respiratory failure and DVT on xarelto who presents for SOB. Per patients daughter patient was recently discharged from [facility] on for SOB. At [facility] he was " on a breathing machine" for most of his admission. He became SOB today and his daughter gave him more prednisone but his symptoms did not get better. She also tried to put the CPAP on him but he was resistant. Patient follows up with Dr. Borja for pulmonology. Daughter states patient has not had fevers, chills, cough, sputum, or pain with urination. Patient is FULL CODE. Patient was intubated in April at [facility] and that is the only time he has been intubated. Upon arrival in the ER patient had accessory muscle use and saturation of 82%. Patient was placed on BIPAP. There is no history of fever, chills, chest pain, abdominal pain, dysuria, frequency or diarrhea. Denies cough. Says he is feeling better since being on BIPAP in the ER. OBJECTIVE: Alert and on Bipap Vital Signs Period Temp Pulse Resp BP Sys/Thurman Pulse Ox Last 24 Hr 97.8 F-98.7 F 95-96 22-28 116-143/83-88 94-100 HEENT: No Jaundice, eye redness or discharge, arevalo facies, PERRLA, EOMI. Normocephalic, atraumatic. External ears are normal and hearing is grossly intact. No nasal discharge. Neck: Supple, nontender. No palpable adenopathy or thyromegaly. No JVD Chest: Good effort. Clear to auscultation and percussion. Heart: Regular. No S3, rub or murmur Abdomen: Not distended, soft, nontender and no HSM. No rebound or guarding. Normal bowel sounds. Ext: Peripheral pulses intact. No leg edema. Skin: Warm and dry. No petechiae, rash or ecchymosis. Neuro: Alert. Oriented x3. CN 2-12 grossly intact. Sensation grossly intact in all four extremities and DTR are symmetric. Psych: Appropriate mood and affect. Good insight. Home Medications Medication Instructions Recorded Albuterol Sulfate 0.042% [Ventolin QID 05/31/18 0.042% (Half-Strength) -] Albuterol Sulfate Inhaler - 1 puff IH 05/31/18 [Ventolin HFA Inhaler -] Aspirin 81 mg PO DAILY 05/31/18 Atorvastatin Ca [Lipitor] 20 mg PO HS 05/31/18 Bisoprolol Fumarate [Zebeta (Nf) -] 5 mg PO DAILY 05/31/18 Budesonide/Formeterol Fumarate 1 inh PO BID 05/31/18 [SYMBICORT 160/4.5mcg -] Omeprazole 40 mg PO DAILY 05/31/18 Pantoprazole Sodium [Protonix] 40 mg PO TID 05/31/18 Rivaroxaban [Xarelto -] 20 mg PO DAILY 05/31/18 Roflumilast [Daliresp -] 500 mcg PO DAILY 05/31/18 Tamsulosin HCl [Flomax -] 0.4 mg PO DAILY 05/31/18 Tiotropium [place] [Spiriva] 1 inh PO DAILY 05/31/18 predniSONE [Deltasone -] See Taper PO ASDIR #32 tab 06/02/18 Abnormal Lab Results 06/18/18 06/18/18 06/18/18 03:51 04:30 04:40 WBC 10.4 H Absolute Neuts (auto) 9.4 H Neutrophils % 90.3 H Lymphocytes % 4.4 L ABG pCO2 at Pt Temp 64.9 H ABG pO2 at Pt Temp 133 H ABG HCO3 37.6 H ABG O2 Sat (Measured) 98.8 H ABG Base Excess 10.5 H Carbon Dioxide 39 H Anion Gap 2 L BUN 20 H Creatinine 0.5 L Random Glucose 232 H Calcium 8.2 L Total Protein 5.2 L Albumin 2.6 L ASSESSMENT AND PLAN: 1. COPD Exacerbation - No obvious precipitating factor. No acute infiltrate or abnormality on CXR. Flu swab negative. EKG is NSR with no significant ST-T wave changes. Being treated with duoneb, solumedrol, MgSO4, rocephin and azithromycin. Consult Pulmonary. 2. Hypoalbuminemia - Possibly due to combined effects of malnutrition and inflammation associated with comorbid chronic conditions. Will ensure adequate dietary protein intake and also consult diesel truck driver. 3. Hypertension - Restart outpatient antihypertensive drugs and revise regimen to ensure smooth [id number] good BP control. Nonpharmacologic measures to control hypertension like weight loss, salt restriction and exercise discussed. 4. Steroid-induced DM For now, we will hold the home diabetes drugs and implement sliding scale insulin regimen. Provide comprehensive diabetes care with patient teaching and counseling about the importance of adherence to prescribed diabetes regimen, euglycemia, eye care and foot care. 5. DVT prophylaxis - On Xarelto for DVT 6. Advance directives - Full cod
[2018-06-18] MEDS ORDERED: ALBUTEROL SO4 0.083% IH SOL 2.5 MG/3 ML VIAL.NEB. NEB PRN (06:25)
[2018-06-18] MEDS ORDERED: CEFTRIAXONE 1 GM in DEXTROSE 5%-WATER - 50 ML IVPB SCH (06:30)
--- NOTE | 2018-06-18 06:43 | HP ---
CHIEF COMPLAINT: SOB x 3 days PCP: HISTORY OF PRESENT ILLNESS: 78 y/o M with PMH COPD (on 2L 02), prostate CA, CVA (5 yrs prior, with residual L sided weakness), hx DVT (on Xarelto), HTN, HLD, who presents to the ED with SOB that has been occurring for the past three days. As per daughter at bedside , since , pt has told her that the machine which concentrates his home 02 has been broken. More specifically, stating that he "cannot feel the oxygen when it is on." During the same time, daughter states that the pt 02 sat "dropped to 46" so she became worried and took him to [facility] ED that same day. While there, he was tx in the ICU. In the interim since d/c from [facility], daughter has tried to give the pt 40mg of Prednisone, however he is still SOB. Denies HAWKINS, fever, chills, chest pain or pressure, or changes in urinary or bowel function. Pt was admitted to [facility] for COPD exacerbation approx two weeks prior. Has been compliant with his meds, given by daughter. Follows with pulm (Dr. Borja). Has had past intubation at [facility] in April. ER course was notable for: (1) accessory m usage, 02 sat 82> started on BiPAP with improvement (2) co2 retention (3) nebs, zithromax, rocephin, lasix 40mg IVPx1, medrol 125, IV NS 500 Recent Travel: denies PAST MEDICAL HISTORY: as above PAST SURGICAL HISTORY: denies Social History: lives at home with family. as per daughter, has been bed bound since April Smokin pack year history. Quit approx 10-11 years ago Alcohol: denies Drugs: denies Family History: non-contributory Allergies No Known Allergies Allergy (Verified 06/18/18 02:08) HOME MEDICATIONS: Home Medications Medication Instructions Recorded Albuterol Sulfate 0.042% [Ventolin 1 amp QID 05/31/18 0.042% (Half-Strength) -] Albuterol Sulfate Inhaler - 1 puff IH DAILY 05/31/18 [Ventolin HFA Inhaler -] Aspirin 81 mg PO DAILY 05/31/18 Atorvastatin Ca [Lipitor] 20 mg PO HS 05/31/18 Bisoprolol Fumarate [Zebeta (Nf) -] 5 mg PO DAILY 05/31/18 Budesonide/Formeterol Fumarate 1 inh PO BID 05/31/18 [SYMBICORT 160/4.5mcg -] Omeprazole 40 mg PO DAILY 05/31/18 Pantoprazole Sodium [Protonix] 40 mg PO TID 05/31/18 Rivaroxaban [Xarelto -] 20 mg PO DAILY 05/31/18 Roflumilast [Daliresp -] 500 mcg PO DAILY 05/31/18 Tamsulosin HCl [Flomax -] 0.4 mg PO DAILY 05/31/18 Tiotropium [place] [Spiriva] 1 inh PO DAILY 05/31/18 predniSONE [Deltasone -] See Taper PO ASDIR #32 tab 06/02/18 as per daughter, pt on same meds as previous discharge REVIEW OF SYSTEMS CONSTITUTIONAL: Absent: fever, chills, diaphoresis, generalized weakness, malaise, loss of appetite, weight change HEENT: Absent: rhinorrhea, nasal congestion, throat pain, throat swelling, difficulty swallowing, mouth swelling, ear pain, eye pain, visual changes CARDIOVASCULAR: Absent: chest pain, syncope, palpitations, irregular heart rate, lightheadedness , peripheral edema RESPIRATORY: +SOB Absent: cough, shortness of breath, dyspnea with exertion, orthopnea, wheezing, stridor, hemoptysis GASTROINTESTINAL: Absent: abdominal pain, abdominal distension, nausea, vomiting, diarrhea, constipation, melena, hematochezia GENITOURINARY: Absent: dysuria, frequency, urgency, hesitancy, hematuria, flank pain, genital pain MUSCULOSKELETAL: Absent: myalgia, arthralgia, joint swelling, back pain, neck pain SKIN: Absent: rash, itching, pallor HEMATOLOGIC/IMMUNOLOGIC: Absent: easy bleeding, easy bruising, lymphadenopathy, frequent infections ENDOCRINE: Absent: unexplained weight gain, unexplained weight loss, heat intolerance, cold intolerance NEUROLOGIC: Absent: headache, focal weakness or paresthesias, dizziness, unsteady gait, seizure, mental status changes, bladder or bowel incontinence PSYCHIATRIC: Absent: anxiety, depression, suicidal or homicidal ideation, hallucinations. PHYSICAL EXAMINATION Vital Signs - 24 hr 06/18/18 02:08 Temperature 97.8 F Pulse Rate 95 H Pulse Rate [ Left Apical] Respiratory 28 H Rate Blood Pressure 116/88 Blood Pressure [Right Arm] O2 Sat by Pulse 99 Oximetry (%) 06/18/18 04:10 Temperature 98.7 F Pulse Rate Pulse Rate [ 96 H Left Apical] Respiratory 22 H Rate Blood Pressure Blood Pressure 143/83 [Right Arm] O2 Sat by Pulse 94 L Oximetry (%) GENERAL: Pleasant. On BiPAP. without accessory m usage HEAD: Normal with no signs of trauma. EYES: Pupils equal, round and reactive to light, extraocular movements intact, sclera anicteric, conjunctiva clear. No lid lag. EARS, NOSE, THROAT: Ears normal, nares patent, oropharynx clear without exudates. Moist mucous membranes. NECK: Normal range of motion, supple LUNGS: +prolonged expiratory phase, +basilar crackles HEART: Regular rate and rhythm, normal S1 and S2 without murmur, rub or gallop. ABDOMEN: Soft, nontender, not distended, normoactive bowel sounds, no guarding, no rebound, no masses. LOWER EXTREMITIES: cachectic. 2+ pt pulses. No calf tenderness. No peripheral edema. NEUROLOGICAL: able to move UE, LE. mildly lethargic on BiPAP however able to follow commands PSYCHIATRIC: Cooperative. SKIN: Warm, dry Laboratory Tests 06/18/18 06/18/18 06/18/18 03:51 04:30 04:40 WBC 10.4 H Hgb 12.5 Hct 36.6 Plt Count 164 Puncture Site Right radial ABG pH 7.38 ABG pCO2 at Pt Temp 64.9 H ABG pO2 at Pt Temp 133 H ABG HCO3 37.6 H ABG O2 Sat (Measured) 98.8 H ABG O2 Content 16.7 ABG Base Excess 10.5 H Sodium 140 Potassium 4.1 Chloride 98 Carbon Dioxide 39 H Anion Gap 2 L BUN 20 H Creatinine 0.5 L Random Glucose 232 H Albumin 2.6 L CXR: barrel-chest, no infiltrates or effusions seen. however pending official read EKG: requested, pending ASSESSMENT/PLAN: 78 y/o M with PMH COPD (on 2L 02), prostate CA, CVA (5 yrs prior, with residual L sided weakness), hx DVT (on Xarelto), HTN, HLD, who presents to the ED with SOB that has been occurring for the past three days. Pt found to have acute on chronic hypoxemic/hypercapnic respiratory failure 2/2 COPD exacerbation. #Acute on chronic hypoxemic/hypercapnic RF #COPD exacerbation -duonebs RQID, ventolin q4h PRN -c/w BiPAP for now and wean as tolerated. will repeat ABG -Sp02 goal 88-92% -s/p medrol 125 in ED. c/w medrol 60 IVP q8h -s/p rocephin, zithro x 1 in ED. can continue however pending EKG to check Qtc thus only rocephin has been cont'd for now -f/u sputum cx #steroid-induced DM -BGM, ISS ACHS #hx DVT -c/w xarelto #HTN- uncontrolled -likely 2/2 initial WOB, which has improved -continue to monitor -c/w bisoprolol #HLD -c/w lipitor #BPH -c/w flomax #F/E/N no IVF indicated at this time continue to follow lytes NPO while on BiPAP #PPX DVT: on xarelto #Dispo admit to med-surg Visit type - Emergency Visit Emergency Visit: Yes ED Registration Date: 06/18/18 Care time: The patient presented to the Emergency Department on the above date and was hospitalized for further evaluation of their emergent condition. - New Patient This patient is new to me today: Yes Date on this admission: 06/18/18 - Critical Care Critical Care patient: No
[2018-06-18 08:14] LABS: N-TERMINAL BNP 107.4 pg/ml (5-450)
[2018-06-18] MEDS: TAMSULOSIN HCL 0.4 MG CAP PO SCH (08:45)
[2018-06-18] MEDS: ALBUTEROL SO4 2.5/IPRATROPIUM 0.5 INH SOL 3 ML VIAL.NEB. NEB SCH ×4 (09:05→20:22)
[2018-06-18] MEDS: INSULIN SLIDING SCALE (NOVOLOG) 1 VIAL SQ SCH ×4 (09:10→22:15)
[2018-06-18] MEDS ORDERED: INSULIN (NOVOLOG) ASPART 100 UNITS/ML 10ML VIAL ONE (09:19)
--- NOTE | 2018-06-18 09:41 | PN ---
Physical Exam: SUBJECTIVE: Patient seen and examined, currently on bipap, daughter at bedside. Breathing better, no new complaints. OBJECTIVE: Vital Signs Period Temp Pulse Resp BP Sys/Thurman Pulse Ox Last 24 Hr 97.8 F-98.7 F 87-96 22-28 116-143/73-88 94-100 Intake & Output 06/15/18 06/16/18 06/17/18 06/18/18 23:59 23:59 23:59 23:59 Weight 130 lb General: on bipap, no use of acessory muscles of respiration HEAD: Normal with no signs of trauma. EYES: PERRL, extraocular movements intact, sclera anicteric, conjunctiva clear. No ptosis. NECK: Trachea midline, full range of motion, supple. LUNGS: decreased breath sounds all over, no rales or wheezing appreciated HEART: Regular rate and rhythm, S1, S2 ABDOMEN: Soft, nontender, nondistended, normoactive bowel sounds, no guarding, no rebound, EXTREMITIES: 2+ pulses, warm, well-perfused, no edema. NEUROLOGICAL: Awake, oriented to self, family, left hemiparesis PSYCH: Normal mood, normal affect. SKIN: Warm, dry, normal turgor, no rashes or lesions noted Laboratory Results - last 24 hr 06/18/18 06/18/18 06/18/18 03:51 03:51 03:51 WBC 10.4 H RBC 4.13 Hgb 12.5 Hct 36.6 MCV 88.7 MCH 30.3 MCHC 34.1 RDW 15.8 Plt Count 164 MPV 8.2 Absolute Neuts (auto) 9.4 H Neutrophils % 90.3 H Lymphocytes % 4.4 L Monocytes % 4.9 Eosinophils % 0.2 D Basophils % 0.2 D Nucleated RBC % 0 Puncture Site ABG pH ABG pCO2 at Pt Temp ABG pO2 at Pt Temp ABG HCO3 ABG O2 Sat (Measured) ABG O2 Content ABG Base Excess Ronny Test Carboxyhemoglobin Methemoglobin O2 Delivery Device Oxygen Flow Rate Vent Mode Vent Rate PEEP Pressure Support Vent Sodium Cancelled Potassium Cancelled Chloride Cancelled Carbon Dioxide Cancelled Anion Gap Cancelled BUN Cancelled Creatinine Cancelled Creat Clearance w eGFR Cancelled POC Glucometer Random Glucose Cancelled Lactic Acid Calcium Cancelled Phosphorus Cancelled Magnesium Cancelled Total Bilirubin Cancelled AST Cancelled ALT Cancelled Alkaline Phosphatase Cancelled Creatine Kinase Cancelled Troponin I Cancelled B-Natriuretic Peptide Cancelled Total Protein Cancelled Albumin Cancelled Influenza A (Rapid) Negative Influenza B (Rapid) Negative 06/18/18 06/18/18 06/18/18 03:51 04:30 04:40 WBC RBC Hgb Hct MCV MCH MCHC RDW Plt Count MPV Absolute Neuts (auto) Neutrophils % Lymphocytes % Monocytes % Eosinophils % Basophils % Nucleated RBC % Puncture Site Right radial ABG pH 7.38 ABG pCO2 at Pt Temp 64.9 H ABG pO2 at Pt Temp 133 H ABG HCO3 37.6 H ABG O2 Sat (Measured) 98.8 H ABG O2 Content 16.7 ABG Base Excess 10.5 H Ronny Test Positive Carboxyhemoglobin Methemoglobin O2 Delivery Device Bipap Oxygen Flow Rate 50% Vent Mode S/t Vent Rate 16 PEEP 0.0 Pressure Support Vent 16/6 Sodium 140 Potassium 4.1 Chloride 98 Carbon Dioxide 39 H Anion Gap 2 L BUN 20 H Creatinine 0.5 L Creat Clearance w eGFR 160.40 POC Glucometer Random Glucose 232 H Lactic Acid 1.8 Calcium 8.2 L Phosphorus Magnesium Total Bilirubin 0.9 AST 27 ALT 44 Alkaline Phosphatase 97 Creatine Kinase 47 Troponin I 0.02 B-Natriuretic Peptide 107.4 Total Protein 5.2 L Albumin 2.6 L Influenza A (Rapid) Influenza B (Rapid) 06/18/18 06/18/18 04:40 09:08 WBC RBC Hgb Hct MCV MCH MCHC RDW Plt Count MPV Absolute Neuts (auto) Neutrophils % Lymphocytes % Monocytes % Eosinophils % Basophils % Nucleated RBC % Puncture Site ABG pH ABG pCO2 at Pt Temp ABG pO2 at Pt Temp ABG HCO3 ABG O2 Sat (Measured) ABG O2 Content ABG Base Excess Ronny Test Carboxyhemoglobin 0.7 Methemoglobin 0.2 O2 Delivery Device Oxygen Flow Rate Vent Mode Vent Rate PEEP Pressure Support Vent Sodium Potassium Chloride Carbon Dioxide Anion Gap BUN Creatinine Creat Clearance w eGFR POC Glucometer 236 Random Glucose Lactic Acid Calcium Phosphorus Magnesium Total Bilirubin AST ALT Alkaline Phosphatase Creatine Kinase Troponin I B-Natriuretic Peptide Total Protein Albumin Influenza A (Rapid) Influenza B (Rapid) Home Medications Medication Instructions Recorded Albuterol Sulfate 0.042% [Ventolin 1 amp QID 05/31/18 0.042% (Half-Strength) -] Albuterol Sulfate Inhaler - 1 puff IH DAILY 05/31/18 [Ventolin HFA Inhaler -] Aspirin 81 mg PO DAILY 05/31/18 Atorvastatin Ca [Lipitor] 20 mg PO HS 05/31/18 Bisoprolol Fumarate [Zebeta (Nf) -] 5 mg PO DAILY 05/31/18 Budesonide/Formeterol Fumarate 1 inh PO BID 05/31/18 [SYMBICORT 160/4.5mcg -] Omeprazole 40 mg PO DAILY 05/31/18 Pantoprazole Sodium [Protonix] 40 mg PO TID 05/31/18 Rivaroxaban [Xarelto -] 20 mg PO DAILY 05/31/18 Roflumilast [Daliresp -] 500 mcg PO DAILY 05/31/18 Tamsulosin HCl [Flomax -] 0.4 mg PO DAILY 05/31/18 Tiotropium [place] [Spiriva] 1 inh PO DAILY 05/31/18 predniSONE [Deltasone -] See Taper PO ASDIR #32 tab 06/02/18 Active Medications Albuterol Sulfate (Ventolin 0.083% Nebulizer Soln -) 1 amp NEB Q4H PRN PRN Reason: SHORT OF BREATH/WHEEZING Albuterol/Ipratropium (Duoneb -) 1 amp NEB RQID JACKIE Aspirin (Asa -) 81 mg PO DAILY JACKIE Atenolol (Tenormin -) 50 mg PO DAILY [facility] Atorvastatin Calcium (Lipitor -) 20 mg PO HS [facility] Insulin Aspart (Novolog Vial Sliding Scale -) 1 vial SQ ACHS [facility]; Protocol Last Admin: 06/18/18 09:10 Dose: 4 units Methylprednisolone Sodium Succinate (Solu-Medrol -) 60 mg IVPUSH Q8H-IV JACKIE Rivaroxaban (Xarelto -) 20 mg PO DAILY@1800 [facility] Tamsulosin HCl (Flomax -) 0.4 mg PO DAILY@0830 [facility] Laboratory Results - last 24 hr 06/18/18 06/18/18 06/18/18 03:51 03:51 03:51 WBC 10.4 H RBC 4.13 Hgb 12.5 Hct 36.6 MCV 88.7 MCH 30.3 MCHC 34.1 RDW 15.8 Plt Count 164 MPV 8.2 Absolute Neuts (auto) 9.4 H Neutrophils % 90.3 H Lymphocytes % 4.4 L Monocytes % 4.9 Eosinophils % 0.2 D Basophils % 0.2 D Nucleated RBC % 0 Puncture Site ABG pH ABG pCO2 at Pt Temp ABG pO2 at Pt Temp ABG HCO3 ABG O2 Sat (Measured) ABG O2 Content ABG Base Excess Ronny Test Carboxyhemoglobin Methemoglobin O2 Delivery Device Oxygen Flow Rate Vent Mode Vent Rate PEEP Pressure Support Vent Sodium Cancelled Potassium Cancelled Chloride Cancelled Carbon Dioxide Cancelled Anion Gap Cancelled BUN Cancelled Creatinine Cancelled Creat Clearance w eGFR Cancelled POC Glucometer Random Glucose Cancelled Lactic Acid Calcium Cancelled Phosphorus Cancelled Magnesium Cancelled Total Bilirubin Cancelled AST Cancelled ALT Cancelled Alkaline Phosphatase Cancelled Creatine Kinase Cancelled Troponin I Cancelled B-Natriuretic Peptide Cancelled Total Protein Cancelled Albumin Cancelled Influenza A (Rapid) Negative Influenza B (Rapid) Negative 06/18/18 06/18/18 06/18/18 03:51 04:30 04:40 WBC RBC Hgb Hct MCV MCH MCHC RDW Plt Count MPV Absolute Neuts (auto) Neutrophils % Lymphocytes % Monocytes % Eosinophils % Basophils % Nucleated RBC % Puncture Site Right radial ABG pH 7.38 ABG pCO2 at Pt Temp 64.9 H ABG pO2 at Pt Temp 133 H ABG HCO3 37.6 H ABG O2 Sat (Measured) 98.8 H ABG O2 Content 16.7 ABG Base Excess 10.5 H Ronny Test Positive Carboxyhemoglobin Methemoglobin O2 Delivery Device Bipap Oxygen Flow Rate 50% Vent Mode S/t Vent Rate 16 PEEP 0.0 Pressure Support Vent 16/6 Sodium 140 Potassium 4.1 Chloride 98 Carbon Dioxide 39 H Anion Gap 2 L BUN 20 H Creatinine 0.5 L Creat Clearance w eGFR 160.40 POC Glucometer Random Glucose 232 H Lactic Acid 1.8 Calcium 8.2 L Phosphorus Magnesium Total Bilirubin 0.9 AST 27 ALT 44 Alkaline Phosphatase 97 Creatine Kinase 47 Troponin I 0.02 B-Natriuretic Peptide 107.4 Total Protein 5.2 L Albumin 2.6 L Influenza A (Rapid) Influenza B (Rapid) 06/18/18 06/18/18 04:40 09:08 WBC RBC Hgb Hct MCV MCH MCHC RDW Plt Count MPV Absolute Neuts (auto) Neutrophils % Lymphocytes % Monocytes % Eosinophils % Basophils % Nucleated RBC % Puncture Site ABG pH ABG pCO2 at Pt Temp ABG pO2 at Pt Temp ABG HCO3 ABG O2 Sat (Measured) ABG O2 Content ABG Base Excess Ronny Test Carboxyhemoglobin 0.7 Methemoglobin 0.2 O2 Delivery Device Oxygen Flow Rate Vent Mode Vent Rate PEEP Pressure Support Vent Sodium Potassium Chloride Carbon Dioxide Anion Gap BUN Creatinine Creat Clearance w eGFR POC Glucometer 236 Random Glucose Lactic Acid Calcium Phosphorus Magnesium Total Bilirubin AST ALT Alkaline Phosphatase Creatine Kinase Troponin I B-Natriuretic Peptide Total Protein Albumin Influenza A (Rapid) Influenza B (Rapid) CXR results and images reviewed ASSESSMENT/PLAN: 78 yom with PMHx of COPD (on ), prostate CA, CVA (5 yrs prior, with residual L sided weakness), hx DVT (on Xarelto), HTN, HLD, recently admitted to [facility] with COPD exac d/mika on 06/02, then reportedly admitted to [facility] last week , d/mika on 06/15 comes back with dyspnea, per daughter 'not able to feel the oxygen' -Acute COPD exacerbation -Acute on chronic hypoxic/hypercapneic respiratory faliure -CVA with left hemiparesis -Steroid induced hyperglycemia -h/o DVT on xarelto -HTN -HLD -Prostate Ca Plan: trial off bipap, IV solumedrol. No clinical evidence of infection, hold off on further abx. Standing and prn nebs. Follow up pulmonary input. Per daughter, concerns with home oxygen, social work input. Continue xarelto, statin. On bisoprolol at home. Hold beta blockers and monitor BP ISS, diabetic diet. Check A1c. DVTPPX on xarelto as above Dispo pending clinical improvement. PT eval and CM consult Plan discussed with daughter at bedside in detail, all questions answered. Visit type - Emergency Visit Emergency Visit: Yes ED Registration Date: 06/18/18 Care time: The patient presented to the Emergency Department on the above date and was hospitalized for further evaluation of their emergent condition. - New Patient This patient is new to me today: Yes Date on this admission: 06/18/18 - Critical Care Critical Care patient: No - Discharge Referral Referred to [facility] Med P.C.: No
[2018-06-18] MEDS ORDERED: ATENOLOL 50 MG TABLET (FP) PO SCH (10:00)
[2018-06-18] MEDS: methylPREDNISolone NA SUCC 125 MG/2 ML VIAL IVPUSH SCH ×2 (10:00→17:33)
[2018-06-18] MEDS: ASPIRIN 81 MG CHEWABLE TABLETS PO SCH (10:00)
[2018-06-18 10:35] LABS: ALLENS TEST POSITIVE; ARTERIAL BLD GAS O2 SATURATION 97.5 % (95-98); ARTERIAL BLOOD GAS BASE EXCESS 11.9 meq/l (-2-2); ARTERIAL BLOOD GAS PCO2 56.6 mmHg (35-45); ARTERIAL BLOOD GAS PO2 89.3 mmHg (80-105); ARTERIAL BLOOD GAS pH 7.44 (7.35-7.45)
--- NOTE | 2018-06-18 11:04 | EKG ---
Test Reason : Blood Pressure : / mmHG Vent. Rate : 093 BPM Atrial Rate : 093 BPM P-R Int : 118 ms QRS Dur : 076 ms QT Int : 344 ms P-R-T Axes : 087 069 032 degrees QTc Int : 427 ms NORMAL SINUS RHYTHM RIGHT ATRIAL ENLARGEMENT BORDERLINE ECG WHEN COMPARED WITH ECG OF 31-MAY-2018 07:21, NO SIGNIFICANT CHANGE WAS FOUND Confirmed by MD ERVIN, DANIEL ([id number]) on 06/18/2018 11:04:07 AM Referred By: Confirmed By:DANIEL MUELLER MD
[2018-06-18 11:47] LABS: ANISOCYTOSIS 2+; MACROCYTOSIS 1+; PLATELET ESTIMATE NORMAL
--- NOTE | 2018-06-18 12:16 | CON.PULM ---
Consult Consult Specialty:: PULMONARY Referred by:: Dr Matamoros Reason for Consultation:: COPD - History of Present Illness Chief Complaint: shortness of breath History of Present Illness: 78yo male with h/o HTN, hyperlipidemia, h/o CVA, h/o DVT on anticoagulation, severe COPD, chronic hypoxic and hypercapneic respiratory failure on home O2 and home trilogy device who was admitted with worsening shortness of breath x 3 days. Recently admitted at [facility] for acute COPD exacerbation, was still on prednisone taper, had increased to 40mg 2 days ago. No fevers, chills or sweats. Denies chest pain or palpitations. - History Source History Provided By: Patient, Family Member, Medical Record Limitations to Obtaining History: Clinical Condition - Past Medical History Pulmonary: Yes: COPD - Alcohol/Substance Use Hx Alcohol Use: No - Smoking History Smoking history: Never smoked Have you smoked in the past 12 months: No Aproximately how many cigarettes per day: 0 If you are a former smoker, when did you quit?: 0 Home Medications - Allergies Allergies/Adverse Reactions: Allergies Allergy/AdvReac Type Severity Reaction Status Date / Time No Known Allergies Allergy Verified 06/18/18 02:08 - Home Medications Home Medications: Ambulatory Orders Albuterol Sulfate 0.042% [Ventolin 0.042% (Half-Strength) -] 1 amp QID 05/31/18 Albuterol Sulfate Inhaler - [Ventolin HFA Inhaler -] 1 puff IH DAILY 05/31/18 Aspirin 81 mg PO DAILY 05/31/18 Atorvastatin Ca [Lipitor] 20 mg PO HS 05/31/18 Bisoprolol Fumarate [Zebeta (Nf) -] 5 mg PO DAILY 05/31/18 Budesonide/Formeterol Fumarate [SYMBICORT 160/4.5mcg -] 1 inh PO BID 05/31/18 Omeprazole 40 mg PO DAILY 05/31/18 Pantoprazole Sodium [Protonix] 40 mg PO TID 05/31/18 Rivaroxaban [Xarelto -] 20 mg PO DAILY 05/31/18 Roflumilast [Daliresp -] 500 mcg PO DAILY 05/31/18 Tamsulosin HCl [Flomax -] 0.4 mg PO DAILY 05/31/18 Tiotropium [place] [Spiriva] 1 inh PO DAILY 05/31/18 predniSONE [Deltasone -] See Taper PO ASDIR #32 tab 06/02/18 Review of Systems - Review of Systems Constitutional: reports: Weakness. denies: Chills, Fever Eyes: denies: Recent Change in Vision HENT: denies: Nasal Congestion, Throat Pain Neck: denies: Stiffness, Tenderness Cardiovascular: reports: Shortness of Breath. denies: Chest Pain, Edema, Palpitations Respiratory: reports: Cough, Exercise Intolerance, SOB on Exertion, Wheezing. denies: Hemoptysis Gastrointestinal: denies: Abdominal Pain, Nausea, Vomiting Genitourinary: denies: Dysuria, Hematuria Neurological: denies: Dizziness, Headache Endocrine: denies: Unexplained Weight Loss Physical Exam Vital Sings: Vital Signs Temperature 98.7 F 06/18/18 04:10 Pulse Rate 87 06/18/18 06:44 Respiratory Rate 22 H 06/18/18 04:10 Blood Pressure 127/73 06/18/18 06:44 O2 Sat by Pulse Oximetry (%) 100 06/18/18 10:50 Constitutional: Yes: Mild Distress Eyes: Yes: Conjunctiva Clear, EOM Intact HENT: Yes: Atraumatic, Normocephalic Neck: Yes: Supple, Trachea Midline Cardiovascular: Yes: Regular Rate and Rhythm Respiratory: Yes: Diminished. No: Wheezes ...Clubbing: No Gastrointestinal: Yes: Normal Bowel Sounds, Soft. No: Tenderness Edema: No Neurological: Yes: Alert, Oriented Labs: CBC, BMP 06/18/18 03:51 06/18/18 04:30 ABG Results ABG pH 7.44 (7.35-7.45) 06/18/18 09:50 ABG pCO2 at Pt Temp 56.6 mmHg (35-45) H 06/18/18 09:50 ABG pO2 at Pt Temp 89.3 mmHg (80-105) 06/18/18 09:50 ABG HCO3 38.0 mmol/L (22-27) H 06/18/18 09:50 ABG O2 Sat (Measured) 97.5 % (95-98) 06/18/18 09:50 ABG O2 Content 16.6 % vol (15-22) 06/18/18 09:50 ABG Base Excess 11.9 meq/l (-2-2) H 03/17/19 09:50 Imaging - Results Chest X-ray: Report Reviewed, Image Reviewed (no infiltrates) Assessment/Plan Acute on Chronic Hypoxic and Hypercapneic Respiratory Failure Acute COPD Exacerbation HTN Hyperlipidemia h/o CVA h/o DVT - IV medrol - inhaled bronchodilators standing and PRN - O2 to keep SpO2 >88% - BiPAP to assist in work of breathing - discussed with daughter at bedside, pt with multiple recent admissions, may benefit from SNF placement with pulmonary rehab and she is agreeable - DVT prophylaxis Thank you for this consult David Borja MD
[2018-06-18 14:30] VITALS: BMI 23.3
[2018-06-18] MEDS ORDERED: PT OWN MED DRAWER 7, Y5N ONE (17:30)
[2018-06-18] MEDS: RIVAROXABAN 20 MG TABLET PO SCH (17:53)
[2018-06-18] MEDS: ATORVASTATIN CA 20 MG TABLET (FP) PO SCH (22:15)
[2018-06-19] MEDS: methylPREDNISolone NA SUCC 125 MG/2 ML VIAL IVPUSH SCH ×2 (02:50→09:54)
[2018-06-19] MEDS ORDERED: CEFTRIAXONE 1 GM in DEXTROSE 5%-WATER - 50 ML IVPB SCH (06:00)
[2018-06-19] MEDS: INSULIN SLIDING SCALE (NOVOLOG) 1 VIAL SQ SCH ×4 (06:35→21:38)
[2018-06-19 06:43] LABS: BASO % 0.1 % (0-2.0); HEMATOCRIT 35.6 % (35.4-49); LYMPH % 2.6 % (8-40); MCH 29.6 pg (25.7-33.7); MCHC 33.6 g/dl (32.0-35.9); MEAN CELL VOLUME 88.2 fl (80-96); MEAN PLT VOLUME 7.5 fl (7.5-11.1); MONO % 3.8 % (3.8-10.2); NEUT % 93.5 % (42.8-82.8); PLATELET COUNT 154 K/MM3 (134-434); RBC 4.04 M/mm3 (4.00-5.60); RDW 15.3 % (11.9-15.9); WHITE BLOOD COUNT 9.9 K/mm3 (4.0-10.0)
[2018-06-19 07:12] LABS: ANION GAP 3 MMOL/L (8-16); BLOOD UREA NITROGEN 32 mg/dL (7-18); CALCIUM 8.8 mg/dL (8.5-10.1); CHLORIDE 98 mmol/L (98-107); CO2 39 mmol/L (21-32); CREATININE 0.5 mg/dL (0.55-1.3); GLUCOSE,RANDOM 116 mg/dL (74-106); MAGNESIUM 2.2 mg/dL (1.8-2.4); PHOSPHOROUS 3.3 mg/dL (2.5-4.9); POTASSIUM 4.1 mmol/L (3.5-5.1); SODIUM 140 mmol/L (136-145)
[2018-06-19] MEDS: ALBUTEROL SO4 2.5/IPRATROPIUM 0.5 INH SOL 3 ML VIAL.NEB. NEB SCH ×4 (07:33→22:20)
[2018-06-19 08:52] LABS: URINE APPEARANCE CLOUDY; URINE BILIRUBIN NEGATIVE (<2.0 mg/dL); URINE COLOR DKYELLOW; URINE GLUCOSE (UA) 1+ (NEGATIVE); URINE KETONE NEGATIVE (NEGATIVE); URINE LEUK ESTERASE 2+ (NEGATIVE); URINE NITRITE NEGATIVE (NEGATIVE); URINE PROTEIN 2+ (NEGATIVE); URINE UROBILINOGEN NEGATIVE mg/dL (0.2-1.0)
[2018-06-19 08:56] LABS: EPI CELLS RARE /HPF (FEW); URINE MUCUS FEW
[2018-06-19] MEDS: TAMSULOSIN HCL 0.4 MG CAP PO SCH (09:54)
[2018-06-19] MEDS: ASPIRIN 81 MG CHEWABLE TABLETS PO SCH (09:54)
--- NOTE | 2018-06-19 10:14 | PN ---
Teaching Attending Note Name of Resident: Rae Saha ATTENDING PHYSICIAN STATEMENT I saw and evaluated the patient. I reviewed the resident's note and discussed the case with the resident. I agree with the resident's findings and plan as documented with exceptions below. SUBJECTIVE: Patient seen and examined. Breathing improved, no new complaints. OBJECTIVE: Vital Signs Period Temp Pulse Resp BP Sys/Thurman Pulse Ox Last 24 Hr 97.3 F-98.5 F 66-100 18-29 95-117/68-77 97-100 Intake & Output 06/16/18 06/17/18 06/18/18 06/19/18 23:59 23:59 23:59 23:59 Output Total 750 Balance -750 Weight 131 lb 14.4 oz General: sitting in bed in no acute distress, no use of accessory muscles of respiration CVS:S1S2 regular Chest: decreased air entry, no rales or wheezing, improved exam today Neck: soft, supple, no JVD Abdomen:Soft, NT, ND Home Medications Medication Instructions Recorded Albuterol Sulfate 0.042% [Ventolin 1 amp QID 05/31/18 0.042% (Half-Strength) -] Albuterol Sulfate Inhaler - 1 puff IH DAILY 05/31/18 [Ventolin HFA Inhaler -] Atorvastatin Ca [Lipitor] 20 mg PO HS 05/31/18 Bisoprolol Fumarate [Zebeta (Nf) -] 5 mg PO DAILY 05/31/18 Budesonide/Formeterol Fumarate 1 inh PO BID 05/31/18 [SYMBICORT 160/4.5mcg -] Omeprazole 40 mg PO DAILY 05/31/18 Pantoprazole Sodium [Protonix] 40 mg PO TID 05/31/18 Rivaroxaban [Xarelto -] 20 mg PO DAILY 05/31/18 Roflumilast [Daliresp -] 500 mcg PO DAILY 05/31/18 Tamsulosin HCl [Flomax -] 0.4 mg PO DAILY 05/31/18 Tiotropium [place] [Spiriva] 1 inh PO DAILY 05/31/18 predniSONE [Deltasone -] See Taper PO ASDIR #32 tab 06/02/18 Repaglinide 1 mg PO TIDCM 06/18/18 Active Medications Albuterol Sulfate (Ventolin 0.083% Nebulizer Soln -) 1 amp NEB Q4H PRN PRN Reason: SHORT OF BREATH/WHEEZING Albuterol/Ipratropium (Duoneb -) 1 amp NEB RQID [facility] Last Admin: 06/19/18 07:33 Dose: 1 amp Aspirin (Asa -) 81 mg PO DAILY [facility] Last Admin: 06/19/18 09:54 Dose: 81 mg Atorvastatin Calcium (Lipitor -) 20 mg PO HS [facility] Last Admin: 06/18/18 22:15 Dose: 20 mg Budesonide/Formoterol Fumarate (Symbicort 160/4.5mcg -) 1 puff IH BID [facility] Insulin Aspart (Novolog Vial Sliding Scale -) 1 vial SQ ACHS [facility]; Protocol Last Admin: 06/19/18 06:35 Dose: Not Given Methylprednisolone Sodium Succinate (Solu-Medrol -) 60 mg IVPUSH BID [facility] Stop: 06/19/18 22:01 Prednisone (Deltasone -) 60 mg PO DAILY [facility] Rivaroxaban (Xarelto -) 20 mg PO DAILY@1800 [facility] Last Admin: 06/18/18 17:53 Dose: 20 mg Roflumilast (Daliresp -) 500 mcg PO DAILY [facility] Tamsulosin HCl (Flomax -) 0.4 mg PO DAILY@0830 [facility] Last Admin: 06/19/18 09:54 Dose: 0.4 mg Laboratory Results - last 24 hr 06/18/18 06/18/18 06/18/18 03:51 07:30 09:50 WBC RBC Hgb Hct MCV MCH MCHC RDW Plt Count MPV Absolute Neuts (auto) Neutrophils % Neutrophils % (Manual) 87.1 H Band Neutrophils % 2.0 Lymphocytes % Lymphocytes % (Manual) 3.0 L D Monocytes % Monocytes % (Manual) 6 Eosinophils % Eosinophils % (Manual) 0.0 Basophils % Basophils % (Manual) 0.0 Myelocytes % (Man) 0 Promyelocytes % (Man) 0 Blast Cells % (Manual) 0 Nucleated RBC % Metamyelocytes 0 Hypochromia 0 Platelet Estimate Normal Polychromasia 0 Poikilocytosis 0 Anisocytosis 2+ Microcytosis 0 Macrocytosis 1+ Anticoagulation Therapy No Result Required. Puncture Site Right radial ABG pH 7.44 ABG pCO2 at Pt Temp 56.6 H ABG pO2 at Pt Temp 89.3 ABG HCO3 38.0 H ABG O2 Sat (Measured) 97.5 ABG O2 Content 16.6 ABG Base Excess 11.9 H Ronny Test Positive O2 Delivery Device No Result Required. Oxygen Flow Rate 30 Vent Mode No Result Required. Vent Rate 20 Mechanical Rate No Result Required. Pressure Support Vent No Result Required. Sodium Potassium Chloride Carbon Dioxide Anion Gap BUN Creatinine Creat Clearance w eGFR POC Glucometer Random Glucose Calcium Phosphorus Magnesium Urine Color Dkyellow Urine Appearance Cloudy Urine pH 5.0 D Ur Specific [place] 1.026 Urine Protein 2+ H Urine Glucose (UA) 1+ H Urine Ketones Negative Urine Blood Negative Urine Nitrite Negative Urine Bilirubin Negative Urine Urobilinogen Negative Ur Leukocyte Esterase 2+ H Urine WBC (Auto) 11 Urine RBC (Auto) 8 Ur Epithelial Cells Rare Urine Mucus Few 06/18/18 06/18/18 06/18/18 12:47 16:20 22:14 WBC RBC Hgb Hct MCV MCH MCHC RDW Plt Count MPV Absolute Neuts (auto) Neutrophils % Neutrophils % (Manual) Band Neutrophils % Lymphocytes % Lymphocytes % (Manual) Monocytes % Monocytes % (Manual) Eosinophils % Eosinophils % (Manual) Basophils % Basophils % (Manual) Myelocytes % (Man) Promyelocytes % (Man) Blast Cells % (Manual) Nucleated RBC % Metamyelocytes Hypochromia Platelet Estimate Polychromasia Poikilocytosis Anisocytosis Microcytosis Macrocytosis Anticoagulation Therapy Puncture Site ABG pH ABG pCO2 at Pt Temp ABG pO2 at Pt Temp ABG HCO3 ABG O2 Sat (Measured) ABG O2 Content ABG Base Excess Ronny Test O2 Delivery Device Oxygen Flow Rate Vent Mode Vent Rate Mechanical Rate Pressure Support Vent Sodium Potassium Chloride Carbon Dioxide Anion Gap BUN Creatinine Creat Clearance w eGFR POC Glucometer 105 96 286 Random Glucose Calcium Phosphorus Magnesium Urine Color Urine Appearance Urine pH Ur Specific [place] Urine Protein Urine Glucose (UA) Urine Ketones Urine Blood Urine Nitrite Urine Bilirubin Urine Urobilinogen Ur Leukocyte Esterase Urine WBC (Auto) Urine RBC (Auto) Ur Epithelial Cells Urine Mucus 06/19/18 06/19/18 06/19/18 06:10 06:10 06:34 WBC 9.9 RBC 4.04 Hgb 12.0 Hct 35.6 MCV 88.2 MCH 29.6 MCHC 33.6 RDW 15.3 Plt Count 154 MPV 7.5 Absolute Neuts (auto) 9.3 H Neutrophils % 93.5 H Neutrophils % (Manual) Band Neutrophils % Lymphocytes % 2.6 L D Lymphocytes % (Manual) Monocytes % 3.8 Monocytes % (Manual) Eosinophils % 0.0 D Eosinophils % (Manual) Basophils % 0.1 Basophils % (Manual) Myelocytes % (Man) Promyelocytes % (Man) Blast Cells % (Manual) Nucleated RBC % 0 Metamyelocytes Hypochromia Platelet Estimate Polychromasia Poikilocytosis Anisocytosis Microcytosis Macrocytosis Anticoagulation Therapy Puncture Site ABG pH ABG pCO2 at Pt Temp ABG pO2 at Pt Temp ABG HCO3 ABG O2 Sat (Measured) ABG O2 Content ABG Base Excess Ronny Test O2 Delivery Device Oxygen Flow Rate Vent Mode Vent Rate Mechanical Rate Pressure Support Vent Sodium 140 Potassium 4.1 Chloride 98 Carbon Dioxide 39 H Anion Gap 3 L BUN 32 H Creatinine 0.5 L Creat Clearance w eGFR 160.40 POC Glucometer 116 Random Glucose 116 H Calcium 8.8 Phosphorus 3.3 Magnesium 2.2 Urine Color Urine Appearance Urine pH Ur Specific [place] Urine Protein Urine Glucose (UA) Urine Ketones Urine Blood Urine Nitrite Urine Bilirubin Urine Urobilinogen Ur Leukocyte Esterase Urine WBC (Auto) Urine RBC (Auto) Ur Epithelial Cells Urine Mucus Microbiology 06/18/18 03:51 Blood - Peripheral Venous Blood Culture - Preliminary NO GROWTH OBTAINED AFTER 24 HOURS, INCUBATION TO CONTINUE FOR 4 DAYS. 06/18/18 03:51 Blood - Peripheral Venous Blood Culture - Preliminary NO GROWTH OBTAINED AFTER 24 HOURS, INCUBATION TO CONTINUE FOR 4 DAYS. ASSESSMENT AND PLAN: 78 yom with PMHx of COPD (on 2L 02), prostate CA, CVA (5 yrs prior, with residual L sided weakness), hx DVT (on Xarelto), HTN, HLD, recently admitted to [facility] with COPD exac d/mika on 06/02, then reportedly admitted to [facility] last week , d/mika on 06/15 comes back with dyspnea, per daughter 'not able to feel the oxygen' -Acute COPD exacerbation -Acute on chronic hypoxic/hypercapneic respiratory faliure -CVA with left hemiparesis -Steroid induced hyperglycemia -h/o DVT on xarelto -HTN -HLD -Prostate Ca Plan: Improved, on nasal cannula, taper to home oxygen as tolerated. prn bipap Taper steroids, transition to PO in AM if no concerns. No clinical evidence of infection, hold off on further abx. Standing and prn nebs. Pulmonary input noted. Per daughter, concerns with home oxygen, social work input. Continue xarelto, statin. On bisoprolol at home. Hold beta blockers and monitor BP ISS, diabetic diet. follow up A1c. DVTPPX on xarelto as above Dispo pending clinical improvement. Recurrent admissions with the same. PT nimisha. Discuss with CM about SNF placement. Plan discussed with patint and nursing, all questions answered.
--- NOTE | 2018-06-19 10:29 | PN ---
Progress Note (short form) - Note Progress Note: Reports feeling better. Used NIPPV overnight. NAD on 4 L NC O2, saruration 98%. Intake & Output 06/16/18 06/17/18 06/18/18 06/19/18 23:59 23:59 23:59 23:59 Output Total 750 Balance -750 Weight 131 lb 14.4 oz Last Vital Signs Temp Pulse Resp BP Pulse Ox 98.4 F 94 H 18 111/70 97 06/19/18 09:19 06/19/18 09:19 06/19/18 09:19 06/19/18 09:19 06/19/18 07:33 Home Medication List Medication Instructions Recorded Confirmed Type Albuterol Sulfate 0.042% [Ventolin 1 amp QID 05/31/18 06/18/18 History 0.042% (Half-Strength) -] Albuterol Sulfate Inhaler - 1 puff IH DAILY 05/31/18 06/18/18 History [Ventolin HFA Inhaler -] Atorvastatin Ca [Lipitor] 20 mg PO HS 05/31/18 06/18/18 History Bisoprolol Fumarate [Zebeta (Nf) -] 5 mg PO DAILY 05/31/18 06/18/18 History Budesonide/Formeterol Fumarate 1 inh PO BID 05/31/18 06/18/18 History [SYMBICORT 160/4.5mcg -] Omeprazole 40 mg PO DAILY 05/31/18 06/18/18 History Pantoprazole Sodium [Protonix] 40 mg PO TID 05/31/18 06/18/18 History Rivaroxaban [Xarelto -] 20 mg PO DAILY 05/31/18 06/18/18 History Roflumilast [Daliresp -] 500 mcg PO DAILY 05/31/18 06/18/18 History Tamsulosin HCl [Flomax -] 0.4 mg PO DAILY 05/31/18 06/18/18 History Tiotropium [place] [Spiriva] 1 inh PO DAILY 05/31/18 06/18/18 History Repaglinide 1 mg PO TIDCM 06/18/18 06/18/18 History Active Medications Generic Name Dose Route Start Last Admin Trade Name Freq PRN Reason Stop Dose Admin Albuterol Sulfate 1 amp 06/18/18 06:25 Ventolin 0.083% Nebulizer Soln - NEB Q4H PRN SHORT OF BREATH/WHEEZING Albuterol/Ipratropium 1 amp 06/18/18 08:00 06/19/18 07:33 Duoneb - NEB 1 amp RQID JACKIE Administration Aspirin 81 mg 06/18/18 10:00 06/19/18 09:54 Asa - PO 81 mg DAILY JACKIE Administration Atorvastatin Calcium 20 mg 06/18/18 22:00 06/18/18 22:15 Lipitor - PO 20 mg HS JACKIE Administration Budesonide/Formoterol Fumarate 1 puff 06/19/18 10:15 Symbicort 160/4.5mcg - IH BID [facility] Insulin Aspart 1 vial 06/18/18 07:00 06/19/18 06:35 Novolog Vial Sliding Scale - SQ Not Given ACHS [facility] Protocol Methylprednisolone Sodium Succinate 60 mg 06/19/18 22:00 Solu-Medrol - IVPUSH 06/19/18 22:01 BID JACKIE Prednisone 60 mg 06/20/18 10:00 Deltasone - PO DAILY [facility] Rivaroxaban 20 mg 06/18/18 18:00 06/18/18 17:53 Xarelto - PO 20 mg DAILY@1800 [facility] Administration Roflumilast 500 mcg 06/19/18 10:15 Daliresp - PO DAILY [facility] Tamsulosin HCl 0.4 mg 06/18/18 08:30 06/19/18 09:54 Flomax - PO 0.4 mg DAILY@0830 JACKIE Administration Constitutional: Yes: NAD Eyes: Yes: Conjunctiva Clear, EOM Intact HENT: Yes: Atraumatic, Normocephalic Neck: Yes: Supple, Trachea Midline Cardiovascular: Yes: Regular Rate and Rhythm Respiratory: Yes: Diminished/Rhonchi. No: Wheezes ...Clubbing: No Gastrointestinal: Yes: Normal Bowel Sounds, Soft. No: Tenderness Edema: No Neurological: Yes: Alert, Oriented Labs: Laboratory Results - last 24 hr 06/18/18 06/18/18 06/18/18 03:51 07:30 09:50 WBC RBC Hgb Hct MCV MCH MCHC RDW Plt Count MPV Absolute Neuts (auto) Neutrophils % Neutrophils % (Manual) 87.1 H Band Neutrophils % 2.0 Lymphocytes % Lymphocytes % (Manual) 3.0 L D Monocytes % Monocytes % (Manual) 6 Eosinophils % Eosinophils % (Manual) 0.0 Basophils % Basophils % (Manual) 0.0 Myelocytes % (Man) 0 Promyelocytes % (Man) 0 Blast Cells % (Manual) 0 Nucleated RBC % Metamyelocytes 0 Hypochromia 0 Platelet Estimate Normal Polychromasia 0 Poikilocytosis 0 Anisocytosis 2+ Microcytosis 0 Macrocytosis 1+ Puncture Site Right radial ABG pH 7.44 ABG pCO2 at Pt Temp 56.6 H ABG pO2 at Pt Temp 89.3 ABG HCO3 38.0 H ABG O2 Sat (Measured) 97.5 ABG O2 Content 16.6 ABG Base Excess 11.9 H Ronny Test Positive Oxygen Flow Rate 30 Vent Rate 20 Sodium Potassium Chloride Carbon Dioxide Anion Gap BUN Creatinine Creat Clearance w eGFR POC Glucometer Random Glucose Calcium Phosphorus Magnesium Urine Color Dkyellow Urine Appearance Cloudy Urine pH 5.0 D Ur Specific [place] 1.026 Urine Protein 2+ H Urine Glucose (UA) 1+ H Urine Ketones Negative Urine Blood Negative Urine Nitrite Negative Urine Bilirubin Negative Urine Urobilinogen Negative Ur Leukocyte Esterase 2+ H Urine WBC (Auto) 11 Urine RBC (Auto) 8 Ur Epithelial Cells Rare Urine Mucus Few 06/18/18 06/18/18 06/18/18 12:47 16:20 22:14 WBC RBC Hgb Hct MCV MCH MCHC RDW Plt Count MPV Absolute Neuts (auto) Neutrophils % Neutrophils % (Manual) Band Neutrophils % Lymphocytes % Lymphocytes % (Manual) Monocytes % Monocytes % (Manual) Eosinophils % Eosinophils % (Manual) Basophils % Basophils % (Manual) Myelocytes % (Man) Promyelocytes % (Man) Blast Cells % (Manual) Nucleated RBC % Metamyelocytes Hypochromia Platelet Estimate Polychromasia Poikilocytosis Anisocytosis Microcytosis Macrocytosis Puncture Site ABG pH ABG pCO2 at Pt Temp ABG pO2 at Pt Temp ABG HCO3 ABG O2 Sat (Measured) ABG O2 Content ABG Base Excess Ronny Test Oxygen Flow Rate Vent Rate Sodium Potassium Chloride Carbon Dioxide Anion Gap BUN Creatinine Creat Clearance w eGFR POC Glucometer 105 96 286 Random Glucose Calcium Phosphorus Magnesium Urine Color Urine Appearance Urine pH Ur Specific [place] Urine Protein Urine Glucose (UA) Urine Ketones Urine Blood Urine Nitrite Urine Bilirubin Urine Urobilinogen Ur Leukocyte Esterase Urine WBC (Auto) Urine RBC (Auto) Ur Epithelial Cells Urine Mucus 06/19/18 06/19/18 06/19/18 06:10 06:10 06:34 WBC 9.9 RBC 4.04 Hgb 12.0 Hct 35.6 MCV 88.2 MCH 29.6 MCHC 33.6 RDW 15.3 Plt Count 154 MPV 7.5 Absolute Neuts (auto) 9.3 H Neutrophils % 93.5 H Neutrophils % (Manual) Band Neutrophils % Lymphocytes % 2.6 L D Lymphocytes % (Manual) Monocytes % 3.8 Monocytes % (Manual) Eosinophils % 0.0 D Eosinophils % (Manual) Basophils % 0.1 Basophils % (Manual) Myelocytes % (Man) Promyelocytes % (Man) Blast Cells % (Manual) Nucleated RBC % 0 Metamyelocytes Hypochromia Platelet Estimate Polychromasia Poikilocytosis Anisocytosis Microcytosis Macrocytosis Puncture Site ABG pH ABG pCO2 at Pt Temp ABG pO2 at Pt Temp ABG HCO3 ABG O2 Sat (Measured) ABG O2 Content ABG Base Excess Ronny Test Oxygen Flow Rate Vent Rate Sodium 140 Potassium 4.1 Chloride 98 Carbon Dioxide 39 H Anion Gap 3 L BUN 32 H Creatinine 0.5 L Creat Clearance w eGFR 160.40 POC Glucometer 116 Random Glucose 116 H Calcium 8.8 Phosphorus 3.3 Magnesium 2.2 Urine Color Urine Appearance Urine pH Ur Specific [place] Urine Protein Urine Glucose (UA) Urine Ketones Urine Blood Urine Nitrite Urine Bilirubin Urine Urobilinogen Ur Leukocyte Esterase Urine WBC (Auto) Urine RBC (Auto) Ur Epithelial Cells Urine Mucus Assessment/Plan Acute on Chronic Hypoxic and Hypercapneic Respiratory Failure Acute COPD Exacerbation HTN Hyperlipidemia h/o CVA h/o DVT - Medrol wean noted: Can likely change to Prednisone in AM - inhaled bronchodilators standing and PRN - O2 to keep SpO2 >88% - BiPAP to assist in work of breathing - VTE prophylaxis - Patient with multiple recent admissions, will benefit from SNF placement with pulmonary rehab Dr Lyn
[2018-06-19] MEDS: BUDESONIDE/FORMETEROL FUMARATE 160/4.5 mcg INHALER IH SCH ×2 (11:34→21:41)
[2018-06-19] MEDS ORDERED: INSULIN (NOVOLOG) ASPART 100 UNITS/ML 10ML VIAL ONE ×3 (11:34→16:59)
[2018-06-19] MEDS: ROFLUMILAST 500 MCG TABLET PO SCH (11:35)
[2018-06-19 13:51] LABS: ANISOCYTOSIS 0; MACROCYTOSIS 0; PLATELET ESTIMATE NORMAL
--- NOTE | 2018-06-19 18:00 | PN ---
Physical Exam: SUBJECTIVE: Patient seen and examined; no complaints; denies sob, cp, palpitations. ; on 4L NC OBJECTIVE: Vital Signs Period Temp Pulse Resp BP Sys/Thurman Pulse Ox Last 24 Hr 97.3 F-98.5 F 75-110 - 108-117/68-76 97-99 GENERAL: The patient is awake, alert, and fully oriented, in no acute distress. LUNGS: decreased Bs; scattered rhonchi HEART: Regular rate and rhythm, S1, S2 without murmur, rub or gallop. ABDOMEN: Soft, nontender, nondistended, normoactive bowel sounds, no guarding, no rebound, no hepatosplenomegaly, no masses. EXTREMITIES: 2+ pulses, warm, well-perfused, no edema. NEUROLOGICAL: Cranial nerves II through XII grossly intact. Normal speech, gait not observed. Laboratory Results - last 24 hr 06/18/18 06/18/18 06/19/18 07:30 22:14 06:10 WBC 9.9 RBC 4.04 Hgb 12.0 Hct 35.6 MCV 88.2 MCH 29.6 MCHC 33.6 RDW 15.3 Plt Count 154 MPV 7.5 Absolute Neuts (auto) 9.3 H Neutrophils % 93.5 H Neutrophils % (Manual) 86.0 H Band Neutrophils % 11.0 Lymphocytes % 2.6 L D Lymphocytes % (Manual) 0.0 L Monocytes % 3.8 Monocytes % (Manual) 1 L D Eosinophils % 0.0 D Eosinophils % (Manual) 0.0 Basophils % 0.1 Basophils % (Manual) 0.0 Myelocytes % (Man) 0 Promyelocytes % (Man) 0 Blast Cells % (Manual) 0 Nucleated RBC % 0 Metamyelocytes 1 D Hypochromia 0 Platelet Estimate Normal Polychromasia 0 Poikilocytosis 0 Anisocytosis 0 Microcytosis 0 Macrocytosis 0 Sodium Potassium Chloride Carbon Dioxide Anion Gap BUN Creatinine Creat Clearance w eGFR POC Glucometer 286 Random Glucose Hemoglobin A1c % Calcium Phosphorus Magnesium Urine Color Dkyellow Urine Appearance Cloudy Urine pH 5.0 D Ur Specific Sunflower 1.026 Urine Protein 2+ H Urine Glucose (UA) 1+ H Urine Ketones Negative Urine Blood Negative Urine Nitrite Negative Urine Bilirubin Negative Urine Urobilinogen Negative Ur Leukocyte Esterase 2+ H Urine WBC (Auto) 11 Urine RBC (Auto) 8 Ur Epithelial Cells Rare Urine Mucus Few 03/18/19 03/18/19 03/18/19 06:10 06:10 06:34 WBC RBC Hgb Hct MCV MCH MCHC RDW Plt Count MPV Absolute Neuts (auto) Neutrophils % Neutrophils % (Manual) Band Neutrophils % Lymphocytes % Lymphocytes % (Manual) Monocytes % Monocytes % (Manual) Eosinophils % Eosinophils % (Manual) Basophils % Basophils % (Manual) Myelocytes % (Man) Promyelocytes % (Man) Blast Cells % (Manual) Nucleated RBC % Metamyelocytes Hypochromia Platelet Estimate Polychromasia Poikilocytosis Anisocytosis Microcytosis Macrocytosis Sodium 140 Potassium 4.1 Chloride 98 Carbon Dioxide 39 H Anion Gap 3 L BUN 32 H Creatinine 0.5 L Creat Clearance w eGFR 160.40 POC Glucometer 116 Random Glucose 116 H Hemoglobin A1c % 8.1 H Calcium 8.8 Phosphorus 3.3 Magnesium 2.2 Urine Color Urine Appearance Urine pH Ur Specific Sunflower Urine Protein Urine Glucose (UA) Urine Ketones Urine Blood Urine Nitrite Urine Bilirubin Urine Urobilinogen Ur Leukocyte Esterase Urine WBC (Auto) Urine RBC (Auto) Ur Epithelial Cells Urine Mucus 06/19/18 06/19/18 11:26 16:33 WBC RBC Hgb Hct MCV MCH MCHC RDW Plt Count MPV Absolute Neuts (auto) Neutrophils % Neutrophils % (Manual) Band Neutrophils % Lymphocytes % Lymphocytes % (Manual) Monocytes % Monocytes % (Manual) Eosinophils % Eosinophils % (Manual) Basophils % Basophils % (Manual) Myelocytes % (Man) Promyelocytes % (Man) Blast Cells % (Manual) Nucleated RBC % Metamyelocytes Hypochromia Platelet Estimate Polychromasia Poikilocytosis Anisocytosis Microcytosis Macrocytosis Sodium Potassium Chloride Carbon Dioxide Anion Gap BUN Creatinine Creat Clearance w eGFR POC Glucometer 239 223 Random Glucose Hemoglobin A1c % Calcium Phosphorus Magnesium Urine Color Urine Appearance Urine pH Ur Specific Sunflower Urine Protein Urine Glucose (UA) Urine Ketones Urine Blood Urine Nitrite Urine Bilirubin Urine Urobilinogen Ur Leukocyte Esterase Urine WBC (Auto) Urine RBC (Auto) Ur Epithelial Cells Urine Mucus Active Medications Generic Name Dose Route Start Last Admin Trade Name Freq PRN Reason Stop Dose Admin Albuterol Sulfate 1 amp 06/18/18 06:25 Ventolin 0.083% Nebulizer Soln - NEB Q4H PRN SHORT OF BREATH/WHEEZING Albuterol/Ipratropium 1 amp 06/18/18 08:00 06/19/18 15:05 Duoneb - NEB 1 amp RQID JACKIE Administration Aspirin 81 mg 06/18/18 10:00 06/19/18 09:54 Asa - PO 81 mg DAILY JACKIE Administration Atorvastatin Calcium 20 mg 06/18/18 22:00 06/18/18 22:15 Lipitor - PO 20 mg HS JACKIE Administration Budesonide/Formoterol Fumarate 1 puff 06/19/18 10:15 06/19/18 11:34 Symbicort 160/4.5mcg - IH 1 puff BID JACKIE Administration Insulin Aspart 1 vial 06/18/18 07:00 06/19/18 16:42 Novolog Vial Sliding Scale - SQ 4 units ACHS JACKIE Administration Protocol Methylprednisolone Sodium Succinate 60 mg 06/19/18 22:00 Solu-Medrol - IVPUSH 06/19/18 22:01 BID JACKIE Prednisone 60 mg 06/20/18 10:00 Deltasone - PO DAILY JACKIE Rivaroxaban 20 mg 06/18/18 18:00 06/18/18 17:53 Xarelto - PO 20 mg DAILY@1800 JACKIE Administration Roflumilast 500 mcg 06/19/18 10:15 06/19/18 11:35 Daliresp - PO 500 mcg DAILY JACKIE Administration Tamsulosin HCl 0.4 mg 06/18/18 08:30 06/19/18 09:54 Flomax - PO 0.4 mg DAILY@0830 JACKIE Administration ASSESSMENT/PLAN: This is a 78 year old male with a history of COPD on home 02, prostate CA, CVA, DVT on xarelto, HTN, HLD< multiple hospitalization for COPD exacerbations. 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 - New Patient This patient is new to me today: Yes Date on this admission: 06/19/18 - Critical Care Critical Care patient: No
[2018-06-19] MEDS: RIVAROXABAN 20 MG TABLET PO SCH (18:24)
[2018-06-19] MEDS: ATORVASTATIN CA 20 MG TABLET (FP) PO SCH (21:39)
[2018-06-19] MEDS ORDERED: methylPREDNISolone NA SUCC 40 MG/1 ML VIAL IVPUSH SCH (22:00)
--- NOTE | 2018-06-19 22:42 | EKG ---
Test Reason : Blood Pressure : / mmHG Vent. Rate : 108 BPM Atrial Rate : 108 BPM P-R Int : 118 ms QRS Dur : 072 ms QT Int : 320 ms P-R-T Axes : 083 070 034 degrees QTc Int : 428 ms SINUS TACHYCARDIA RIGHT ATRIAL ENLARGEMENT NONSPECIFIC ST ABNORMALITY ABNORMAL ECG WHEN COMPARED WITH ECG OF 18-JUN-2018 02:27, NO SIGNIFICANT CHANGE WAS FOUND Confirmed by JABIER RODGERS MD ([id number]) on 06/19/2018 10:41:28 PM Referred By: VICTOR MANUEL COONEY Confirmed By:JABIER RODGERS MD
[2018-06-20] MEDS: INSULIN SLIDING SCALE (NOVOLOG) 1 VIAL SQ SCH ×4 (06:31→22:06)
[2018-06-20 07:46] LABS: HEMATOCRIT 35.1 % (35.4-49); HEMOGLOBIN 12.1 GM/dL (11.7-16.9); LYMPH % 1.6 % (8-40); MCH 30.4 pg (25.7-33.7); MCHC 34.4 g/dl (32.0-35.9); MEAN CELL VOLUME 88.3 fl (80-96); MEAN PLT VOLUME 7.7 fl (7.5-11.1); MONO % 4.5 % (3.8-10.2); NEUT % 93.9 % (42.8-82.8); PLATELET COUNT 149 K/MM3 (134-434); RBC 3.98 M/mm3 (4.00-5.60); RDW 15.1 % (11.9-15.9); WHITE BLOOD COUNT 9.2 K/mm3 (4.0-10.0)
[2018-06-20 08:14] LABS: ANION GAP 4 MMOL/L (8-16); BLOOD UREA NITROGEN 32 mg/dL (7-18); CALCIUM 8.6 mg/dL (8.5-10.1); CHLORIDE 99 mmol/L (98-107); CO2 38 mmol/L (21-32); CREATININE 0.5 mg/dL (0.55-1.3); GLUCOSE,RANDOM 170 mg/dL (74-106); POTASSIUM 3.6 mmol/L (3.5-5.1); SODIUM 141 mmol/L (136-145)
[2018-06-20] MEDS: ALBUTEROL SO4 2.5/IPRATROPIUM 0.5 INH SOL 3 ML VIAL.NEB. NEB SCH ×4 (08:43→21:00)
[2018-06-20] MEDS: predniSONE 20 MG TABLET (UD) PO SCH (09:13)
[2018-06-20] MEDS: ASPIRIN 81 MG CHEWABLE TABLETS PO SCH (09:13)
[2018-06-20] MEDS: TAMSULOSIN HCL 0.4 MG CAP PO SCH (09:13)
[2018-06-20] MEDS: ROFLUMILAST 500 MCG TABLET PO SCH (09:13)
[2018-06-20] MEDS: BUDESONIDE/FORMETEROL FUMARATE 160/4.5 mcg INHALER IH SCH ×2 (09:15→22:00)
--- NOTE | 2018-06-20 10:38 | PN ---
Progress Note (short form) - Note Progress Note: Reports breathing feels about the same. Last night felt like he was not not getting enough oxygen, although he was only willing to use NIPPV throughout the night. Mildly tachypneic but in NAD on 4 L NC O2, saturation 98%. Intake & Output 06/17/18 06/18/18 06/19/18 06/20/18 23:59 23:59 23:59 23:59 Intake Total 400 Output Total 750 200 150 Balance -750 200 -150 Weight 131 lb 14.4 oz Last Vital Signs Temp Pulse Resp BP Pulse Ox 98.2 F 114 H 20 140/86 98 06/20/18 07:09 06/20/18 08:45 06/20/18 07:09 06/20/18 07:09 06/20/18 08:45 Active Medications Albuterol Sulfate (Ventolin 0.083% Nebulizer Soln -) 1 amp NEB Q4H PRN PRN Reason: SHORT OF BREATH/WHEEZING Last Admin: 06/20/18 06:41 Dose: 1 amp Albuterol/Ipratropium (Duoneb -) 1 amp NEB RQID [facility] Last Admin: 06/20/18 08:43 Dose: 1 amp Aspirin (Asa -) 81 mg PO DAILY [facility] Last Admin: 06/20/18 09:13 Dose: 81 mg Atorvastatin Calcium (Lipitor -) 20 mg PO HS [facility] Last Admin: 06/19/18 21:39 Dose: 20 mg Budesonide/Formoterol Fumarate (Symbicort 160/4.5mcg -) 1 puff IH BID [facility] Last Admin: 06/20/18 09:15 Dose: 1 puff Insulin Aspart (Novolog Vial Sliding Scale -) 1 vial SQ ACHS [facility]; Protocol Last Admin: 06/20/18 06:31 Dose: 2 units Prednisone (Deltasone -) 60 mg PO DAILY [facility] Last Admin: 06/20/18 09:13 Dose: 60 mg Rivaroxaban (Xarelto -) 20 mg PO DAILY@1800 [facility] Last Admin: 06/19/18 18:24 Dose: 20 mg Roflumilast (Daliresp -) 500 mcg PO DAILY [facility] Last Admin: 06/20/18 09:13 Dose: 500 mcg Tamsulosin HCl (Flomax -) 0.4 mg PO DAILY@0830 [facility] Last Admin: 06/20/18 09:13 Dose: 0.4 mg Constitutional: Yes: Mildly tachypneic at rest Eyes: Yes: Conjunctiva Clear, EOM Intact HENT: Yes: Atraumatic, Normocephalic Neck: Yes: Supple, Trachea Midline Cardiovascular: Yes: Regular Rate and Rhythm Respiratory: Yes: Diminished/Rhonchi. No: Wheezes ...Clubbing: No Gastrointestinal: Yes: Normal Bowel Sounds, Soft. No: Tenderness Edema: No Neurological: Yes: Alert, Oriented Labs: Laboratory Results - last 24 hr 06/19/18 06/19/18 06/19/18 06:10 06:10 11:26 WBC RBC Hgb Hct MCV MCH MCHC RDW Plt Count MPV Absolute Neuts (auto) Neutrophils % Neutrophils % (Manual) 86.0 H Band Neutrophils % 11.0 Lymphocytes % Lymphocytes % (Manual) 0.0 L Monocytes % Monocytes % (Manual) 1 L D Eosinophils % Eosinophils % (Manual) 0.0 Basophils % Basophils % (Manual) 0.0 Myelocytes % (Man) 0 Promyelocytes % (Man) 0 Blast Cells % (Manual) 0 Nucleated RBC % 0 Metamyelocytes 1 D Hypochromia 0 Platelet Estimate Normal Polychromasia 0 Poikilocytosis 0 Anisocytosis 0 Microcytosis 0 Macrocytosis 0 Sodium Potassium Chloride Carbon Dioxide Anion Gap BUN Creatinine Creat Clearance w eGFR POC Glucometer 239 Random Glucose Hemoglobin A1c % 8.1 H Calcium 06/19/18 06/19/18 06/20/18 16:33 21:36 06:27 WBC RBC Hgb Hct MCV MCH MCHC RDW Plt Count MPV Absolute Neuts (auto) Neutrophils % Neutrophils % (Manual) Band Neutrophils % Lymphocytes % Lymphocytes % (Manual) Monocytes % Monocytes % (Manual) Eosinophils % Eosinophils % (Manual) Basophils % Basophils % (Manual) Myelocytes % (Man) Promyelocytes % (Man) Blast Cells % (Manual) Nucleated RBC % Metamyelocytes Hypochromia Platelet Estimate Polychromasia Poikilocytosis Anisocytosis Microcytosis Macrocytosis Sodium Potassium Chloride Carbon Dioxide Anion Gap BUN Creatinine Creat Clearance w eGFR POC Glucometer 223 239 183 Random Glucose Hemoglobin A1c % Calcium 06/20/18 06/20/18 07:00 07:00 WBC 9.2 RBC 3.98 L Hgb 12.1 Hct 35.1 L MCV 88.3 MCH 30.4 MCHC 34.4 RDW 15.1 Plt Count 149 MPV 7.7 Absolute Neuts (auto) 8.6 H Neutrophils % 93.9 H Neutrophils % (Manual) Band Neutrophils % Lymphocytes % 1.6 L D Lymphocytes % (Manual) Monocytes % 4.5 Monocytes % (Manual) Eosinophils % 0.0 Eosinophils % (Manual) Basophils % 0.0 Basophils % (Manual) Myelocytes % (Man) Promyelocytes % (Man) Blast Cells % (Manual) Nucleated RBC % 0 Metamyelocytes Hypochromia Platelet Estimate Polychromasia Poikilocytosis Anisocytosis Microcytosis Macrocytosis Sodium 141 Potassium 3.6 Chloride 99 Carbon Dioxide 38 H Anion Gap 4 L BUN 32 H Creatinine 0.5 L Creat Clearance w eGFR 160.40 POC Glucometer Random Glucose 170 H Hemoglobin A1c % Calcium 8.6 Assessment/Plan 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
[2018-06-20] MEDS ORDERED: INSULIN (NOVOLOG) ASPART 100 UNITS/ML 10ML VIAL ONE (11:13)
[2018-06-20] MEDS: ATENOLOL 25 MG TABLET (FP) PO SCH (11:31)
[2018-06-20 11:55] LABS: ANISOCYTOSIS 0; MACROCYTOSIS 0; OVALOCYTE 1+; PLATELET ESTIMATE DECREASED
--- NOTE | 2018-06-20 12:40 | DS ---
Physical Exam: SUBJECTIVE: Patient seen and examined, breathing overall the same, no new concerns. OBJECTIVE: Vital Signs Period Temp Pulse Resp BP Sys/Thurman Pulse Ox Last 24 Hr 97.6 F-98.9 F 69-114 18-20 111-140/71-88 98-98 PHYSICAL EXAM GENERAL: The patient is awake, alert, oriented to self, place, anxious but no acute distress in bed, no use of accessory muscles of respiration. HEAD: Normal with no signs of trauma. EYES: PERRL, extraocular movements intact, sclera anicteric, conjunctiva clear. ENT: Ears normal, nares patent, oropharynx clear without exudates, moist mucous membranes. NECK: soft, supple, no JVD LUNGS: decreased air entry all over, no rales or wheezing, improved exam HEART: S1S2 regular, tachycardic ABDOMEN: Soft, nontender, nondistended, normoactive bowel sounds, no guarding, no rebound EXTREMITIES: 2+ pulses, warm, well-perfused, no edema. PSYCH: Anxious SKIN: Warm, dry, normal turgor, no rashes or lesions noted. LABS Laboratory Results - last 24 hr 06/19/18 06/19/18 06/19/18 06:10 16:33 21:36 WBC RBC Hgb Hct MCV MCH MCHC RDW Plt Count MPV Absolute Neuts (auto) Neutrophils % Neutrophils % (Manual) 86.0 H Band Neutrophils % 11.0 Lymphocytes % Lymphocytes % (Manual) 0.0 L Monocytes % Monocytes % (Manual) 1 L D Eosinophils % Eosinophils % (Manual) 0.0 Basophils % Basophils % (Manual) 0.0 Myelocytes % (Man) 0 Promyelocytes % (Man) 0 Blast Cells % (Manual) 0 Nucleated RBC % 0 Metamyelocytes 1 D Hypochromia 0 Platelet Estimate Normal Polychromasia 0 Poikilocytosis 0 Anisocytosis 0 Microcytosis 0 Macrocytosis 0 Ovalocytes Sodium Potassium Chloride Carbon Dioxide Anion Gap BUN Creatinine Creat Clearance w eGFR POC Glucometer 223 239 Random Glucose Calcium 06/20/18 06/20/18 06/20/18 06:27 07:00 07:00 WBC 9.2 RBC 3.98 L Hgb 12.1 Hct 35.1 L MCV 88.3 MCH 30.4 MCHC 34.4 RDW 15.1 Plt Count 149 MPV 7.7 Absolute Neuts (auto) 8.6 H Neutrophils % 93.9 H Neutrophils % (Manual) 92.9 H Band Neutrophils % 0.0 Lymphocytes % 1.6 L D Lymphocytes % (Manual) 5.1 L D Monocytes % 4.5 Monocytes % (Manual) 2 L D Eosinophils % 0.0 Eosinophils % (Manual) 0.0 Basophils % 0.0 Basophils % (Manual) 0.0 Myelocytes % (Man) 0 Promyelocytes % (Man) 0 Blast Cells % (Manual) 0 Nucleated RBC % 0 Metamyelocytes 0 D Hypochromia 0 Platelet Estimate Decreased Polychromasia 0 Poikilocytosis 1+ Anisocytosis 0 Microcytosis 0 Macrocytosis 0 Ovalocytes 1+ Sodium 141 Potassium 3.6 Chloride 99 Carbon Dioxide 38 H Anion Gap 4 L BUN 32 H Creatinine 0.5 L Creat Clearance w eGFR 160.40 POC Glucometer 183 Random Glucose 170 H Calcium 8.6 06/20/18 11:05 WBC RBC Hgb Hct MCV MCH MCHC RDW Plt Count MPV Absolute Neuts (auto) Neutrophils % Neutrophils % (Manual) Band Neutrophils % Lymphocytes % Lymphocytes % (Manual) Monocytes % Monocytes % (Manual) Eosinophils % Eosinophils % (Manual) Basophils % Basophils % (Manual) Myelocytes % (Man) Promyelocytes % (Man) Blast Cells % (Manual) Nucleated RBC % Metamyelocytes Hypochromia Platelet Estimate Polychromasia Poikilocytosis Anisocytosis Microcytosis Macrocytosis Ovalocytes Sodium Potassium Chloride Carbon Dioxide Anion Gap BUN Creatinine Creat Clearance w eGFR POC Glucometer 243 Random Glucose Calcium HOSPITAL COURSE: Date of Admission:06/18/18 Date of Discharge: 06/20/18 Minutes to complete discharge: 40 Discharge Summary Reason For Visit: ACUTE EXACERBATION OF CHRONIC PULMONARY DISEASE Current Active Problems COPD exacerbation (Acute) Hospital Course: 78 yom with PMHx of COPD (on 2L 02), prostate CA, CVA (5 yrs prior, with residual L sided weakness), hx DVT (on Xarelto), HTN, HLD, recently admitted to [facility] with COPD exac d/mika on 06/02, then reportedly admitted to [facility] last week , d/mika on 06/15 comes back with dyspnea, per daughter 'not able to feel the oxygen'. He was noted hypoxic/hypercarbic in the ED, placed on bipap. His symptoms rapidly removed. He was transitioned to oral steroids with no concerns. His CXR was not concerning for infection. He finished 3 days of azithromycin. He was continued on xarelto/statin. Given recurrent admissions over the last 2 weeks, he is being discharged to SNF for pulmonary rehab. Condition: Stable - Instructions Diet, Activity, Other Instructions: MEDICATIONS: Continue your home medications as before except prednisone to be tapered as below: 60 mg daily for 4 days (06/21, 06/22, 06/23, 06/24) 50 mg daily for 4 days (06/25, 06/26, 06/27, 06/28) 40 mg daily for 4 days (06/29, 06/30, 07/01, 07/02) 30 mg daily for 4 days (07/03, 07/04, 07/05, 07/06) 20 mg daily for 4 days (07/07, 07/08, 07/09, 07/10) 10 mg daily after that till further instructed by Dr. Borja. FOLLOW UP: With Dr. Borja in 1-2 weeks, please discuss steroid taper With primary care physician in 1 week. Continue 2-3 Liters continuous home oxygen. If you notice fevers, chills, worsening breathing, or any new concerns, please call 911 or come to the ED. Referrals: David Borja MD, [Staff Physician] - 1 Week Disposition: [facility] F[facility] - Home Medications Comprehensive Discharge Medication List: Ambulatory Orders Albuterol Sulfate 0.042% [Ventolin 0.042% (Half-Strength) -] 1 amp QID 05/31/18 Albuterol Sulfate Inhaler - [Ventolin HFA Inhaler -] 1 puff IH DAILY 05/31/18 Atorvastatin Ca [Lipitor] 20 mg PO HS 05/31/18 Bisoprolol Fumarate [Zebeta (Nf) -] 5 mg PO DAILY 05/31/18 Budesonide/Formeterol Fumarate [SYMBICORT 160/4.5mcg -] 1 inh PO BID 05/31/18 Omeprazole 40 mg PO DAILY 05/31/18 Rivaroxaban [Xarelto -] 20 mg PO DAILY 05/31/18 Roflumilast [Daliresp -] 500 mcg PO DAILY 05/31/18 Tamsulosin HCl [Flomax -] 0.4 mg PO DAILY 05/31/18 Tiotropium [place] [Spiriva] 1 inh PO DAILY 05/31/18 Repaglinide 1 mg PO TIDCM 06/18/18 Albuterol 0.083% Nebulizer Penelope [Ventolin 0.083% Nebulizer Soln -] 1 amp NEB Q4H PRN amp 06/20/18 Insulin Sliding Scale [Novolog Vial Sliding Scale -] 1 vial SQ ACHS #1 units predniSONE [Deltasone -] See Taper PO ASDIR #100 tab 06/20/18 This patient is new to me today: No Emergency Visit: Yes ED Registration Date: 06/18/18 Care time: The patient presented to the Emergency Department on the above date and was hospitalized for further evaluation of their emergent condition. Critical Care patient: No - Discharge Referral Referred to [facility] No
[2018-06-20] MEDS: RIVAROXABAN 20 MG TABLET PO SCH (18:12)
[2018-06-20] MEDS: ATORVASTATIN CA 20 MG TABLET (FP) PO SCH (22:00)
[2018-06-21] MEDS: INSULIN SLIDING SCALE (NOVOLOG) 1 VIAL SQ SCH (06:40)
[2018-06-21] MEDS: ALBUTEROL SO4 2.5/IPRATROPIUM 0.5 INH SOL 3 ML VIAL.NEB. NEB SCH ×2 (07:46→12:30)
[2018-06-21] MEDS: predniSONE 20 MG TABLET (UD) PO SCH (11:08)
[2018-06-21] MEDS: ASPIRIN 81 MG CHEWABLE TABLETS PO SCH (11:08)
[2018-06-21] MEDS: TAMSULOSIN HCL 0.4 MG CAP PO SCH (11:08)
[2018-06-21] MEDS: ROFLUMILAST 500 MCG TABLET PO SCH (11:12)
[2018-06-21] MEDS: ATENOLOL 25 MG TABLET (FP) PO SCH (11:18)
[2018-06-21] MEDS: BUDESONIDE/FORMETEROL FUMARATE 160/4.5 mcg INHALER IH SCH (11:49)
[2018-06-21 12:09] VITALS: BP 127/75; PULSE 114; TEMP 98.6
== END 2018-06-21 13:31 | DRG 189 ==
LOC: JER 01:28 → JERBED 06:05 → J6S 13:53
PROVIDERS: ADMIT Internal Medicine; ATTEND Internal Medicine
PROC: 5A09357 Assistance with Respiratory Ventilation, Less than 24 Consecutive Hours, Continuous Positive Airway Pressure (ICD-10-PCS; principal; 2018-06-18)
DX: J96.01 Acute respiratory failure with hypoxia (principal); J44.1 Chronic obstructive pulmonary disease with (acute) exacerbation; I69.954 Hemiplegia and hemiparesis following unspecified cerebrovascular disease affecting left non-dominant side; R00.0 Tachycardia, unspecified; J96.02 Acute respiratory failure with hypercapnia; I25.10 Atherosclerotic heart disease of native coronary artery without angina pectoris; E78.5 Hyperlipidemia, unspecified; E09.9 Drug or chemical induced diabetes mellitus without complications; E88.09 Other disorders of plasma-protein metabolism, not elsewhere classified; N40.0 Benign prostatic hyperplasia without lower urinary tract symptoms; Z99.81 Dependence on supplemental oxygen; Z85.46 Personal history of malignant neoplasm of prostate; Z86.718 Personal history of other venous thrombosis and embolism
CPT/HCPCS: 36415; 36600; 71045-TC-FY; 80048; 80053; 81003; 81015; 82375; 82550; 82803; 82962; 83036; 83050; 83605; 83735; 83880; 84100; 84484; 85025; 87040; 87804; 93005; 93010; 94640; 94660; 97161-GP; 99285-25

== ENCOUNTER 2018-07-03 09:10 | Inpatient (IN) | payer OTHER ==
--- NOTE | 2018-07-03 09:24 | PDOC ---
History of Present Illness <Porfirio Santoyo - Last Filed: 07/03/18 12:29> - General History Source: Patient Exam Limitations: No Limitations - History of Present Illness Initial Comments: 07/03/18 09:25 78 y/o M with PMH COPD (on 2L 02), prostate CA, CVA (5 yrs prior, with residual L sided weakness), hx DVT (on Xarelto), HTN, HLD, who presents to the ED with SOB. At 8am the respiratory therapist noted that the patient was tachypneic, hypoxic. Nurses assessed him and noted that he was tachycardiac. Pt sent to the ER for further evaluation. He has been on prednisone taper. Currently, pt states that his breathing has been laboured for months He denies fevers or chills He reports that he has had coughing intermittently He has left sided chest pain which he rates 5/10, no radiation PAST MEDICAL HISTORY: as above PAST SURGICAL HISTORY: denies Social History: Resident of [facility], bed bound since April Smokin pack year history. Quit approx 10-11 years ago Alcohol: denies Drugs: denies Family History: non-contributory Allergies: NKDA HOME MEDICATIONS: REVIEW OF SYSTEMS GENERAL/CONSTITUTIONAL: No: fever, chills, weakness, loss of appetite. HEAD, EYES, EARS, NOSE AND THROAT: No: change in vision, ear pain, discharge, sore throat, throat swelling. CARDIOVASCULAR: Yes: chest pain No: lightheadedness, palpitations, syncope RESPIRATORY: Yes: cough, shortness of breath No: wheezing, hemoptysis, stridor. GASTROINTESTINAL: No: nausea, vomiting, diarrhea, abdominal pain GENITOURINARY: No: dysuria, hematuria, frequency, urgency MUSCULOSKELETAL: No: back pain, neck pain, joint pain, muscle swelling or pain SKIN: No: lesions, pallor, rash or easy bruising. NEUROLOGIC: No: headache, vertigo, paresthesias, weakness PHYSICAL EXAMINATION GENERAL: Pleasant. On BiPAP. without accessory muscle usage HEAD: Normal with no signs of trauma. EYES: Pupils equal, round and reactive to light, extraocular movements intact, sclera anicteric, conjunctiva clear. EARS, NOSE, THROAT: Ears normal, nares patent, oropharynx clear without exudates. Dry mucous membranes. NECK: Normal range of motion, supple LUNGS: +prolonged expiratory phase, +basilar crackles HEART: tachycardiac, regular, no murmur appreciated over bipap ABDOMEN: Soft, nontender, not distended, no guarding, no rebound, no masses. LOWER EXTREMITIES: cachectic. 2+ pt pulses. No calf tenderness. No peripheral edema. NEUROLOGICAL: able to move UE, LE. awake and alert, answers my questions, A&O x 3 SKIN: Warm, dry, no erythema, no rash 07/03/18 09:31 07/03/18 09:41 07/03/18 09:43 <Janice Mckeon - Last Filed: 07/04/18 10:05> - General Stated Complaint: Shortness of Breath Time Seen by Provider: 07/03/18 09:24 Past History <Porfirio Santoyo - Last Filed: 07/03/18 12:29> - Past Medical History Anemia: No Asthma: Yes (copd) Cancer: Yes (PROSTATE) Cardiac Disorders: Yes CVA: Yes (left hemiparesis) COPD: Yes CHF: No Dementia: No Diabetes: Yes GI Disorders: No Disorders: Yes (Prostate CA) HTN: Yes Hypercholesterolemia: No Liver Disease: No Seizures: No Thyroid Disease: No - Surgical History Abdominal Surgery: No Appendectomy: No Cardiac Surgery: No Cholecystectomy: No Lung Surgery: No Neurologic Surgery: No - Immunization History Immunization Up to Date: Yes - Suicide/Smoking/Psychosocial Hx Smoking History: Former smoker Have you smoked in the past 12 months: No Number of Cigarettes Smoked Daily: 0 If you are a former smoker, when did you quit?: 10 years ago Hx Alcohol Use: No Drug/Substance Use Hx: Yes (social) Substance Use Type: None Hx Substance Use Treatment: No <Janice Mckeon - Last Filed: 07/04/18 10:05> - Past Medical History Allergies/Adverse Reactions: Allergies Allergy/AdvReac Type Severity Reaction Status Date / Time No Known Allergies Allergy Verified 07/03/18 09:32 Home Medications: Ambulatory Orders Albuterol Sulfate Inhaler - [Ventolin HFA Inhaler -] 1 puff IH DAILY 05/31/18 Atorvastatin Ca [Lipitor] 20 mg PO HS 05/31/18 Bisoprolol Fumarate [Zebeta (Nf) -] 5 mg PO DAILY 05/31/18 Budesonide/Formeterol Fumarate [SYMBICORT 160/4.5mcg -] 1 inh PO BID 05/31/18 Omeprazole 40 mg PO DAILY 05/31/18 Rivaroxaban [Xarelto -] 20 mg PO DAILY 05/31/18 Roflumilast [Daliresp -] 500 mcg PO DAILY 05/31/18 Tamsulosin HCl [Flomax -] 0.4 mg PO DAILY 05/31/18 Tiotropium [place] [Spiriva] 1 inh PO DAILY 05/31/18 Repaglinide 1 mg PO TIDCM 06/18/18 Albuterol 0.083% Nebulizer Penelope [Ventolin 0.083% Nebulizer Soln -] 1 amp NEB Q4H PRN amp 06/20/18 Insulin Sliding Scale [Novolog Vial Sliding Scale -] 1 vial SQ ACHS #1 units predniSONE [Deltasone -] See Taper PO ASDIR #100 tab 06/20/18 Albuterol 2.5/Ipratropium 0.5 [Duoneb -] 1 neb IH QID 07/03/18 Docusate Sodium [Colace] 100 mg PO DAILY 07/03/18 Potassium Chloride 20 meq PO DAILY 07/03/18 *Physical Exam - Vital Signs Last Vital Signs Temp Pulse Resp BP Pulse Ox 100.1 F H 131 H 40 H 115/74 93 L 07/03/18 09:51 07/03/18 09:45 07/03/18 09:10 07/03/18 09:10 07/03/18 12:18 <Porfirio Santoyo - Last Filed: 07/03/18 12:29> ED Treatment Course - LABORATORY CBC & Chemistry Diagram: 07/03/18 10:50 07/03/18 10:50 - ADDITIONAL ORDERS Additional order review: Laboratory Results 07/03/18 07/03/18 07/03/18 10:50 10:50 10:50 PT with INR 19.30 H INR 1.63 H PTT (Actin FS) 29.3 Anticoagulation Therapy Puncture Site ABG pH ABG pCO2 at Pt Temp ABG pO2 at Pt Temp ABG HCO3 ABG O2 Sat (Measured) ABG O2 Content ABG Base Excess Ronny Test O2 Delivery Device Oxygen Flow Rate Vent Mode Vent Rate Mechanical Rate Pressure Support Vent Sodium 143 Potassium 3.8 Chloride 99 Carbon Dioxide 40 H Anion Gap 4 L BUN 21 H Creatinine 0.4 L Creat Clearance w eGFR 207.51 Random Glucose 150 H Lactic Acid 1.5 Calcium 8.1 L Total Bilirubin 0.8 AST 35 ALT 38 Alkaline Phosphatase 95 Creatine Kinase 47 CK-MB (CK-2) 1.0 Troponin I < 0.02 B-Natriuretic Peptide 69.0 Total Protein 5.2 L Albumin 2.2 L 07/03/18 09:33 PT with INR INR PTT (Actin FS) Anticoagulation Therapy No Result Required. Puncture Site Right radial ABG pH 7.43 ABG pCO2 at Pt Temp 60.2 H ABG pO2 at Pt Temp 73.5 L ABG HCO3 39.5 H ABG O2 Sat (Measured) 95.2 ABG O2 Content 14.6 L ABG Base Excess 13.2 H Ronny Test Positive O2 Delivery Device No Result Required. Oxygen Flow Rate 40 Vent Mode No Result Required. Vent Rate No Result Required. Mechanical Rate No Result Required. Pressure Support Vent No Result Required. Sodium Potassium Chloride Carbon Dioxide Anion Gap BUN Creatinine Creat Clearance w eGFR Random Glucose Lactic Acid Calcium Total Bilirubin AST ALT Alkaline Phosphatase Creatine Kinase CK-MB (CK-2) Troponin I B-Natriuretic Peptide Total Protein Albumin 07/03/18 10:50 RBC 3.92 L MCV 88.8 MCHC 32.6 RDW 16.4 H MPV 7.3 L Neutrophils % 89.3 H Lymphocytes % 5.3 L D Monocytes % 5.2 Eosinophils % 0.0 Basophils % 0.2 D <Porfirio Santoyo - Last Filed: 07/03/18 12:29> - LABORATORY CBC & Chemistry Diagram: 07/04/18 05:30 07/04/18 05:30 <Janice Mkceon - Last Filed: 07/04/18 10:05> Medical Decision Making - Medical Decision Making 07/03/18 12:[address] An, covering admitting physician for Dr. Zee, awaiting call back. <Porfirio Santoyo - Last Filed: 07/03/18 12:29> - Critical Care Time Total Critical Care Time (minutes): 60 Critical Care Statement: The care of this patient involved high complexity decision making to prevent further life threatening deterioration of the patient 's condition and/or to evaluate & treat vital organ system(s) failure or risk of failure. - Medical Decision Making 07/03/18 09:43 78 yo M h/o COPD on supplemental O2, who presents to the ER with a complaint of shortness of breath Pt placed on Bipap (setting based on senior care settings) DD: COPD exacerbation, Pneumonia, CHF, ACS, PE less likely given pt on Xeralto Will do: Labs, including ABG CXR Nebs ReAssess 07/03/18 09:49 CXR: bibasilar atalectasis vs. fluid noted which is new Will give abx 07/03/18 09:51 Will start IV hydration given ECHo from 05/2018 nml EF 07/03/18 09:52 EKG - ST rate of 129 bpm, axis nml, intervals nml, bi atrial enlargement, no st elevation or depression, t waves upright 07/03/18 11:21 Laboratory Tests 06/20/18 07/03/18 07/03/18 07:00 09:33 10:50 WBC 9.2 6.0 Hgb 12.1 11.3 L Hct 35.1 L 34.8 L Plt Count 149 144 ABG pH 7.43 ABG pCO2 at Pt Temp 60.2 H ABG pO2 at Pt Temp 73.5 L 07/03/18 12:27 Laboratory Tests 06/20/18 07/03/18 07/03/18 07:00 10:50 10:50 Sodium 143 Potassium 3.8 Chloride 99 Carbon Dioxide 40 H BUN 32 H 21 H Creatinine 0.5 L 0.4 L Random Glucose 150 H Lactic Acid 1.5 Creatine Kinase 47 CK-MB (CK-2) 1.0 Troponin I < 0.02 B-Natriuretic Peptide 69.0 HR improved - 110 O2 improved - 95% Will admit Will treat for COPD and pNA Pt improved with BiPAP <Janice Mckeon - Last Filed: 07/04/18 10:05> *DC/Admit/Observation/Transfer - Attestations Scribe Attestion: 07/03/18 12:30 Documentation prepared by Porfirio Santoyo, acting as medical records administrator for Janice Mckeon MD. <Porfirio Santoyo - Last Filed: 07/03/18 12:29> - Discharge Dispostion Decision to Admit order: Yes <Janice Mckeon - Last Filed: 07/04/18 10:05> Diagnosis at time of Disposition: COPD exacerbation, Acute on chronic respiratory failure with hypercapnia - Discharge Dispostion Condition at time of disposition: Fair
[2018-07-03] MEDS ORDERED: ALBUTEROL SO4 2.5/IPRATROPIUM 0.5 INH SOL 3 ML VIAL.NEB. NEB ONE ×2 (09:28→10:59)
[2018-07-03] MEDS ORDERED: methylPREDNISolone NA SUCC 125 MG/2 ML VIAL IVPB ONE (09:28)
[2018-07-03] MEDS ORDERED: SODIUM CHLORIDE 1,000 ML IV STA (09:50)
[2018-07-03] MEDS ORDERED: PIPERACILLIN/TAZOB 4.5 GM 4.5 GM in DEXTROSE 5%-WATER 100 ML IVPB ONE (09:51)
[2018-07-03] MEDS ORDERED: VANCOMYCIN 1,000 MG in DEXTROSE 5%-WATER - 250 ML IVPB ONE (09:51)
[2018-07-03 10:07] LABS: ARTERIAL BLD GAS O2 SATURATION 95.2 % (95-98); ARTERIAL BLOOD GAS BASE EXCESS 13.2 meq/l (-2-2); ARTERIAL BLOOD GAS PCO2 60.2 mmHg (35-45); ARTERIAL BLOOD GAS PO2 73.5 mmHg (80-105); ARTERIAL BLOOD GAS pH 7.43 (7.35-7.45)
[2018-07-03 10:09] LABS: ALLENS TEST POSITIVE
[2018-07-03] MEDS ORDERED: ACETAMINOPHEN 1000 MG/100 ML VIAL (NON FORMULARY) IVPB ONE (10:09)
[2018-07-03] MEDS ORDERED: PIPERACILLIN/TAZOB 4.5 GM 4.5 GM/100 ML BAG IVPB ONE ×2 (11:00→19:33)
[2018-07-03] MEDS ORDERED: methylPREDNISolone NA SUCC 125 MG/2 ML VIAL ONE (11:00)
[2018-07-03] MEDS ORDERED: VANCOMYCIN 1 GRAM (PRE-DOCKED) 1,000 MG/250 ML BAG IVPB ONE (11:00)
[2018-07-03] MEDS ORDERED: ACETAMINOPHEN INJECTION 100 ML IVPB ONE (11:01)
[2018-07-03 11:05] LABS: BASO % 0.2 % (0-2.0); HEMATOCRIT 34.8 % (35.4-49); HEMOGLOBIN 11.3 GM/dL (11.7-16.9); LYMPH % 5.3 % (8-40); MCHC 32.6 g/dl (32.0-35.9); MEAN CELL VOLUME 88.8 fl (80-96); MEAN PLT VOLUME 7.3 fl (7.5-11.1); MONO % 5.2 % (3.8-10.2); NEUT % 89.3 % (42.8-82.8); PLATELET COUNT 144 K/MM3 (134-434); RBC 3.92 M/mm3 (4.00-5.60); RDW 16.4 % (11.9-15.9)
--- NOTE | 2018-07-03 11:13 | EKG ---
Test Reason : Blood Pressure : / mmHG Vent. Rate : 129 BPM Atrial Rate : 129 BPM P-R Int : 124 ms QRS Dur : 080 ms QT Int : 302 ms P-R-T Axes : 082 070 094 degrees QTc Int : 442 ms SINUS TACHYCARDIA BIATRIAL ENLARGEMENT SEPTAL INFARCT , AGE UNDETERMINED ABNORMAL ECG WHEN COMPARED WITH ECG OF 19-JUN-2018 15:21, SEPTAL INFARCT IS NOW PRESENT VENT. RATE HAS INCREASED Confirmed by VISHAL DEGROOT, JABIER ([id number]) on 07/03/2018 11:12:28 AM Referred By: Confirmed By:JABIER RODGERS MD
[2018-07-03 11:41] LABS: INR 1.63 (0.83-1.09); PROTHROMBIN TIME (PATIENT) 19.3 SEC (9.7-13.0)
[2018-07-03 11:44] LABS: ACTIVATED PTT 29.3 SECONDS (25.2-36.5)
[2018-07-03 11:48] LABS: ALBUMIN 2.2 g/dl (3.4-5.0); ALK PHOS 95 U/L (45-117); ANION GAP 4 MMOL/L (8-16); BILIRUBIN,TOTAL 0.8 mg/dL (0.2-1); BLOOD UREA NITROGEN 21 mg/dL (7-18); CALCIUM 8.1 mg/dL (8.5-10.1); CHLORIDE 99 mmol/L (98-107); CO2 40 mmol/L (21-32); CREATININE 0.4 mg/dL (0.55-1.3); GLUCOSE,RANDOM 150 mg/dL (74-106); POTASSIUM 3.8 mmol/L (3.5-5.1); SGOT/AST 35 U/L (15-37); SGPT/ALT 38 U/L (13-61); SODIUM 143 mmol/L (136-145); TOT PROT 5.2 g/dl (6.4-8.2)
--- NOTE | 2018-07-03 14:39 | HP ---
Admitting History and Physical - Admission Chief Complaint: came in with tachypnea and hypoxia oxygen sat in 80's from [place] History of Present Illness: 78 y/o M with PMH COPD (on 2L 02), prostate CA, CVA (5 yrs prior, with residual L sided weakness), hx DVT (on Xarelto), HTN, HLD, who presents to the ED with SOB . patient came from [facility] was there for pulonary rehab. per daughter father feels like he is not getting enough oxygen even though he was on nasal canula patient in ER temp 100.1 meds given: zosyn solumdrol vancomycin duonebs - Past Medical History Pulmonary: Yes: COPD - Smoking History Smoking history: Former smoker Have you smoked in the past 12 months: No Aproximately how many cigarettes per day: 0 If you are a former smoker, when did you quit?: 10 years ago - Alcohol/Substance Use Hx Alcohol Use: No Home Medications - Allergies Allergies/Adverse Reactions: Allergies Allergy/AdvReac Type Severity Reaction Status Date / Time No Known Allergies Allergy Verified 07/03/18 09:32 - Home Medications Home Medications: Ambulatory Orders Albuterol Sulfate 0.042% [Ventolin 0.042% (Half-Strength) -] 1 amp QID 05/31/18 Albuterol Sulfate Inhaler - [Ventolin HFA Inhaler -] 1 puff IH DAILY 05/31/18 Atorvastatin Ca [Lipitor] 20 mg PO HS 05/31/18 Bisoprolol Fumarate [Zebeta (Nf) -] 5 mg PO DAILY 05/31/18 Budesonide/Formeterol Fumarate [SYMBICORT 160/4.5mcg -] 1 inh PO BID 05/31/18 Omeprazole 40 mg PO DAILY 05/31/18 Rivaroxaban [Xarelto -] 20 mg PO DAILY 05/31/18 Roflumilast [Daliresp -] 500 mcg PO DAILY 05/31/18 Tamsulosin HCl [Flomax -] 0.4 mg PO DAILY 05/31/18 Tiotropium [place] [Spiriva] 1 inh PO DAILY 05/31/18 Repaglinide 1 mg PO TIDCM 06/18/18 Albuterol 0.083% Nebulizer Penelope [Ventolin 0.083% Nebulizer Soln -] 1 amp NEB Q4H PRN amp 06/20/18 Insulin Sliding Scale [Novolog Vial Sliding Scale -] 1 vial SQ ACHS #1 units predniSONE [Deltasone -] See Taper PO ASDIR #100 tab 06/20/18 Review of Systems - Review of Systems Respiratory: reports: SOB Physical Examination Vital Signs: Vital Signs Temperature 100.1 F H 07/03/18 09:51 Pulse Rate 131 H 07/03/18 09:45 Respiratory Rate 40 H 07/03/18 09:10 Blood Pressure 115/74 07/03/18 09:10 O2 Sat by Pulse Oximetry (%) 93 L 07/03/18 12:18 Constitutional: Yes: Calm Cardiovascular: Yes: Regular Rate and Rhythm, S1, S2 Respiratory: Yes: Diminished (on left side), On Nasal O2 Gastrointestinal: Yes: Normal Bowel Sounds, Soft Edema: No Neurological: Yes: Alert, Pre-Existing Deficit (left UE weakness) Labs: CBC, BMP 07/03/18 10:50 07/03/18 10:50 Imaging - Results X-ray: Report Reviewed (changes seen on left side more than right) Problem List - Problems (1) Acute on chronic respiratory failure with hypercapnia Assessment/Plan: broad spectrum abx pulom ID nebulizer NIPPV dvt ppx daliresp steroids Code(s): J96.22 - ACUTE AND CHRONIC RESPIRATORY FAILURE WITH HYPERCAPNIA (2) DMII (diabetes mellitus, type 2) Assessment/Plan: bgm sliding scale Code(s): E11.9 - TYPE 2 DIABETES MELLITUS WITHOUT COMPLICATIONS (3) HTN (hypertension) Code(s): I10 - ESSENTIAL (PRIMARY) HYPERTENSION Qualifiers: Hypertension type: essential hypertension Qualified Code(s): I10 - Essential (primary) hypertension (4) Hyperlipidemia Assessment/Plan: lipitor Code(s): E78.5 - HYPERLIPIDEMIA, UNSPECIFIED Qualifiers: Hyperlipidemia type: unspecified Qualified Code(s): E78.5 - Hyperlipidemia , unspecified (5) H/O: CVA (cerebrovascular accident) Assessment/Plan: xarelto Code(s): Z86.73 - PRSNL HX OF TIA (TIA), AND CEREB INFRC W/O RESID DEFICITS
--- NOTE | 2018-07-03 14:40 | CON.PULM ---
Consult Consult Specialty:: PULM/CCM Referred by:: ER Reason for Consultation:: SOB - History of Present Illness Chief Complaint: SOB History of Present Illness: 78 M, well known to me from multiple admissions. 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 Admitted via the ER with progressive SOB and MARTINEZ. Noted to be tachypneic and hypoxic. He is currently on a Prednisone taper. The patient has been admitted 4 times since the beginning of the year. CXR: new bibasilar infiltrates Right > Left Currently in the ER on NIPPV with improvement in his WOB. - History Source History Provided By: Medical Record Limitations to Obtaining History: Poor Historian - Past Medical History Pulmonary: Yes: COPD - Alcohol/Substance Use Hx Alcohol Use: No - Smoking History Smoking history: Former smoker Have you smoked in the past 12 months: No Aproximately how many cigarettes per day: 0 If you are a former smoker, when did you quit?: 10 years ago Home Medications - Allergies Allergies/Adverse Reactions: Allergies Allergy/AdvReac Type Severity Reaction Status Date / Time No Known Allergies Allergy Verified 07/03/18 09:32 - Home Medications Home Medications: Ambulatory Orders Albuterol Sulfate 0.042% [Ventolin 0.042% (Half-Strength) -] 1 amp QID 05/31/18 Albuterol Sulfate Inhaler - [Ventolin HFA Inhaler -] 1 puff IH DAILY 05/31/18 Atorvastatin Ca [Lipitor] 20 mg PO HS 05/31/18 Bisoprolol Fumarate [Zebeta (Nf) -] 5 mg PO DAILY 05/31/18 Budesonide/Formeterol Fumarate [SYMBICORT 160/4.5mcg -] 1 inh PO BID 05/31/18 Omeprazole 40 mg PO DAILY 05/31/18 Rivaroxaban [Xarelto -] 20 mg PO DAILY 05/31/18 Roflumilast [Daliresp -] 500 mcg PO DAILY 05/31/18 Tamsulosin HCl [Flomax -] 0.4 mg PO DAILY 05/31/18 Tiotropium [place] [Spiriva] 1 inh PO DAILY 05/31/18 Repaglinide 1 mg PO TIDCM 06/18/18 Albuterol 0.083% Nebulizer Penelope [Ventolin 0.083% Nebulizer Soln -] 1 amp NEB Q4H PRN amp 06/20/18 Insulin Sliding Scale [Novolog Vial Sliding Scale -] 1 vial SQ ACHS #1 units predniSONE [Deltasone -] See Taper PO ASDIR #100 tab 06/20/18 Review of Systems Unable to obtain ROS, reason: not able to provide Physical Exam Vital Sings: Vital Signs Temperature 100.1 F H 07/03/18 09:51 Pulse Rate 131 H 07/03/18 09:45 Respiratory Rate 40 H 07/03/18 09:10 Blood Pressure 115/74 07/03/18 09:10 O2 Sat by Pulse Oximetry (%) 93 L 07/03/18 12:18 Constitutional: Yes: Mild Distress Eyes: Yes: Conjunctiva Clear, EOM Intact HENT: Yes: Atraumatic, Normocephalic Neck: Yes: Supple, Trachea Midline Cardiovascular: Yes: Tachycardia Respiratory: Yes: Cough, Diminished, On BiPap, Rhonchi, SOB, SOB on Exertion, Tachypnea, Wheezes. No: Accessory Muscle Use, Stridor ...Inspection: Yes: WNL ...Clubbing: No Gastrointestinal: Yes: Normal Bowel Sounds, Soft Renal/: Yes: WNL Musculoskeletal: Yes: WNL Extremities: Yes: WNL Edema: No Peripheral Pulses WNL: Yes Integumentary: Yes: WNL Neurological: Yes: WNL, Alert, Oriented ...Motor Strength: WNL Psychiatric: Yes: WNL, Alert, Oriented Labs: CBC, BMP 07/03/18 10:50 07/03/18 10:50 ABG Results ABG pH 7.43 (7.35-7.45) 07/03/18 09:33 ABG pCO2 at Pt Temp 60.2 mmHg (35-45) H 07/03/18 09:33 ABG pO2 at Pt Temp 73.5 mmHg (80-105) L 07/03/18 09:33 ABG HCO3 39.5 mmol/L (22-27) H 07/03/18 09:33 ABG O2 Sat (Measured) 95.2 % (95-98) 07/03/18 09:33 ABG O2 Content 14.6 % vol (15-22) L 07/03/18 09:33 ABG Base Excess 13.2 meq/l (-2-2) H 07/03/18 09:33 Imaging - Results Chest X-ray: Report Reviewed, Image Reviewed Assessment/Plan Acute Respiratory Failure clinically improved on NIPPV AE of COPD Suspected PNA O2 dependent COPD on 2L NC Prostate CA CVA with residual L sided weakness DVT on Xarelto HTN HLD NIPPV support Medrol BD TX Noted ID consult has been called: Given Zosyn and Vanco in the ER Aspiration precautions 4W or 4S monitoring Will follow Dr Lyn
[2018-07-03] MEDS ORDERED: ALBUTEROL SO4 0.083% IH SOL 2.5 MG/3 ML VIAL.NEB. NEB PRN ×2 (14:43→14:47)
[2018-07-03] MEDS ORDERED: RIVAROXABAN 15 MG TABLET PO SCH (18:00)
--- NOTE | 2018-07-03 18:22 | PN ---
Progress Note (short form) - Note Progress Note: ID consult dictated imp/reccd pneumonia acute hypoxic/hypercapneic resp failure history of cva history of prostate cancer vanco/zosyn/zithromax cultures influenza screen urine antigens continue vanco/zosyn Problem List - Problems (1) Acute on chronic respiratory failure with hypoxia and hypercapnia Code(s): J96.21 - ACUTE AND CHRONIC RESPIRATORY FAILURE WITH HYPOXIA; J96.22 - ACUTE AND CHRONIC RESPIRATORY FAILURE WITH HYPERCAPNIA (2) Pneumonia Code(s): J18.9 - PNEUMONIA, UNSPECIFIED ORGANISM (3) H/O prostate cancer Code(s): Z85.46 - PERSONAL HISTORY OF MALIGNANT NEOPLASM OF PROSTATE (4) H/O: CVA (cerebrovascular accident) Code(s): Z86.73 - PRSNL HX OF TIA (TIA), AND CEREB INFRC W/O RESID DEFICITS
[2018-07-03] MEDS ORDERED: AZITHROMYCIN IVPB 500 MG in DEXTROSE 5%-WATER - 250 ML IVPB ONE (18:30)
--- NOTE | 2018-07-03 19:11 | CONS ---
DATE OF CONSULTATION: DATE OF DICTATION: 07/03/2018 CONSULTATION REQUESTED BY: Glynn Zee MD HISTORY OF PRESENT ILLNESS: This is a 78-year-old man with a past medical history of COPD, is on 2 L of oxygen, has history of prostate cancer, CVA, history of DVT. He has been in the hospital now monthly since April, here in April, again in May, and again in June, but really with very minimal antibiotic use. His prior cultures were all negative with normal sputum cate. He now comes in today, this morning, with complaints of shortness of breath and hypoxia. He was sent from the custodial. He was noted to be tachycardic as well. In the emergency room he had a temperature of 100.1. He was given Zosyn, Solu-Medrol, vancomycin, and DuoNebs. I am asked to see him for further evaluation. PAST MEDICAL HISTORY: Notable for history of COPD on 2 L of oxygen, prostate cancer, CVA 5 years ago, history of DVT on Xarelto, hypertension, hyperlipidemia. He has been at [facility] since discharge June 20, where he is getting pulmonary rehab. He was still on a prednisone taper I think at the time of his readmission now. FAMILY HISTORY: Noncontributory. SOCIAL HISTORY: Prior to this he was living in the community with his family. There is no history of any cigarette use. REVIEW OF SYSTEMS: He is on the BiPAP, and he is alert, trying to talk to me, but he is unable to give any history. PHYSICAL EXAMINATION: Vital Signs: His temperature was 100.1 this morning. General: He is alert. He is on BiPAP. HEENT: He is normocephalic. His eyes are anicteric. Cannot look in his mouth. Neck: Supple. Lungs: Diminished breath sounds at the bases. Heart: Regular rate and rhythm. Abdomen: Soft, nontender. Extremities: Without edema. He has bibasilar infiltrates on chest x-ray, left more than the right. His labs are notable for a white count of 6, hemoglobin 11.3, platelets of 144. BUN and creatinine are 21 and 0.5, normal LFTs. Urinalysis with 2+ leukocytes, 11 white cells. SUMMARY: 1. This is an elderly man with shortness of breath and tachypnea who has had multiple admissions for acute respiratory failure, acute exacerbation of chronic obstructive pulmonary disease with probable pneumonia given the bibasilar infiltrates. Will treat him for hospital-acquired pneumonia given the multiple recent admissions. He got vancomycin and Zosyn. Would add Zithromax at this time and continue the Vancomycin and Zosyn. Further recommendations to follow. 2. Acute hypoxic respiratory failure, management per Pulmonary. 3. History of cerebrovascular accident. 4. History of prostate cancer. ANAMIKA THOMAS M.D. [id number]
[2018-07-03] MEDS ORDERED: AZITHROMYCIN IVPB 500 MG/250 ML BAG IVPB ONE (19:33)
[2018-07-03] MEDS ORDERED: methylPREDNISolone NA SUCC 40 MG/1 ML VIAL ONE (19:34)
[2018-07-03] MEDS: ALBUTEROL SO4 2.5/IPRATROPIUM 0.5 INH SOL 3 ML VIAL.NEB. NEB SCH ×2 (19:52→22:09)
[2018-07-03] MEDS: PIPERACILLIN/TAZOB 4.5 GM 4.5 GM in DEXTROSE 5%-WATER 100 ML IVPB SCH (19:52)
[2018-07-03] MEDS: methylPREDNISolone NA SUCC 40 MG/1 ML VIAL IVPUSH SCH (19:52)
[2018-07-03] MEDS: INSULIN SLIDING SCALE (NOVOLOG) 1 VIAL SQ SCH ×2 (21:15→22:29)
[2018-07-03] MEDS: RIVAROXABAN 20 MG TABLET PO SCH (21:16)
[2018-07-03] MEDS ORDERED: HEPARIN NA (PORCINE) 5,000 UNITS/ML 1ML VIAL SQ SCH (22:00)
[2018-07-03] MEDS: ATORVASTATIN CA 20 MG TABLET (FP) PO SCH (22:29)
[2018-07-04] MEDS ORDERED: PIPERACILLIN/TAZOB 4.5 GM 4.5 GM/100 ML BAG IVPB ONE ×2 (04:17→10:22)
[2018-07-04] MEDS ORDERED: methylPREDNISolone NA SUCC 40 MG/1 ML VIAL ONE (04:17)
[2018-07-04] MEDS: PIPERACILLIN/TAZOB 4.5 GM 4.5 GM in DEXTROSE 5%-WATER 100 ML IVPB SCH ×3 (04:38→17:14)
[2018-07-04] MEDS: methylPREDNISolone NA SUCC 40 MG/1 ML VIAL IVPUSH SCH ×3 (04:38→17:14)
[2018-07-04 06:29] LABS: BASO % 0.1 % (0-2.0); HEMATOCRIT 30.3 % (35.4-49); HEMOGLOBIN 9.8 GM/dL (11.7-16.9); LYMPH % 4.5 % (8-40); MCH 28.2 pg (25.7-33.7); MCHC 32.2 g/dl (32.0-35.9); MEAN CELL VOLUME 87.7 fl (80-96); MEAN PLT VOLUME 7.5 fl (7.5-11.1); MONO % 4.1 % (3.8-10.2); NEUT % 91.3 % (42.8-82.8); PLATELET COUNT 123 K/MM3 (134-434); RBC 3.45 M/mm3 (4.00-5.60); RDW 16.1 % (11.9-15.9); WHITE BLOOD COUNT 5.7 K/mm3 (4.0-10.0)
[2018-07-04] MEDS: INSULIN SLIDING SCALE (NOVOLOG) 1 VIAL SQ SCH ×5 (06:34→21:27)
[2018-07-04 06:58] LABS: ALBUMIN 1.8 g/dl (3.4-5.0); ALK PHOS 70 U/L (45-117); ANION GAP 3 MMOL/L (8-16); BLOOD UREA NITROGEN 25 mg/dL (7-18); CALCIUM 8.2 mg/dL (8.5-10.1); CHLORIDE 100 mmol/L (98-107); CHOLESTEROL 100 mg/dL (50-200); CO2 37 mmol/L (21-32); CREATININE 0.3 mg/dL (0.55-1.3); GLUCOSE,RANDOM 157 mg/dL (74-106); HDL CHOLESTEROL 45 mg/dL (40-60); MAGNESIUM 2.1 mg/dL (1.8-2.4); PHOSPHOROUS 2.8 mg/dL (2.5-4.9); POTASSIUM 3.9 mmol/L (3.5-5.1); SGOT/AST 22 U/L (15-37); SGPT/ALT 28 U/L (13-61); SODIUM 140 mmol/L (136-145); TOT PROT 4.6 g/dl (6.4-8.2); TRIGLYCERIDES 83 mg/dL (0-150)
[2018-07-04] MEDS ORDERED: ALBUTEROL SO4 2.5/IPRATROPIUM 0.5 INH SOL 3 ML VIAL.NEB. NEB ONE ×2 (08:14→12:32)
[2018-07-04] MEDS ORDERED: TAMSULOSIN HCL 0.4 MG CAP ONE (08:14)
[2018-07-04] MEDS: ALBUTEROL SO4 2.5/IPRATROPIUM 0.5 INH SOL 3 ML VIAL.NEB. NEB SCH ×4 (08:23→20:00)
[2018-07-04 08:31] LABS: PH,URINE 5.5 (5.0-8.0); URINE APPEARANCE Clear; URINE BILIRUBIN 1+ (NEGATIVE); URINE COLOR Yellow; URINE GLUCOSE (UA) Negative (NEGATIVE); URINE KETONE 1+ (NEGATIVE); URINE LEUK ESTERASE Negative (NEGATIVE); URINE NITRITE Positive (NEGATIVE); URINE PROTEIN 1+ (NEGATIVE)
[2018-07-04 08:39] LABS: EPI CELLS 5.3 /HPF (0-5); URINE CASTS 17.31 /hpf (0-8); URINE RBC 0.7 /hpf (0-4)
[2018-07-04] MEDS: TAMSULOSIN HCL 0.4 MG CAP PO SCH (09:00)
[2018-07-04] MEDS ORDERED: VANCOMYCIN 1 GRAM (PRE-DOCKED) 1,000 MG/250 ML BAG IVPB ONE ×2 (10:22)
[2018-07-04 10:49] LABS: ANISOCYTOSIS 1+; MACROCYTOSIS 0; OVALOCYTE 1+; PLATELET ESTIMATE DECREASED
[2018-07-04] MEDS ORDERED: VANCOMYCIN 1 GM PREMIX - 1 GM/200 ML BAG IVPB SCH (12:00)
--- NOTE | 2018-07-04 12:08 | PN ---
Progress Note (short form) - Note Progress Note: Patient seen and examined in the ER. Awake and responsive on NIPPV support. Daughter is at the bedside. Reports that he was taken off NIPPV last night and could not tolerate VM O2. Intake & Output 07/01/18 07/02/18 07/03/18 07/04/18 23:59 23:59 23:59 23:59 Weight 132 lb 8 oz Last Vital Signs Temp Pulse Resp BP Pulse Ox 100.1 F H 92 H 21 H 124/82 100 07/03/18 09:51 07/04/18 06:58 07/03/18 19:20 07/04/18 06:58 07/04/18 06:58 Active Medications Acetaminophen (Tylenol -) 650 mg PO Q6H PRN PRN Reason: FEVER Albuterol Sulfate (Ventolin 0.083% Nebulizer Soln -) 1 amp NEB Q4H PRN PRN Reason: SHORT OF BREATH/WHEEZING Albuterol/Ipratropium (Duoneb -) 1 amp NEB RQID [facility] Last Admin: 07/04/18 08:23 Dose: 1 amp Atorvastatin Calcium (Lipitor -) 20 mg PO HS [facility] Last Admin: 07/03/18 22:29 Dose: 20 mg Piperacillin Sod/Tazobactam (Sod 4.5 gm/ Dextrose) 100 mls @ 200 mls/hr IVPB Q8H-IV [facility]; Protocol Last Admin: 07/04/18 10:31 Dose: 200 mls/hr Vancomycin HCl (Vancomycin 1 Gm Premix -) 1 gm in 200 mls @ 133.333 mls/hr IVPB DAILY@1200 [facility]; Protocol Insulin Aspart (Novolog Vial Sliding Scale -) 1 vial SQ ACHS [facility]; Protocol Last Admin: 07/04/18 06:34 Dose: Not Given Methylprednisolone Sodium Succinate (Solu-Medrol -) 40 mg IVPUSH Q8H-IV [facility] Last Admin: 07/04/18 10:00 Dose: 40 mg Rivaroxaban (Xarelto -) 20 mg PO DAILY@1800 [facility] Last Admin: 07/03/18 21:16 Dose: 20 mg Tamsulosin HCl (Flomax -) 0.4 mg PO DAILY@0830 [facility] Last Admin: 07/04/18 09:00 Dose: 0.4 mg Constitutional: Yes: Mildly tachypneic on NIPPV Eyes: Yes: Conjunctiva Clear, EOM Intact HENT: Yes: Atraumatic, Normocephalic Neck: Yes: Supple, Trachea Midline Cardiovascular: Yes: Tachycardia Respiratory: Yes: Cough, Diminished, On NIPPV, Rhonchi, SOB, SOB on Exertion, Tachypnea, Wheezes. No: Accessory Muscle Use, Stridor ...Inspection: Yes: WNL ...Clubbing: No Gastrointestinal: Yes: Normal Bowel Sounds, Soft Renal/: Yes: WNL Musculoskeletal: Yes: WNL Extremities: Yes: WNL Edema: No Peripheral Pulses WNL: Yes Integumentary: Yes: WNL Neurological: Yes: WNL, Alert, Oriented ...Motor Strength: WNL Psychiatric: Yes: WNL, Alert, Oriented Labs: Laboratory Results - last 24 hr 07/03/18 07/04/18 07/04/18 21:08 01:10 05:30 WBC 5.7 RBC 3.45 L Hgb 9.8 L Hct 30.3 L MCV 87.7 MCH 28.2 MCHC 32.2 RDW 16.1 H Plt Count 123 L MPV 7.5 Absolute Neuts (auto) 5.2 Neutrophils % 91.3 H Neutrophils % (Manual) 89.9 H Band Neutrophils % 2.0 Lymphocytes % 4.5 L Lymphocytes % (Manual) 4.1 L Monocytes % 4.1 Monocytes % (Manual) 3 L Eosinophils % 0.0 Eosinophils % (Manual) 0.0 Basophils % 0.1 Basophils % (Manual) 0.0 Myelocytes % (Man) 0 Promyelocytes % (Man) 0 Blast Cells % (Manual) 0 Nucleated RBC % 0 Metamyelocytes 1 D Hypochromia 0 Platelet Estimate Decreased Polychromasia 0 Poikilocytosis 1+ Anisocytosis 1+ Microcytosis 1+ Macrocytosis 0 Ovalocytes 1+ Sodium Potassium Chloride Carbon Dioxide Anion Gap BUN Creatinine Creat Clearance w eGFR POC Glucometer 203 Random Glucose Calcium Phosphorus Magnesium Total Bilirubin AST ALT Alkaline Phosphatase Creatine Kinase Troponin I Total Protein Albumin Triglycerides Cholesterol Total LDL Cholesterol HDL Cholesterol Urine Color Urine Appearance Urine pH Ur Specific [place] Urine Protein Urine Glucose (UA) Urine Ketones Urine Blood Urine Nitrite Urine Bilirubin Urine Urobilinogen Ur Leukocyte Esterase Urine WBC (Auto) Urine RBC (Auto) Urine Casts (Auto) U Epithel Cells (Auto) Urine Bacteria (Auto) Influenza A (Rapid) Negative Influenza B (Rapid) Negative 07/04/18 07/04/18 07/04/18 05:30 06:33 06:58 WBC RBC Hgb Hct MCV MCH MCHC RDW Plt Count MPV Absolute Neuts (auto) Neutrophils % Neutrophils % (Manual) Band Neutrophils % Lymphocytes % Lymphocytes % (Manual) Monocytes % Monocytes % (Manual) Eosinophils % Eosinophils % (Manual) Basophils % Basophils % (Manual) Myelocytes % (Man) Promyelocytes % (Man) Blast Cells % (Manual) Nucleated RBC % Metamyelocytes Hypochromia Platelet Estimate Polychromasia Poikilocytosis Anisocytosis Microcytosis Macrocytosis Ovalocytes Sodium 140 Potassium 3.9 Chloride 100 Carbon Dioxide 37 H Anion Gap 3 L BUN 25 H Creatinine 0.3 L Creat Clearance w eGFR 289.22 POC Glucometer 141 Random Glucose 157 H Calcium 8.2 L Phosphorus 2.8 Magnesium 2.1 Total Bilirubin 1.0 AST 22 ALT 28 Alkaline Phosphatase 70 Creatine Kinase 40 Troponin I < 0.02 Total Protein 4.6 L Albumin 1.8 L Triglycerides 83 Cholesterol 100 Total LDL Cholesterol 45 HDL Cholesterol 45 Urine Color Yellow Urine Appearance Clear Urine pH 5.5 Ur Specific [place] 1.025 Urine Protein 1+ H Urine Glucose (UA) Negative Urine Ketones 1+ H Urine Blood Negative Urine Nitrite Positive Urine Bilirubin 1+ H Urine Urobilinogen 2.0 Ur Leukocyte Esterase Negative Urine WBC (Auto) 2.0 Urine RBC (Auto) 0.7 Urine Casts (Auto) 17.31 U Epithel Cells (Auto) 5.3 Urine Bacteria (Auto) 9.0 Influenza A (Rapid) Influenza B (Rapid) Assessment/Plan Acute Respiratory Failure clinically improved on NIPPV AE of COPD Suspected PNA O2 dependent COPD on 2L NC Prostate CA CVA with residual L sided weakness DVT on Xarelto HTN HLD Trial of VM O2 NIPPV support as needed Medrol BD TX ABX per ID Aspiration precautions 4W or 4S monitoring Dr Lyn
--- NOTE | 2018-07-04 14:43 | PN ---
Progress Note (short form) - Note Progress Note: alert currently off bipap no complaints on ventimask Vital Signs Period Temp Pulse Resp BP Sys/Thurman Pulse Ox Last 24 Hr 92-94 21 110-124/73-82 95-100 cor-rrr lungs decreased bs at bases abd soft,nt ext no edema CBC, BMP 07/04/18 05:30 07/04/18 05:30 Microbiology 07/04/18 06:00 Urine For Antigen Detection Legionella Antigen - Final- negative 07/04/18 06:00 Urine For Antigen Detection Streptococcus pneumoniae Antigen (M - Final-negative 07/03/18 11:15 Blood - Peripheral Venous Blood Culture - Preliminary NO GROWTH OBTAINED AFTER 24 HOURS, INCUBATION TO CONTINUE FOR 4 DAYS. 07/03/18 10:50 Blood - Peripheral Venous Blood Culture - Preliminary NO GROWTH OBTAINED AFTER 24 HOURS, INCUBATION TO CONTINUE FOR 4 DAYS. imp/reccd pneumonia acute hypoxic/hypercapneic resp failure history of cva history of prostate cancer d/c zithromax continue vanco/zosyn if MRSA nares swab is negative in am, d/c vancomycin clinically improved d/w daughter at bedside Problem List - Problems (1) Acute on chronic respiratory failure with hypoxia and hypercapnia Code(s): J96.21 - ACUTE AND CHRONIC RESPIRATORY FAILURE WITH HYPOXIA; J96.22 - ACUTE AND CHRONIC RESPIRATORY FAILURE WITH HYPERCAPNIA (2) Pneumonia Code(s): J18.9 - PNEUMONIA, UNSPECIFIED ORGANISM (3) H/O prostate cancer Code(s): Z85.46 - PERSONAL HISTORY OF MALIGNANT NEOPLASM OF PROSTATE (4) H/O: CVA (cerebrovascular accident) Code(s): Z86.73 - PRSNL HX OF TIA (TIA), AND CEREB INFRC W/O RESID DEFICITS
[2018-07-04 16:04] VITALS: BMI 23.3
[2018-07-04] MEDS ORDERED: PIPERACILLIN/TAZOBACTAM 4.5 GM VIAL IVPB ONE (17:11)
[2018-07-04] MEDS ORDERED: DEXTROSE 5%-WATER 100 ML IVPB ONE (17:11)
[2018-07-04] MEDS: RIVAROXABAN 20 MG TABLET PO SCH (17:15)
--- NOTE | 2018-07-04 18:27 | PN ---
Progress Note, Physician Chief Complaint: Acute on Chronic Respiratory Failure HTN COPD PNA History of Present Illness: Previous notes and events reviewed awake and alert NAD denies complaints of SOB, chest pain - Current Medication List Current Medications: Active Medications Acetaminophen (Tylenol -) 650 mg PO Q6H PRN PRN Reason: FEVER Albuterol Sulfate (Ventolin 0.083% Nebulizer Soln -) 1 amp NEB Q4H PRN PRN Reason: SHORT OF BREATH/WHEEZING Albuterol/Ipratropium (Duoneb -) 1 amp NEB RQID [facility] Last Admin: 07/04/18 15:45 Dose: 1 amp Atorvastatin Calcium (Lipitor -) 20 mg PO HS [facility] Last Admin: 07/03/18 22:29 Dose: 20 mg Piperacillin Sod/Tazobactam (Sod 4.5 gm/ Dextrose) 100 mls @ 200 mls/hr IVPB Q8H-IV [facility]; Protocol Last Admin: 07/04/18 17:14 Dose: 200 mls/hr Vancomycin HCl (Vancomycin 1 Gm Premix -) 1 gm in 200 mls @ 133.333 mls/hr IVPB DAILY@1200 [facility]; Protocol Last Admin: 07/04/18 12:00 Dose: 133.333 mls/hr Insulin Aspart (Novolog Vial Sliding Scale -) 1 vial SQ ACHS [facility]; Protocol Last Admin: 07/04/18 17:09 Dose: Not Given Methylprednisolone Sodium Succinate (Solu-Medrol -) 40 mg IVPUSH Q8H-IV [facility] Last Admin: 07/04/18 17:14 Dose: 40 mg Rivaroxaban (Xarelto -) 20 mg PO DAILY@1800 [facility] Last Admin: 07/04/18 17:15 Dose: 20 mg Tamsulosin HCl (Flomax -) 0.4 mg PO DAILY@0830 [facility] Last Admin: 07/04/18 09:00 Dose: 0.4 mg - Objective Vital Signs: Vital Signs Temperature 98.9 F 07/04/18 07:31 Pulse Rate 99 H 07/04/18 14:49 Respiratory Rate 18 07/04/18 16:10 Blood Pressure 117/79 07/04/18 14:49 O2 Sat by Pulse Oximetry (%) 100 07/04/18 16:10 Constitutional: Yes: No Distress, Calm Eyes: Yes: Conjunctiva Clear HENT: Yes: Atraumatic Cardiovascular: Yes: Regular Rate and Rhythm Respiratory: Yes: Diminished, On Venti-Mask, Tachypnea Gastrointestinal: Yes: Normal Bowel Sounds, Soft Genitourinary: Yes: Incontinence Musculoskeletal: Yes: Muscle Weakness Extremities: Yes: WNL Edema: No Neurological: Yes: Alert, Pre-Existing Deficit Psychiatric: Yes: Alert Labs: CBC, BMP 07/04/18 05:30 07/04/18 05:30 INR, PTT INR 1.63 (0.83-1.09) H 07/03/18 10:50 Microbiology 07/04/18 06:00 Urine For Antigen Detection Legionella Antigen - Final 07/04/18 06:00 Urine For Antigen Detection Streptococcus pneumoniae Antigen (M - Final 07/03/18 11:15 Blood - Peripheral Venous Blood Culture - Preliminary NO GROWTH OBTAINED AFTER 24 HOURS, INCUBATION TO CONTINUE FOR 4 DAYS. 07/03/18 10:50 Blood - Peripheral Venous Blood Culture - Preliminary NO GROWTH OBTAINED AFTER 24 HOURS, INCUBATION TO CONTINUE FOR 4 DAYS. - ....Imaging Chest X-ray: Report Reviewed Problem List - Problems (1) Acute on chronic respiratory failure with hypercapnia Assessment/Plan: -Pulm on board -O2 via venti mask -Bipap HS -bronchodilators -IV solumedrol -keep SpO2 >90% Code(s): J96.22 - ACUTE AND CHRONIC RESPIRATORY FAILURE WITH HYPERCAPNIA (2) COPD exacerbation Assessment/Plan: -Pulm on board -O2 via venti mask -Bipap HS -bronchodilators -IV solumedrol -keep SpO2 >90% Code(s): J44.1 - CHRONIC OBSTRUCTIVE PULMONARY DISEASE W (ACUTE) EXACERBATION (3) Pneumonia Assessment/Plan: -Pulm and ID on board -continue on IV vanco and zosyn -no leukocytosis and afebrile -O2 via venti mask -bronchodilators -IV solumedrol -keep SpO2 >90% Code(s): J18.9 - PNEUMONIA, UNSPECIFIED ORGANISM (4) DMII (diabetes mellitus, type 2) Assessment/Plan: -BGM ACHS -ISS -HgA1c Code(s): E11.9 - TYPE 2 DIABETES MELLITUS WITHOUT COMPLICATIONS (5) Hyperlipidemia Assessment/Plan: -continue atorvastatin Code(s): E78.5 - HYPERLIPIDEMIA, UNSPECIFIED Qualifiers: Hyperlipidemia type: unspecified Qualified Code(s): E78.5 - Hyperlipidemia , unspecified (6) HTN (hypertension) Code(s): I10 - ESSENTIAL (PRIMARY) HYPERTENSION Qualifiers: Hypertension type: essential hypertension Qualified Code(s): I10 - Essential (primary) hypertension Assessment/Plan see problem list
[2018-07-04] MEDS: ATORVASTATIN CA 20 MG TABLET (FP) PO SCH (21:27)
[2018-07-05] MEDS ORDERED: PIPERACILLIN/TAZOBACTAM 4.5 GM VIAL IVPB ONE ×2 (02:07→17:51)
[2018-07-05] MEDS ORDERED: DEXTROSE 5%-WATER 100 ML IVPB ONE ×2 (02:07→17:52)
[2018-07-05] MEDS: methylPREDNISolone NA SUCC 40 MG/1 ML VIAL IVPUSH SCH ×3 (02:52→17:53)
[2018-07-05] MEDS: PIPERACILLIN/TAZOB 4.5 GM 4.5 GM in DEXTROSE 5%-WATER 100 ML IVPB SCH ×3 (03:07→17:53)
[2018-07-05] MEDS: INSULIN SLIDING SCALE (NOVOLOG) 1 VIAL SQ SCH ×4 (06:49→22:41)
[2018-07-05 08:02] LABS: HEMATOCRIT 29.9 % (35.4-49); HEMOGLOBIN 9.9 GM/dL (11.7-16.9); MCH 28.9 pg (25.7-33.7); MEAN CELL VOLUME 87.6 fl (80-96); MEAN PLT VOLUME 7.6 fl (7.5-11.1); PLATELET COUNT 158 K/MM3 (134-434); RBC 3.42 M/mm3 (4.00-5.60); RDW 15.9 % (11.9-15.9); WHITE BLOOD COUNT 6.4 K/mm3 (4.0-10.0)
[2018-07-05 08:28] LABS: ALK PHOS 79 U/L (45-117); ANION GAP 5 MMOL/L (8-16); BLOOD UREA NITROGEN 27 mg/dL (7-18); CALCIUM 8.6 mg/dL (8.5-10.1); CHLORIDE 100 mmol/L (98-107); CO2 38 mmol/L (21-32); CREATININE 0.4 mg/dL (0.55-1.3); GLUCOSE,RANDOM 159 mg/dL (74-106); POTASSIUM 3.6 mmol/L (3.5-5.1); SGOT/AST 25 U/L (15-37); SGPT/ALT 29 U/L (13-61); SODIUM 143 mmol/L (136-145)
[2018-07-05] MEDS: ALBUTEROL SO4 2.5/IPRATROPIUM 0.5 INH SOL 3 ML VIAL.NEB. NEB SCH ×4 (08:42→21:00)
[2018-07-05] MEDS: TAMSULOSIN HCL 0.4 MG CAP PO SCH (09:29)
--- NOTE | 2018-07-05 09:39 | PN ---
Progress Note, Physician - Current Medication List Current Medications: Active Medications Acetaminophen (Tylenol -) 650 mg PO Q6H PRN PRN Reason: FEVER Albuterol Sulfate (Ventolin 0.083% Nebulizer Soln -) 1 amp NEB Q4H PRN PRN Reason: SHORT OF BREATH/WHEEZING Last Admin: 07/05/18 02:25 Dose: 1 amp Albuterol/Ipratropium (Duoneb -) 1 amp NEB RQID [facility] Last Admin: 07/05/18 08:42 Dose: 1 amp Atorvastatin Calcium (Lipitor -) 20 mg PO HS [facility] Last Admin: 07/04/18 21:27 Dose: 20 mg Piperacillin Sod/Tazobactam (Sod 4.5 gm/ Dextrose) 100 mls @ 200 mls/hr IVPB Q8H-IV [facility]; Protocol Last Admin: 07/05/18 03:07 Dose: 200 mls/hr Vancomycin HCl (Vancomycin 1 Gm Premix -) 1 gm in 200 mls @ 133.333 mls/hr IVPB DAILY@1200 [facility]; Protocol Last Admin: 07/04/18 12:00 Dose: 133.333 mls/hr Insulin Aspart (Novolog Vial Sliding Scale -) 1 vial SQ ACHS [facility]; Protocol Last Admin: 07/05/18 06:49 Dose: Not Given Methylprednisolone Sodium Succinate (Solu-Medrol -) 40 mg IVPUSH Q8H-IV [facility] Last Admin: 07/05/18 09:29 Dose: 40 mg Rivaroxaban (Xarelto -) 20 mg PO DAILY@1800 [facility] Last Admin: 07/04/18 17:15 Dose: 20 mg Tamsulosin HCl (Flomax -) 0.4 mg PO DAILY@0830 [facility] Last Admin: 07/05/18 09:29 Dose: 0.4 mg - Objective Vital Signs: Vital Signs Temperature 98.2 F 07/05/18 06:00 Pulse Rate 103 H 07/05/18 06:00 Respiratory Rate 18 07/05/18 06:00 Blood Pressure 132/87 07/05/18 06:00 O2 Sat by Pulse Oximetry (%) 98 07/05/18 08:41 Cardiovascular: Yes: S1, S2 Respiratory: Yes: Diminished, On Nasal O2 Gastrointestinal: Yes: Normal Bowel Sounds, Soft Labs: CBC, BMP 07/05/18 06:50 07/05/18 06:50 INR, PTT INR 1.63 (0.83-1.09) H 07/03/18 10:50 Problem List - Problems (1) Acute on chronic respiratory failure with hypercapnia Assessment/Plan: -Pulm on board -O2 via venti mask -Bipap HS -bronchodilators -IV solumedrol -keep SpO2 >90% Code(s): J96.22 - ACUTE AND CHRONIC RESPIRATORY FAILURE WITH HYPERCAPNIA (2) COPD exacerbation Assessment/Plan: -Pulm on board -O2 via venti mask -Bipap HS -bronchodilators -IV solumedrol -keep SpO2 >90% Code(s): J44.1 - CHRONIC OBSTRUCTIVE PULMONARY DISEASE W (ACUTE) EXACERBATION (3) Pneumonia Assessment/Plan: -Pulm and ID on board -continue on IV vanco and zosyn -no leukocytosis and afebrile -O2 via venti mask -bronchodilators -IV solumedrol -keep SpO2 >90% Code(s): J18.9 - PNEUMONIA, UNSPECIFIED ORGANISM (4) DMII (diabetes mellitus, type 2) Assessment/Plan: -BGM ACHS -ISS -HgA1c Code(s): E11.9 - TYPE 2 DIABETES MELLITUS WITHOUT COMPLICATIONS
--- NOTE | 2018-07-05 10:54 | PN ---
Progress Note, Physician History of Present Illness: pulmonary alert,feeling better less dyspneic,still congested, - Current Medication List Current Medications: Active Medications Acetaminophen (Tylenol -) 650 mg PO Q6H PRN PRN Reason: FEVER Albuterol Sulfate (Ventolin 0.083% Nebulizer Soln -) 1 amp NEB Q4H PRN PRN Reason: SHORT OF BREATH/WHEEZING Last Admin: 07/05/18 02:25 Dose: 1 amp Albuterol/Ipratropium (Duoneb -) 1 amp NEB RQID [facility] Last Admin: 07/05/18 08:42 Dose: 1 amp Atorvastatin Calcium (Lipitor -) 20 mg PO HS [facility] Last Admin: 07/04/18 21:27 Dose: 20 mg Piperacillin Sod/Tazobactam (Sod 4.5 gm/ Dextrose) 100 mls @ 200 mls/hr IVPB Q8H-IV [facility]; Protocol Last Admin: 07/05/18 10:41 Dose: 200 mls/hr Vancomycin HCl (Vancomycin 1 Gm Premix -) 1 gm in 200 mls @ 133.333 mls/hr IVPB DAILY@1200 [facility]; Protocol Last Admin: 07/04/18 12:00 Dose: 133.333 mls/hr Insulin Aspart (Novolog Vial Sliding Scale -) 1 vial SQ ACHS [facility]; Protocol Last Admin: 07/05/18 06:49 Dose: Not Given Methylprednisolone Sodium Succinate (Solu-Medrol -) 40 mg IVPUSH Q8H-IV [facility] Last Admin: 07/05/18 09:29 Dose: 40 mg Rivaroxaban (Xarelto -) 20 mg PO DAILY@1800 [facility] Last Admin: 07/04/18 17:15 Dose: 20 mg Tamsulosin HCl (Flomax -) 0.4 mg PO DAILY@0830 [facility] Last Admin: 07/05/18 09:29 Dose: 0.4 mg - Objective Vital Signs: Vital Signs Temperature 98.2 F 07/05/18 06:00 Pulse Rate 103 H 07/05/18 06:00 Respiratory Rate 18 07/05/18 06:00 Blood Pressure 132/87 07/05/18 06:00 O2 Sat by Pulse Oximetry (%) 98 07/05/18 08:41 Constitutional: Yes: Well Nourished, Calm Eyes: Yes: WNL HENT: Yes: WNL Neck: Yes: WNL Cardiovascular: Yes: Regular Rate and Rhythm, S1, S2 Respiratory: Yes: Rhonchi (bilateral rhonchi and wheezes), Wheezes Gastrointestinal: Yes: Normal Bowel Sounds, Soft Extremities: Yes: WNL Edema: No Labs: CBC, BMP 07/05/18 06:50 07/05/18 06:50 INR, PTT INR 1.63 (0.83-1.09) H 07/03/18 10:50 Problem List - Problems (1) Acute on chronic respiratory failure with hypercapnia Code(s): J96.22 - ACUTE AND CHRONIC RESPIRATORY FAILURE WITH HYPERCAPNIA (2) COPD exacerbation Code(s): J44.1 - CHRONIC OBSTRUCTIVE PULMONARY DISEASE W (ACUTE) EXACERBATION (3) Pneumonia Code(s): J18.9 - PNEUMONIA, UNSPECIFIED ORGANISM (4) DMII (diabetes mellitus, type 2) Code(s): E11.9 - TYPE 2 DIABETES MELLITUS WITHOUT COMPLICATIONS (5) DVT prophylaxis Code(s): [id number] - (6) H/O prostate cancer Code(s): Z85.46 - PERSONAL HISTORY OF MALIGNANT NEOPLASM OF PROSTATE (7) H/O: CVA (cerebrovascular accident) Code(s): Z86.73 - PRSNL HX OF TIA (TIA), AND CEREB INFRC W/O RESID DEFICITS Assessment/Plan Assessment/Plan Acute Respiratory Failure clinically improved on NIPPV AE of COPD Suspected PNA 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
--- NOTE | 2018-07-05 11:33 | PN ---
Progress Note (short form) - Note Progress Note: alert currently off bipap on ventimask Vital Signs Period Temp Pulse Resp BP Sys/Thurman Pulse Ox Last 24 Hr 97.9 F-99.2 F 99-120 18-36 117-132/68-87 98-100 cor-rrr lungs decreased bs at bases abd soft,nt ext no edema CBC, BMP 07/05/18 06:50 07/05/18 06:50 Microbiology 07/04/18 01:10 Nares - Mrsa Screen - Right MRSA Screen - Final NO MRSA ISOLATED 07/03/18 10:50 Blood - Peripheral Venous Blood Culture - Preliminary NO GROWTH OBTAINED AFTER 48 HOURS, INCUBATION TO CONTINUE FOR 3 DAYS. 07/04/18 01:10 Nares - Mrsa Screen - Left MRSA Screen - Final NO MRSA ISOLATED 07/04/18 06:58 Urine - Urine Clean Catch Urine Culture - Final NO GROWTH OBTAINED 07/04/18 06:00 Urine For Antigen Detection Legionella Antigen - Final 07/04/18 06:00 Urine For Antigen Detection Streptococcus pneumoniae Antigen (M - Final 07/03/18 11:15 Blood - Peripheral Venous Blood Culture - Preliminary NO GROWTH OBTAINED AFTER 24 HOURS, INCUBATION TO CONTINUE FOR 4 DAYS. imp/reccd pneumonia-hcap acute hypoxic/hypercapneic resp failure history of cva history of prostate cancer MRSA screen negative will continue zosyn, d/c vancomycin Problem List - Problems (1) Acute on chronic respiratory failure with hypoxia and hypercapnia Code(s): J96.21 - ACUTE AND CHRONIC RESPIRATORY FAILURE WITH HYPOXIA; J96.22 - ACUTE AND CHRONIC RESPIRATORY FAILURE WITH HYPERCAPNIA (2) Pneumonia Code(s): J18.9 - PNEUMONIA, UNSPECIFIED ORGANISM (3) H/O prostate cancer Code(s): Z85.46 - PERSONAL HISTORY OF MALIGNANT NEOPLASM OF PROSTATE (4) H/O: CVA (cerebrovascular accident) Code(s): Z86.73 - PRSNL HX OF TIA (TIA), AND CEREB INFRC W/O RESID DEFICITS
--- NOTE | 2018-07-05 14:49 | CON.CARD ---
Consult Consult Specialty:: cardiology - History of Present Illness Chief Complaint: dyspnea History of Present Illness: 78 y/o M with PMH COPD (on 2L 02), prostate CA, CVA (5 yrs prior, with residual L sided weakness), hx DVT (on Xarelto), HTN, HLD, who presents to the ED with SOB and is treated for COPD exacerbation and PNA. ECG shows sinus tachycardia without ischemic changes Telemetry NSR and sinus tachycardia without arrhythmia Echo 05/2018 Normal LV RV function. No valvular pathology. Mild pulmonary HTN - History Source History Provided By: Patient, Medical Record - Past Medical History Pulmonary: Yes: COPD - Alcohol/Substance Use Hx Alcohol Use: No - Smoking History Smoking history: Former smoker Have you smoked in the past 12 months: No Aproximately how many cigarettes per day: 0 If you are a former smoker, when did you quit?: 10 years ago Home Medications - Allergies Allergies/Adverse Reactions: Allergies Allergy/AdvReac Type Severity Reaction Status Date / Time No Known Allergies Allergy Verified 07/03/18 09:32 - Home Medications Home Medications: Ambulatory Orders Albuterol Sulfate Inhaler - [Ventolin HFA Inhaler -] 1 puff IH DAILY 05/31/18 Atorvastatin Ca [Lipitor] 20 mg PO HS 05/31/18 Bisoprolol Fumarate [Zebeta (Nf) -] 5 mg PO DAILY 05/31/18 Budesonide/Formeterol Fumarate [SYMBICORT 160/4.5mcg -] 1 inh PO BID 05/31/18 Omeprazole 40 mg PO DAILY 05/31/18 Rivaroxaban [Xarelto -] 20 mg PO DAILY 05/31/18 Roflumilast [Daliresp -] 500 mcg PO DAILY 05/31/18 Tamsulosin HCl [Flomax -] 0.4 mg PO DAILY 05/31/18 Tiotropium Ward [Spiriva] 1 inh PO DAILY 05/31/18 Repaglinide 1 mg PO TIDCM 06/18/18 Albuterol 0.083% Nebulizer Penelope [Ventolin 0.083% Nebulizer Soln -] 1 amp NEB Q4H PRN amp 06/20/18 Insulin Sliding Scale [Novolog Vial Sliding Scale -] 1 vial SQ ACHS #1 units predniSONE [Deltasone -] See Taper PO ASDIR #100 tab 06/20/18 Albuterol 2.5/Ipratropium 0.5 [Duoneb -] 1 neb IH QID 07/03/18 Docusate Sodium [Colace] 100 mg PO DAILY 07/03/18 Potassium Chloride 20 meq PO DAILY 07/03/18 Review of Systems - Review of Systems Constitutional: denies: Chills, Diaphoresis Eyes: denies: Blind Spots, Blurred Vision HENT: reports: No Symptoms Neck: reports: Decreased ROM Cardiovascular: reports: Shortness of Breath. denies: Chest Pain, Edema, Palpitations Respiratory: reports: Cough, Exercise Intolerance, SOB, Wheezing Vital Signs: Vital Signs Temperature 98 F 07/05/18 14:00 Pulse Rate 132 H 07/05/18 14:00 Respiratory Rate 20 07/05/18 14:00 Blood Pressure 139/77 07/05/18 14:00 O2 Sat by Pulse Oximetry (%) 99 07/05/18 11:36 Constitutional: Yes: Cachectic Eyes: Yes: Conjunctiva Clear, EOM Intact HENT: Yes: Atraumatic, Normocephalic Neck: Yes: Supple, Trachea Midline Respiratory: Yes: Diminished, On Nasal O2, SOB. No: Orthopnea, Rales Gastrointestinal: Yes: Normal Bowel Sounds, Soft Cardiovascular: Yes: Tachycardia JVD: No Carotid Bruit: No PMI: Non-Displaced Heart Sounds: Yes: S1, S2 Murmur: No: Systolic Murmur, Diastolic Murmur Edema: No - Other Data Labs, Other Data: CBC, BMP 07/05/18 06:50 07/05/18 06:50 INR, PTT INR 1.63 (0.83-1.09) H 07/03/18 10:[address] T changes. Imaging - Results Chest X-ray: Report Reviewed Problem List - Problems (1) Acute on chronic respiratory failure with hypercapnia Code(s): J96.22 - ACUTE AND CHRONIC RESPIRATORY FAILURE WITH HYPERCAPNIA Assessment/Plan 78 y/o M with PMH COPD (on 2L 02), prostate CA, CVA (5 yrs prior, with residual L sided weakness), hx DVT (on Xarelto), HTN, HLD, who presents to the ED with SOB and is treated for COPD exacerbation and PNA. ECG shows sinus tachycardia without ischemic changes Telemetry NSR and sinus tachycardia without arrhythmia. No heart failure or arrhythmia. ECG with sinus tachycardia and no ST T changes. Continue Treatment of COPD and possible PNA. Will see as needed.
[2018-07-05] MEDS: RIVAROXABAN 20 MG TABLET PO SCH (17:53)
[2018-07-05] MEDS: ATORVASTATIN CA 20 MG TABLET (FP) PO SCH (22:41)
[2018-07-06] MEDS ORDERED: DEXTROSE 5%-WATER 100 ML IVPB ONE ×3 (02:06→17:06)
[2018-07-06] MEDS ORDERED: PIPERACILLIN/TAZOBACTAM 4.5 GM VIAL IVPB ONE ×3 (02:06→17:05)
[2018-07-06] MEDS: methylPREDNISolone NA SUCC 40 MG/1 ML VIAL IVPUSH SCH ×3 (02:29→17:15)
[2018-07-06] MEDS: PIPERACILLIN/TAZOB 4.5 GM 4.5 GM in DEXTROSE 5%-WATER 100 ML IVPB SCH ×3 (02:29→17:18)
[2018-07-06] MEDS: INSULIN SLIDING SCALE (NOVOLOG) 1 VIAL SQ SCH ×4 (06:50→21:30)
[2018-07-06] MEDS: ALBUTEROL SO4 2.5/IPRATROPIUM 0.5 INH SOL 3 ML VIAL.NEB. NEB SCH ×4 (08:56→20:20)
[2018-07-06] MEDS: TAMSULOSIN HCL 0.4 MG CAP PO SCH (09:00)
--- NOTE | 2018-07-06 12:35 | PN ---
Progress Note (short form) - Note Progress Note: Remained on NIPPV support overnight. Not tolerating VM O2 for significant periods of time. Intake & Output 07/03/18 07/04/18 07/05/18 07/06/18 23:59 23:59 23:59 23:59 Intake Total 350 970 60 Balance 350 970 60 Weight 132 lb 8 oz 132 lb Last Vital Signs Temp Pulse Resp BP Pulse Ox 97.2 F L 101 H 24 H 138/87 100 07/06/18 06:00 07/06/18 06:00 07/06/18 06:00 07/06/18 06:00 07/06/18 08:32 Active Medications Acetaminophen (Tylenol -) 650 mg PO Q6H PRN PRN Reason: FEVER Albuterol Sulfate (Ventolin 0.083% Nebulizer Soln -) 1 amp NEB Q4H PRN PRN Reason: SHORT OF BREATH/WHEEZING Last Admin: 07/05/18 02:25 Dose: 1 amp Albuterol/Ipratropium (Duoneb -) 1 amp NEB RQID [facility] Last Admin: 07/06/18 12:12 Dose: 1 amp Atorvastatin Calcium (Lipitor -) 20 mg PO HS [facility] Last Admin: 07/05/18 22:41 Dose: 20 mg Piperacillin Sod/Tazobactam (Sod 4.5 gm/ Dextrose) 100 mls @ 200 mls/hr IVPB Q8H-IV [facility]; Protocol Last Admin: 07/06/18 09:50 Dose: 200 mls/hr Insulin Aspart (Novolog Vial Sliding Scale -) 1 vial SQ ACHS [facility]; Protocol Last Admin: 07/06/18 06:50 Dose: Not Given Methylprednisolone Sodium Succinate (Solu-Medrol -) 40 mg IVPUSH Q8H-IV [facility] Last Admin: 07/06/18 10:00 Dose: 40 mg Rivaroxaban (Xarelto -) 20 mg PO DAILY@1800 [facility] Last Admin: 07/05/18 17:53 Dose: 20 mg Tamsulosin HCl (Flomax -) 0.4 mg PO DAILY@0830 [facility] Last Admin: 07/06/18 09:00 Dose: 0.4 mg Constitutional: Yes: NAD on NIPPV Eyes: Yes: Conjunctiva Clear, EOM Intact HENT: Yes: Atraumatic, Normocephalic Neck: Yes: Supple, Trachea Midline Cardiovascular: Yes: Tachycardia Respiratory: Yes: Cough, Diminished, On NIPPV, Rhonchi, SOB, SOB on Exertion, Tachypnea, Wheezes. 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
--- NOTE | 2018-07-06 13:11 | PN ---
Progress Note, Physician Chief Complaint: patient seen and examined on NIPPV over night currently off bipap on nasal canula - Current Medication List Current Medications: Active Medications Acetaminophen (Tylenol -) 650 mg PO Q6H PRN PRN Reason: FEVER Albuterol Sulfate (Ventolin 0.083% Nebulizer Soln -) 1 amp NEB Q4H PRN PRN Reason: SHORT OF BREATH/WHEEZING Last Admin: 07/05/18 02:25 Dose: 1 amp Albuterol/Ipratropium (Duoneb -) 1 amp NEB RQID [facility] Last Admin: 07/06/18 12:12 Dose: 1 amp Atorvastatin Calcium (Lipitor -) 20 mg PO HS [facility] Last Admin: 07/05/18 22:41 Dose: 20 mg Piperacillin Sod/Tazobactam (Sod 4.5 gm/ Dextrose) 100 mls @ 200 mls/hr IVPB Q8H-IV [facility]; Protocol Last Admin: 07/06/18 09:50 Dose: 200 mls/hr Insulin Aspart (Novolog Vial Sliding Scale -) 1 vial SQ ACHS [facility]; Protocol Last Admin: 07/06/18 11:50 Dose: 2 units Methylprednisolone Sodium Succinate (Solu-Medrol -) 40 mg IVPUSH Q8H-IV [facility] Last Admin: 07/06/18 10:00 Dose: 40 mg Rivaroxaban (Xarelto -) 20 mg PO DAILY@1800 [facility] Last Admin: 07/05/18 17:53 Dose: 20 mg Tamsulosin HCl (Flomax -) 0.4 mg PO DAILY@0830 [facility] Last Admin: 07/06/18 09:00 Dose: 0.4 mg - Objective Vital Signs: Vital Signs Temperature 97.2 F L 07/06/18 06:00 Pulse Rate 101 H 07/06/18 06:00 Respiratory Rate 24 H 07/06/18 06:00 Blood Pressure 138/87 07/06/18 06:00 O2 Sat by Pulse Oximetry (%) 100 07/06/18 08:32 Constitutional: Yes: Calm Cardiovascular: Yes: Regular Rate and Rhythm, S1, S2 Respiratory: Yes: Diminished, On Nasal O2 Gastrointestinal: Yes: Normal Bowel Sounds, Soft Labs: CBC, BMP 07/05/18 06:50 07/05/18 06:50 INR, PTT INR 1.63 (0.83-1.09) H 07/03/18 10:50 Problem List - Problems (1) Acute on chronic respiratory failure with hypercapnia Assessment/Plan: broad spectrum abx- zosyn pulm on board ID nebulizer NIPPV / nasal canula dvt ppx daliresp steroids same dose for now palliative consult ordered to start discussion for GOC Code(s): J96.22 - ACUTE AND CHRONIC RESPIRATORY FAILURE WITH HYPERCAPNIA (2) DMII (diabetes mellitus, type 2) Assessment/Plan: bgm sliding scale hgba1c 7.9 Code(s): E11.9 - TYPE 2 DIABETES MELLITUS WITHOUT COMPLICATIONS (3) HTN (hypertension) Assessment/Plan: will monitor BP Code(s): I10 - ESSENTIAL (PRIMARY) HYPERTENSION Qualifiers: Hypertension type: essential hypertension Qualified Code(s): I10 - Essential (primary) hypertension (4) Hyperlipidemia Assessment/Plan: lipitor Code(s): E78.5 - HYPERLIPIDEMIA, UNSPECIFIED Qualifiers: Hyperlipidemia type: unspecified Qualified Code(s): E78.5 - Hyperlipidemia , unspecified (5) H/O: CVA (cerebrovascular accident) Assessment/Plan: josephine Code(s): Z86.73 - PRSNL HX OF TIA (TIA), AND CEREB INFRC W/O RESID DEFICITS Assessment/Plan palliative care consult
--- NOTE | 2018-07-06 16:08 | PN ---
Progress Note (short form) - Note Progress Note: alert looks quite comfortable nasal canulla for oxygen Vital Signs Period Temp Pulse Resp BP Sys/Thurman Pulse Ox Last 24 Hr 97.2 F-99 F 101-106 22-28 129-139/78-89 98-100 cor rrr lungs decresed bs at bases abd soft,nt ext no edema CBC, BMP 07/05/18 06:50 07/05/18 06:50 Microbiology 07/03/18 11:15 Blood - Peripheral Venous Blood Culture - Preliminary NO GROWTH OBTAINED AFTER 72 HOURS, INCUBATION TO CONTINUE FOR 2 DAYS. 07/03/18 10:50 Blood - Peripheral Venous Blood Culture - Preliminary NO GROWTH OBTAINED AFTER 72 HOURS, INCUBATION TO CONTINUE FOR 2 DAYS. 07/04/18 01:10 Nares - Mrsa Screen - Right MRSA Screen - Final NO MRSA ISOLATED 07/04/18 01:10 Nares - Mrsa Screen - Left MRSA Screen - Final NO MRSA ISOLATED 07/04/18 06:58 Urine - Urine Clean Catch Urine Culture - Final NO GROWTH OBTAINED 07/04/18 06:00 Urine For Antigen Detection Legionella Antigen - Final 07/04/18 06:00 Urine For Antigen Detection Streptococcus pneumoniae Antigen (M - Final imp/reccd pneumonia-hcap acute hypoxic/hypercapneic resp failure history of cva history of prostate cancer continue zosyn Problem List - Problems (1) Acute on chronic respiratory failure with hypoxia and hypercapnia Code(s): J96.21 - ACUTE AND CHRONIC RESPIRATORY FAILURE WITH HYPOXIA; J96.22 - ACUTE AND CHRONIC RESPIRATORY FAILURE WITH HYPERCAPNIA (2) Pneumonia Code(s): J18.9 - PNEUMONIA, UNSPECIFIED ORGANISM (3) H/O prostate cancer Code(s): Z85.46 - PERSONAL HISTORY OF MALIGNANT NEOPLASM OF PROSTATE (4) H/O: CVA (cerebrovascular accident) Code(s): Z86.73 - PRSNL HX OF TIA (TIA), AND CEREB INFRC W/O RESID DEFICITS
[2018-07-06] MEDS: RIVAROXABAN 20 MG TABLET PO SCH (17:14)
[2018-07-06] MEDS: ATORVASTATIN CA 20 MG TABLET (FP) PO SCH (21:30)
[2018-07-07] MEDS ORDERED: PIPERACILLIN/TAZOBACTAM 4.5 GM VIAL IVPB ONE ×3 (01:21→17:16)
[2018-07-07] MEDS ORDERED: DEXTROSE 5%-WATER 100 ML IVPB ONE ×3 (01:21→17:16)
[2018-07-07] MEDS: methylPREDNISolone NA SUCC 40 MG/1 ML VIAL IVPUSH SCH ×3 (01:25→17:21)
[2018-07-07] MEDS: PIPERACILLIN/TAZOB 4.5 GM 4.5 GM in DEXTROSE 5%-WATER 100 ML IVPB SCH ×3 (01:32→17:21)
[2018-07-07] MEDS: INSULIN SLIDING SCALE (NOVOLOG) 1 VIAL SQ SCH ×4 (06:31→21:46)
[2018-07-07] MEDS: ALBUTEROL SO4 2.5/IPRATROPIUM 0.5 INH SOL 3 ML VIAL.NEB. NEB SCH ×4 (07:38→20:55)
[2018-07-07] MEDS: TAMSULOSIN HCL 0.4 MG CAP PO SCH (09:29)
--- NOTE | 2018-07-07 09:40 | PN ---
Progress Note, Physician - Current Medication List Current Medications: Active Medications Acetaminophen (Tylenol -) 650 mg PO Q6H PRN PRN Reason: FEVER Albuterol Sulfate (Ventolin 0.083% Nebulizer Soln -) 1 amp NEB Q4H PRN PRN Reason: SHORT OF BREATH/WHEEZING Last Admin: 07/05/18 02:25 Dose: 1 amp Albuterol/Ipratropium (Duoneb -) 1 amp NEB RQID [facility] Last Admin: 07/07/18 07:38 Dose: 1 amp Atorvastatin Calcium (Lipitor -) 20 mg PO HS [facility] Last Admin: 07/06/18 21:30 Dose: 20 mg Piperacillin Sod/Tazobactam (Sod 4.5 gm/ Dextrose) 100 mls @ 200 mls/hr IVPB Q8H-IV [facility]; Protocol Last Admin: 07/07/18 09:29 Dose: 200 mls/hr Insulin Aspart (Novolog Vial Sliding Scale -) 1 vial SQ ACHS [facility]; Protocol Last Admin: 07/07/18 06:31 Dose: 2 units Methylprednisolone Sodium Succinate (Solu-Medrol -) 40 mg IVPUSH Q8H-IV [facility] Last Admin: 07/07/18 09:29 Dose: 40 mg Rivaroxaban (Xarelto -) 20 mg PO DAILY@1800 [facility] Last Admin: 07/06/18 17:14 Dose: 20 mg Tamsulosin HCl (Flomax -) 0.4 mg PO DAILY@0830 [facility] Last Admin: 07/07/18 09:29 Dose: 0.4 mg - Objective Vital Signs: Vital Signs Temperature 97.6 F 07/07/18 07:00 Pulse Rate 91 H 07/07/18 07:00 Respiratory Rate 24 H 07/07/18 07:00 Blood Pressure 113/73 07/07/18 07:00 O2 Sat by Pulse Oximetry (%) 99 07/07/18 07:37 Cardiovascular: Yes: S1, S2 Respiratory: Yes: On BiPap Gastrointestinal: Yes: Normal Bowel Sounds, Soft Labs: CBC, BMP 07/05/18 06:50 07/05/18 06:50 INR, PTT INR 1.63 (0.83-1.09) H 07/03/18 10:50 Problem List - Problems (1) Acute on chronic respiratory failure with hypercapnia Code(s): J96.22 - ACUTE AND CHRONIC RESPIRATORY FAILURE WITH HYPERCAPNIA (2) COPD exacerbation Code(s): J44.1 - CHRONIC OBSTRUCTIVE PULMONARY DISEASE W (ACUTE) EXACERBATION (3) Pneumonia Code(s): J18.9 - PNEUMONIA, UNSPECIFIED ORGANISM (4) DMII (diabetes mellitus, type 2) Code(s): E11.9 - TYPE 2 DIABETES MELLITUS WITHOUT COMPLICATIONS Assessment/Plan - Problems (1) Acute on chronic respiratory failure with hypercapnia Assessment/Plan: broad spectrum abx- zosyn pulm on board ID nebulizer NIPPV / nasal canula dvt ppx daliresp steroids same dose for now palliative consult ordered to start discussion for GOC Code(s): J96.22 - ACUTE AND CHRONIC RESPIRATORY FAILURE WITH HYPERCAPNIA (2) DMII (diabetes mellitus, type 2) Assessment/Plan: bgm sliding scale hgba1c 7.9 Code(s): E11.9 - TYPE 2 DIABETES MELLITUS WITHOUT COMPLICATIONS (3) HTN (hypertension) Assessment/Plan: will monitor BP Code(s): I10 - ESSENTIAL (PRIMARY) HYPERTENSION Qualifiers: Hypertension type: essential hypertension Qualified Code(s): I10 - Essential (primary) hypertension (4) Hyperlipidemia Assessment/Plan: lipitor Code(s): E78.5 - HYPERLIPIDEMIA, UNSPECIFIED Qualifiers: Hyperlipidemia type: unspecified Qualified Code(s): E78.5 - Hyperlipidemia , unspecified (5) H/O: CVA (cerebrovascular accident) Assessment/Plan: josephine Code(s): Z86.73 - PRSNL HX OF TIA (TIA), AND CEREB INFRC W/O RESID DEFICITS
--- NOTE | 2018-07-07 10:13 | PN ---
Progress Note, Physician History of Present Illness: pulmonary alert,on bipap, c/o sob,mildly tachypneic - Current Medication List Current Medications: Active Medications Acetaminophen (Tylenol -) 650 mg PO Q6H PRN PRN Reason: FEVER Albuterol Sulfate (Ventolin 0.083% Nebulizer Soln -) 1 amp NEB Q4H PRN PRN Reason: SHORT OF BREATH/WHEEZING Last Admin: 07/05/18 02:25 Dose: 1 amp Albuterol/Ipratropium (Duoneb -) 1 amp NEB RQID [facility] Last Admin: 07/07/18 07:38 Dose: 1 amp Atorvastatin Calcium (Lipitor -) 20 mg PO HS [facility] Last Admin: 07/06/18 21:30 Dose: 20 mg Piperacillin Sod/Tazobactam (Sod 4.5 gm/ Dextrose) 100 mls @ 200 mls/hr IVPB Q8H-IV [facility]; Protocol Last Admin: 07/07/18 09:29 Dose: 200 mls/hr Insulin Aspart (Novolog Vial Sliding Scale -) 1 vial SQ ACHS [facility]; Protocol Last Admin: 07/07/18 06:31 Dose: 2 units Methylprednisolone Sodium Succinate (Solu-Medrol -) 40 mg IVPUSH Q8H-IV [facility] Last Admin: 07/07/18 09:29 Dose: 40 mg Rivaroxaban (Xarelto -) 20 mg PO DAILY@1800 [facility] Last Admin: 07/06/18 17:14 Dose: 20 mg Tamsulosin HCl (Flomax -) 0.4 mg PO DAILY@0830 [facility] Last Admin: 07/07/18 09:29 Dose: 0.4 mg - Objective Vital Signs: Vital Signs Temperature 97.6 F 07/07/18 07:00 Pulse Rate 91 H 07/07/18 07:00 Respiratory Rate 24 H 07/07/18 07:00 Blood Pressure 113/73 07/07/18 07:00 O2 Sat by Pulse Oximetry (%) 99 07/07/18 07:37 Constitutional: Yes: Well Nourished, Other (mildly tachypneic when talking) Eyes: Yes: WNL HENT: Yes: WNL Neck: Yes: WNL Cardiovascular: Yes: Regular Rate and Rhythm, S1, S2 Respiratory: Yes: On BiPap, Rhonchi, Tachypnea (midly tachypneic) Gastrointestinal: Yes: Normal Bowel Sounds, Soft Extremities: Yes: WNL Edema: Yes Labs: CBC, BMP 07/05/18 06:50 07/05/18 06:50 INR, PTT INR 1.63 (0.83-1.09) H 07/03/18 10:50 - ....Imaging Chest X-ray: Report Reviewed, Image Reviewed Problem List - Problems (1) Acute on chronic respiratory failure with hypercapnia Code(s): J96.22 - ACUTE AND CHRONIC RESPIRATORY FAILURE WITH HYPERCAPNIA (2) COPD exacerbation Code(s): J44.1 - CHRONIC OBSTRUCTIVE PULMONARY DISEASE W (ACUTE) EXACERBATION (3) Pneumonia Code(s): J18.9 - PNEUMONIA, UNSPECIFIED ORGANISM (4) DMII (diabetes mellitus, type 2) Code(s): E11.9 - TYPE 2 DIABETES MELLITUS WITHOUT COMPLICATIONS (5) DVT prophylaxis Code(s): [id number] - (6) H/O prostate cancer Code(s): Z85.46 - PERSONAL HISTORY OF MALIGNANT NEOPLASM OF PROSTATE (7) H/O: CVA (cerebrovascular accident) Code(s): Z86.73 - PRSNL HX OF TIA (TIA), AND CEREB INFRC W/O RESID DEFICITS Assessment/Plan Assessment/Plan Acute Respiratory Failure clinically improved on NIPPV AE of COPD Suspected PNA 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
[2018-07-07 11:05] LABS: HEMATOCRIT 30.5 % (35.4-49); LYMPH % 4.6 % (8-40); MCH 28.9 pg (25.7-33.7); MCHC 32.9 g/dl (32.0-35.9); MEAN PLT VOLUME 7.4 fl (7.5-11.1); MONO % 9.4 % (3.8-10.2); PLATELET COUNT 166 K/MM3 (134-434); RBC 3.47 M/mm3 (4.00-5.60); RDW 15.6 % (11.9-15.9); WHITE BLOOD COUNT 7.1 K/mm3 (4.0-10.0)
[2018-07-07 11:35] LABS: ALBUMIN 2.2 g/dl (3.4-5.0); ALK PHOS 76 U/L (45-117); ANION GAP 2 MMOL/L (8-16); BILIRUBIN,TOTAL 0.9 mg/dL (0.2-1); BLOOD UREA NITROGEN 24 mg/dL (7-18); CALCIUM 9.2 mg/dL (8.5-10.1); CHLORIDE 97 mmol/L (98-107); CO2 42 mmol/L (21-32); CREATININE 0.4 mg/dL (0.55-1.3); GLUCOSE,RANDOM 194 mg/dL (74-106); POTASSIUM 3.4 mmol/L (3.5-5.1); SGOT/AST 29 U/L (15-37); SGPT/ALT 36 U/L (13-61); SODIUM 141 mmol/L (136-145); TOT PROT 5.1 g/dl (6.4-8.2)
[2018-07-07 11:42] LABS: ANISOCYTOSIS 0; MACROCYTOSIS 0; OVALOCYTE 1+; PLATELET ESTIMATE NORMAL
--- NOTE | 2018-07-07 15:15 | PN ---
Progress Note (short form) - Note Progress Note: on bipap Vital Signs Period Temp Pulse Resp BP Sys/Thurman Pulse Ox Last 24 Hr 97.6 F-98.8 F 91-126 18-28 113-145/73-83 97-99 cor-rrr lungs decreased bs at bases abd soft,nt ext no edema CBC, BMP 07/07/18 10:43 07/07/18 10:43 Microbiology 07/03/18 11:15 Blood - Peripheral Venous Blood Culture - Preliminary NO GROWTH OBTAINED AFTER 96 HOURS, INCUBATION TO CONTINUE FOR 1 DAYS. 07/03/18 10:50 Blood - Peripheral Venous Blood Culture - Preliminary NO GROWTH OBTAINED AFTER 96 HOURS, INCUBATION TO CONTINUE FOR 1 DAYS. 07/04/18 01:10 Nares - Mrsa Screen - Right MRSA Screen - Final NO MRSA ISOLATED 07/04/18 01:10 Nares - Mrsa Screen - Left MRSA Screen - Final NO MRSA ISOLATED 07/04/18 06:58 Urine - Urine Clean Catch Urine Culture - Final NO GROWTH OBTAINED 07/04/18 06:00 Urine For Antigen Detection Legionella Antigen - Final 07/04/18 06:00 Urine For Antigen Detection Streptococcus pneumoniae Antigen (M - Final cxray improved imp/reccd pneumonia-hcap acute hypoxic/hypercapneic resp failure history of cva history of prostate cancer zosyn day #4, can switch to po augmentin in am complete 7 days total please call back if needed Problem List - Problems (1) Acute on chronic respiratory failure with hypoxia and hypercapnia Code(s): J96.21 - ACUTE AND CHRONIC RESPIRATORY FAILURE WITH HYPOXIA; J96.22 - ACUTE AND CHRONIC RESPIRATORY FAILURE WITH HYPERCAPNIA (2) Pneumonia Code(s): J18.9 - PNEUMONIA, UNSPECIFIED ORGANISM (3) H/O prostate cancer Code(s): Z85.46 - PERSONAL HISTORY OF MALIGNANT NEOPLASM OF PROSTATE (4) H/O: CVA (cerebrovascular accident) Code(s): Z86.73 - PRSNL HX OF TIA (TIA), AND CEREB INFRC W/O RESID DEFICITS
[2018-07-07] MEDS: ACETAMINOPHEN 325 MG TABLET (FP) PO PRN (17:20)
[2018-07-07] MEDS: RIVAROXABAN 20 MG TABLET PO SCH (17:21)
[2018-07-07] MEDS: ATORVASTATIN CA 20 MG TABLET (FP) PO SCH (21:45)
[2018-07-08] MEDS ORDERED: DEXTROSE 5%-WATER 100 ML IVPB ONE ×3 (00:41→17:10)
[2018-07-08] MEDS ORDERED: PIPERACILLIN/TAZOBACTAM 4.5 GM VIAL IVPB ONE ×3 (00:41→17:10)
[2018-07-08] MEDS: methylPREDNISolone NA SUCC 40 MG/1 ML VIAL IVPUSH SCH ×3 (01:07→21:12)
[2018-07-08] MEDS: PIPERACILLIN/TAZOB 4.5 GM 4.5 GM in DEXTROSE 5%-WATER 100 ML IVPB SCH ×3 (01:17→17:12)
[2018-07-08] MEDS: INSULIN SLIDING SCALE (NOVOLOG) 1 VIAL SQ SCH ×4 (06:23→21:13)
[2018-07-08] MEDS: ALBUTEROL SO4 2.5/IPRATROPIUM 0.5 INH SOL 3 ML VIAL.NEB. NEB SCH ×2 (08:20→12:22)
[2018-07-08] MEDS: TAMSULOSIN HCL 0.4 MG CAP PO SCH (08:30)
--- NOTE | 2018-07-08 10:01 | PN ---
Progress Note, Physician History of Present Illness: pulmonary alert on bipap,comfortable,less dyspneic. - Current Medication List Current Medications: Active Medications Acetaminophen (Tylenol -) 650 mg PO Q6H PRN PRN Reason: FEVER Last Admin: 07/07/18 17:20 Dose: 650 mg Albuterol Sulfate (Ventolin 0.083% Nebulizer Soln -) 1 amp NEB Q4H PRN PRN Reason: SHORT OF BREATH/WHEEZING Last Admin: 07/05/18 02:25 Dose: 1 amp Albuterol/Ipratropium (Duoneb -) 1 amp NEB RQID [facility] Last Admin: 07/08/18 08:20 Dose: 1 amp Atorvastatin Calcium (Lipitor -) 20 mg PO HS [facility] Last Admin: 07/07/18 21:45 Dose: 20 mg Piperacillin Sod/Tazobactam (Sod 4.5 gm/ Dextrose) 100 mls @ 200 mls/hr IVPB Q8H-IV [facility]; Protocol Last Admin: 07/08/18 09:06 Dose: 200 mls/hr Insulin Aspart (Novolog Vial Sliding Scale -) 1 vial SQ ACHS [facility]; Protocol Last Admin: 07/08/18 06:23 Dose: Not Given Methylprednisolone Sodium Succinate (Solu-Medrol -) 40 mg IVPUSH Q8H-IV [facility] Last Admin: 07/08/18 09:05 Dose: 40 mg Rivaroxaban (Xarelto -) 20 mg PO DAILY@1800 [facility] Last Admin: 07/07/18 17:21 Dose: 20 mg Tamsulosin HCl (Flomax -) 0.4 mg PO DAILY@0830 [facility] Last Admin: 07/08/18 08:30 Dose: 0.4 mg - Objective Vital Signs: Vital Signs Temperature 97.6 F 07/08/18 08:39 Pulse Rate 87 07/08/18 08:39 Respiratory Rate 22 H 07/08/18 08:39 Blood Pressure 148/98 07/08/18 08:39 O2 Sat by Pulse Oximetry (%) 98 07/08/18 08:40 Constitutional: Yes: Well Nourished, Calm Eyes: Yes: WNL HENT: Yes: WNL Neck: Yes: WNL Cardiovascular: Yes: Regular Rate and Rhythm, S1, S2 Respiratory: Yes: Rhonchi (scattered matt rhonchi) Gastrointestinal: Yes: Normal Bowel Sounds, Soft Extremities: Yes: WNL Edema: No Labs: Problem List - Problems (1) Acute on chronic respiratory failure with hypercapnia Code(s): J96.22 - ACUTE AND CHRONIC RESPIRATORY FAILURE WITH HYPERCAPNIA (2) COPD exacerbation Code(s): J44.1 - CHRONIC OBSTRUCTIVE PULMONARY DISEASE W (ACUTE) EXACERBATION (3) Pneumonia Code(s): J18.9 - PNEUMONIA, UNSPECIFIED ORGANISM (4) DMII (diabetes mellitus, type 2) Code(s): E11.9 - TYPE 2 DIABETES MELLITUS WITHOUT COMPLICATIONS (5) DVT prophylaxis Code(s): [id number] - (6) H/O prostate cancer Code(s): Z85.46 - PERSONAL HISTORY OF MALIGNANT NEOPLASM OF PROSTATE (7) H/O: CVA (cerebrovascular accident) Code(s): Z86.73 - PRSNL HX OF TIA (TIA), AND CEREB INFRC W/O RESID DEFICITS Assessment/Plan Assessment/Plan Acute Respiratory Failure clinically improving on NIPPV AE of COPD Suspected PNA 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
--- NOTE | 2018-07-08 13:30 | PN ---
Progress Note, Physician - Current Medication List Current Medications: Active Medications Acetaminophen (Tylenol -) 650 mg PO Q6H PRN PRN Reason: FEVER Last Admin: 07/07/18 17:20 Dose: 650 mg Albuterol Sulfate (Ventolin 0.083% Nebulizer Soln -) 1 amp NEB Q4H PRN PRN Reason: SHORT OF BREATH/WHEEZING Last Admin: 07/05/18 02:25 Dose: 1 amp Albuterol/Ipratropium (Duoneb -) 1 amp NEB RQID [facility] Last Admin: 07/08/18 12:22 Dose: 1 amp Atorvastatin Calcium (Lipitor -) 20 mg PO HS [facility] Last Admin: 07/07/18 21:45 Dose: 20 mg Piperacillin Sod/Tazobactam (Sod 4.5 gm/ Dextrose) 100 mls @ 200 mls/hr IVPB Q8H-IV [facility]; Protocol Last Admin: 07/08/18 09:06 Dose: 200 mls/hr Insulin Aspart (Novolog Vial Sliding Scale -) 1 vial SQ ACHS [facility]; Protocol Last Admin: 07/08/18 11:29 Dose: 2 units Methylprednisolone Sodium Succinate (Solu-Medrol -) 40 mg IVPUSH Q8H-IV [facility] Last Admin: 07/08/18 09:05 Dose: 40 mg Rivaroxaban (Xarelto -) 20 mg PO DAILY@1800 [facility] Last Admin: 07/07/18 17:21 Dose: 20 mg Tamsulosin HCl (Flomax -) 0.4 mg PO DAILY@0830 [facility] Last Admin: 07/08/18 08:30 Dose: 0.4 mg - Objective Vital Signs: Vital Signs Temperature 97.6 F 07/08/18 08:39 Pulse Rate 87 07/08/18 08:39 Respiratory Rate 22 H 07/08/18 08:39 Blood Pressure 148/98 07/08/18 08:39 O2 Sat by Pulse Oximetry (%) 95 07/08/18 11:45 Cardiovascular: Yes: S1, S2 Respiratory: Yes: On BiPap Gastrointestinal: Yes: Normal Bowel Sounds, Soft Labs: CBC, BMP 07/07/18 10:43 07/07/18 10:43 INR, PTT INR 1.63 (0.83-1.09) H 07/03/18 10:50 Problem List - Problems (1) Acute on chronic respiratory failure with hypercapnia Code(s): J96.22 - ACUTE AND CHRONIC RESPIRATORY FAILURE WITH HYPERCAPNIA (2) COPD exacerbation Code(s): J44.1 - CHRONIC OBSTRUCTIVE PULMONARY DISEASE W (ACUTE) EXACERBATION (3) Pneumonia Code(s): J18.9 - PNEUMONIA, UNSPECIFIED ORGANISM (4) DMII (diabetes mellitus, type 2) Code(s): E11.9 - TYPE 2 DIABETES MELLITUS WITHOUT COMPLICATIONS Assessment/Plan - Problems (1) Acute on chronic respiratory failure with hypercapnia Assessment/Plan: broad spectrum abx- zosyn day 08/08 pulm on board ID nebulizer NIPPV / nasal canula dvt ppx daliresp steroids taper palliative consult ordered to start discussion for GOC Code(s): J96.22 - ACUTE AND CHRONIC RESPIRATORY FAILURE WITH HYPERCAPNIA (2) DMII (diabetes mellitus, type 2) Assessment/Plan: bgm sliding scale hgba1c 7.9 Code(s): E11.9 - TYPE 2 DIABETES MELLITUS WITHOUT COMPLICATIONS (3) HTN (hypertension) Assessment/Plan: will monitor BP Code(s): I10 - ESSENTIAL (PRIMARY) HYPERTENSION Qualifiers: Hypertension type: essential hypertension Qualified Code(s): I10 - Essential (primary) hypertension (4) Hyperlipidemia Assessment/Plan: lipitor Code(s): E78.5 - HYPERLIPIDEMIA, UNSPECIFIED Qualifiers: Hyperlipidemia type: unspecified Qualified Code(s): E78.5 - Hyperlipidemia , unspecified (5) H/O: CVA (cerebrovascular accident) Assessment/Plan: xarelto Code(s): Z86.73 - PRSNL HX OF TIA (TIA), AND CEREB INFRC W/O RESID DEFICITS
[2018-07-08 15:34] LABS: ALBUMIN 2.1 g/dl (3.4-5.0); ALK PHOS 77 U/L (45-117); ANION GAP 4 MMOL/L (8-16); BILIRUBIN,TOTAL 0.8 mg/dL (0.2-1); BLOOD UREA NITROGEN 24 mg/dL (7-18); CHLORIDE 94 mmol/L (98-107); CO2 43 mmol/L (21-32); CREATININE 0.6 mg/dL (0.55-1.3); GLUCOSE,RANDOM 230 mg/dL (74-106); POTASSIUM 3.5 mmol/L (3.5-5.1); SGOT/AST 37 U/L (15-37); SGPT/ALT 42 U/L (13-61); SODIUM 141 mmol/L (136-145)
[2018-07-08] MEDS: RIVAROXABAN 20 MG TABLET PO SCH (17:12)
[2018-07-08] MEDS: ATORVASTATIN CA 20 MG TABLET (FP) PO SCH (21:12)
[2018-07-09] MEDS ORDERED: PIPERACILLIN/TAZOBACTAM 4.5 GM VIAL IVPB ONE ×3 (00:56→17:08)
[2018-07-09] MEDS ORDERED: DEXTROSE 5%-WATER 100 ML IVPB ONE ×3 (00:57→17:09)
[2018-07-09] MEDS: PIPERACILLIN/TAZOB 4.5 GM 4.5 GM in DEXTROSE 5%-WATER 100 ML IVPB SCH ×3 (01:00→17:30)
[2018-07-09] MEDS: ACETAMINOPHEN 325 MG TABLET (FP) PO PRN (02:31)
[2018-07-09] MEDS: INSULIN SLIDING SCALE (NOVOLOG) 1 VIAL SQ SCH ×4 (06:01→21:52)
[2018-07-09 07:09] LABS: ALBUMIN 2.1 g/dl (3.4-5.0); ALK PHOS 79 U/L (45-117); ANION GAP 3 MMOL/L (8-16); BILIRUBIN,TOTAL 0.9 mg/dL (0.2-1); BLOOD UREA NITROGEN 22 mg/dL (7-18); CALCIUM 8.5 mg/dL (8.5-10.1); CHLORIDE 95 mmol/L (98-107); CO2 41 mmol/L (21-32); CREATININE 0.4 mg/dL (0.55-1.3); GLUCOSE,RANDOM 189 mg/dL (74-106); POTASSIUM 3.4 mmol/L (3.5-5.1); SGOT/AST 44 U/L (15-37); SGPT/ALT 47 U/L (13-61); SODIUM 139 mmol/L (136-145)
[2018-07-09] MEDS: methylPREDNISolone NA SUCC 40 MG/1 ML VIAL IVPUSH SCH (09:04)
[2018-07-09] MEDS: TAMSULOSIN HCL 0.4 MG CAP PO SCH (09:05)
--- NOTE | 2018-07-09 10:02 | PN ---
Progress Note, Physician History of Present Illness: pulmonary awake,on bipap,dyspneic - Current Medication List Current Medications: Active Medications Acetaminophen (Tylenol -) 650 mg PO Q6H PRN PRN Reason: FEVER Last Admin: 07/09/18 02:31 Dose: 650 mg Albuterol Sulfate (Ventolin 0.083% Nebulizer Soln -) 1 amp NEB Q4H PRN PRN Reason: SHORT OF BREATH/WHEEZING Atorvastatin Calcium (Lipitor -) 20 mg PO HS [facility] Last Admin: 07/08/18 21:12 Dose: 20 mg Piperacillin Sod/Tazobactam (Sod 4.5 gm/ Dextrose) 100 mls @ 200 mls/hr IVPB Q8H-IV [facility]; Protocol Last Admin: 07/09/18 09:04 Dose: 200 mls/hr Insulin Aspart (Novolog Vial Sliding Scale -) 1 vial SQ ACHS [facility]; Protocol Last Admin: 07/09/18 06:01 Dose: Not Given Methylprednisolone Sodium Succinate (Solu-Medrol -) 40 mg IVPUSH BID [facility] Last Admin: 07/09/18 09:04 Dose: 40 mg Rivaroxaban (Xarelto -) 20 mg PO DAILY@1800 [facility] Last Admin: 07/08/18 17:12 Dose: 20 mg Tamsulosin HCl (Flomax -) 0.4 mg PO DAILY@0830 [facility] Last Admin: 07/09/18 09:05 Dose: 0.4 mg - Objective Vital Signs: Vital Signs Temperature 98 F 07/09/18 08:59 Pulse Rate 120 H 07/09/18 08:59 Respiratory Rate 20 07/09/18 08:59 Blood Pressure 145/83 07/09/18 08:59 O2 Sat by Pulse Oximetry (%) 99 07/09/18 09:25 Constitutional: Yes: Well Nourished, Calm Eyes: Yes: WNL HENT: Yes: WNL Neck: Yes: WNL Cardiovascular: Yes: Regular Rate and Rhythm, S1, S2 Respiratory: Yes: Rhonchi (scattered matt rhonchi) Gastrointestinal: Yes: Normal Bowel Sounds, Soft Extremities: Yes: WNL Edema: No Labs: 07/09/18 05:30 INR, PTT Problem List - Problems (1) Acute on chronic respiratory failure with hypercapnia Code(s): J96.22 - ACUTE AND CHRONIC RESPIRATORY FAILURE WITH HYPERCAPNIA (2) COPD exacerbation Code(s): J44.1 - CHRONIC OBSTRUCTIVE PULMONARY DISEASE W (ACUTE) EXACERBATION (3) Pneumonia Code(s): J18.9 - PNEUMONIA, UNSPECIFIED ORGANISM (4) DMII (diabetes mellitus, type 2) Code(s): E11.9 - TYPE 2 DIABETES MELLITUS WITHOUT COMPLICATIONS (5) DVT prophylaxis Code(s): TPU0291 - (6) H/O prostate cancer Code(s): Z85.46 - PERSONAL HISTORY OF MALIGNANT NEOPLASM OF PROSTATE (7) H/O: CVA (cerebrovascular accident) Code(s): Z86.73 - PRSNL HX OF TIA (TIA), AND CEREB INFRC W/O RESID DEFICITS Assessment/Plan Assessment/Plan Acute Respiratory Failure clinically improving on NIPPV AE of COPD Suspected PNA 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
--- NOTE | 2018-07-09 11:46 | PN ---
Progress Note, Physician - Current Medication List Current Medications: Active Medications Acetaminophen (Tylenol -) 650 mg PO Q6H PRN PRN Reason: FEVER Last Admin: 07/09/18 02:31 Dose: 650 mg Albuterol Sulfate (Ventolin 0.083% Nebulizer Soln -) 1 amp NEB Q4H PRN PRN Reason: SHORT OF BREATH/WHEEZING Atorvastatin Calcium (Lipitor -) 20 mg PO HS [facility] Last Admin: 07/08/18 21:12 Dose: 20 mg Piperacillin Sod/Tazobactam (Sod 4.5 gm/ Dextrose) 100 mls @ 200 mls/hr IVPB Q8H-IV [facility]; Protocol Last Admin: 07/09/18 09:04 Dose: 200 mls/hr Insulin Aspart (Novolog Vial Sliding Scale -) 1 vial SQ ACHS [facility]; Protocol Last Admin: 07/09/18 06:01 Dose: Not Given Methylprednisolone Sodium Succinate (Solu-Medrol -) 40 mg IVPUSH BID [facility] Last Admin: 07/09/18 09:04 Dose: 40 mg Rivaroxaban (Xarelto -) 20 mg PO DAILY@1800 [facility] Last Admin: 07/08/18 17:12 Dose: 20 mg Tamsulosin HCl (Flomax -) 0.4 mg PO DAILY@0830 [facility] Last Admin: 07/09/18 09:05 Dose: 0.4 mg - Objective Vital Signs: Vital Signs Temperature 98 F 07/09/18 08:59 Pulse Rate 120 H 07/09/18 08:59 Respiratory Rate 20 07/09/18 08:59 Blood Pressure 145/83 07/09/18 08:59 O2 Sat by Pulse Oximetry (%) 99 07/09/18 09:25 Cardiovascular: Yes: S1, S2 Respiratory: Yes: On Nasal O2 Gastrointestinal: Yes: Normal Bowel Sounds, Soft Labs: CBC, BMP 07/07/18 10:43 07/09/18 05:30 INR, PTT INR 1.63 (0.83-1.09) H 07/03/18 10:50 Problem List - Problems (1) Acute on chronic respiratory failure with hypercapnia Code(s): J96.22 - ACUTE AND CHRONIC RESPIRATORY FAILURE WITH HYPERCAPNIA (2) COPD exacerbation Code(s): J44.1 - CHRONIC OBSTRUCTIVE PULMONARY DISEASE W (ACUTE) EXACERBATION (3) Pneumonia Code(s): J18.9 - PNEUMONIA, UNSPECIFIED ORGANISM (4) DMII (diabetes mellitus, type 2) Code(s): E11.9 - TYPE 2 DIABETES MELLITUS WITHOUT COMPLICATIONS Assessment/Plan - Problems (1) Acute on chronic respiratory failure with hypercapnia Assessment/Plan: broad spectrum abx- zosyn day 09/08 pulm on board ID nebulizer NIPPV / nasal canula dvt ppx daliresp steroids taper--PO palliative consult ordered to start discussion for GOC Code(s): J96.22 - ACUTE AND CHRONIC RESPIRATORY FAILURE WITH HYPERCAPNIA (2) DMII (diabetes mellitus, type 2) Assessment/Plan: bgm sliding scale hgba1c 7.9 Code(s): E11.9 - TYPE 2 DIABETES MELLITUS WITHOUT COMPLICATIONS (3) HTN (hypertension) Assessment/Plan: will monitor BP Code(s): I10 - ESSENTIAL (PRIMARY) HYPERTENSION Qualifiers: Hypertension type: essential hypertension Qualified Code(s): I10 - Essential (primary) hypertension (4) Hyperlipidemia Assessment/Plan: lipitor Code(s): E78.5 - HYPERLIPIDEMIA, UNSPECIFIED Qualifiers: Hyperlipidemia type: unspecified Qualified Code(s): E78.5 - Hyperlipidemia , unspecified (5) H/O: CVA (cerebrovascular accident) Assessment/Plan: josephine Code(s): Z86.73 - PRSNL HX OF TIA (TIA), AND CEREB INFRC W/O RESID DEFICITS
[2018-07-09] MEDS: RIVAROXABAN 20 MG TABLET PO SCH (17:29)
[2018-07-09] MEDS: ALBUTEROL SO4 0.083% IH SOL 2.5 MG/3 ML VIAL.NEB. NEB PRN (19:45)
[2018-07-09] MEDS: predniSONE 20 MG TABLET (UD) PO SCH (21:52)
[2018-07-09] MEDS: ATORVASTATIN CA 20 MG TABLET (FP) PO SCH (21:52)
[2018-07-10] MEDS ORDERED: PIPERACILLIN/TAZOBACTAM 4.5 GM VIAL IVPB ONE ×2 (01:04→12:19)
[2018-07-10] MEDS ORDERED: DEXTROSE 5%-WATER 100 ML IVPB ONE ×2 (01:05→12:20)
[2018-07-10] MEDS: PIPERACILLIN/TAZOB 4.5 GM 4.5 GM in DEXTROSE 5%-WATER 100 ML IVPB SCH ×2 (01:10→13:02)
[2018-07-10] MEDS: ALBUTEROL SO4 0.083% IH SOL 2.5 MG/3 ML VIAL.NEB. NEB PRN ×4 (05:37→15:55)
[2018-07-10] MEDS: INSULIN SLIDING SCALE (NOVOLOG) 1 VIAL SQ SCH ×4 (06:11→22:38)
--- NOTE | 2018-07-10 10:58 | PN ---
Progress Note, Physician History of Present Illness: pulmonary alert,on bipap,less dyspneic - Current Medication List Current Medications: Active Medications Acetaminophen (Tylenol -) 650 mg PO Q6H PRN PRN Reason: FEVER Last Admin: 07/09/18 02:31 Dose: 650 mg Albuterol Sulfate (Ventolin 0.083% Nebulizer Soln -) 1 amp NEB Q4H PRN PRN Reason: SHORT OF BREATH/WHEEZING Last Admin: 07/10/18 10:11 Dose: 1 amp Atorvastatin Calcium (Lipitor -) 20 mg PO HS [facility] Last Admin: 07/09/18 21:52 Dose: 20 mg Piperacillin Sod/Tazobactam (Sod 4.5 gm/ Dextrose) 100 mls @ 200 mls/hr IVPB Q8H-IV [facility]; Protocol Last Admin: 07/10/18 01:10 Dose: 200 mls/hr Insulin Aspart (Novolog Vial Sliding Scale -) 1 vial SQ ACHS [facility]; Protocol Last Admin: 07/10/18 06:11 Dose: Not Given Prednisone (Deltasone -) 40 mg PO BID [facility] Last Admin: 07/09/18 21:52 Dose: 40 mg Rivaroxaban (Xarelto -) 20 mg PO DAILY@1800 [facility] Last Admin: 07/09/18 17:29 Dose: 20 mg Tamsulosin HCl (Flomax -) 0.4 mg PO DAILY@0830 [facility] Last Admin: 07/09/18 09:05 Dose: 0.4 mg - Objective Vital Signs: Vital Signs Temperature 98 F 07/10/18 10:00 Pulse Rate 114 H 07/10/18 10:00 Respiratory Rate 22 H 07/10/18 10:00 Blood Pressure 120/70 07/10/18 10:00 O2 Sat by Pulse Oximetry (%) 100 07/10/18 09:14 Constitutional: Yes: Well Nourished, Calm Eyes: Yes: WNL HENT: Yes: WNL Neck: Yes: WNL Cardiovascular: Yes: Regular Rate and Rhythm, S1, S2 Respiratory: Yes: Rhonchi (scattered rhonchi) Gastrointestinal: Yes: Normal Bowel Sounds, Soft Extremities: Yes: WNL Edema: No Labs: CBC, BMP 07/07/18 10:43 Problem List - Problems (1) Acute on chronic respiratory failure with hypercapnia Code(s): J96.22 - ACUTE AND CHRONIC RESPIRATORY FAILURE WITH HYPERCAPNIA (2) COPD exacerbation Code(s): J44.1 - CHRONIC OBSTRUCTIVE PULMONARY DISEASE W (ACUTE) EXACERBATION (3) Pneumonia Code(s): J18.9 - PNEUMONIA, UNSPECIFIED ORGANISM (4) DMII (diabetes mellitus, type 2) Code(s): E11.9 - TYPE 2 DIABETES MELLITUS WITHOUT COMPLICATIONS (5) DVT prophylaxis Code(s): [id number] - (6) H/O prostate cancer Code(s): Z85.46 - PERSONAL HISTORY OF MALIGNANT NEOPLASM OF PROSTATE (7) H/O: CVA (cerebrovascular accident) Code(s): Z86.73 - PRSNL HX OF TIA (TIA), AND CEREB INFRC W/O RESID DEFICITS Assessment/Plan Assessment/Plan Acute Respiratory Failure clinically improving on NIPPV AE of COPD Suspected PNA 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
--- NOTE | 2018-07-10 11:24 | CONS ---
PHYSICAL MEDICINE AND REHABILITATION CONSULTATION DATE OF CONSULTATION: 07/10/2018 REFERRING PHYSICIAN: Glynn Zee MD HISTORY OF PRESENT ILLNESS: The patient is a 78-year-old man with past medical history of COPD on home oxygen, as well as a CVA affecting his left upper and left lower extremity. He was apparently admitted from [facility] where he was receiving pulmonary rehab to [facility] on July 03 with shortness of breath. Patient was diagnosed with hypercapnic respiratory failure and pneumonia and treated with steroids, which are being tapered, as well as antibiotics. On admission, July 03, WBC 6.0, hemoglobin 11.3, platelet count 144, his CO2 was extremely elevated at 40, sodium 143, potassium 3.8, chloride 99, BUN 21 to creatinine 0.4, albumin 2.2. Last CBC on July 07 showed WBCs stable at 7.1, hemoglobin 10.0, platelet count 166. Last chemistry on July 09 showed a sodium 139, potassium slightly low at 3.4, CO2 remained elevated at 41, chloride 95, BUN 22 to creatinine 0.4. Patient is seen in rehabilitation evaluation. REVIEW OF PAST MEDICAL AND SURGICAL HISTORY: COPD; prostate cancer; CVA with left hemiparesis; DVT on anticoagulation; diabetes. SOCIAL HISTORY: Lives with family. Private house, one level. He was bed-bound prior to admission. REVIEW OF SYSTEMS: Patient is lethargic. PHYSICAL EXAMINATION: General: On examination, lethargic man on CPAP or BiPAP, seen lying in bed. He is poorly cooperative. HEENT: He is normocephalic and atraumatic. His extraocular muscles appear intact. Neck: Supple. Extremities: Without any pitting edema or calf tenderness. Skin: Without any rash or breakdown noted. Neuromuscular: He opens his eyes, but is poorly cooperative. Drowsy. Lethargic. Left-sided weakness compared to right, but good range of motion. No advanced osteodegenerative changes. Withdraws to pin prick in the right more than the left side and brisk reflexes on the left compared to the right. Upgoing toe on the left, downgoing on the right. OVERALL IMPRESSION: 1. Deficits in mobility, activities of daily living; multifactorial. 2. Deconditioning. 3. Hypercapnic respiratory failure. 4. Pneumonia. 5. Chronic obstructive pulmonary disease. On chronic oxygen. 6. Cerebrovascular accident with left hemiparesis. 7. DVT on anticoagulation. 8. Diabetes. 9. Prostate cancer. 10. Decreased mental status. PLAN/SUGGESTIONS: 1. Physical therapy for mobilization, transfers, gait training, strengthening, reconditioning. 2. When appropriate, out of bed to chair. 3. Daily range of motion. 4. Skin precautions. 5. Patient is anticoagulated. No further DVT prophylaxis needed. 6. Return to [facility], once medically stabilized. Thank you for this referral. REBECA MONTIEL M.D. [id number]
[2018-07-10] MEDS: predniSONE 20 MG TABLET (UD) PO SCH ×2 (13:01→22:38)
[2018-07-10] MEDS: TAMSULOSIN HCL 0.4 MG CAP PO SCH (13:01)
--- NOTE | 2018-07-10 15:09 | PN ---
Progress Note, Physician Chief Complaint: Acute on Chronic Respiratory Failure HTN COPD PNA History of Present Illness: Previous notes and events reviewed awake and alert NAD denies complaints of SOB, chest pain patient noted to be using NC more and Bipap HS - Current Medication List Current Medications: Active Medications Acetaminophen (Tylenol -) 650 mg PO Q6H PRN PRN Reason: FEVER Last Admin: 07/09/18 02:31 Dose: 650 mg Albuterol Sulfate (Ventolin 0.083% Nebulizer Soln -) 1 amp NEB Q4H PRN PRN Reason: SHORT OF BREATH/WHEEZING Last Admin: 07/10/18 10:11 Dose: 1 amp Atorvastatin Calcium (Lipitor -) 20 mg PO HS [facility] Last Admin: 07/09/18 21:52 Dose: 20 mg Piperacillin Sod/Tazobactam (Sod 4.5 gm/ Dextrose) 100 mls @ 200 mls/hr IVPB Q8H-IV [facility]; Protocol Last Admin: 07/10/18 13:02 Dose: 200 mls/hr Insulin Aspart (Novolog Vial Sliding Scale -) 1 vial SQ ACHS [facility]; Protocol Last Admin: 07/10/18 13:30 Dose: 2 units Prednisone (Deltasone -) 40 mg PO BID [facility] Last Admin: 07/10/18 13:01 Dose: 40 mg Rivaroxaban (Xarelto -) 20 mg PO DAILY@1800 [facility] Last Admin: 07/09/18 17:29 Dose: 20 mg Tamsulosin HCl (Flomax -) 0.4 mg PO DAILY@0830 [facility] Last Admin: 07/10/18 13:01 Dose: 0.4 mg - Objective Vital Signs: Vital Signs Temperature 98 F 07/10/18 10:00 Pulse Rate 114 H 07/10/18 10:00 Respiratory Rate 22 H 07/10/18 10:00 Blood Pressure 120/70 07/10/18 10:00 O2 Sat by Pulse Oximetry (%) 99 07/10/18 11:59 Constitutional: Yes: No Distress, Calm Eyes: Yes: Conjunctiva Clear HENT: Yes: Atraumatic Cardiovascular: Yes: Regular Rate and Rhythm Respiratory: Yes: Regular, On Nasal O2, Rhonchi Gastrointestinal: Yes: Normal Bowel Sounds, Soft Genitourinary: Yes: Incontinence Musculoskeletal: Yes: Muscle Weakness Extremities: Yes: WNL Edema: No Neurological: Yes: Alert, Pre-Existing Deficit Psychiatric: Yes: Alert Labs: CBC, BMP 07/07/18 10:43 07/09/18 05:30 INR, PTT INR 1.63 (0.83-1.09) H 07/03/18 10:50 Microbiology 07/03/18 11:15 Blood - Peripheral Venous Blood Culture - Final NO GROWTH AFTER 5 DAYS INCUBATION 07/03/18 10:50 Blood - Peripheral Venous Blood Culture - Final NO GROWTH AFTER 5 DAYS INCUBATION 07/04/18 01:10 Nares - Mrsa Screen - Right MRSA Screen - Final NO MRSA ISOLATED 07/04/18 01:10 Nares - Mrsa Screen - Left MRSA Screen - Final NO MRSA ISOLATED 07/04/18 06:58 Urine - Urine Clean Catch Urine Culture - Final NO GROWTH OBTAINED 07/04/18 06:00 Urine For Antigen Detection Legionella Antigen - Final 07/04/18 06:00 Urine For Antigen Detection Streptococcus pneumoniae Antigen (M - Final Problem List - Problems (1) Acute on chronic respiratory failure with hypercapnia Assessment/Plan: -Pulm on board -O2 via NC -Bipap HS -bronchodilators -prednisone taper -keep SpO2 >90% Code(s): J96.22 - ACUTE AND CHRONIC RESPIRATORY FAILURE WITH HYPERCAPNIA (2) COPD exacerbation Assessment/Plan: -Pulm on board -O2 via NC -Bipap HS -bronchodilators -prednisone taper -keep SpO2 >90% Code(s): J44.1 - CHRONIC OBSTRUCTIVE PULMONARY DISEASE W (ACUTE) EXACERBATION (3) Pneumonia Assessment/Plan: -Pulm and ID on board -continue on IV zosyn- day 10/08 -no leukocytosis and afebrile -O2 via venti mask -bronchodilators -prednisone taper -keep SpO2 >90% Code(s): J18.9 - PNEUMONIA, UNSPECIFIED ORGANISM (4) DMII (diabetes mellitus, type 2) Assessment/Plan: -BGM ACHS -ISS -HgA1c 7.9% Code(s): E11.9 - TYPE 2 DIABETES MELLITUS WITHOUT COMPLICATIONS (5) Hyperlipidemia Assessment/Plan: -continue atorvastatin Code(s): E78.5 - HYPERLIPIDEMIA, UNSPECIFIED Qualifiers: Hyperlipidemia type: unspecified Qualified Code(s): E78.5 - Hyperlipidemia , unspecified (6) HTN (hypertension) Code(s): I10 - ESSENTIAL (PRIMARY) HYPERTENSION Qualifiers: Hypertension type: essential hypertension Qualified Code(s): I10 - Essential (primary) hypertension Assessment/Plan see problem list dvt ppx begin d/c planning for return to SNF
[2018-07-10] MEDS: RIVAROXABAN 20 MG TABLET PO SCH (18:22)
[2018-07-10] MEDS: ATORVASTATIN CA 20 MG TABLET (FP) PO SCH (22:38)
[2018-07-11] MEDS: INSULIN SLIDING SCALE (NOVOLOG) 1 VIAL SQ SCH ×2 (06:04→12:05)
[2018-07-11] MEDS: ALBUTEROL SO4 0.083% IH SOL 2.5 MG/3 ML VIAL.NEB. NEB PRN ×2 (07:30→11:45)
[2018-07-11 07:37] LABS: HEMATOCRIT 31.9 % (35.4-49); HEMOGLOBIN 10.4 GM/dL (11.7-16.9); MCH 28.6 pg (25.7-33.7); MCHC 32.6 g/dl (32.0-35.9); MEAN CELL VOLUME 87.9 fl (80-96); MEAN PLT VOLUME 7.7 fl (7.5-11.1); PLATELET COUNT 202 K/MM3 (134-434); RBC 3.64 M/mm3 (4.00-5.60); RDW 15.9 % (11.9-15.9); WHITE BLOOD COUNT 9.6 K/mm3 (4.0-10.0)
[2018-07-11 08:15] LABS: ALBUMIN 2.1 g/dl (3.4-5.0); ALK PHOS 86 U/L (45-117); ANION GAP 2 MMOL/L (8-16); BILIRUBIN,TOTAL 0.8 mg/dL (0.2-1); BLOOD UREA NITROGEN 15 mg/dL (7-18); CALCIUM 8.5 mg/dL (8.5-10.1); CHLORIDE 95 mmol/L (98-107); CO2 43 mmol/L (21-32); CREATININE 0.3 mg/dL (0.55-1.3); GLUCOSE,RANDOM 180 mg/dL (74-106); POTASSIUM 3.6 mmol/L (3.5-5.1); SGOT/AST 54 U/L (15-37); SGPT/ALT 63 U/L (13-61); SODIUM 140 mmol/L (136-145); TOT PROT 5.2 g/dl (6.4-8.2)
[2018-07-11] MEDS: predniSONE 20 MG TABLET (UD) PO SCH (09:51)
[2018-07-11] MEDS: TAMSULOSIN HCL 0.4 MG CAP PO SCH (09:52)
--- NOTE | 2018-07-11 10:12 | PN ---
Progress Note, Physician History of Present Illness: pulmonary awake on nasal cannula ,mildly dyspneic - Current Medication List Current Medications: Active Medications Acetaminophen (Tylenol -) 650 mg PO Q6H PRN PRN Reason: FEVER Last Admin: 07/09/18 02:31 Dose: 650 mg Albuterol Sulfate (Ventolin 0.083% Nebulizer Soln -) 1 amp NEB Q4H PRN PRN Reason: SHORT OF BREATH/WHEEZING Last Admin: 07/11/18 07:30 Dose: 1 amp Atorvastatin Calcium (Lipitor -) 20 mg PO HS [facility] Last Admin: 07/10/18 22:38 Dose: 20 mg Insulin Aspart (Novolog Vial Sliding Scale -) 1 vial SQ [facility]; Protocol Last Admin: 07/11/18 06:04 Dose: Not Given Prednisone (Deltasone -) 40 mg PO BID [facility] Last Admin: 07/11/18 09:51 Dose: 40 mg Rivaroxaban (Xarelto -) 20 mg PO DAILY@1800 [facility] Last Admin: 07/10/18 18:22 Dose: 20 mg Tamsulosin HCl (Flomax -) 0.4 mg PO DAILY@0830 [facility] Last Admin: 07/11/18 09:52 Dose: 0.4 mg - Objective Vital Signs: Vital Signs Temperature 97.9 F 07/11/18 09:00 Pulse Rate 120 H 07/11/18 09:00 Respiratory Rate 20 07/11/18 09:00 Blood Pressure 127/81 07/11/18 09:00 O2 Sat by Pulse Oximetry (%) 99 07/11/18 09:00 Constitutional: Yes: Well Nourished, Calm, Other (mildly dyspneic) Eyes: Yes: WNL HENT: Yes: WNL Neck: Yes: WNL Cardiovascular: Yes: Regular Rate and Rhythm, S1, S2 Respiratory: Yes: Rhonchi (scattered matt rhonchi) Gastrointestinal: Yes: Normal Bowel Sounds, Soft Extremities: Yes: WNL Edema: No Labs: CBC, BMP 07/11/18 05:15 07/11/18 05:15 INR, PTT INR 1.63 (0.83-1.09) H 07/03/18 10:50 Problem List - Problems (1) Acute on chronic respiratory failure with hypercapnia Code(s): J96.22 - ACUTE AND CHRONIC RESPIRATORY FAILURE WITH HYPERCAPNIA (2) COPD exacerbation Code(s): J44.1 - CHRONIC OBSTRUCTIVE PULMONARY DISEASE W (ACUTE) EXACERBATION (3) Pneumonia Code(s): J18.9 - PNEUMONIA, UNSPECIFIED ORGANISM (4) DMII (diabetes mellitus, type 2) Code(s): E11.9 - TYPE 2 DIABETES MELLITUS WITHOUT COMPLICATIONS (5) DVT prophylaxis Code(s): [id number] - (6) H/O prostate cancer Code(s): Z85.46 - PERSONAL HISTORY OF MALIGNANT NEOPLASM OF PROSTATE (7) H/O: CVA (cerebrovascular accident) Code(s): Z86.73 - PRSNL HX OF TIA (TIA), AND CEREB INFRC W/O RESID DEFICITS Assessment/Plan Assessment/Plan Acute Respiratory Failure clinically improving on NIPPV AE of COPD Suspected PNA 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
--- NOTE | 2018-07-11 10:53 | DS ---
Physical Examination Vital Signs: Vital Signs Temperature 97.9 F 07/11/18 09:00 Pulse Rate 120 H 07/11/18 09:00 Respiratory Rate 20 07/11/18 09:00 Blood Pressure 127/81 07/11/18 09:00 O2 Sat by Pulse Oximetry (%) 99 07/11/18 09:00 Findings/Remarks: 78 M, well known to me from multiple admissions. 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 Admitted via the ER with progressive SOB and MARTINEZ. Noted to be tachypneic and hypoxic. He is currently on a Prednisone taper. The patient has been admitted 4 times since the beginning of the year. CXR: new bibasilar infiltrates Right > Left Treated with IV abx and systemic steroids Constitutional: Yes: Well Nourished, No Distress, Calm Cardiovascular: Yes: Regular Rate and Rhythm Respiratory: Yes: Regular, On Nasal O2 Gastrointestinal: Yes: Normal Bowel Sounds, Soft Musculoskeletal: Yes: WNL Extremities: Yes: WNL Edema: No Peripheral Pulses WNL: Yes Neurological: Yes: Alert, Oriented Psychiatric: Yes: Alert, Oriented Labs: CBC, BMP 07/11/18 05:15 07/11/18 05:15 Discharge Summary Reason For Visit: ACUTE CHRONIC RESP FAILURE W/ HYPERCAPNIA Current Active Problems Acute on chronic respiratory failure with hypercapnia (Acute) COPD exacerbation (Acute) Pneumonia (Acute) Hospital Course: Laboratory Last Values WBC 9.6 K/mm3 (4.0-10.0) 07/11/18 05:15 RBC 3.64 M/mm3 (4.00-5.60) L 07/11/18 05:15 Hgb 10.4 GM/dL (11.7-16.9) L 07/11/18 05:15 Hct 31.9 % (35.4-49) L 07/11/18 05:15 MCV 87.9 fl (80-96) 07/11/18 05:15 MCH 28.6 pg (25.7-33.7) 07/11/18 05:15 MCHC 32.6 g/dl (32.0-35.9) 07/11/18 05:15 RDW 15.9 % (11.9-15.9) 07/11/18 05:15 Plt Count 202 K/MM3 (134-434) D 07/11/18 05:15 MPV 7.7 fl (7.5-11.1) 07/11/18 05:15 Absolute Neuts (auto) 6.1 K/mm3 (1.5-8.0) 07/07/18 10:43 Neutrophils % 86.0 % (42.8-82.8) H 07/07/18 10:43 Neutrophils % (Manual) 85.9 % (42.8-82.8) H 07/07/18 10:43 Band Neutrophils % 1.0 % 07/07/18 10:43 Lymphocytes % 4.6 % (8-40) L 07/07/18 10:43 Lymphocytes % (Manual) 2.0 % (8-40) L D 07/07/18 10:43 Monocytes % 9.4 % (3.8-10.2) D 07/07/18 10:43 Monocytes % (Manual) 7 % (3.8-10.2) D 07/07/18 10:43 Eosinophils % 0.0 % (0-4.5) 07/07/18 10:43 Eosinophils % (Manual) 0.0 % (0-4.5) 07/07/18 10:43 Basophils % 0.0 % (0-2.0) 07/07/18 10:43 Basophils % (Manual) 0.0 % (0-2.0) 07/07/18 10:43 Myelocytes % (Man) 2 % (0-2) D 07/07/18 10:43 Promyelocytes % (Man) 0 % (0-2) 07/07/18 10:43 Blast Cells % (Manual) 0 % (0-0) 07/07/18 10:43 Nucleated RBC % 1 % (0-0) H 07/07/18 10:43 Metamyelocytes 0 % (0-2) D 07/07/18 10:43 Hypochromia 0 07/07/18 10:43 Platelet Estimate Normal 07/07/18 10:43 Polychromasia 1+ 07/07/18 10:43 Poikilocytosis 1+ 07/07/18 10:43 Anisocytosis 0 07/07/18 10:43 Microcytosis 0 07/07/18 10:43 Macrocytosis 0 07/07/18 10:43 Ovalocytes 1+ 07/07/18 10:43 PT with INR 19.30 SEC (9.7-13.0) H 07/03/18 10:50 INR 1.63 (0.83-1.09) H 07/03/18 10:50 PTT (Actin FS) 29.3 SECONDS (25.2-36.5) 07/03/18 10:50 Anticoagulation Therapy No Result Required. 07/03/18 09:33 Puncture Site Right radial 07/03/18 09:33 ABG pH 7.43 (7.35-7.45) 07/03/18 09:33 ABG pCO2 at Pt Temp 60.2 mmHg (35-45) H 07/03/18 09:33 ABG pO2 at Pt Temp 73.5 mmHg (80-105) L 07/03/18 09:33 ABG HCO3 39.5 mmol/L (22-27) H 07/03/18 09:33 ABG O2 Sat (Measured) 95.2 % (95-98) 07/03/18 09:33 ABG O2 Content 14.6 % vol (15-22) L 07/03/18 09:33 ABG Base Excess 13.2 meq/l (-2-2) H 07/03/18 09:33 Ronny Test Positive 07/03/18 09:33 O2 Delivery Device No Result Required. 07/03/18 09:33 Oxygen Flow Rate 40 07/03/18 09:33 Vent Mode No Result Required. 07/03/18 09:33 Vent Rate No Result Required. 07/03/18 09:33 Mechanical Rate No Result Required. 07/03/18 09:33 Pressure Support Vent No Result Required. 07/03/18 09:33 Sodium 140 mmol/L (136-145) 07/11/18 05:15 Potassium 3.6 mmol/L (3.5-5.1) 07/11/18 05:15 Chloride 95 mmol/L (98-107) L 07/11/18 05:15 Carbon Dioxide 43 mmol/L (21-32) H 07/11/18 05:15 Anion Gap 2 MMOL/L (8-16) L 07/11/18 05:15 BUN 15 mg/dL (7-18) 07/11/18 05:15 Creatinine 0.3 mg/dL (0.55-1.3) L 07/11/18 05:15 Creat Clearance w eGFR 289.22 (>60) 07/11/18 05:15 POC Glucometer 177 UNITS (80-120) 07/11/18 05:32 Random Glucose 180 mg/dL (74-106) H 07/11/18 05:15 Hemoglobin A1c % 7.9 % (4.2-6.3) H 07/05/18 06:50 Lactic Acid 1.5 mmol/L (0.4-2.0) 07/03/18 10:50 Calcium 8.5 mg/dL (8.5-10.1) 07/11/18 05:15 Phosphorus 2.8 mg/dL (2.5-4.9) 07/04/18 05:30 Magnesium 2.0 mg/dL (1.8-2.4) 07/08/18 14:16 Total Bilirubin 0.8 mg/dL (0.2-1) 07/11/18 05:15 AST 54 U/L (15-37) H 07/11/18 05:15 ALT 63 U/L (13-61) H 07/11/18 05:15 Alkaline Phosphatase 86 U/L (45-117) 07/11/18 05:15 Creatine Kinase 40 U/L (26-308) 07/04/18 05:30 CK-MB (CK-2) 1.0 ng/mL (0.5-3.6) 07/03/18 10:50 Troponin I < 0.02 ng/ml (0.00-0.05) 07/04/18 05:30 B-Natriuretic Peptide 69.0 pg/ml (5-450) 07/03/18 10:50 Total Protein 5.2 g/dl (6.4-8.2) L 07/11/18 05:15 Albumin 2.1 g/dl (3.4-5.0) L 07/11/18 05:15 Triglycerides 83 mg/dL (0-150) 07/04/18 05:30 Cholesterol 100 mg/dL (50-200) 07/04/18 05:30 Total LDL Cholesterol 45 mg/dL (5-100) 07/04/18 05:30 HDL Cholesterol 45 mg/dL (40-60) 07/04/18 05:30 Urine Color Yellow 07/04/18 06:58 Urine Appearance Clear 07/04/18 06:58 Urine pH 5.5 (5.0-8.0) 07/04/18 06:58 Ur Specific [place] 1.025 (1.010-1.035) 07/04/18 06:58 Urine Protein 1+ (NEGATIVE) H 07/04/18 06:58 Urine Glucose (UA) Negative (NEGATIVE) 07/04/18 06:58 Urine Ketones 1+ (NEGATIVE) H 07/04/18 06:58 Urine Blood Negative (NEGATIVE) 07/04/18 06:58 Urine Nitrite Positive (NEGATIVE) 07/04/18 06:58 Urine Bilirubin 1+ (NEGATIVE) H 07/04/18 06:58 Urine Urobilinogen 2.0 mg/dL (0.2-1.0) 07/04/18 06:58 Ur Leukocyte Esterase Negative (NEGATIVE) 07/04/18 06:58 Urine WBC (Auto) 2.0 /hpf (0-5) 07/04/18 06:58 Urine RBC (Auto) 0.7 /hpf (0-4) 07/04/18 06:58 Urine Casts (Auto) 17.31 /hpf (0-8) 07/04/18 06:58 U Epithel Cells (Auto) 5.3 /HPF (0-5) 07/04/18 06:58 Urine Bacteria (Auto) 9.0 /hpf (NEGATIVE) 07/04/18 06:58 Influenza A (Rapid) Negative 07/04/18 01:10 Influenza B (Rapid) Negative 07/04/18 01:10 Microbiology 07/03/18 11:15 Blood - Peripheral Venous Blood Culture - Final NO GROWTH AFTER 5 DAYS INCUBATION 07/03/18 10:50 Blood - Peripheral Venous Blood Culture - Final NO GROWTH AFTER 5 DAYS INCUBATION 07/04/18 01:10 Nares - Mrsa Screen - Right MRSA Screen - Final NO MRSA ISOLATED 07/04/18 01:10 Nares - Mrsa Screen - Left MRSA Screen - Final NO MRSA ISOLATED 07/04/18 06:58 Urine - Urine Clean Catch Urine Culture - Final NO GROWTH OBTAINED 07/04/18 06:00 Urine For Antigen Detection Legionella Antigen - Final 07/04/18 06:00 Urine For Antigen Detection Streptococcus pneumoniae Antigen (M - Final Vital Signs Temp 97.9 F 07/11/18 09:00 Pulse 120 H 07/11/18 09:00 Resp 20 07/11/18 09:00 BP 127/81 07/11/18 09:00 Pulse Ox 99 07/11/18 09:00 Intake & Output 07/10/18 07/10/18 07/11/18 11:59 23:59 11:59 Intake Total 220 690 10 Balance 220 690 10 Intake: IV 20 10 10 SL 10 10 10 saline lock 10 IVPB 100 Oral 100 680 Other: Voiding Method Diaper Diaper Diaper # Unmeasured Voids Void 2 2 Bowel Movement No Condition: Stable - Instructions Diet, Activity, Other Instructions: Low sodium diabetic diet Taper prednisone to 30 mg po bid x 3 days, then 20 mg po bid x 3 days, then 10 mg po bid x 3 days, then 10 mg po daily x 3 days, then 5 mg po daily x 3 days, then stop Disposition: INTERMEDIATE FACILITY - Home Medications Comprehensive Discharge Medication List: Ambulatory Orders Albuterol Sulfate Inhaler - [Ventolin HFA Inhaler -] 1 puff IH DAILY 05/31/18 Atorvastatin Ca [Lipitor] 20 mg PO HS 05/31/18 Bisoprolol Fumarate [Zebeta (Nf) -] 5 mg PO DAILY 05/31/18 Budesonide/Formeterol Fumarate [SYMBICORT 160/4.5mcg -] 1 inh PO BID 05/31/18 Omeprazole 40 mg PO DAILY 05/31/18 Rivaroxaban [Xarelto -] 20 mg PO DAILY 05/31/18 Roflumilast [Daliresp -] 500 mcg PO DAILY 05/31/18 Tamsulosin HCl [Flomax -] 0.4 mg PO DAILY 05/31/18 Tiotropium [place] [Spiriva] 1 inh PO DAILY 05/31/18 Repaglinide 1 mg PO TIDCM 06/18/18 Albuterol 0.083% Nebulizer Penelope [Ventolin 0.083% Nebulizer Soln -] 1 amp NEB Q4H PRN amp 06/20/18 Insulin Sliding Scale [Novolog Vial Sliding Scale -] 1 vial SQ ACHS #1 units Albuterol 2.5/Ipratropium 0.5 [Duoneb -] 1 neb IH QID 07/03/18 Docusate Sodium [Colace] 100 mg PO DAILY 07/03/18 Potassium Chloride 20 meq PO DAILY 07/03/18 Acetaminophen [Tylenol .Regular Strength -] 650 mg PO Q6H PRN tablet 07/11/18 Albuterol 0.083% Nebulizer Penelope [Ventolin 0.083% Nebulizer Soln -] 1 amp NEB Q4H PRN amp 07/11/18 Atorvastatin Ca [Lipitor] 20 mg PO HS tablet 07/11/18 Insulin Sliding Scale [Novolog Vial Sliding Scale -] 1 vial SQ ACHS units 07/11 Rivaroxaban [Xarelto -] 20 mg PO DAILY@1800 tablet 07/11/18 Tamsulosin HCl [Flomax -] 0.4 mg PO DAILY@0830 cap.er.24h 07/11/18 predniSONE [Deltasone -] 40 mg PO BID tablet 07/11/18
[2018-07-11 11:07] LABS: ARTERIAL BLD GAS O2 SATURATION 96.6 % (95-98); ARTERIAL BLOOD GAS PO2 82.5 mmHg (80-105); ARTERIAL BLOOD GAS pH 7.47 (7.35-7.45)
[2018-07-11 11:13] LABS: ALLENS TEST POSITIVE
[2018-07-11 14:25] VITALS: BP 114/70; PULSE 115; TEMP 97.8
--- NOTE | 2018-07-12 10:49 | EKG ---
Test Reason : Blood Pressure : / mmHG Vent. Rate : 128 BPM Atrial Rate : 128 BPM P-R Int : 116 ms QRS Dur : 072 ms QT Int : 272 ms P-R-T Axes : 083 061 002 degrees QTc Int : 397 ms POOR DATA QUALITY, INTERPRETATION MAY BE ADVERSELY AFFECTED SINUS TACHYCARDIA NONSPECIFIC ST ABNORMALITY ABNORMAL ECG WHEN COMPARED WITH ECG OF 03-JUL-2018 09:21, CRITERIA FOR SEPTAL INFARCT ARE NO LONGER PRESENT Confirmed by MARLENY DEGROOT, SIRISHA ([id number]) on 07/12/2018 10:48:45 AM Referred By: Confirmed By:SIRISHA FARMER MD
== END 2018-07-11 14:47 | DRG 193 ==
LOC: JER 09:10 → JERBED 12:28 → J4W 07-04 16:20
PROVIDERS: ADMIT Family Medicine; ATTEND Family Medicine
PROC: 5A09457 Assistance with Respiratory Ventilation, 24-96 Consecutive Hours, Continuous Positive Airway Pressure (ICD-10-PCS; principal; 2018-07-03)
DX: J18.9 Pneumonia, unspecified organism (principal); J96.22 Acute and chronic respiratory failure with hypercapnia; J96.21 Acute and chronic respiratory failure with hypoxia; J44.1 Chronic obstructive pulmonary disease with (acute) exacerbation; I69.354 Hemiplegia and hemiparesis following cerebral infarction affecting left non-dominant side; J98.11 Atelectasis; F44.0 Dissociative amnesia; E11.9 Type 2 diabetes mellitus without complications; I10 Essential (primary) hypertension; Z85.46 Personal history of malignant neoplasm of prostate; Z99.81 Dependence on supplemental oxygen; Z86.718 Personal history of other venous thrombosis and embolism; Z79.01 Long term (current) use of anticoagulants; E78.5 Hyperlipidemia, unspecified; Z74.01 Bed confinement status; Z87.891 Personal history of nicotine dependence; Z79.4 Long term (current) use of insulin
CPT/HCPCS: 36415; 36600; 71045-TC-FY; 80053; 80061; 81003; 82550; 82553; 82803; 82962; 83036; 83605; 83721; 83735; 83880; 84100; 84484; 85025; 85027; 85610; 85730; 87040; 87081; 87086; 87804; 87899; 93005; 93010; 94640; 94660; 97161-GP; 99285-25; J0131; J7030

== ENCOUNTER 2018-07-18 01:21 | Inpatient (IN) | payer OTHER ==
[2018-07-18 02:16] VITALS: BMI 23.9
--- NOTE | 2018-07-18 02:20 | PDOC ---
History of Present Illness - General Chief Complaint: Shortness of Breath Stated Complaint: S.O.B. Time Seen by Provider: 07/18/18 02:19 - History of Present Illness Initial Comments: 78yo M with PMH of COPD on 2L O2, prostate CA, CVA 5 years ago with residual left sided weakness, DVT on Xarelto, HTN, HLD presenting with shortness of breath. He is also noted to be non-adherent to his BiPAP. Per [place] paperwork, patient was found to be tachycardic and sent to the ED for further evaluation. Daughters at the bedside report he has had a nonproductive cough for the past couple days. They also note that he has had a complaint of abdominal pain but the patient says it is minor. No nausea or vomiting. No fevers, chills, or chest pain. PCP: [employer] [employer] Process Technician: Dr. Borja Past History - Past Medical History Allergies/Adverse Reactions: Allergies Allergy/AdvReac Type Severity Reaction Status Date / Time No Known Allergies Allergy Verified 07/18/18 02:16 Home Medications: Ambulatory Orders Albuterol Sulfate Inhaler - [Ventolin HFA Inhaler -] 1 puff IH DAILY 05/31/18 Atorvastatin Ca [Lipitor] 20 mg PO HS 05/31/18 Bisoprolol Fumarate [Zebeta (Nf) -] 5 mg PO DAILY 05/31/18 Budesonide/Formeterol Fumarate [SYMBICORT 160/4.5mcg -] 1 inh PO BID 05/31/18 Omeprazole 40 mg PO DAILY 05/31/18 Rivaroxaban [Xarelto -] 20 mg PO DAILY 05/31/18 Roflumilast [Daliresp -] 500 mcg PO DAILY 05/31/18 Tamsulosin HCl [Flomax -] 0.4 mg PO DAILY 05/31/18 Tiotropium [place] [Spiriva] 1 inh PO DAILY 05/31/18 Repaglinide 1 mg PO TIDCM 06/18/18 Albuterol 0.083% Nebulizer Penelope [Ventolin 0.083% Nebulizer Soln -] 1 amp NEB Q4H PRN amp 06/20/18 Insulin Sliding Scale [Novolog Vial Sliding Scale -] 1 vial SQ ACHS #1 units Albuterol 2.5/Ipratropium 0.5 [Duoneb -] 1 neb IH QID 07/03/18 Docusate Sodium [Colace] 100 mg PO DAILY 07/03/18 Potassium Chloride 20 meq PO DAILY 07/03/18 Acetaminophen [Tylenol .Regular Strength -] 650 mg PO Q6H PRN tablet 07/11/18 Albuterol 0.083% Nebulizer Penelope [Ventolin 0.083% Nebulizer Soln -] 1 amp NEB Q4H PRN amp 07/11/18 Atorvastatin Ca [Lipitor] 20 mg PO HS tablet 07/11/18 Insulin Sliding Scale [Novolog Vial Sliding Scale -] 1 vial SQ ACHS units 07/11 Rivaroxaban [Xarelto -] 20 mg PO DAILY@1800 tablet 07/11/18 Tamsulosin HCl [Flomax -] 0.4 mg PO DAILY@0830 cap.er.24h 07/11/18 predniSONE [Deltasone -] 40 mg PO BID tablet 07/11/18 Anemia: No Asthma: Yes (copd) Cancer: Yes (PROSTATE) Cardiac Disorders: Yes CVA: Yes (left hemiparesis) COPD: Yes CHF: No Dementia: No Diabetes: Yes GI Disorders: No Disorders: Yes (Prostate CA) HTN: Yes Hypercholesterolemia: No Liver Disease: No Seizures: No Thyroid Disease: No - Surgical History Abdominal Surgery: No Appendectomy: No Cardiac Surgery: No Cholecystectomy: No Lung Surgery: No Neurologic Surgery: No - Immunization History Immunization Up to Date: Yes - Suicide/Smoking/Psychosocial Hx Smoking History: Never smoked Have you smoked in the past 12 months: No Number of Cigarettes Smoked Daily: 0 If you are a former smoker, when did you quit?: 10 years ago Information on smoking cessation initiated: No Hx Alcohol Use: No Drug/Substance Use Hx: No Substance Use Type: None Hx Substance Use Treatment: No Review of Systems - Review of Systems Comments:: Constitutional: no fever, no chills HEENT: no throat pain, no dysphagia Cardiovascular: no chest pain, no palpitations Respiratory: +cough, +shortness of breath Gastrointestinal: no nausea, no vomiting Genitourinary: no dysuria, no frequency Musculoskeletal: no myalgia, no arthralgia Skin: no rash, no itching Neurologic: no headache, no dizziness *Physical Exam - Vital Signs Last Vital Signs Temp Pulse Resp BP Pulse Ox 98.8 F 98 H 16 112/66 97 07/18/18 01:21 07/18/18 01:21 07/18/18 01:21 07/18/18 01:21 07/18/18 01:21 - Physical Exam Comments: General: Lethargic, slumped in bed, answers questions appropriately Head: No signs of trauma Eyes: EOMI, sclera anicteric ENT: Moist mucus membranes Neck: Normal ROM, supple Lungs: Prolonged expiratory phase with crackles at the bases Cardio: Regular rhythm, S1 and S2 present Abdomen: Soft, nontender. No guarding, no rebound, no masses Extremities: Normal range of motion, Distal pulses present SKIN: Warm, Dry, normal turgor Neurologic: Cranial nerves II through XII grossly intact. Normal speech ED Treatment Course - LABORATORY CBC & Chemistry Diagram: 07/18/18 03:01 07/18/18 04:03 Medical Decision Making - Medical Decision Making 78yo M with PMH of COPD on 2L O2, prostate CA, CVA 5 years ago with residual left sided weakness, DVT on Xarelto, HTN, HLD presenting with shortness of breath. DDX including but not limited to COPD exacerbation, hypercapnic respiratory failure, ACS, PNA, PE Vitals significant for tachycardia Patient with 100% O2 Saturation on 5L Non-rebreather mask 2g Mag ordered 07/18/18 03:17 Leukocytosis, WBC=14.3 Hgb at patient's baseline Chemistry hemolyzed, re-ordered 07/18/18 03:54 Duonebs EKG: rate 84, QTc 423, sinus rhythm with pacs 07/18/18 04:25 VBG with increased CO2 and normal pH, indicating patient is appropriately compensating Tpn=0.02 Pending BNP Patient continues to look labored while breathing When placed on home 2L of oxygen, O2 saturations would decrease to 88-89 07/18/18 05:03 Patient is O2 saturation down to 74; BiPAP ordered Plan for admission 07/18/18 05:23 Discussed case with SHON Nolan who accepted patient for admission under Dr. Garcia. Per her request, orders for lactate, UA, blood culture placed. 07/18/18 05:33 *DC/Admit/Observation/Transfer Diagnosis at time of Disposition: COPD exacerbation, Acute on chronic respiratory failure with hypoxia and hypercapnia - Discharge Dispostion Condition at time of disposition: Guarded Decision to Admit order: Yes - Referrals Referrals: Glynn Zee MD [Primary Care Provider] - - Patient Instructions - Post Discharge Activity
--- NOTE | 2018-07-18 02:28 | PDOC ---
Attending Attestation - Resident Resident Name: Brianne Jarrett - ED Attending Attestation I have performed the following: I have examined & evaluated the patient, The case was reviewed & discussed with the resident, I agree w/resident's findings & plan, Exceptions are as noted - HPI HPI: 07/18/18 02:53 78y M hx of copd (2l of NC), prostate ca, cva, dvt on xeralto, htn, hl, presents with complaint from [facility] for nonproductive cough for a few days. Pt noncomplaint with his bipap, no associated cp, fever/chlls, nv - Physicial Exam PE: 07/18/18 04:10 General: Moderate respiratory distress Pulm: rales at bases b/l Card: rrr, no mrg HEENT: pale conjunctiva - Medical Decision Making 07/18/18 04:20 ddx - copd, chf, pna, 07/18/18 05:47 pt notably hypoxic beyond his typical o2 requirement on 4L was at 73 with good waveform pt sarted on bipap labs noted for hypercapnea - likely chronic leukocytosis possibley due to infectious process vs benig on steroids will admit for further management
[2018-07-18] MEDS ORDERED: MAGNESIUM SULF 50% (8.12 MEQ/2 ML-1 GM VIAL) IVPB ONE (02:57)
[2018-07-18 03:07] LABS: VENOUS PH 7.34 (7.31-7.41); VENOUS PO2 64.4 mmHg (30-40)
[2018-07-18 03:08] LABS: VENOUS PC02 73.6 mmHg (41-51)
[2018-07-18 03:09] LABS: BASO % 0.1 % (0-2.0); HEMATOCRIT 32.7 % (35.4-49); LYMPH % 1.4 % (8-40); MCH 30.2 pg (25.7-33.7); MCHC 33.7 g/dl (32.0-35.9); MEAN CELL VOLUME 89.6 fl (80-96); MEAN PLT VOLUME 8.2 fl (7.5-11.1); MONO % 5.4 % (3.8-10.2); NEUT % 93.1 % (42.8-82.8); PLATELET COUNT 186 K/MM3 (134-434); RBC 3.65 M/mm3 (4.00-5.60); RDW 17.6 % (11.9-15.9); WHITE BLOOD COUNT 14.3 K/mm3 (4.0-10.0)
[2018-07-18] MEDS ORDERED: MAGNESIUM SULF 50% (8.12 MEQ/2 ML-1 GM VIAL) ONE (03:13)
[2018-07-18] MEDS ORDERED: ALBUTEROL SO4 2.5/IPRATROPIUM 0.5 INH SOL 3 ML VIAL.NEB. NEB ONE ×3 (03:59→08:15)
[2018-07-18 04:32] LABS: MAGNESIUM 2.1 mg/dL (1.8-2.4)
[2018-07-18 04:36] LABS: ALBUMIN 2.5 g/dl (3.4-5.0); ALK PHOS 125 U/L (45-117); ANION GAP 5 MMOL/L (8-16); BLOOD UREA NITROGEN 21 mg/dL (7-18); CALCIUM 8.3 mg/dL (8.5-10.1); CHLORIDE 98 mmol/L (98-107); CO2 38 mmol/L (21-32); CREATININE 0.3 mg/dL (0.55-1.3); GLUCOSE,RANDOM 129 mg/dL (74-106); POTASSIUM 3.9 mmol/L (3.5-5.1); SGOT/AST 43 U/L (15-37); SGPT/ALT 60 U/L (13-61); SODIUM 140 mmol/L (136-145); TOT PROT 5.5 g/dl (6.4-8.2)
[2018-07-18 05:05] LABS: N-TERMINAL BNP 187.3 pg/ml (5-450)
[2018-07-18] MEDS ORDERED: methylPREDNISolone NA SUCC 125 MG/2 ML VIAL IVPUSH ONE (05:35)
[2018-07-18] MEDS ORDERED: ALBUTEROL SO4 2.5/IPRATROPIUM 0.5 INH SOL 3 ML VIAL.NEB. NEB PRN (05:36)
--- NOTE | 2018-07-18 05:39 | HP ---
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 Who presents to the ED with SOB secondary to non -compliant with BIPAP. Patient and patient's daughter who is at bedside is also [place]an speaking. 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 Patient's daughter reports he has had a nonproductive cough for the past couple days. She also reports that he has complained about his abdomen, patient denies at present. Patient denies fever, chills, dizziness, CP, palpitations, N/V/D. ER course was noted for: (1) VBG- CO2 72 (2) WBC 14.2 (3) On BIPAP History Source: Family Member, Medical Record, Transfer Record Limitations to Obtaining History: Clinical Condition, Language Barrier (S[place]an) - Past Medical History RISK ENGINEER: Yes: CVA (L-sided residual) Cardiovascular: Yes: Deep Vein Thrombosis, HTN, Hyperlipdemia Pulmonary: Yes: COPD, O2 Dependent Renal/: Yes: Cancer (Prostate) - Advance Directives Advance Directives: Yes: DNR (DNI), MOLST - Smoking History Smoking history: Never smoked Have you smoked in the past 12 months: No Aproximately how many cigarettes per day: 0 If you are a former smoker, when did you quit?: 10 years ago - Alcohol/Substance Use Hx Alcohol Use: No - Social History Usual Living Arrangement: Yes: Shelter ADL: Support Services History of Recent Travel: No Home Medications - Allergies Allergies/Adverse Reactions: Allergies Allergy/AdvReac Type Severity Reaction Status Date / Time No Known Allergies Allergy Verified 07/18/18 02:16 - Home Medications Home Medications: Ambulatory Orders Albuterol Sulfate Inhaler - [Ventolin HFA Inhaler -] 1 puff IH DAILY 05/31/18 Atorvastatin Ca [Lipitor] 20 mg PO HS 05/31/18 Bisoprolol Fumarate [Zebeta (Nf) -] 5 mg PO DAILY 05/31/18 Budesonide/Formeterol Fumarate [SYMBICORT 160/4.5mcg -] 1 inh PO BID 05/31/18 Omeprazole 40 mg PO DAILY 05/31/18 Rivaroxaban [Xarelto -] 20 mg PO DAILY 05/31/18 Roflumilast [Daliresp -] 500 mcg PO DAILY 05/31/18 Tamsulosin HCl [Flomax -] 0.4 mg PO DAILY 05/31/18 Tiotropium [place] [Spiriva] 1 inh PO DAILY 05/31/18 Repaglinide 1 mg PO TIDCM 06/18/18 Albuterol 0.083% Nebulizer Penelope [Ventolin 0.083% Nebulizer Soln -] 1 amp NEB Q4H PRN amp 06/20/18 Insulin Sliding Scale [Novolog Vial Sliding Scale -] 1 vial SQ ACHS #1 units Albuterol 2.5/Ipratropium 0.5 [Duoneb -] 1 neb IH QID 07/03/18 Docusate Sodium [Colace] 100 mg PO DAILY 07/03/18 Potassium Chloride 20 meq PO DAILY 07/03/18 Acetaminophen [Tylenol .Regular Strength -] 650 mg PO Q6H PRN tablet 07/11/18 Albuterol 0.083% Nebulizer Penelope [Ventolin 0.083% Nebulizer Soln -] 1 amp NEB Q4H PRN amp 07/11/18 Atorvastatin Ca [Lipitor] 20 mg PO HS tablet 07/11/18 Insulin Sliding Scale [Novolog Vial Sliding Scale -] 1 vial SQ ACHS units 07/11 Rivaroxaban [Xarelto -] 20 mg PO DAILY@1800 tablet 07/11/18 Tamsulosin HCl [Flomax -] 0.4 mg PO DAILY@0830 cap.er.24h 07/11/18 predniSONE [Deltasone -] 40 mg PO BID tablet 07/11/18 Family Disease History - Family Disease History Family History: Unable to Obtain Review of Systems Unable to obtain ROS, reason: Clinical Condition Physical Examination Vital Signs: Vital Signs Temperature 98.8 F 07/18/18 01:21 Pulse Rate 98 H 07/18/18 01:21 Respiratory Rate 16 07/18/18 01:21 Blood Pressure 112/66 07/18/18 01:21 O2 Sat by Pulse Oximetry (%) 97 07/18/18 01:21 Constitutional: Yes: No Distress, Calm Eyes: Yes: WNL, Conjunctiva Clear, EOM Intact, PERRL HENT: Yes: WNL, Atraumatic, Normocephalic Neck: Yes: WNL, Supple, Trachea Midline Cardiovascular: Yes: Regular Rate and Rhythm, S1, S2 Respiratory: Yes: Diminished, On BiPap, Rhonchi Gastrointestinal: Yes: Normal Bowel Sounds, Soft. No: Tenderness, Tenderness, Epigastrium Musculoskeletal: Yes: WNL Extremities: Yes: WNL Edema: No Peripheral Pulses WNL: Yes Neurological: Yes: Alert, Oriented, Cran Nerves II-XII Intact Psychiatric: Yes: WNL, Alert, Oriented Labs: CBC, BMP 07/18/18 03:01 07/18/18 04:03 Laboratory Results - last 24 hr 07/18/18 07/18/18 07/18/18 03:01 03:01 03:01 WBC 14.3 H RBC 3.65 L Hgb 11.0 L Hct 32.7 L MCV 89.6 MCH 30.2 MCHC 33.7 RDW 17.6 H Plt Count 186 MPV 8.2 Absolute Neuts (auto) 13.3 H Neutrophils % 93.1 H Lymphocytes % 1.4 L D Monocytes % 5.4 Eosinophils % 0.0 Basophils % 0.1 D Nucleated RBC % 0 VBG pH 7.34 POC VBG pCO2 73.6 H* POC VBG pO2 64.4 H VBG HCO3 38.4 H VBG O2 Sat (Jenifer) 91.0 H VBG Base Excess 10.6 H Sodium Cancelled Potassium Cancelled Chloride Cancelled Carbon Dioxide Cancelled Anion Gap Cancelled BUN Cancelled Creatinine Cancelled Creat Clearance w eGFR Cancelled Random Glucose Cancelled Calcium Cancelled Magnesium Cancelled Total Bilirubin Cancelled AST Cancelled ALT Cancelled Alkaline Phosphatase Cancelled Troponin I Cancelled B-Natriuretic Peptide Total Protein Cancelled Albumin Cancelled 07/18/18 07/18/18 04:03 04:03 WBC RBC Hgb Hct MCV MCH MCHC RDW Plt Count MPV Absolute Neuts (auto) Neutrophils % Lymphocytes % Monocytes % Eosinophils % Basophils % Nucleated RBC % VBG pH POC VBG pCO2 POC VBG pO2 VBG HCO3 VBG O2 Sat (Jenifer) VBG Base Excess Sodium 140 Potassium 3.9 Chloride 98 Carbon Dioxide 38 H Anion Gap 5 L BUN 21 H Creatinine 0.3 L Creat Clearance w eGFR 289.22 Random Glucose 129 H Calcium 8.3 L Magnesium 2.1 Total Bilirubin 1.0 AST 43 H ALT 60 Alkaline Phosphatase 125 H Troponin I 0.02 B-Natriuretic Peptide 187.3 Total Protein 5.5 L Albumin 2.5 L Current Medications Generic Name Dose Route Start Last Admin Trade Name Freq PRN Reason Stop Dose Admin Albuterol Sulfate 1 amp 07/18/18 06:44 Ventolin 0.083% Nebulizer Soln - NEB Q4H PRN SHORT OF BREATH/WHEEZING Albuterol/Ipratropium 1 amp 07/18/18 08:00 Duoneb - NEB RQID [facility] Atorvastatin Calcium 20 mg 07/18/18 22:00 Lipitor - PO HS [facility] Budesonide/Formoterol Fumarate 1 puff 07/18/18 10:00 Symbicort 160/4.5mcg - IH BID [facility] Docusate Sodium 100 mg 07/18/18 10:00 Colace - PO DAILY [facility] Piperacillin Sod/Tazobactam 100 mls @ 200 mls/hr 07/18/18 06:10 07/18/18 06: 33 Sod 4.5 gm/ Dextrose IVPB 07/18/18 06:39 200 mls/hr ONCE ONE Administration Protocol Non-Formulary Medication 5 mg 07/18/18 10:00 Bisoprolol Fumarate PO DAILY [facility] Non-Formulary Medication 40 mg 07/18/18 10:00 Omeprazole [Omeprazole] PO DAILY [facility] Non-Formulary Medication 1 inh 07/18/18 10:00 Tiotropium [place] [Spiriva] PO DAILY [facility] Repaglinide 1 mg 07/18/18 08:00 Prandin - PO TIDCM [facility] Rivaroxaban 20 mg 07/18/18 18:00 Xarelto - PO DAILY@1800 [facility] Roflumilast 500 mcg 07/18/18 10:00 Daliresp - PO DAILY [facility] Tamsulosin HCl 0.4 mg 07/18/18 08:30 Flomax - PO DAILY@0830 [facility] Vancomycin HCl 1,000 mg 07/18/18 06:11 Vancomycin (Pre-Docked) IVPB 07/18/18 06:12 ONCE ONE Protocol Intake & Output 07/15/18 07/16/18 07/17/18 04/16/19 23:59 23:59 23:59 23:59 Weight 61.326 kg Imaging - Results Chest X-ray: Image Reviewed EKG: Image Reviewed Problem List - Problems (1) Acute on chronic respiratory failure with hypoxia and hypercapnia Code(s): J96.21 - ACUTE AND CHRONIC RESPIRATORY FAILURE WITH HYPOXIA; J96.22 - ACUTE AND CHRONIC RESPIRATORY FAILURE WITH HYPERCAPNIA (2) COPD exacerbation Code(s): J44.1 - CHRONIC OBSTRUCTIVE PULMONARY DISEASE W (ACUTE) EXACERBATION (3) Pneumonia Code(s): J18.9 - PNEUMONIA, UNSPECIFIED ORGANISM (4) DMII (diabetes mellitus, type 2) Code(s): E11.9 - TYPE 2 DIABETES MELLITUS WITHOUT COMPLICATIONS (5) HTN (hypertension) Code(s): I10 - ESSENTIAL (PRIMARY) HYPERTENSION Qualifiers: Hypertension type: essential hypertension Qualified Code(s): I10 - Essential (primary) hypertension (6) Hyperlipidemia Code(s): E78.5 - HYPERLIPIDEMIA, UNSPECIFIED Qualifiers: Hyperlipidemia type: unspecified Qualified Code(s): E78.5 - Hyperlipidemia , unspecified (7) H/O prostate cancer Code(s): Z85.46 - PERSONAL HISTORY OF MALIGNANT NEOPLASM OF PROSTATE (8) H/O: CVA (cerebrovascular accident) Code(s): Z86.73 - PRSNL HX OF TIA (TIA), AND CEREB INFRC W/O RESID DEFICITS (9) History of DVT (deep vein thrombosis) Code(s): Z86.718 - PERSONAL HISTORY OF OTHER VENOUS THROMBOSIS AND EMBOLISM Assessment/Plan This is a 78 y/o man admitted for Acute on Chronic Respiratory Failure with Hypercapnia, Acute COPD Exacerbation, Pneumonia for further evaluation of their emergent condition. Plan: 1. Acute on Chronic Respiratory Failure with Hypercapnia Likely secondary to non-complaint with BIPAP vs Pneumonia Continue BIPAP, titrate ABG pending this am Appreciate Pulm consult Monitor vitals 2. Acute COPD Exacerbation On BIPAP Blood Cultures ordered Duonebs Solumederol x1 dose now Will start on ABX Appreciate Pulm input Continue home meds Monitor CBC, BMP Monitor vitals 3. Pneumonia CURB65 2 WBC 14.2 Blood Cultures-pending Lactic Acid-pending Will start on Vancomycin, Zosyn Appreciate ID consult Monitor CBC O2 4. Hypertension stable Monitor BP Continue home meds Monitor renal function 5. Hyperlipidemia stable Continue home med Monitor LFT 6. Diabetes Mellitus stable BGMs ISS when diet resumed 7. CVA Continue home meds Fall Precautions 8. DVT Continue Xarelto FEN Replete lytes NPO DVT ppx SCDs Continue Xarelto Code Status: MOLST, DNR, DNI Dispo: Requires Inpatient Care Visit type - Emergency Visit Emergency Visit: Yes ED Registration Date: 07/18/18 Care time: The patient presented to the Emergency Department on the above date and was hospitalized for further evaluation of their emergent condition. - New Patient This patient is new to me today: Yes Date on this admission: 07/18/18 - Critical Care Critical Care patient: No
[2018-07-18] MEDS ORDERED: methylPREDNISolone NA SUCC 125 MG/2 ML VIAL ONE (05:59)
[2018-07-18] MEDS ORDERED: PIPERACILLIN/TAZOB 4.5 GM 4.5 GM in DEXTROSE 5%-WATER 100 ML IVPB ONE (06:10)
[2018-07-18] MEDS ORDERED: VANCOMYCIN 1 GM in D5W (PRE-DOCKED) 1,000 MG/250 ML IVPB ONE (06:11)
[2018-07-18] MEDS ORDERED: VANCOMYCIN 1 GRAM (PRE-DOCKED) 1,000 MG/250 ML BAG IVPB ONE (06:27)
[2018-07-18] MEDS ORDERED: PIPERACILLIN/TAZOB 4.5 GM 4.5 GM/100 ML BAG IVPB ONE (06:27)
[2018-07-18 07:26] LABS: ARTERIAL BLD GAS O2 SATURATION 92.5 % (95-98); ARTERIAL BLOOD GAS BASE EXCESS 9.8 meq/l (-2-2); ARTERIAL BLOOD GAS PCO2 60.9 mmHg (35-45); ARTERIAL BLOOD GAS PO2 63.4 mmHg (80-105); ARTERIAL BLOOD GAS pH 7.39 (7.35-7.45)
[2018-07-18 07:29] LABS: ALLENS TEST POSITIVE
[2018-07-18] MEDS ORDERED: VANCOMYCIN 1 GM PREMIX - 1 GM/200 ML BAG IVPB ONE (07:30)
[2018-07-18] MEDS ORDERED: TAMSULOSIN HCL 0.4 MG CAP ONE (08:15)
[2018-07-18] MEDS: ALBUTEROL SO4 2.5/IPRATROPIUM 0.5 INH SOL 3 ML VIAL.NEB. NEB SCH ×4 (08:16→20:35)
[2018-07-18] MEDS ORDERED: AZITHROMYCIN IVPB 500 MG/250 ML BAG IVPB ONE (10:41)
--- NOTE | 2018-07-18 10:42 | PN ---
Progress Note, Physician Chief Complaint: SOB History of Present Illness: Lethargic, on bipap Daughter at bedside Seen by Pulmonary - Current Medication List Current Medications: Active Medications Albuterol Sulfate (Ventolin 0.083% Nebulizer Soln -) 1 amp NEB Q4H PRN PRN Reason: SHORT OF BREATH/WHEEZING Albuterol/Ipratropium (Duoneb -) 1 amp NEB RQID JACKIE Last Admin: 07/18/18 08:16 Dose: 1 amp Atenolol (Tenormin -) 50 mg PO DAILY JACKIE Atorvastatin Calcium (Lipitor -) 20 mg PO HS JACKIE Budesonide/Formoterol Fumarate (Symbicort 160/4.5mcg -) 1 puff IH BID JACKIE Docusate Sodium (Colace -) 100 mg PO DAILY JACKIE Pantoprazole Sodium (Protonix -) 40 mg PO DAILY JACKIE Repaglinide (Prandin -) 1 mg PO TIDCM JACKIE Rivaroxaban (Xarelto -) 20 mg PO DAILY@1800 [facility] Roflumilast (Daliresp -) 500 mcg PO DAILY JACKIE Tamsulosin HCl (Flomax -) 0.4 mg PO DAILY@0830 [facility] Tiotropium [place] (Spiriva Respimat) 2 puff IH DAILY [facility] - Objective Vital Signs: Vital Signs Temperature 98.8 F 07/18/18 01:21 Pulse Rate 89 07/18/18 07:44 Respiratory Rate 18 07/18/18 09:48 Blood Pressure 125/61 07/18/18 07:44 O2 Sat by Pulse Oximetry (%) 100 07/18/18 07:44 Constitutional: Yes: Well Nourished, No Distress, Calm Cardiovascular: Yes: Regular Rate and Rhythm Respiratory: Yes: Regular, On BiPap Gastrointestinal: Yes: WNL Genitourinary: Yes: Incontinence Musculoskeletal: Yes: Muscle Weakness Extremities: Yes: WNL Edema: No Peripheral Pulses WNL: Yes Neurological: Yes: Lethargy, Pre-Existing Deficit Labs: CBC, BMP 07/18/18 03:01 07/18/18 04:03 Problem List - Problems (1) Leukocytosis Assessment/Plan: -BC/UC pending -Started on IV zosyn -Seen by ID -Afebrile -monitor trend Code(s): D72.829 - ELEVATED WHITE BLOOD CELL COUNT, UNSPECIFIED (2) COPD exacerbation Assessment/Plan: -Pulmonary on board -BIPAP PRN -Bronchodilators -On Symbicort and Daliresp Code(s): J44.1 - CHRONIC OBSTRUCTIVE PULMONARY DISEASE W (ACUTE) EXACERBATION (3) DMII (diabetes mellitus, type 2) Assessment/Plan: -Last A1c at 7.9 -BGM AC HS -Novolog sliding scale only -Diabetic dysphagia puree diet Code(s): E11.9 - TYPE 2 DIABETES MELLITUS WITHOUT COMPLICATIONS Assessment/Plan See problem list Overall poor prognosis DNR/DNI Palliative consult
--- NOTE | 2018-07-18 11:08 | EKG ---
Test Reason : Blood Pressure : / mmHG Vent. Rate : 084 BPM Atrial Rate : 084 BPM P-R Int : 116 ms QRS Dur : 072 ms QT Int : 358 ms P-R-T Axes : 088 066 063 degrees QTc Int : 423 ms SINUS RHYTHM WITH PREMATURE ATRIAL COMPLEXES WITH ABERRANT CONDUCTION Artifact cannot evaluate anterior lead T waves ABNORMAL ECG WHEN COMPARED WITH ECG OF 05-JUL-2018 13:30, ABERRANT CONDUCTION IS NOW PRESENT VENT. RATE HAS DECREASED BY 44 BPM NONSPECIFIC T WAVE ABNORMALITY NO LONGER EVIDENT IN INFERIOR LEADS Confirmed by MD Lea, Howard ([id number]) on 07/18/2018 11:08:18 AM Referred By: Confirmed By:Howard Tate MD
[2018-07-18] MEDS: REPAGLINIDE 1 MG TABLET PO SCH ×3 (11:42→16:44)
[2018-07-18] MEDS: ATENOLOL 50 MG TABLET (FP) PO SCH (11:44)
[2018-07-18] MEDS: DOCUSATE SODIUM 100 MG CAPSULE (FP) PO SCH (11:44)
[2018-07-18] MEDS: PANTOPRAZOLE 40 MG TABLET (FP) PO SCH (11:44)
[2018-07-18] MEDS: TAMSULOSIN HCL 0.4 MG CAP PO SCH (11:44)
[2018-07-18 11:52] LABS: ANISOCYTOSIS 2+; MACROCYTOSIS 0; PLATELET ESTIMATE NORMAL; TEAR DROP CELLS 1+
--- NOTE | 2018-07-18 12:02 | CON.PULM ---
Consult Consult Specialty:: PULM/CCM Referred by:: BIANCA Reason for Consultation:: SOB - History of Present Illness Chief Complaint: SOB History of Present Illness: 78 M, SNF resident, COPD on supplemental 2L NC, non-complaint with NIPPV, CVA with residual left sided eakness, DVT on Xarelto, HTN, HLD, and Prostate CA. This is the patient's 5th hospital admission in the past 3 months. No travel history or sick contacts. No documented fever. Placed on NIPPV in the ER. CXR: poor quality, both bases are not included in the film. The visualized lung bowden show radiographic improvement from previous imaging. 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 No: Pulmonary Embolus, Pulmonary Fibrosis, Sleep Apnea Renal/: Yes: Cancer (Prostate) - Alcohol/Substance Use Hx Alcohol Use: No - Smoking History Smoking history: Former smoker Have you smoked in the past 12 months: No Aproximately how many cigarettes per day: 0 If you are a former smoker, when did you quit?: 10 years ago - Social History ADL: Support Services History of Recent Travel: No Home Medications - Allergies Allergies/Adverse Reactions: Allergies Allergy/AdvReac Type Severity Reaction Status Date / Time No Known Allergies Allergy Verified 07/18/18 02:16 - Home Medications Home Medications: Ambulatory Orders Albuterol Sulfate Inhaler - [Ventolin HFA Inhaler -] 1 puff IH DAILY 05/31/18 Atorvastatin Ca [Lipitor] 20 mg PO HS 05/31/18 Bisoprolol Fumarate [Zebeta (Nf) -] 5 mg PO DAILY 05/31/18 Budesonide/Formeterol Fumarate [SYMBICORT 160/4.5mcg -] 1 inh PO BID 05/31/18 Omeprazole 40 mg PO DAILY 05/31/18 Rivaroxaban [Xarelto -] 20 mg PO DAILY 05/31/18 Roflumilast [Daliresp -] 500 mcg PO DAILY 05/31/18 Tamsulosin HCl [Flomax -] 0.4 mg PO DAILY 05/31/18 Tiotropium [place] [Spiriva] 1 inh PO DAILY 05/31/18 Repaglinide 1 mg PO TIDCM 06/18/18 Albuterol 0.083% Nebulizer Penelope [Ventolin 0.083% Nebulizer Soln -] 1 amp NEB Q4H PRN amp 06/20/18 Insulin Sliding Scale [Novolog Vial Sliding Scale -] 1 vial SQ ACHS #1 units Albuterol 2.5/Ipratropium 0.5 [Duoneb -] 1 neb IH QID 07/03/18 Docusate Sodium [Colace] 100 mg PO DAILY 07/03/18 Potassium Chloride 20 meq PO DAILY 07/03/18 Acetaminophen [Tylenol .Regular Strength -] 650 mg PO Q6H PRN tablet 07/11/18 Albuterol 0.083% Nebulizer Penelope [Ventolin 0.083% Nebulizer Soln -] 1 amp NEB Q4H PRN amp 07/11/18 Atorvastatin Ca [Lipitor] 20 mg PO HS tablet 07/11/18 Insulin Sliding Scale [Novolog Vial Sliding Scale -] 1 vial SQ ACHS units 07/11 Rivaroxaban [Xarelto -] 20 mg PO DAILY@1800 tablet 07/11/18 Tamsulosin HCl [Flomax -] 0.4 mg PO DAILY@0830 cap.er.24h 07/11/18 predniSONE [Deltasone -] 40 mg PO BID tablet 07/11/18 Review of Systems Unable to obtain ROS, reason: Not able to provide Physical Exam Vital Sings: Vital Signs Temperature 98.8 F 07/18/18 01:21 Pulse Rate 89 07/18/18 07:44 Respiratory Rate 18 07/18/18 09:48 Blood Pressure 125/61 07/18/18 07:44 O2 Sat by Pulse Oximetry (%) 100 07/18/18 07:44 Constitutional: Yes: No Distress, Thin Eyes: Yes: Conjunctiva Clear HENT: Yes: Atraumatic, Normocephalic Neck: Yes: Supple, Trachea Midline Cardiovascular: Yes: Regular Rate and Rhythm Respiratory: Yes: Cough, Diminished, On BiPap, Rhonchi. No: Accessory Muscle Use, Rales, SOB, SOB on Exertion, Stridor, Tachypnea, Wheezes ...Inspection: Yes: WNL ...Clubbing: No Gastrointestinal: Yes: Normal Bowel Sounds, Soft Musculoskeletal: Yes: WNL Extremities: Yes: WNL Edema: No Peripheral Pulses WNL: Yes Integumentary: Yes: WNL Neurological: Yes: Confusion Labs: CBC, BMP 07/18/18 03:01 07/18/18 04:03 ABG Results ABG pH 7.39 (7.35-7.45) 07/18/18 07:15 ABG pCO2 at Pt Temp 60.9 mmHg (35-45) H 07/18/18 07:15 ABG pO2 at Pt Temp 63.4 mmHg (80-105) L 07/18/18 07:15 ABG HCO3 36.0 mmol/L (22-27) H 07/18/18 07:15 ABG O2 Sat (Measured) 92.5 % (95-98) L 07/18/18 07:15 ABG O2 Content 13.1 % vol (15-22) L 07/18/18 07:15 ABG Base Excess 9.8 meq/l (-2-2) H 07/18/18 07:15 Imaging - Results Chest X-ray: Report Reviewed, Image Reviewed Problem List - Problems (1) COPD (chronic obstructive pulmonary disease) Code(s): J44.9 - CHRONIC OBSTRUCTIVE PULMONARY DISEASE, UNSPECIFIED (2) Chronic bronchitis Code(s): J42 - UNSPECIFIED CHRONIC BRONCHITIS (3) History of DVT (deep vein thrombosis) Code(s): Z86.718 - PERSONAL HISTORY OF OTHER VENOUS THROMBOSIS AND EMBOLISM (4) DMII (diabetes mellitus, type 2) Code(s): E11.9 - TYPE 2 DIABETES MELLITUS WITHOUT COMPLICATIONS (5) H/O prostate cancer Code(s): Z85.46 - PERSONAL HISTORY OF MALIGNANT NEOPLASM OF PROSTATE (6) H/O: CVA (cerebrovascular accident) Code(s): Z86.73 - PRSNL HX OF TIA (TIA), AND CEREB INFRC W/O RESID DEFICITS (7) HTN (hypertension) Code(s): I10 - ESSENTIAL (PRIMARY) HYPERTENSION Qualifiers: Hypertension type: essential hypertension Qualified Code(s): I10 - Essential (primary) hypertension (8) Hyperlipidemia Code(s): E78.5 - HYPERLIPIDEMIA, UNSPECIFIED Qualifiers: Hyperlipidemia type: unspecified Qualified Code(s): E78.5 - Hyperlipidemia , unspecified Assessment/Plan Trial of NC O2. NIPPV as needed Would monitor off ABX Aspiration precautions BD TX PRN No indication for systemic steroids DNR/DNI There is no Pulmonary contraindication for D/C Will follow if remains admitted Thank you. Dr Lyn
--- NOTE | 2018-07-18 12:13 | CONS ---
INFECTIOUS DISEASE CONSULTATION DATE OF CONSULTATION: DATE OF DICTATION: 07/18/2018 HISTORY OF PRESENT ILLNESS: The patient is a 78-year-old male, with a history of COPD with multiple recent hospitalizations for acute exacerbations, now evaluated for possible pneumonia. History was obtained from the chart, as he cannot give a history. He is presently on BiPAP mask. He is living in a [facility] facility for [facility]. At the nursing facility, he was noted to have shortness of breath, as well as tachycardia. The family members also reported a nonproductive cough. He was transferred to [facility] where he was admitted with an acute exacerbation of COPD. Chest x-ray shows increased markings at the bases bilaterally right greater than left. He was also noted to have an elevated white blood cell count. He was empirically treated with vancomycin, Zosyn, and Zithromax. He is awake, but lethargic, on BiPAP mask. He is in no acute respiratory distress. He is not noted to have cough. He has been afebrile on steroids. PAST MEDICAL HISTORY: Positive for COPD, oxygen dependent, prostate cancer, stroke, DVT, hypertension, hyperlipidemia. ALLERGIES: No known allergies. MEDICATIONS: Albuterol, Lipitor, Symbicort, omeprazole, Xarelto, Flomax, Spiriva. SOCIAL HISTORY: longterm resident. Positive history of tobacco use. SYSTEMS REVIEW: Neurologic: No loss of consciousness, seizure activity, focal weakness. Cardiac: Negative chest pain or palpitations. Respiratory: As per HPI. Gastrointestinal: Negative vomiting or diarrhea. Genitourinary: Negative for urinary tract infection. LABORATORY DATA: White count 14.3, neutrophils 93, lymphocyte 1, monocytes 5, hematocrit 32.7, platelet count 186. BUN 21, creatinine 0.3. Total bilirubin 1.0, alkaline phosphatase 125, AST 43. Blood culture is preliminarily negative. Chest x-ray shows increased markings at the bases bilaterally right greater than left. It is officially read as slightly better than previous study. PHYSICAL EXAMINATION: General: He is awake, but lethargic. He is on BiPAP mask. Vital Signs: His temperature is 98.8, blood pressure 125/61, pulse 89 and regular, respirations 18 per minute. Eyes: Sclerae are anicteric. Heart: Heart sounds S1, S2. Lungs: Diminished breath sounds bilaterally. Abdomen: Soft. No tenderness elicited. Extremities: Negative for pedal edema. There is left upper extremity edema of the forearm. IMPRESSION: 1. Acute exacerbation chronic obstructive pulmonary disease. 2. Rule out healthcare-acquired pneumonia. 3. Leukocytosis. PLAN: Await cultures. Obtain sputum culture, urine legionella, and pneumococcal antigens. Empiric antibiotic coverage for healthcare-acquired pneumonia with Zosyn. Continue inhaled bronchodilators, BiPAP. Will follow. Thank you for the kind referral. PRINCE GARZON M.D. [id number]
[2018-07-18] MEDS: TIOTROPIUM BROMIDE 2.5 MCG (SPIRIVA) RESPIMAT INHALER IH SCH (15:38)
[2018-07-18] MEDS: BUDESONIDE/FORMETEROL FUMARATE 160/4.5 mcg INHALER IH SCH ×2 (15:38→21:05)
[2018-07-18] MEDS: ROFLUMILAST 500 MCG TABLET PO SCH (15:38)
[2018-07-18] MEDS ORDERED: PIPERACILLIN/TAZOBACTAM 3.375 GM VIAL IVPB ONE (16:37)
[2018-07-18] MEDS ORDERED: PT OWN MED DRAWER 7, Y5N ONE ×2 (16:37→17:24)
[2018-07-18] MEDS ORDERED: DEXTROSE 5%-WATER - 50 ML IVPB ONE (16:38)
[2018-07-18] MEDS: INSULIN SLIDING SCALE (NOVOLOG) 1 VIAL SQ SCH (16:43)
[2018-07-18] MEDS: RIVAROXABAN 20 MG TABLET PO SCH (17:51)
[2018-07-18] MEDS: PIPERACILLIN/TAZOB 3.375 GM 3.375 GM in DEXTROSE 5%-WATER - 50 ML IVPB SCH (17:52)
[2018-07-18] MEDS: ATORVASTATIN CA 20 MG TABLET (FP) PO SCH (21:05)
[2018-07-18] MEDS: ALBUTEROL SO4 0.083% IH SOL 2.5 MG/3 ML VIAL.NEB. NEB PRN (23:30)
[2018-07-19] MEDS ORDERED: LIDOCAINE 5% TOPICAL PATCH TP ONE (00:17)
[2018-07-19] MEDS ORDERED: PIPERACILLIN/TAZOBACTAM 3.375 GM VIAL IVPB ONE ×3 (01:28→16:21)
[2018-07-19] MEDS ORDERED: DEXTROSE 5%-WATER - 50 ML IVPB ONE ×3 (01:28→16:21)
[2018-07-19] MEDS: PIPERACILLIN/TAZOB 3.375 GM 3.375 GM in DEXTROSE 5%-WATER - 50 ML IVPB SCH ×3 (02:02→17:47)
[2018-07-19] MEDS: INSULIN SLIDING SCALE (NOVOLOG) 1 VIAL SQ SCH ×3 (06:00→17:00)
[2018-07-19] MEDS: ALBUTEROL SO4 0.083% IH SOL 2.5 MG/3 ML VIAL.NEB. NEB PRN (06:21)
[2018-07-19 07:20] LABS: BASO % 0.1 % (0-2.0); HEMOGLOBIN 10.7 GM/dL (11.7-16.9); LYMPH % 3.1 % (8-40); MCH 28.6 pg (25.7-33.7); MCHC 32.4 g/dl (32.0-35.9); MEAN CELL VOLUME 88.1 fl (80-96); MEAN PLT VOLUME 8.4 fl (7.5-11.1); MONO % 3.7 % (3.8-10.2); NEUT % 93.1 % (42.8-82.8); PLATELET COUNT 177 K/MM3 (134-434); RBC 3.75 M/mm3 (4.00-5.60); RDW 17.3 % (11.9-15.9)
[2018-07-19] MEDS ORDERED: INSULIN (NOVOLOG) ASPART 100 UNITS/ML 10ML VIAL ONE (07:37)
[2018-07-19] MEDS: ALBUTEROL SO4 2.5/IPRATROPIUM 0.5 INH SOL 3 ML VIAL.NEB. NEB SCH ×4 (07:40→20:25)
[2018-07-19 07:52] LABS: ALBUMIN 2.1 g/dl (3.4-5.0); ALK PHOS 104 U/L (45-117); ANION GAP 3 MMOL/L (8-16); BILIRUBIN,TOTAL 1.4 mg/dL (0.2-1); BLOOD UREA NITROGEN 20 mg/dL (7-18); CALCIUM 8.7 mg/dL (8.5-10.1); CHLORIDE 95 mmol/L (98-107); CO2 41 mmol/L (21-32); CREATININE 0.3 mg/dL (0.55-1.3); GLUCOSE,RANDOM 70 mg/dL (74-106); POTASSIUM 3.3 mmol/L (3.5-5.1); SGOT/AST 32 U/L (15-37); SGPT/ALT 44 U/L (13-61); SODIUM 140 mmol/L (136-145); TOT PROT 4.9 g/dl (6.4-8.2)
[2018-07-19] MEDS: TAMSULOSIN HCL 0.4 MG CAP PO SCH (08:05)
[2018-07-19] MEDS: REPAGLINIDE 1 MG TABLET PO SCH ×3 (08:06→17:48)
[2018-07-19 08:09] LABS: URINE APPEARANCE TURBID; URINE BILIRUBIN NEGATIVE (NEGATIVE); URINE COLOR ORANGE; URINE GLUCOSE (UA) NEGATIVE (NEGATIVE); URINE KETONE 1+ (NEGATIVE); URINE LEUK ESTERASE NEGATIVE (NEGATIVE); URINE NITRITE NEGATIVE (NEGATIVE); URINE PROTEIN NEGATIVE (NEGATIVE); URINE UROBILINOGEN 0.2 mg/dL (0.2-1.0)
[2018-07-19] MEDS: ROFLUMILAST 500 MCG TABLET PO SCH (09:13)
[2018-07-19] MEDS: PANTOPRAZOLE 40 MG TABLET (FP) PO SCH (09:13)
[2018-07-19] MEDS: DOCUSATE SODIUM 100 MG CAPSULE (FP) PO SCH (09:13)
[2018-07-19] MEDS: ATENOLOL 50 MG TABLET (FP) PO SCH (09:13)
[2018-07-19] MEDS: BUDESONIDE/FORMETEROL FUMARATE 160/4.5 mcg INHALER IH SCH ×2 (09:15→21:09)
[2018-07-19] MEDS: TIOTROPIUM BROMIDE 2.5 MCG (SPIRIVA) RESPIMAT INHALER IH SCH (09:15)
--- NOTE | 2018-07-19 10:55 | PN ---
Progress Note, Physician Chief Complaint: SOB History of Present Illness: Lethargic, on bipap Daughter at bedside Seen by Pulmonary - Current Medication List Current Medications: Active Medications Albuterol Sulfate (Ventolin 0.083% Nebulizer Soln -) 1 amp NEB Q4H PRN PRN Reason: SHORT OF BREATH/WHEEZING Last Admin: 07/19/18 06:21 Dose: 1 amp Albuterol/Ipratropium (Duoneb -) 1 amp NEB RQID [facility] Last Admin: 07/18/18 20:35 Dose: 1 amp Atenolol (Tenormin -) 50 mg PO DAILY [facility] Last Admin: 07/19/18 09:13 Dose: 50 mg Atorvastatin Calcium (Lipitor -) 20 mg PO HS [facility] Last Admin: 07/18/18 21:05 Dose: 20 mg Budesonide/Formoterol Fumarate (Symbicort 160/4.5mcg -) 1 puff IH BID [facility] Last Admin: 07/19/18 09:15 Dose: 1 puff Docusate Sodium (Colace -) 100 mg PO DAILY [facility] Last Admin: 07/19/18 09:13 Dose: 100 mg Piperacillin Sod/Tazobactam (Sod 3.375 gm/ Dextrose) 50 mls @ 100 mls/hr IVPB Q8H-IV [facility]; Protocol Last Admin: 07/19/18 09:12 Dose: 100 mls/hr Insulin Aspart (Novolog Vial Sliding Scale -) 1 vial SQ TIDAC [facility]; Protocol Last Admin: 07/19/18 06:00 Dose: Not Given Miscellaneous (Lidoderm Patch Removal) 1 each MC DAILY@2200 [facility] Pantoprazole Sodium (Protonix -) 40 mg PO DAILY [facility] Last Admin: 07/19/18 09:13 Dose: 40 mg Repaglinide (Prandin -) 1 mg PO TIDCM [facility] Last Admin: 07/19/18 08:06 Dose: 1 mg Rivaroxaban (Xarelto -) 20 mg PO DAILY@1800 [facility] Last Admin: 07/18/18 17:51 Dose: 20 mg Roflumilast (Daliresp -) 500 mcg PO DAILY [facility] Last Admin: 07/19/18 09:13 Dose: 500 mcg Tamsulosin HCl (Flomax -) 0.4 mg PO DAILY@0830 [facility] Last Admin: 07/19/18 08:05 Dose: 0.4 mg Tiotropium [place] (Spiriva Respimat) 2 puff IH DAILY [facility] Last Admin: 07/19/18 09:15 Dose: 2 puff - Objective Vital Signs: Vital Signs Temperature 97.8 F 07/19/18 06:18 Pulse Rate 83 07/19/18 06:18 Respiratory Rate 20 07/19/18 06:18 Blood Pressure 100/60 07/19/18 06:18 O2 Sat by Pulse Oximetry (%) 97 07/18/18 22:00 Constitutional: Yes: Well Nourished, No Distress, Calm Cardiovascular: Yes: Regular Rate and Rhythm Respiratory: Yes: Regular, On BiPap Gastrointestinal: Yes: WNL Musculoskeletal: Yes: Muscle Weakness Extremities: Yes: WNL Edema: No Peripheral Pulses WNL: Yes Neurological: Yes: Alert, Oriented Psychiatric: Yes: Alert, Oriented Labs: CBC, BMP 07/19/18 07:00 07/19/18 07:00 Problem List - Problems (1) Leukocytosis Assessment/Plan: -BC/UC pending -Started on IV zosyn -Seen by ID -Afebrile -monitor trend Code(s): D72.829 - ELEVATED WHITE BLOOD CELL COUNT, UNSPECIFIED (2) COPD exacerbation Assessment/Plan: -Pulmonary on board -BIPAP PRN -Bronchodilators -On Symbicort and Daliresp Code(s): J44.1 - CHRONIC OBSTRUCTIVE PULMONARY DISEASE W (ACUTE) EXACERBATION (3) DMII (diabetes mellitus, type 2) Assessment/Plan: -Last A1c at 7.9 -BGM AC HS -Novolog sliding scale only -Diabetic dysphagia puree diet Code(s): E11.9 - TYPE 2 DIABETES MELLITUS WITHOUT COMPLICATIONS Assessment/Plan See problem list Overall poor prognosis DNR/DNI Palliative consult
[2018-07-19] MEDS ORDERED: ACETAMINOPHEN 325 MG TABLET (FP) PO PRN (11:02)
[2018-07-19] MEDS ORDERED: FUROSEMIDE 40 MG/4 ML INJECTABLE VIAL IVPUSH ONE (11:30)
[2018-07-19] MEDS: traMADol HCL 50 MG TABLET PO PRN ×2 (11:54→21:06)
[2018-07-19 12:28] LABS: ANISOCYTOSIS 2+; MACROCYTOSIS 0; OVALOCYTE 1+; PLATELET ESTIMATE NORMAL
--- NOTE | 2018-07-19 12:39 | PN ---
Progress Note (short form) - Note Progress Note: PULMONARY Remains short of breath with occasional cough. No fevers. Vital Signs Period Temp Pulse Resp BP Sys/Thurman Pulse Ox Last 24 Hr 97.8 F-98.2 F 80-99 20-20 100-112/52-69 96-97 Gen: tachypneic with minimal exertion Heart: RRR Lung: scattered rhonchi Abd: soft, nontender Ext: no edema CBC, BMP 07/19/18 07:00 07/19/18 07:00 Active Medications Acetaminophen (Tylenol -) 650 mg PO Q4H PRN PRN Reason: PAIN OR FEVER Albuterol Sulfate (Ventolin 0.083% Nebulizer Soln -) 1 amp NEB Q4H PRN PRN Reason: SHORT OF BREATH/WHEEZING Last Admin: 07/19/18 06:21 Dose: 1 amp Albuterol/Ipratropium (Duoneb -) 1 amp NEB RQID [facility] Last Admin: 07/18/18 20:35 Dose: 1 amp Atenolol (Tenormin -) 50 mg PO DAILY [facility] Last Admin: 07/19/18 09:13 Dose: 50 mg Atorvastatin Calcium (Lipitor -) 20 mg PO HS [facility] Last Admin: 07/18/18 21:05 Dose: 20 mg Budesonide/Formoterol Fumarate (Symbicort 160/4.5mcg -) 1 puff IH BID [facility] Last Admin: 07/19/18 09:15 Dose: 1 puff Docusate Sodium (Colace -) 100 mg PO DAILY [facility] Last Admin: 07/19/18 09:13 Dose: 100 mg Piperacillin Sod/Tazobactam (Sod 3.375 gm/ Dextrose) 50 mls @ 100 mls/hr IVPB Q8H-IV [facility]; Protocol Last Admin: 07/19/18 09:12 Dose: 100 mls/hr Insulin Aspart (Novolog Vial Sliding Scale -) 1 vial SQ TIDAC [facility]; Protocol Last Admin: 07/19/18 11:17 Dose: Not Given Miscellaneous (Lidoderm Patch Removal) 1 each MC DAILY@2200 [facility] Pantoprazole Sodium (Protonix -) 40 mg PO DAILY [facility] Last Admin: 07/19/18 09:13 Dose: 40 mg Repaglinide (Prandin -) 1 mg PO TIDCM [facility] Last Admin: 07/19/18 11:55 Dose: 1 mg Rivaroxaban (Xarelto -) 20 mg PO DAILY@1800 [facility] Last Admin: 07/18/18 17:51 Dose: 20 mg Roflumilast (Daliresp -) 500 mcg PO DAILY [facility] Last Admin: 07/19/18 09:13 Dose: 500 mcg Tamsulosin HCl (Flomax -) 0.4 mg PO DAILY@0830 [facility] Last Admin: 07/19/18 08:05 Dose: 0.4 mg Tiotropium [place] (Spiriva Respimat) 2 puff IH DAILY [facility] Last Admin: 07/19/18 09:15 Dose: 2 puff Tramadol HCl (Ultram -) 50 mg PO Q8H PRN PRN Reason: PAIN LEVEL 6-10 Last Admin: 07/19/18 11:54 Dose: 50 mg A/P Acute on Chronic Hypoxic and Hypercapneic Respiratory Failure End Stage COPD - r/o Acute Exacerbation DM - antibiotics per ID - will place pt back on steroids as he is on chronic prednisone as outpt - inhaled bronchodilators - O2 to keep SpO2 >90% - BiPAP as needed to assist in work of breathing - DVT prophylaxis - agree with palliative placement
[2018-07-19] MEDS: methylPREDNISolone NA SUCC 40 MG/1 ML VIAL IVPUSH SCH ×2 (14:32→21:08)
--- NOTE | 2018-07-19 15:03 | PN ---
Progress Note, Physician History of Present Illness: AWAKE, ALERT SEATED IN BED BREATHING NON LABORED ON NASAL CANNULA AFEBRILE WBC IMPROVED BC GPCCL - Current Medication List Current Medications: Active Medications Acetaminophen (Tylenol -) 650 mg PO Q4H PRN PRN Reason: PAIN OR FEVER Albuterol Sulfate (Ventolin 0.083% Nebulizer Soln -) 1 amp NEB Q4H PRN PRN Reason: SHORT OF BREATH/WHEEZING Last Admin: 07/19/18 06:21 Dose: 1 amp Albuterol/Ipratropium (Duoneb -) 1 amp NEB RQID [facility] Last Admin: 07/19/18 11:40 Dose: 1 amp Atenolol (Tenormin -) 50 mg PO DAILY [facility] Last Admin: 07/19/18 09:13 Dose: 50 mg Atorvastatin Calcium (Lipitor -) 20 mg PO HS [facility] Last Admin: 07/18/18 21:05 Dose: 20 mg Budesonide/Formoterol Fumarate (Symbicort 160/4.5mcg -) 1 puff IH BID [facility] Last Admin: 07/19/18 09:15 Dose: 1 puff Docusate Sodium (Colace -) 100 mg PO DAILY [facility] Last Admin: 07/19/18 09:13 Dose: 100 mg Piperacillin Sod/Tazobactam (Sod 3.375 gm/ Dextrose) 50 mls @ 100 mls/hr IVPB Q8H-IV [facility]; Protocol Last Admin: 07/19/18 09:12 Dose: 100 mls/hr Insulin Aspart (Novolog Vial Sliding Scale -) 1 vial SQ TIDAC [facility]; Protocol Last Admin: 07/19/18 11:17 Dose: Not Given Methylprednisolone Sodium Succinate (Solu-Medrol -) 40 mg IVPUSH BID [facility] Last Admin: 07/19/18 14:32 Dose: 40 mg Miscellaneous (Lidoderm Patch Removal) 1 each MC DAILY@2200 [facility] Pantoprazole Sodium (Protonix -) 40 mg PO DAILY [facility] Last Admin: 07/19/18 09:13 Dose: 40 mg Repaglinide (Prandin -) 1 mg PO TIDCM [facility] Last Admin: 07/19/18 11:55 Dose: 1 mg Rivaroxaban (Xarelto -) 20 mg PO DAILY@1800 [facility] Last Admin: 07/18/18 17:51 Dose: 20 mg Roflumilast (Daliresp -) 500 mcg PO DAILY [facility] Last Admin: 07/19/18 09:13 Dose: 500 mcg Tamsulosin HCl (Flomax -) 0.4 mg PO DAILY@0830 [facility] Last Admin: 07/19/18 08:05 Dose: 0.4 mg Tiotropium [place] (Spiriva Respimat) 2 puff IH DAILY [facility] Last Admin: 07/19/18 09:15 Dose: 2 puff Tramadol HCl (Ultram -) 50 mg PO Q8H PRN PRN Reason: PAIN LEVEL 6-10 Last Admin: 07/19/18 11:54 Dose: 50 mg - Objective Vital Signs: Vital Signs Temperature 98.4 F 07/19/18 14:00 Pulse Rate 94 H 07/19/18 14:00 Respiratory Rate 20 07/19/18 14:00 Blood Pressure 107/58 L 07/19/18 14:00 O2 Sat by Pulse Oximetry (%) 96 07/19/18 09:00 Constitutional: Yes: No Distress Eyes: Yes: Conjunctiva Clear Cardiovascular: Yes: Regular Rate and Rhythm, S1, S2 Respiratory: Yes: Diminished Gastrointestinal: Yes: Normal Bowel Sounds, Soft. No: Tenderness Extremities: Yes: Other (L UE EDEMA) Labs: CBC, BMP 07/19/18 07:00 07/19/18 07:00 Assessment/Plan ACUTE EXACERBATION COPD R/O HCAP LEUKOCYTOSIS + BC ? SIGNIFICANCE REPEAT BC VANCOMYCIN CONTINUE ZOSYN
[2018-07-19] MEDS: VANCOMYCIN 1,000 MG in DEXTROSE 5%-WATER - 250 ML IVPB SCH (16:48)
[2018-07-19] MEDS: RIVAROXABAN 20 MG TABLET PO SCH (17:48)
[2018-07-19] MEDS: ATORVASTATIN CA 20 MG TABLET (FP) PO SCH (21:06)
[2018-07-19] MEDS: LIDOCAINE PATCH REMOVAL MC SCH (22:54)
[2018-07-19 23:17] LABS: URINE APPEARANCE CLEAR; URINE BILIRUBIN NEGATIVE (NEGATIVE); URINE COLOR YELLOW; URINE GLUCOSE (UA) NEGATIVE (NEGATIVE); URINE KETONE TRACE (NEGATIVE); URINE LEUK ESTERASE NEGATIVE (NEGATIVE); URINE NITRITE NEGATIVE (NEGATIVE); URINE PROTEIN NEGATIVE (NEGATIVE); URINE UROBILINOGEN 0.2 mg/dL (0.2-1.0)
[2018-07-20] MEDS ORDERED: DEXTROSE 5%-WATER - 50 ML IVPB ONE ×3 (00:32→19:24)
[2018-07-20] MEDS ORDERED: PIPERACILLIN/TAZOBACTAM 3.375 GM VIAL IVPB ONE ×3 (00:32→19:23)
[2018-07-20] MEDS: PIPERACILLIN/TAZOB 3.375 GM 3.375 GM in DEXTROSE 5%-WATER - 50 ML IVPB SCH ×3 (02:15→19:00)
[2018-07-20] MEDS: ALBUTEROL SO4 0.083% IH SOL 2.5 MG/3 ML VIAL.NEB. NEB PRN (03:05)
[2018-07-20] MEDS: VANCOMYCIN 1,000 MG in DEXTROSE 5%-WATER - 250 ML IVPB SCH ×2 (06:09→17:18)
[2018-07-20] MEDS: INSULIN SLIDING SCALE (NOVOLOG) 1 VIAL SQ SCH ×3 (06:53→16:47)
[2018-07-20] MEDS: ALBUTEROL SO4 2.5/IPRATROPIUM 0.5 INH SOL 3 ML VIAL.NEB. NEB SCH ×4 (07:26→19:53)
[2018-07-20] MEDS: REPAGLINIDE 1 MG TABLET PO SCH ×3 (08:23→17:25)
[2018-07-20] MEDS: TAMSULOSIN HCL 0.4 MG CAP PO SCH (08:24)
[2018-07-20] MEDS ORDERED: PT OWN MED DRAWER 7, Y5N ONE ×3 (10:21→17:15)
[2018-07-20] MEDS: DOCUSATE SODIUM 100 MG CAPSULE (FP) PO SCH (10:24)
[2018-07-20] MEDS: ROFLUMILAST 500 MCG TABLET PO SCH (10:25)
[2018-07-20] MEDS: ATENOLOL 50 MG TABLET (FP) PO SCH (10:26)
[2018-07-20] MEDS: PANTOPRAZOLE 40 MG TABLET (FP) PO SCH (10:26)
[2018-07-20] MEDS: methylPREDNISolone NA SUCC 40 MG/1 ML VIAL IVPUSH SCH ×2 (10:27→21:33)
[2018-07-20] MEDS: TIOTROPIUM BROMIDE 2.5 MCG (SPIRIVA) RESPIMAT INHALER IH SCH (10:29)
[2018-07-20] MEDS: BUDESONIDE/FORMETEROL FUMARATE 160/4.5 mcg INHALER IH SCH ×2 (10:29→21:39)
--- NOTE | 2018-07-20 10:32 | PN ---
Progress Note (short form) - Note Progress Note: NAD on NIPPV, 40% FiO2. No acute events overnight Intake & Output 07/17/18 07/18/18 07/19/18 07/20/18 23:59 23:59 23:59 23:59 Intake Total 770 375 400 Balance 770 375 400 Weight 135 lb 3.2 oz Last Vital Signs Temp Pulse Resp BP Pulse Ox 98.9 F 90 20 108/60 96 07/20/18 06:00 07/20/18 06:00 07/20/18 06:00 07/20/18 06:00 07/20/18 03:18 Active Medications Acetaminophen (Tylenol -) 650 mg PO Q4H PRN PRN Reason: PAIN OR FEVER Albuterol Sulfate (Ventolin 0.083% Nebulizer Soln -) 1 amp NEB Q4H PRN PRN Reason: SHORT OF BREATH/WHEEZING Last Admin: 07/20/18 03:05 Dose: 1 amp Albuterol/Ipratropium (Duoneb -) 1 amp NEB RQID [facility] Last Admin: 07/20/18 07:26 Dose: 1 amp Atenolol (Tenormin -) 50 mg PO DAILY [facility] Last Admin: 07/20/18 10:26 Dose: 50 mg Atorvastatin Calcium (Lipitor -) 20 mg PO HS [facility] Last Admin: 07/19/18 21:06 Dose: 20 mg Budesonide/Formoterol Fumarate (Symbicort 160/4.5mcg -) 1 puff IH BID [facility] Last Admin: 07/20/18 10:29 Dose: 1 puff Docusate Sodium (Colace -) 100 mg PO DAILY [facility] Last Admin: 07/20/18 10:24 Dose: 100 mg Piperacillin Sod/Tazobactam (Sod 3.375 gm/ Dextrose) 50 mls @ 100 mls/hr IVPB Q8H-IV [facility]; Protocol Last Admin: 07/20/18 10:27 Dose: 100 mls/hr Vancomycin HCl 1,000 mg/ (Dextrose) 250 mls @ 166.667 mls/hr IVPB BID@0400, 1600 [facility]; Protocol Last Admin: 07/20/18 06:09 Dose: 166.667 mls/hr Insulin Aspart (Novolog Vial Sliding Scale -) 1 vial SQ TIDAC [facility]; Protocol Last Admin: 07/20/18 06:53 Dose: 6 units Methylprednisolone Sodium Succinate (Solu-Medrol -) 40 mg IVPUSH BID [facility] Last Admin: 07/20/18 10:27 Dose: 40 mg Miscellaneous (Lidoderm Patch Removal) 1 each MC DAILY@2200 [facility] Last Admin: 07/19/18 22:54 Dose: Not Given Pantoprazole Sodium (Protonix -) 40 mg PO DAILY [facility] Last Admin: 07/20/18 10:26 Dose: 40 mg Repaglinide (Prandin -) 1 mg PO TIDCM [facility] Last Admin: 07/20/18 08:23 Dose: 1 mg Rivaroxaban (Xarelto -) 20 mg PO DAILY@1800 [facility] Last Admin: 07/19/18 17:48 Dose: 20 mg Roflumilast (Daliresp -) 500 mcg PO DAILY [facility] Last Admin: 07/20/18 10:25 Dose: 500 mcg Tamsulosin HCl (Flomax -) 0.4 mg PO DAILY@0830 [facility] Last Admin: 07/20/18 08:24 Dose: 0.4 mg Tiotropium [place] (Spiriva Respimat) 2 puff IH DAILY [facility] Last Admin: 07/20/18 10:29 Dose: 2 puff Tramadol HCl (Ultram -) 50 mg PO Q8H PRN PRN Reason: PAIN LEVEL 6-10 Last Admin: 07/19/18 21:06 Dose: 50 mg Constitutional: Yes: No Distress, Thin Eyes: Yes: Conjunctiva Clear HENT: Yes: Atraumatic, Normocephalic Neck: Yes: Supple, Trachea Midline Cardiovascular: Yes: Regular Rate and Rhythm Respiratory: Yes: Cough, Diminished, On BiPap, Rhonchi. No: Accessory Muscle Use, Rales, SOB, SOB on Exertion, Stridor, Tachypnea, Wheezes ...Inspection: Yes: WNL ...Clubbing: No Gastrointestinal: Yes: Normal Bowel Sounds, Soft Musculoskeletal: Yes: WNL Extremities: Yes: WNL Edema: No Peripheral Pulses WNL: Yes Integumentary: Yes: WNL Neurological: Yes: Confusion Labs: Laboratory Results - last 24 hr 07/19/18 07/19/18 07/19/18 07:00 10:58 16:49 Neutrophils % (Manual) 92.9 H Band Neutrophils % 0.0 Lymphocytes % (Manual) 1.0 L D Monocytes % (Manual) 3 L Eosinophils % (Manual) 0.0 Basophils % (Manual) 0.0 Myelocytes % (Man) 0 Promyelocytes % (Man) 0 Blast Cells % (Manual) 0 Metamyelocytes 0 D Hypochromia 0 Platelet Estimate Normal Polychromasia 2+ Poikilocytosis 2+ Basophilic Stippling 1+ Anisocytosis 2+ Microcytosis 1+ Macrocytosis 0 Spherocytes 1+ Ovalocytes 1+ Nelson Cells 2+ Acanthocytes (Spur) 1+ POC Glucometer 131 121 Urine Color Urine Appearance Urine pH Ur Specific [place] Urine Protein Urine Glucose (UA) Urine Ketones Urine Blood Urine Nitrite Urine Bilirubin Urine Urobilinogen Ur Leukocyte Esterase 07/19/18 07/20/18 22:55 06:08 Neutrophils % (Manual) Band Neutrophils % Lymphocytes % (Manual) Monocytes % (Manual) Eosinophils % (Manual) Basophils % (Manual) Myelocytes % (Man) Promyelocytes % (Man) Blast Cells % (Manual) Metamyelocytes Hypochromia Platelet Estimate Polychromasia Poikilocytosis Basophilic Stippling Anisocytosis Microcytosis Macrocytosis Spherocytes Ovalocytes [place] Cells Acanthocytes (Spur) POC Glucometer 301 Urine Color Yellow Urine Appearance Clear Urine pH 5.0 Ur Specific [place] 1.022 Urine Protein Negative Urine Glucose (UA) Negative Urine Ketones Trace H Urine Blood Negative Urine Nitrite Negative Urine Bilirubin Negative Urine Urobilinogen 0.2 Ur Leukocyte Esterase Negative Problem List - Problems (1) COPD (chronic obstructive pulmonary disease) Code(s): J44.9 - CHRONIC OBSTRUCTIVE PULMONARY DISEASE, UNSPECIFIED (2) Chronic bronchitis Code(s): J42 - UNSPECIFIED CHRONIC BRONCHITIS (3) History of DVT (deep vein thrombosis) Code(s): Z86.718 - PERSONAL HISTORY OF OTHER VENOUS THROMBOSIS AND EMBOLISM (4) DMII (diabetes mellitus, type 2) Code(s): E11.9 - TYPE 2 DIABETES MELLITUS WITHOUT COMPLICATIONS (5) H/O prostate cancer Code(s): Z85.46 - PERSONAL HISTORY OF MALIGNANT NEOPLASM OF PROSTATE (6) H/O: CVA (cerebrovascular accident) Code(s): Z86.73 - PRSNL HX OF TIA (TIA), AND CEREB INFRC W/O RESID DEFICITS (7) HTN (hypertension) Code(s): I10 - ESSENTIAL (PRIMARY) HYPERTENSION Qualifiers: Hypertension type: essential hypertension Qualified Code(s): I10 - Essential (primary) hypertension (8) Hyperlipidemia Code(s): E78.5 - HYPERLIPIDEMIA, UNSPECIFIED Qualifiers: Hyperlipidemia type: unspecified Qualified Code(s): E78.5 - Hyperlipidemia , unspecified Assessment/Plan VM O2 as tolerated NIPPV QHS and PRN ABX per ID Aspiration precautions BD TX PRN Noted systemic steroids DNR/DNI Dr Lyn Problem List - Problems (1) COPD (chronic obstructive pulmonary disease) Code(s): J44.9 - CHRONIC OBSTRUCTIVE PULMONARY DISEASE, UNSPECIFIED (2) Chronic bronchitis Code(s): J42 - UNSPECIFIED CHRONIC BRONCHITIS (3) History of DVT (deep vein thrombosis) Code(s): Z86.718 - PERSONAL HISTORY OF OTHER VENOUS THROMBOSIS AND EMBOLISM (4) DMII (diabetes mellitus, type 2) Code(s): E11.9 - TYPE 2 DIABETES MELLITUS WITHOUT COMPLICATIONS (5) H/O prostate cancer Code(s): Z85.46 - PERSONAL HISTORY OF MALIGNANT NEOPLASM OF PROSTATE (6) H/O: CVA (cerebrovascular accident) Code(s): Z86.73 - PRSNL HX OF TIA (TIA), AND CEREB INFRC W/O RESID DEFICITS (7) HTN (hypertension) Code(s): I10 - ESSENTIAL (PRIMARY) HYPERTENSION Qualifiers: Hypertension type: essential hypertension Qualified Code(s): I10 - Essential (primary) hypertension (8) Hyperlipidemia Code(s): E78.5 - HYPERLIPIDEMIA, UNSPECIFIED Qualifiers: Hyperlipidemia type: unspecified Qualified Code(s): E78.5 - Hyperlipidemia , unspecified
--- NOTE | 2018-07-20 12:55 | PN ---
Progress Note, Physician Chief Complaint: SOB Acute on Chronic Respiratory Failure History of Present Illness: Previous notes and events reviewed awake and alert NAD denies chest pain, complain of intermittent SOB - Current Medication List Current Medications: Active Medications Acetaminophen (Tylenol -) 650 mg PO Q4H PRN PRN Reason: PAIN OR FEVER Albuterol Sulfate (Ventolin 0.083% Nebulizer Soln -) 1 amp NEB Q4H PRN PRN Reason: SHORT OF BREATH/WHEEZING Last Admin: 07/20/18 03:05 Dose: 1 amp Albuterol/Ipratropium (Duoneb -) 1 amp NEB RQID [facility] Last Admin: 07/20/18 11:15 Dose: 1 amp Atenolol (Tenormin -) 50 mg PO DAILY [facility] Last Admin: 07/20/18 10:26 Dose: 50 mg Atorvastatin Calcium (Lipitor -) 20 mg PO HS [facility] Last Admin: 07/19/18 21:06 Dose: 20 mg Budesonide/Formoterol Fumarate (Symbicort 160/4.5mcg -) 1 puff IH BID [facility] Last Admin: 07/20/18 10:29 Dose: 1 puff Docusate Sodium (Colace -) 100 mg PO DAILY [facility] Last Admin: 07/20/18 10:24 Dose: 100 mg Piperacillin Sod/Tazobactam (Sod 3.375 gm/ Dextrose) 50 mls @ 100 mls/hr IVPB Q8H-IV [facility]; Protocol Last Admin: 07/20/18 10:27 Dose: 100 mls/hr Vancomycin HCl 1,000 mg/ (Dextrose) 250 mls @ 166.667 mls/hr IVPB BID@0400, 1600 [facility]; Protocol Last Admin: 07/20/18 06:09 Dose: 166.667 mls/hr Insulin Aspart (Novolog Vial Sliding Scale -) 1 vial SQ TIDAC [facility]; Protocol Last Admin: 07/20/18 06:53 Dose: 6 units Methylprednisolone Sodium Succinate (Solu-Medrol -) 40 mg IVPUSH BID [facility] Last Admin: 07/20/18 10:27 Dose: 40 mg Miscellaneous (Lidoderm Patch Removal) 1 each MC DAILY@2200 [facility] Last Admin: 07/19/18 22:54 Dose: Not Given Pantoprazole Sodium (Protonix -) 40 mg PO DAILY [facility] Last Admin: 07/20/18 10:26 Dose: 40 mg Repaglinide (Prandin -) 1 mg PO TIDCM [facility] Last Admin: 07/20/18 08:23 Dose: 1 mg Rivaroxaban (Xarelto -) 20 mg PO DAILY@1800 [facility] Last Admin: 07/19/18 17:48 Dose: 20 mg Roflumilast (Daliresp -) 500 mcg PO DAILY [facility] Last Admin: 07/20/18 10:25 Dose: 500 mcg Tamsulosin HCl (Flomax -) 0.4 mg PO DAILY@0830 [facility] Last Admin: 07/20/18 08:24 Dose: 0.4 mg Tiotropium [place] (Spiriva Respimat) 2 puff IH DAILY [facility] Last Admin: 07/20/18 10:29 Dose: 2 puff Tramadol HCl (Ultram -) 50 mg PO Q8H PRN PRN Reason: PAIN LEVEL 6-10 Last Admin: 07/19/18 21:06 Dose: 50 mg - Objective Vital Signs: Vital Signs Temperature 98.3 F 07/20/18 10:00 Pulse Rate 92 H 07/20/18 10:00 Respiratory Rate 20 07/20/18 10:00 Blood Pressure 120/68 07/20/18 10:00 O2 Sat by Pulse Oximetry (%) 95 07/20/18 09:00 Constitutional: Yes: No Distress, Calm Eyes: Yes: Conjunctiva Clear HENT: Yes: Atraumatic Cardiovascular: Yes: Regular Rate and Rhythm Respiratory: Yes: Diminished, On Nasal O2 Gastrointestinal: Yes: Normal Bowel Sounds, Soft Genitourinary: Yes: Incontinence Musculoskeletal: Yes: Muscle Weakness Extremities: Yes: WNL Edema: No Neurological: Yes: Alert, Pre-Existing Deficit Psychiatric: Yes: Alert Labs: CBC, BMP 07/19/18 07:00 07/19/18 07:00 Problem List - Problems (1) Acute on chronic respiratory failure with hypoxia and hypercapnia Assessment/Plan: -Pulm on board -keep SpO2 >90% -O2 via NC -bronchodilators -Bipap -Symbicort -IV Medrol Code(s): J96.21 - ACUTE AND CHRONIC RESPIRATORY FAILURE WITH HYPOXIA; J96.22 - ACUTE AND CHRONIC RESPIRATORY FAILURE WITH HYPERCAPNIA (2) COPD (chronic obstructive pulmonary disease) Assessment/Plan: -Pulm on board -keep SpO2 >90% -O2 via NC -bronchodilators -Bipap -Symbicort, SPiriva, Daliresp -IV Medrol Code(s): J44.9 - CHRONIC OBSTRUCTIVE PULMONARY DISEASE, UNSPECIFIED (3) DMII (diabetes mellitus, type 2) Assessment/Plan: -BGM ACHS -diabetic dysphagia puree diet -ISS Code(s): E11.9 - TYPE 2 DIABETES MELLITUS WITHOUT COMPLICATIONS (4) HTN (hypertension) Assessment/Plan: -continue Atenolol Code(s): I10 - ESSENTIAL (PRIMARY) HYPERTENSION Qualifiers: Hypertension type: essential hypertension Qualified Code(s): I10 - Essential (primary) hypertension (5) Hyperlipidemia Assessment/Plan: -continue Atorvastatin Code(s): E78.5 - HYPERLIPIDEMIA, UNSPECIFIED Qualifiers: Hyperlipidemia type: unspecified Qualified Code(s): E78.5 - Hyperlipidemia , unspecified (6) Leukocytosis Assessment/Plan: -WBC 13.0 -monitor WBC for downtrend -ID on board -repeat BC neg -IV Vancomycin and Zosyn -UC pending Code(s): D72.829 - ELEVATED WHITE BLOOD CELL COUNT, UNSPECIFIED Assessment/Plan see problem list dvt ppx DNR/DNI pending bed availabilty to Matthew
[2018-07-20] MEDS: traMADol HCL 50 MG TABLET PO PRN ×2 (13:25→21:33)
--- NOTE | 2018-07-20 15:30 | PN ---
Progress Note, Physician History of Present Illness: AWAKE, ALERT SEATED IN BED BREATHING NON LABORED ON BIPAP AFEBRILE WBC IMPROVED BC GPCCL - Current Medication List Current Medications: Active Medications Acetaminophen (Tylenol -) 650 mg PO Q4H PRN PRN Reason: PAIN OR FEVER Albuterol Sulfate (Ventolin 0.083% Nebulizer Soln -) 1 amp NEB Q4H PRN PRN Reason: SHORT OF BREATH/WHEEZING Last Admin: 07/20/18 03:05 Dose: 1 amp Albuterol/Ipratropium (Duoneb -) 1 amp NEB RQID [facility] Last Admin: 07/20/18 11:15 Dose: 1 amp Atenolol (Tenormin -) 50 mg PO DAILY [facility] Last Admin: 07/20/18 10:26 Dose: 50 mg Atorvastatin Calcium (Lipitor -) 20 mg PO HS [facility] Last Admin: 07/19/18 21:06 Dose: 20 mg Budesonide/Formoterol Fumarate (Symbicort 160/4.5mcg -) 1 puff IH BID [facility] Last Admin: 07/20/18 10:29 Dose: 1 puff Docusate Sodium (Colace -) 100 mg PO DAILY [facility] Last Admin: 07/20/18 10:24 Dose: 100 mg Piperacillin Sod/Tazobactam (Sod 3.375 gm/ Dextrose) 50 mls @ 100 mls/hr IVPB Q8H-IV [facility]; Protocol Last Admin: 07/20/18 10:27 Dose: 100 mls/hr Vancomycin HCl 1,000 mg/ (Dextrose) 250 mls @ 166.667 mls/hr IVPB BID@0400, 1600 [facility]; Protocol Last Admin: 07/20/18 06:09 Dose: 166.667 mls/hr Insulin Aspart (Novolog Vial Sliding Scale -) 1 vial SQ TIDAC [facility]; Protocol Last Admin: 07/20/18 13:23 Dose: Not Given Methylprednisolone Sodium Succinate (Solu-Medrol -) 40 mg IVPUSH BID [facility] Last Admin: 07/20/18 10:27 Dose: 40 mg Miscellaneous (Lidoderm Patch Removal) 1 each MC DAILY@2200 [facility] Last Admin: 07/19/18 22:54 Dose: Not Given Pantoprazole Sodium (Protonix -) 40 mg PO DAILY [facility] Last Admin: 07/20/18 10:26 Dose: 40 mg Repaglinide (Prandin -) 1 mg PO TIDCM [facility] Last Admin: 07/20/18 12:26 Dose: 1 mg Rivaroxaban (Xarelto -) 20 mg PO DAILY@1800 [facility] Last Admin: 07/19/18 17:48 Dose: 20 mg Roflumilast (Daliresp -) 500 mcg PO DAILY [facility] Last Admin: 07/20/18 10:25 Dose: 500 mcg Tamsulosin HCl (Flomax -) 0.4 mg PO DAILY@0830 [facility] Last Admin: 07/20/18 08:24 Dose: 0.4 mg Tiotropium [place] (Spiriva Respimat) 2 puff IH DAILY [facility] Last Admin: 07/20/18 10:29 Dose: 2 puff Tramadol HCl (Ultram -) 50 mg PO Q8H PRN PRN Reason: PAIN LEVEL 6-10 Last Admin: 07/20/18 13:25 Dose: 50 mg - Objective Vital Signs: Vital Signs Temperature 98.3 F 07/20/18 10:00 Pulse Rate 92 H 07/20/18 10:00 Respiratory Rate 20 07/20/18 10:00 Blood Pressure 120/68 07/20/18 10:00 O2 Sat by Pulse Oximetry (%) 97 07/20/18 14:34 Constitutional: Yes: No Distress Eyes: Yes: Conjunctiva Clear Cardiovascular: Yes: Regular Rate and Rhythm, S1, S2 Respiratory: Yes: Diminished Gastrointestinal: Yes: Normal Bowel Sounds, Soft. No: Tenderness Edema: Yes Edema: LLE: 1+, RLE: 1+ Labs: CBC, BMP 07/19/18 07:00 07/19/18 07:00 Assessment/Plan ACUTE EXACERBATION COPD R/O HCAP LEUKOCYTOSIS + BC ? SIGNIFICANCE REPEAT BC CONTINUE VANCOMYCIN / ZOSYN
[2018-07-20] MEDS: RIVAROXABAN 20 MG TABLET PO SCH (17:24)
[2018-07-20] MEDS: ATORVASTATIN CA 20 MG TABLET (FP) PO SCH (21:33)
[2018-07-20] MEDS: LIDOCAINE PATCH REMOVAL MC SCH (21:38)
[2018-07-21] MEDS ORDERED: PIPERACILLIN/TAZOBACTAM 3.375 GM VIAL IVPB ONE ×3 (00:42→16:46)
[2018-07-21] MEDS ORDERED: DEXTROSE 5%-WATER - 50 ML IVPB ONE ×3 (00:43→16:46)
[2018-07-21] MEDS: PIPERACILLIN/TAZOB 3.375 GM 3.375 GM in DEXTROSE 5%-WATER - 50 ML IVPB SCH ×3 (01:48→17:11)
[2018-07-21] MEDS: VANCOMYCIN 1,000 MG in DEXTROSE 5%-WATER - 250 ML IVPB SCH ×2 (04:08→17:11)
[2018-07-21] MEDS: INSULIN SLIDING SCALE (NOVOLOG) 1 VIAL SQ SCH ×3 (06:37→17:15)
[2018-07-21] MEDS: ALBUTEROL SO4 2.5/IPRATROPIUM 0.5 INH SOL 3 ML VIAL.NEB. NEB SCH ×4 (07:36→20:15)
[2018-07-21 08:13] LABS: HEMATOCRIT 28.8 % (35.4-49); HEMOGLOBIN 9.4 GM/dL (11.7-16.9); MCH 28.7 pg (25.7-33.7); MCHC 32.7 g/dl (32.0-35.9); MEAN CELL VOLUME 87.7 fl (80-96); MEAN PLT VOLUME 8.4 fl (7.5-11.1); PLATELET COUNT 142 K/MM3 (134-434); RBC 3.28 M/mm3 (4.00-5.60); RDW 17.4 % (11.9-15.9)
[2018-07-21 08:39] LABS: ALBUMIN 1.9 g/dl (3.4-5.0); ALK PHOS 95 U/L (45-117); ANION GAP 5 MMOL/L (8-16); BILIRUBIN,TOTAL 0.9 mg/dL (0.2-1); BLOOD UREA NITROGEN 24 mg/dL (7-18); CALCIUM 8.8 mg/dL (8.5-10.1); CHLORIDE 92 mmol/L (98-107); CO2 42 mmol/L (21-32); CREATININE 0.7 mg/dL (0.55-1.3); GLUCOSE,RANDOM 221 mg/dL (74-106); POTASSIUM 3.1 mmol/L (3.5-5.1); SGOT/AST 30 U/L (15-37); SGPT/ALT 37 U/L (13-61); SODIUM 138 mmol/L (136-145); TOT PROT 4.6 g/dl (6.4-8.2)
[2018-07-21] MEDS: TAMSULOSIN HCL 0.4 MG CAP PO SCH (08:51)
[2018-07-21] MEDS: REPAGLINIDE 1 MG TABLET PO SCH ×3 (08:52→17:12)
[2018-07-21] MEDS: DOCUSATE SODIUM 100 MG CAPSULE (FP) PO SCH (09:29)
[2018-07-21] MEDS: ROFLUMILAST 500 MCG TABLET PO SCH (09:29)
[2018-07-21] MEDS: ATENOLOL 50 MG TABLET (FP) PO SCH (09:29)
[2018-07-21] MEDS: methylPREDNISolone NA SUCC 40 MG/1 ML VIAL IVPUSH SCH ×2 (09:29→22:16)
[2018-07-21] MEDS: PANTOPRAZOLE 40 MG TABLET (FP) PO SCH (09:29)
[2018-07-21] MEDS: BUDESONIDE/FORMETEROL FUMARATE 160/4.5 mcg INHALER IH SCH ×2 (09:30→22:17)
[2018-07-21] MEDS: TIOTROPIUM BROMIDE 2.5 MCG (SPIRIVA) RESPIMAT INHALER IH SCH (09:30)
[2018-07-21] MEDS: KCL 10 MEQ IVPB 10 MEQ/100 ML INFUS.BAG IVPB SCH ×2 (13:34→15:10)
--- NOTE | 2018-07-21 14:46 | DS ---
Physical Examination Vital Signs: Vital Signs Temperature 98.3 F 07/21/18 09:00 Pulse Rate 71 07/21/18 09:00 Respiratory Rate 18 07/21/18 09:00 Blood Pressure 103/63 07/21/18 09:00 O2 Sat by Pulse Oximetry (%) 98 07/21/18 14:10 Findings/Remarks: Patient is a 78 y/o male with past medical history of COPD (non-compliant with Bipap), CVA with residual L sided weakness, DVT, HTN, HLD, Prostate CA. Patient presented to ER with complaints of SOB secondary to non-compliance with Bipap. Patient also complain of non-productive cough for a few days. Constitutional: Yes: No Distress, Calm, Cachectic Eyes: Yes: Conjunctiva Clear HENT: Yes: Atraumatic Cardiovascular: Yes: Regular Rate and Rhythm Respiratory: Yes: Accessory Muscle Use, Diminished, On Nasal O2 Gastrointestinal: Yes: Normal Bowel Sounds, Soft Renal/: Yes: Incontinence Musculoskeletal: Yes: Muscle Weakness Extremities: Yes: WNL Edema: Yes (LUE) Neurological: Yes: Alert, Pre-Existing Deficit Psychiatric: Yes: Alert Labs: CBC, BMP 07/21/18 07:00 07/21/18 07:00 Discharge Summary Reason For Visit: ACUTE ON CHRONIC RESPIRATORY FAILURE WITH HYPOXIA Current Active Problems Acute on chronic respiratory failure with hypoxia and hypercapnia (Acute) COPD (chronic obstructive pulmonary disease) (Acute) COPD exacerbation (Acute) Chronic bronchitis (Acute) History of DVT (deep vein thrombosis) (Acute) Leukocytosis (Acute) Hospital Course: see progress notes Laboratory Tests 07/18/18 07/18/18 07/18/18 03:01 03:01 03:01 WBC 14.3 H RBC 3.65 L Hgb 11.0 L Hct 32.7 L MCV 89.6 MCH 30.2 MCHC 33.7 RDW 17.6 H Plt Count 186 MPV 8.2 Absolute Neuts (auto) 13.3 H Neutrophils % 93.1 H Neutrophils % (Manual) 84.0 H Band Neutrophils % 6.0 Lymphocytes % 1.4 L D Lymphocytes % (Manual) 3.0 L D Monocytes % 5.4 Monocytes % (Manual) 4 Eosinophils % 0.0 Eosinophils % (Manual) 0.0 Basophils % 0.1 D Basophils % (Manual) 0.0 Myelocytes % (Man) 0 D Promyelocytes % (Man) 0 Blast Cells % (Manual) 0 Nucleated RBC % 0 Metamyelocytes 1 D Hypochromia 0 Platelet Estimate Normal Platelet Comment Present Polychromasia 1+ Poikilocytosis 1+ Basophilic Stippling 1+ Anisocytosis 2+ Microcytosis 0 Macrocytosis 0 Spherocytes Tear Drop Cells 1+ Ovalocytes Nelson Cells 1+ Acanthocytes (Spur) 1+ Anticoagulation Therapy Puncture Site ABG pH ABG pCO2 at Pt Temp ABG pO2 at Pt Temp ABG HCO3 ABG O2 Sat (Measured) ABG O2 Content ABG Base Excess Ronny Test VBG pH 7.34 POC VBG pCO2 73.6 H* POC VBG pO2 64.4 H VBG HCO3 38.4 H VBG O2 Sat (Jenifer) 91.0 H VBG Base Excess 10.6 H O2 Delivery Device Oxygen Flow Rate Vent Mode Vent Rate Mechanical Rate Pressure Support Vent Sodium Cancelled Potassium Cancelled Chloride Cancelled Carbon Dioxide Cancelled Anion Gap Cancelled BUN Cancelled Creatinine Cancelled Creat Clearance w eGFR Cancelled POC Glucometer Random Glucose Cancelled Lactic Acid Calcium Cancelled Magnesium Cancelled Total Bilirubin Cancelled AST Cancelled ALT Cancelled Alkaline Phosphatase Cancelled Troponin I Cancelled B-Natriuretic Peptide Total Protein Cancelled Albumin Cancelled Urine Color Urine Appearance Urine pH Ur Specific [place] Urine Protein Urine Glucose (UA) Urine Ketones Urine Blood Urine Nitrite Urine Bilirubin Urine Urobilinogen Ur Leukocyte Esterase 07/18/18 07/18/18 07/18/18 04:03 04:03 06:47 WBC RBC Hgb Hct MCV MCH MCHC RDW Plt Count MPV Absolute Neuts (auto) Neutrophils % Neutrophils % (Manual) Band Neutrophils % Lymphocytes % Lymphocytes % (Manual) Monocytes % Monocytes % (Manual) Eosinophils % Eosinophils % (Manual) Basophils % Basophils % (Manual) Myelocytes % (Man) Promyelocytes % (Man) Blast Cells % (Manual) Nucleated RBC % Metamyelocytes Hypochromia Platelet Estimate Platelet Comment Polychromasia Poikilocytosis Basophilic Stippling Anisocytosis Microcytosis Macrocytosis Spherocytes Tear Drop Cells Ovalocytes Nelson Cells Acanthocytes (Spur) Anticoagulation Therapy Puncture Site ABG pH ABG pCO2 at Pt Temp ABG pO2 at Pt Temp ABG HCO3 ABG O2 Sat (Measured) ABG O2 Content ABG Base Excess Ronny Test VBG pH POC VBG pCO2 POC VBG pO2 VBG HCO3 VBG O2 Sat (Jenifer) VBG Base Excess O2 Delivery Device Oxygen Flow Rate Vent Mode Vent Rate Mechanical Rate Pressure Support Vent Sodium 140 Potassium 3.9 Chloride 98 Carbon Dioxide 38 H Anion Gap 5 L BUN 21 H Creatinine 0.3 L Creat Clearance w eGFR 289.22 POC Glucometer Random Glucose 129 H Lactic Acid 2.0 Calcium 8.3 L Magnesium 2.1 Total Bilirubin 1.0 AST 43 H ALT 60 Alkaline Phosphatase 125 H Troponin I 0.02 B-Natriuretic Peptide 187.3 Total Protein 5.5 L Albumin 2.5 L Urine Color Urine Appearance Urine pH Ur Specific [place] Urine Protein Urine Glucose (UA) Urine Ketones Urine Blood Urine Nitrite Urine Bilirubin Urine Urobilinogen Ur Leukocyte Esterase 07/18/18 07/18/18 07/19/18 07:15 16:42 05:49 WBC RBC Hgb Hct MCV MCH MCHC RDW Plt Count MPV Absolute Neuts (auto) Neutrophils % Neutrophils % (Manual) Band Neutrophils % Lymphocytes % Lymphocytes % (Manual) Monocytes % Monocytes % (Manual) Eosinophils % Eosinophils % (Manual) Basophils % Basophils % (Manual) Myelocytes % (Man) Promyelocytes % (Man) Blast Cells % (Manual) Nucleated RBC % Metamyelocytes Hypochromia Platelet Estimate Platelet Comment Polychromasia Poikilocytosis Basophilic Stippling Anisocytosis Microcytosis Macrocytosis Spherocytes Tear Drop Cells Ovalocytes [place] Cells Acanthocytes (Spur) Anticoagulation Therapy No Result Required. Puncture Site Right brachial ABG pH 7.39 ABG pCO2 at Pt Temp 60.9 H ABG pO2 at Pt Temp 63.4 L ABG HCO3 36.0 H ABG O2 Sat (Measured) 92.5 L ABG O2 Content 13.1 L ABG Base Excess 9.8 H Ronny Test Positive VBG pH POC VBG pCO2 POC VBG pO2 VBG HCO3 VBG O2 Sat (Jenifer) VBG Base Excess O2 Delivery Device Bipap Oxygen Flow Rate No Result Required. Vent Mode No Result Required. Vent Rate 12 Mechanical Rate No Result Required. Pressure Support Vent No Result Required. Sodium Potassium Chloride Carbon Dioxide Anion Gap BUN Creatinine Creat Clearance w eGFR POC Glucometer 234 78 Random Glucose Lactic Acid Calcium Magnesium Total Bilirubin AST ALT Alkaline Phosphatase Troponin I B-Natriuretic Peptide Total Protein Albumin Urine Color Urine Appearance Urine pH Ur Specific [place] Urine Protein Urine Glucose (UA) Urine Ketones Urine Blood Urine Nitrite Urine Bilirubin Urine Urobilinogen Ur Leukocyte Esterase 07/19/18 07/19/18 07/19/18 06:00 07:00 07:00 WBC 13.0 H RBC 3.75 L Hgb 10.7 L Hct 33.0 L MCV 88.1 MCH 28.6 MCHC 32.4 RDW 17.3 H Plt Count 177 MPV 8.4 Absolute Neuts (auto) 12.1 H Neutrophils % 93.1 H Neutrophils % (Manual) 92.9 H Band Neutrophils % 0.0 Lymphocytes % 3.1 L D Lymphocytes % (Manual) 1.0 L D Monocytes % 3.7 L Monocytes % (Manual) 3 L Eosinophils % 0.0 Eosinophils % (Manual) 0.0 Basophils % 0.1 Basophils % (Manual) 0.0 Myelocytes % (Man) 0 Promyelocytes % (Man) 0 Blast Cells % (Manual) 0 Nucleated RBC % 0 Metamyelocytes 0 D Hypochromia 0 Platelet Estimate Normal Platelet Comment Polychromasia 2+ Poikilocytosis 2+ Basophilic Stippling 1+ Anisocytosis 2+ Microcytosis 1+ Macrocytosis 0 Spherocytes 1+ Tear Drop Cells Ovalocytes 1+ Nelson Cells 2+ Acanthocytes (Spur) 1+ Anticoagulation Therapy Puncture Site ABG pH ABG pCO2 at Pt Temp ABG pO2 at Pt Temp ABG HCO3 ABG O2 Sat (Measured) ABG O2 Content ABG Base Excess Ronny Test VBG pH POC VBG pCO2 POC VBG pO2 VBG HCO3 VBG O2 Sat (Jenifer) VBG Base Excess O2 Delivery Device Oxygen Flow Rate Vent Mode Vent Rate Mechanical Rate Pressure Support Vent Sodium 140 Potassium 3.3 L Chloride 95 L Carbon Dioxide 41 H Anion Gap 3 L BUN 20 H Creatinine 0.3 L Creat Clearance w eGFR 289.22 POC Glucometer Random Glucose 70 L Lactic Acid Calcium 8.7 Magnesium Total Bilirubin 1.4 H AST 32 ALT 44 Alkaline Phosphatase 104 Troponin I B-Natriuretic Peptide Total Protein 4.9 L Albumin 2.1 L Urine Color [place] Urine Appearance Turbid Urine pH 5.0 Ur Specific [place] 1.037 H Urine Protein Negative Urine Glucose (UA) Negative Urine Ketones 1+ H Urine Blood Negative Urine Nitrite Negative Urine Bilirubin Negative Urine Urobilinogen 0.2 Ur Leukocyte Esterase Negative 07/19/18 07/19/18 07/19/18 10:58 16:49 22:55 WBC RBC Hgb Hct MCV MCH MCHC RDW Plt Count MPV Absolute Neuts (auto) Neutrophils % Neutrophils % (Manual) Band Neutrophils % Lymphocytes % Lymphocytes % (Manual) Monocytes % Monocytes % (Manual) Eosinophils % Eosinophils % (Manual) Basophils % Basophils % (Manual) Myelocytes % (Man) Promyelocytes % (Man) Blast Cells % (Manual) Nucleated RBC % Metamyelocytes Hypochromia Platelet Estimate Platelet Comment Polychromasia Poikilocytosis Basophilic Stippling Anisocytosis Microcytosis Macrocytosis Spherocytes Tear Drop Cells Ovalocytes [place] Cells Acanthocytes (Spur) Anticoagulation Therapy Puncture Site ABG pH ABG pCO2 at Pt Temp ABG pO2 at Pt Temp ABG HCO3 ABG O2 Sat (Measured) ABG O2 Content ABG Base Excess Ronny Test VBG pH POC VBG pCO2 POC VBG pO2 VBG HCO3 VBG O2 Sat (Jenifer) VBG Base Excess O2 Delivery Device Oxygen Flow Rate Vent Mode Vent Rate Mechanical Rate Pressure Support Vent Sodium Potassium Chloride Carbon Dioxide Anion Gap BUN Creatinine Creat Clearance w eGFR POC Glucometer 131 121 Random Glucose Lactic Acid Calcium Magnesium Total Bilirubin AST ALT Alkaline Phosphatase Troponin I B-Natriuretic Peptide Total Protein Albumin Urine Color [place] Urine Appearance Clear Urine pH 5.0 Ur Specific [place] 1.022 Urine Protein Negative Urine Glucose (UA) Negative Urine Ketones Trace H Urine Blood Negative Urine Nitrite Negative Urine Bilirubin Negative Urine Urobilinogen 0.2 Ur Leukocyte Esterase Negative 07/20/18 07/20/18 07/20/18 06:08 12:10 16:45 WBC RBC Hgb Hct MCV MCH MCHC RDW Plt Count MPV Absolute Neuts (auto) Neutrophils % Neutrophils % (Manual) Band Neutrophils % Lymphocytes % Lymphocytes % (Manual) Monocytes % Monocytes % (Manual) Eosinophils % Eosinophils % (Manual) Basophils % Basophils % (Manual) Myelocytes % (Man) Promyelocytes % (Man) Blast Cells % (Manual) Nucleated RBC % Metamyelocytes Hypochromia Platelet Estimate Platelet Comment Polychromasia Poikilocytosis Basophilic Stippling Anisocytosis Microcytosis Macrocytosis Spherocytes Tear Drop Cells Ovalocytes Nelson Cells Acanthocytes (Spur) Anticoagulation Therapy Puncture Site ABG pH ABG pCO2 at Pt Temp ABG pO2 at Pt Temp ABG HCO3 ABG O2 Sat (Measured) ABG O2 Content ABG Base Excess Ronny Test VBG pH POC VBG pCO2 POC VBG pO2 VBG HCO3 VBG O2 Sat (Jenifer) VBG Base Excess O2 Delivery Device Oxygen Flow Rate Vent Mode Vent Rate Mechanical Rate Pressure Support Vent Sodium Potassium Chloride Carbon Dioxide Anion Gap BUN Creatinine Creat Clearance w eGFR POC Glucometer 301 143 160 Random Glucose Lactic Acid Calcium Magnesium Total Bilirubin AST ALT Alkaline Phosphatase Troponin I B-Natriuretic Peptide Total Protein Albumin Urine Color Urine Appearance Urine pH Ur Specific [place] Urine Protein Urine Glucose (UA) Urine Ketones Urine Blood Urine Nitrite Urine Bilirubin Urine Urobilinogen Ur Leukocyte Esterase 07/20/18 07/21/18 07/21/18 22:44 05:56 07:00 WBC 14.0 H RBC 3.28 L Hgb 9.4 L Hct 28.8 L MCV 87.7 MCH 28.7 MCHC 32.7 RDW 17.4 H Plt Count 142 MPV 8.4 Absolute Neuts (auto) Neutrophils % Neutrophils % (Manual) Band Neutrophils % Lymphocytes % Lymphocytes % (Manual) Monocytes % Monocytes % (Manual) Eosinophils % Eosinophils % (Manual) Basophils % Basophils % (Manual) Myelocytes % (Man) Promyelocytes % (Man) Blast Cells % (Manual) Nucleated RBC % Metamyelocytes Hypochromia Platelet Estimate Platelet Comment Polychromasia Poikilocytosis Basophilic Stippling Anisocytosis Microcytosis Macrocytosis Spherocytes Tear Drop Cells Ovalocytes Nelson Cells Acanthocytes (Spur) Anticoagulation Therapy Puncture Site ABG pH ABG pCO2 at Pt Temp ABG pO2 at Pt Temp ABG HCO3 ABG O2 Sat (Measured) ABG O2 Content ABG Base Excess Ronny Test VBG pH POC VBG pCO2 POC VBG pO2 VBG HCO3 VBG O2 Sat (Jenifer) VBG Base Excess O2 Delivery Device Oxygen Flow Rate Vent Mode Vent Rate Mechanical Rate Pressure Support Vent Sodium Potassium Chloride Carbon Dioxide Anion Gap BUN Creatinine Creat Clearance w eGFR POC Glucometer 242 215 Random Glucose Lactic Acid Calcium Magnesium Total Bilirubin AST ALT Alkaline Phosphatase Troponin I B-Natriuretic Peptide Total Protein Albumin Urine Color Urine Appearance Urine pH Ur Specific [place] Urine Protein Urine Glucose (UA) Urine Ketones Urine Blood Urine Nitrite Urine Bilirubin Urine Urobilinogen Ur Leukocyte Esterase 07/21/18 07/21/18 07:00 11:05 WBC RBC Hgb Hct MCV MCH MCHC RDW Plt Count MPV Absolute Neuts (auto) Neutrophils % Neutrophils % (Manual) Band Neutrophils % Lymphocytes % Lymphocytes % (Manual) Monocytes % Monocytes % (Manual) Eosinophils % Eosinophils % (Manual) Basophils % Basophils % (Manual) Myelocytes % (Man) Promyelocytes % (Man) Blast Cells % (Manual) Nucleated RBC % Metamyelocytes Hypochromia Platelet Estimate Platelet Comment Polychromasia Poikilocytosis Basophilic Stippling Anisocytosis Microcytosis Macrocytosis Spherocytes Tear Drop Cells Ovalocytes [place] Cells Acanthocytes (Spur) Anticoagulation Therapy Puncture Site ABG pH ABG pCO2 at Pt Temp ABG pO2 at Pt Temp ABG HCO3 ABG O2 Sat (Measured) ABG O2 Content ABG Base Excess Ronny Test VBG pH POC VBG pCO2 POC VBG pO2 VBG HCO3 VBG O2 Sat (Jenifer) VBG Base Excess O2 Delivery Device Oxygen Flow Rate Vent Mode Vent Rate Mechanical Rate Pressure Support Vent Sodium 138 Potassium 3.1 L Chloride 92 L Carbon Dioxide 42 H Anion Gap 5 L BUN 24 H Creatinine 0.7 Creat Clearance w eGFR 108.79 POC Glucometer 158 Random Glucose 221 H Lactic Acid Calcium 8.8 Magnesium Total Bilirubin 0.9 AST 30 ALT 37 Alkaline Phosphatase 95 Troponin I B-Natriuretic Peptide Total Protein 4.6 L Albumin 1.9 L Urine Color Urine Appearance Urine pH Ur Specific [place] Urine Protein Urine Glucose (UA) Urine Ketones Urine Blood Urine Nitrite Urine Bilirubin Urine Urobilinogen Ur Leukocyte Esterase Active Medications Generic Name Dose Route Start Last Admin Trade Name Freq PRN Reason Stop Dose Admin Acetaminophen 650 mg 07/19/18 11:02 07/21/18 02:00 Tylenol - PO 650 mg Q4H PRN Administration PAIN OR FEVER Albuterol Sulfate 1 amp 07/18/18 06:44 07/20/18 03:05 Ventolin 0.083% Nebulizer Soln - NEB 1 amp Q4H PRN Administration SHORT OF BREATH/WHEEZING Albuterol/Ipratropium 1 amp 07/18/18 08:00 07/21/18 11:37 Duoneb - NEB 1 amp RQID JACKIE Administration Atenolol 50 mg 07/18/18 10:00 07/21/18 09:29 Tenormin - PO 50 mg DAILY JACKIE Administration Atorvastatin Calcium 20 mg 07/18/18 22:00 07/20/18 21:33 Lipitor - PO 20 mg HS JACKIE Administration Budesonide/Formoterol Fumarate 1 puff 07/18/18 10:00 07/21/18 09:30 Symbicort 160/4.5mcg - IH 1 puff BID JACKIE Administration Docusate Sodium 100 mg 07/18/18 10:00 07/21/18 09:29 Colace - PO 100 mg DAILY JACKIE Administration Piperacillin Sod/Tazobactam 50 mls @ 100 mls/hr 07/18/18 18:00 07/21/18 09:29 Sod 3.375 gm/ Dextrose IVPB 100 mls/hr Q8H-IV JACKIE Administration Protocol Vancomycin HCl 1,000 mg/ 250 mls @ 166.667 mls/hr 07/19/18 16:00 07/21/18 04: 08 Dextrose IVPB 166.667 mls/hr BID@0400,1600 [facility] Administration Protocol Insulin Aspart 1 vial 07/18/18 16:30 07/21/18 11:17 Novolog Vial Sliding Scale - SQ Not Given TIDAC [facility] Protocol Methylprednisolone Sodium Succinate 40 mg 07/19/18 13:00 07/21/18 09:29 Solu-Medrol - IVPUSH 40 mg BID JACKIE Administration Miscellaneous 1 each 07/19/18 22:00 07/20/18 21:38 Lidoderm Patch Removal MC Not Given DAILY@2200 [facility] Pantoprazole Sodium 40 mg 07/18/18 10:00 07/21/18 09:29 Protonix - PO 40 mg DAILY JACKIE Administration Repaglinide 1 mg 07/18/18 08:00 07/21/18 12:39 Prandin - PO 1 mg TIDCM JACKIE Administration Rivaroxaban 20 mg 07/18/18 18:00 07/20/18 17:24 Xarelto - PO 20 mg DAILY@1800 [facility] Administration Roflumilast 500 mcg 07/18/18 10:00 07/21/18 09:29 Daliresp - PO 500 mcg DAILY JACKIE Administration Tamsulosin HCl 0.4 mg 07/18/18 08:30 07/21/18 08:51 Flomax - PO 0.4 mg DAILY@0830 [facility] Administration Tiotropium [employer] 2 puff 07/18/18 10:00 07/21/18 09:30 Spiriva Respimat IH 2 puff DAILY JACKIE Administration Tramadol HCl 50 mg 07/19/18 11:03 07/20/18 21:33 Ultram - PO 50 mg Q8H PRN Administration PAIN LEVEL 6-10 Microbiology 07/18/18 06:47 Blood - Peripheral Venous Blood Culture - Final Staphylococcus Epidermidis 07/19/18 22:27 Urine - Urine Clean Catch Urine Culture - Final NO GROWTH OBTAINED 07/18/18 06:47 Blood - Peripheral Venous Blood Culture - Preliminary Staphylococcus Coagulase Neg 07/19/18 15:45 Blood - Peripheral Venous Blood Culture - Preliminary NO GROWTH OBTAINED AFTER 24 HOURS, INCUBATION TO CONTINUE FOR 4 DAYS. 07/19/18 15:45 Blood - Peripheral Venous Blood Culture - Preliminary NO GROWTH OBTAINED AFTER 24 HOURS, INCUBATION TO CONTINUE FOR 4 DAYS. Condition: Guarded - Instructions Diet, Activity, Other Instructions: continue with medication regimen as directed Disposition: ALF FACILITY - Home Medications Comprehensive Discharge Medication List: Ambulatory Orders Albuterol Sulfate Inhaler - [Ventolin HFA Inhaler -] 1 puff IH DAILY 05/31/18 Atorvastatin Ca [Lipitor] 20 mg PO HS 05/31/18 Bisoprolol Fumarate [Zebeta (Nf) -] 5 mg PO DAILY 05/31/18 Budesonide/Formeterol Fumarate [SYMBICORT 160/4.5mcg -] 1 inh PO BID 05/31/18 Omeprazole 40 mg PO DAILY 05/31/18 Rivaroxaban [Xarelto -] 20 mg PO DAILY 05/31/18 Roflumilast [Daliresp -] 500 mcg PO DAILY 05/31/18 Tamsulosin HCl [Flomax -] 0.4 mg PO DAILY 05/31/18 Tiotropium [employer] [Spiriva] 1 inh PO DAILY 05/31/18 Repaglinide 1 mg PO TIDCM 06/18/18 Albuterol 0.083% Nebulizer [place] [Ventolin 0.083% Nebulizer Soln -] 1 amp NEB Q4H PRN amp 06/20/18 Insulin Sliding Scale [Novolog Vial Sliding Scale -] 1 vial SQ ACHS #1 units Albuterol 2.5/Ipratropium 0.5 [Duoneb -] 1 neb IH QID 07/03/18 Docusate Sodium [Colace] 100 mg PO DAILY 07/03/18 Potassium Chloride 20 meq PO DAILY 07/03/18 Acetaminophen [Tylenol .Regular Strength -] 650 mg PO Q6H PRN tablet 07/11/18 Albuterol 0.083% Nebulizer [place] [Ventolin 0.083% Nebulizer Soln -] 1 amp NEB Q4H PRN amp 07/11/18 Atorvastatin Ca [Lipitor] 20 mg PO HS tablet 07/11/18 Insulin Sliding Scale [Novolog Vial Sliding Scale -] 1 vial SQ ACHS units 07/11 Rivaroxaban [Xarelto -] 20 mg PO DAILY@1800 tablet 07/11/18 Tamsulosin HCl [Flomax -] 0.4 mg PO DAILY@0830 cap.er.24h 07/11/18 predniSONE [Deltasone -] 40 mg PO BID tablet 07/11/18
[2018-07-21] MEDS: RIVAROXABAN 20 MG TABLET PO SCH (17:12)
[2018-07-21] MEDS: ATORVASTATIN CA 20 MG TABLET (FP) PO SCH (22:16)
[2018-07-21] MEDS: LIDOCAINE PATCH REMOVAL MC SCH (22:16)
[2018-07-22] MEDS ORDERED: PIPERACILLIN/TAZOBACTAM 3.375 GM VIAL IVPB ONE ×2 (01:32→09:25)
[2018-07-22] MEDS ORDERED: DEXTROSE 5%-WATER - 50 ML IVPB ONE ×2 (01:32→09:26)
[2018-07-22] MEDS: PIPERACILLIN/TAZOB 3.375 GM 3.375 GM in DEXTROSE 5%-WATER - 50 ML IVPB SCH ×2 (01:36→09:36)
[2018-07-22] MEDS: VANCOMYCIN 1,000 MG in DEXTROSE 5%-WATER - 250 ML IVPB SCH (04:31)
[2018-07-22] MEDS: INSULIN SLIDING SCALE (NOVOLOG) 1 VIAL SQ SCH ×2 (06:11→12:31)
[2018-07-22 07:32] LABS: HEMATOCRIT 29.5 % (35.4-49); HEMOGLOBIN 9.5 GM/dL (11.7-16.9); MCH 28.5 pg (25.7-33.7); MCHC 32.4 g/dl (32.0-35.9); MEAN PLT VOLUME 8.4 fl (7.5-11.1); PLATELET COUNT 149 K/MM3 (134-434); RBC 3.35 M/mm3 (4.00-5.60); RDW 17.3 % (11.9-15.9); WHITE BLOOD COUNT 12.3 K/mm3 (4.0-10.0)
[2018-07-22] MEDS: ALBUTEROL SO4 2.5/IPRATROPIUM 0.5 INH SOL 3 ML VIAL.NEB. NEB SCH ×2 (07:42→11:22)
[2018-07-22 07:58] LABS: ALK PHOS 99 U/L (45-117); ANION GAP 4 MMOL/L (8-16); BILIRUBIN,TOTAL 1.1 mg/dL (0.2-1); BLOOD UREA NITROGEN 21 mg/dL (7-18); CALCIUM 8.7 mg/dL (8.5-10.1); CHLORIDE 91 mmol/L (98-107); CO2 42 mmol/L (21-32); CREATININE 0.8 mg/dL (0.55-1.3); GLUCOSE,RANDOM 193 mg/dL (74-106); POTASSIUM 3.6 mmol/L (3.5-5.1); SGOT/AST 35 U/L (15-37); SGPT/ALT 40 U/L (13-61); SODIUM 137 mmol/L (136-145); TOT PROT 4.9 g/dl (6.4-8.2)
[2018-07-22 08:24] VITALS: BP 120/73; PULSE 76; TEMP 97.9
--- NOTE | 2018-07-22 09:13 | PN ---
Progress Note, Physician Chief Complaint: AWAKE ALERT NAD IN BED HAVING CLEANING/DRESSING BY NURSING STAFF - Current Medication List Current Medications: Active Medications Acetaminophen (Tylenol -) 650 mg PO Q4H PRN PRN Reason: PAIN OR FEVER Last Admin: 07/21/18 02:00 Dose: 650 mg Albuterol Sulfate (Ventolin 0.083% Nebulizer Soln -) 1 amp NEB Q4H PRN PRN Reason: SHORT OF BREATH/WHEEZING Last Admin: 07/20/18 03:05 Dose: 1 amp Albuterol/Ipratropium (Duoneb -) 1 amp NEB RQID [facility] Last Admin: 07/22/18 07:42 Dose: 1 amp Atenolol (Tenormin -) 50 mg PO DAILY [facility] Last Admin: 07/21/18 09:29 Dose: 50 mg Atorvastatin Calcium (Lipitor -) 20 mg PO HS [facility] Last Admin: 07/21/18 22:16 Dose: 20 mg Budesonide/Formoterol Fumarate (Symbicort 160/4.5mcg -) 1 puff IH BID [facility] Last Admin: 07/21/18 22:17 Dose: 1 puff Docusate Sodium (Colace -) 100 mg PO DAILY [facility] Last Admin: 07/21/18 09:29 Dose: 100 mg Piperacillin Sod/Tazobactam (Sod 3.375 gm/ Dextrose) 50 mls @ 100 mls/hr IVPB Q8H-IV [facility]; Protocol Last Admin: 07/22/18 01:36 Dose: 100 mls/hr Vancomycin HCl 1,000 mg/ (Dextrose) 250 mls @ 166.667 mls/hr IVPB BID@0400, 1600 [facility]; Protocol Last Admin: 07/22/18 04:31 Dose: 166.667 mls/hr Insulin Aspart (Novolog Vial Sliding Scale -) 1 vial SQ TIDAC [facility]; Protocol Last Admin: 07/22/18 06:11 Dose: 2 units Methylprednisolone Sodium Succinate (Solu-Medrol -) 40 mg IVPUSH BID [facility] Last Admin: 07/21/18 22:16 Dose: 40 mg Miscellaneous (Lidoderm Patch Removal) 1 each MC DAILY@2200 [facility] Last Admin: 07/21/18 22:16 Dose: Not Given Pantoprazole Sodium (Protonix -) 40 mg PO DAILY [facility] Last Admin: 07/21/18 09:29 Dose: 40 mg Repaglinide (Prandin -) 1 mg PO TIDCM [facility] Last Admin: 07/21/18 17:12 Dose: 1 mg Rivaroxaban (Xarelto -) 20 mg PO DAILY@1800 [facility] Last Admin: 07/21/18 17:12 Dose: 20 mg Roflumilast (Daliresp -) 500 mcg PO DAILY [facility] Last Admin: 07/21/18 09:29 Dose: 500 mcg Tamsulosin HCl (Flomax -) 0.4 mg PO DAILY@0830 [facility] Last Admin: 07/21/18 08:51 Dose: 0.4 mg Tiotropium [place] (Spiriva Respimat) 2 puff IH DAILY [facility] Last Admin: 07/21/18 09:30 Dose: 2 puff Tramadol HCl (Ultram -) 50 mg PO Q8H PRN PRN Reason: PAIN LEVEL 6-10 Last Admin: 07/20/18 21:33 Dose: 50 mg - Objective Vital Signs: Vital Signs Temperature 97.9 F 07/22/18 06:00 Pulse Rate 76 07/22/18 06:00 Respiratory Rate 18 07/21/18 21:00 Blood Pressure 120/73 07/22/18 06:00 O2 Sat by Pulse Oximetry (%) 99 07/22/18 06:45 Constitutional: Yes: No Distress Cardiovascular: Yes: Regular Rate and Rhythm Respiratory: Yes: Diminished Gastrointestinal: Yes: Soft Genitourinary: Yes: Incontinence Musculoskeletal: Yes: Muscle Weakness Extremities: Yes: Other Integumentary: Yes: Pressure Ulcer (STAGW 1-2 SACRAL), Rash Labs: CBC, BMP 07/22/18 07:00 07/22/18 07:00 Problem List - Problems (1) Acute on chronic respiratory failure with hypoxia and hypercapnia Code(s): J96.21 - ACUTE AND CHRONIC RESPIRATORY FAILURE WITH HYPOXIA; J96.22 - ACUTE AND CHRONIC RESPIRATORY FAILURE WITH HYPERCAPNIA (2) COPD exacerbation Code(s): J44.1 - CHRONIC OBSTRUCTIVE PULMONARY DISEASE W (ACUTE) EXACERBATION (3) History of DVT (deep vein thrombosis) Code(s): Z86.718 - PERSONAL HISTORY OF OTHER VENOUS THROMBOSIS AND EMBOLISM (4) Acute on chronic respiratory failure with hypercapnia Code(s): J96.22 - ACUTE AND CHRONIC RESPIRATORY FAILURE WITH HYPERCAPNIA (5) DMII (diabetes mellitus, type 2) Code(s): E11.9 - TYPE 2 DIABETES MELLITUS WITHOUT COMPLICATIONS (6) DVT prophylaxis Code(s): GPB2373 - (7) H/O prostate cancer Code(s): Z85.46 - PERSONAL HISTORY OF MALIGNANT NEOPLASM OF PROSTATE (8) H/O: CVA (cerebrovascular accident) Code(s): Z86.73 - PRSNL HX OF TIA (TIA), AND CEREB INFRC W/O RESID DEFICITS (9) HTN (hypertension) Code(s): I10 - ESSENTIAL (PRIMARY) HYPERTENSION Qualifiers: Hypertension type: essential hypertension Qualified Code(s): I10 - Essential (primary) hypertension Assessment/Plan IV ABX PER ID +BC RESPIRATORY STATUS IMPROVING ON CALVARY TRANSFER ONCE BED AVAILABLE ULCER STAGE 1-2 SACRAL ERT RINSE WITH BACITRACIN BID FREQUENT TURING AND OFFLOAD WITH PILLOWS
[2018-07-22] MEDS ORDERED: PT OWN MED DRAWER 7, Y5N ONE (09:25)
[2018-07-22] MEDS: DOCUSATE SODIUM 100 MG CAPSULE (FP) PO SCH (09:35)
[2018-07-22] MEDS: ATENOLOL 50 MG TABLET (FP) PO SCH (09:35)
[2018-07-22] MEDS: PANTOPRAZOLE 40 MG TABLET (FP) PO SCH (09:35)
[2018-07-22] MEDS: TAMSULOSIN HCL 0.4 MG CAP PO SCH (09:35)
[2018-07-22] MEDS: ROFLUMILAST 500 MCG TABLET PO SCH (09:35)
[2018-07-22] MEDS: methylPREDNISolone NA SUCC 40 MG/1 ML VIAL IVPUSH SCH (09:35)
[2018-07-22] MEDS: REPAGLINIDE 1 MG TABLET PO SCH ×2 (09:37→12:29)
[2018-07-22] MEDS: TIOTROPIUM BROMIDE 2.5 MCG (SPIRIVA) RESPIMAT INHALER IH SCH (09:39)
[2018-07-22] MEDS: BUDESONIDE/FORMETEROL FUMARATE 160/4.5 mcg INHALER IH SCH (09:40)
[2018-07-22] MEDS ORDERED: BACITRACIN 15 GM TUBE TOPICAL OINTMENT TP SCH (10:00)
[2018-07-22] MEDS ORDERED: CLOTRIMAZOLE 1% CREAM 15 GM TUBE TP SCH (10:00)
== END 2018-07-22 14:30 | disposition hospice, inpatient (51) | DRG 189 ==
LOC: JER 01:21 → JERBED 05:25 → J6S 09:16
PROVIDERS: ADMIT Family Medicine; ATTEND Family Medicine
PROC: 5A09557 Assistance with Respiratory Ventilation, Greater than 96 Consecutive Hours, Continuous Positive Airway Pressure (ICD-10-PCS; principal; 2018-07-18)
DX: J96.22 Acute and chronic respiratory failure with hypercapnia (principal); J18.9 Pneumonia, unspecified organism; J44.1 Chronic obstructive pulmonary disease with (acute) exacerbation; G81.94 Hemiplegia, unspecified affecting left nondominant side; I69.354 Hemiplegia and hemiparesis following cerebral infarction affecting left non-dominant side; R64 Cachexia; J96.21 Acute and chronic respiratory failure with hypoxia; I10 Essential (primary) hypertension; E78.5 Hyperlipidemia, unspecified; D72.829 Elevated white blood cell count, unspecified; R00.0 Tachycardia, unspecified; Z86.718 Personal history of other venous thrombosis and embolism; E11.9 Type 2 diabetes mellitus without complications; Z68.23 Body mass index [BMI] 23.0-23.9, adult
CPT/HCPCS: 36415; 36600; 71045-TC-FY; 80048; 80053; 81003; 82803; 82962; 83605; 83735; 83880; 84484; 85025; 85027; 87040; 87086; 87186; 93005; 93010; 94640; 94660; 99284-25